=== PATIENT | female | born 1955 | race Caucasian/White ===

== ENCOUNTER 2017-04-18 14:45 | Emergency (ER) | payer BC, SELFPAY ==
[2017-04-18 15:10] VITALS: PULSE 103; RESP 20; TEMP 36.8; O2SAT 98; BMI 25.8
[2017-04-18 15:18] VITALS: BP 145/77; PULSE 100; RESP 20; TEMP 36.6
--- NOTE | 2017-04-18 15:30 | HMH.EDUTC ---
[facility] [place] Clinical Impression: Pneumonia Qualifiers: Pneumonia type: due to unspecified organism Laterality: left Lung location: unspecified part of lung Qualified Code(s): J18.9 - Pneumonia, unspecified organism Disposition: Home, Self-Care Condition on Discharge: Good Additional Instructions: Follow up with Dr Zazueta tomorrow as advised in clinic today If you began to have any distress, trouble breathing or worsening of symptoms go straight to ER REturn if needed Prescriptions: Budesonide/Formoterol Fumarate [Symbicort 160-4.5 Mcg Inhaler] 2 puffs IH BID #1 [email or web address] Referrals: Heather Hurtado APRN [Primary Care Provider] - 04/19/17 2:00 pm Time of Disposition: 17:05 Medical Decision Making - Medical Records Medical records reviewed: Yes: I reviewed the patient's medical records. Vital Signs: 04/18/17 15:10 04/18/17 15:18 Temperature 98.2 F 97.8 F Temperature Source Temporal Artery Scan Pulse Rate 100 H Pulse Rate [Right] 103 H Respiratory Rate 20 20 Blood Pressure 145/77 02 Sat by Pulse Oximetry 98 Oxygen Delivery Method Room Air - Lab Data Lab Results 04/18/17 15:15: Influenza Type A Ag Negative, Influenza Type B Ag Negative, Strep Scn Rapid Clinic Negative Orders (Tests/Meds): ORDERS Category Date Time Status Strep Screen Confirmation Stat Micro 04/18/17 15:15 Received - Physician Consults Physician Consulted: Dr Zazueta/ Dr Cooper covering Time: 16:38 Reason -: Pt condition Comment/Response: Dr Cooper covering for Dr Zazueta, Spoke with Dr Cooper about patient has been sick for over a month, has already received 2 injections of Rocephin, and just completed Biaxin, patient not having any distress SPO2 98% no fever, state to start patient on symbicort 2 puffs twice daily and have patient follow up with Dr Zazueta. Patient has appointment tomorrow at 2pm and dc patient home - Maroks Inquiry Pt receiving controlled substance: No Markos was queried for this patient: No - Reevaluation(s) Time: 17:03 Reevaluation #1: Patient no distress no changes patient dc'd home has appointment with Dr Zazueta tomorrow at 2 pm Patient advised to keep appointment [facility] [place] - General Stated complaint: sore throat upset stomach Mode of Arrival: Ambulatory Source of Information: Patient Limitations: No Limitations Description of Symptoms (Recalled from Triage Doc. by RN): COUGH, CONGESTION BODY ACHES X1 MONTH HEENT Symptoms (Recalled from RN notes): Yes Resp Symptoms (Recalled from RN notes): No Skin Symptoms (Recalled from RN notes): No MS Symptoms (Recalled from RN notes): No Functional Status (Recalled from RN notes): N - History of Present Illness Provider Complaint: Patient state that she has been sick now for over a month States that she has been seen several times by family doctors and here at the [facility] State that she is having cough, congestion, vomiting and chills States that she recently completed Biaxin and still not feeling any better - Related Data Previous Rx's Medication Instructions Recorded Budesonide/Formoterol Fumarate 2 puffs IH BID #1 hfa.aer.ad 04/18/17 [Symbicort 160-4.5 Mcg Inhaler] Allergies Allergy/AdvReac Type Severity Reaction Status Date / Time No Known Allergies Allergy Verified 04/18/17 15:17 - Worker's Comp Is this a Worker's Comp case?: No [facility] History I have reviewed the patient's past medical history: Yes - Social History Alcohol Intake: never - Psychiatric History Expresses thoughts of harming self/others: None Suicide Plan Description: No Plan ROS Obtained: Yes All systems reviewed & no additional complaints - Constitutional Constitutional: Reports chills, Reports fever(s) - ENT Ears, Nose, Mouth, and Throat: Reports sinus pressure, Reports sore throat - Respiratory Respiratory: Yes chest congestion, Yes cough Physical Exam - General General appearance: alert, in no apparent distress - Expanded ENT Exam
[2017-04-18 15:36] LABS: UTC Influenza A Antigen Negative (Negative); UTC Influenza B Antigen Negative (Negative); UTC Strep Screen (Rapid) Negative (Negative)
--- NOTE | 2017-04-18 15:42 | XR_ITS ---
XR chest 2V Ordering Physician: Fannie Fuentes Patient Age: 62 years: Female HISTORY: ITS.REASON: congestion cough. TECHNIQUE: PA and lateral chest COMPARISON : 03/19/2013 CXR FINDINGS Left lower lobe airspace disease. Somewhat streaky appearing infiltrate and atelectasis at left lower lobe on seen today and not evident on previous study. Question some minimal atelectasis and infiltrate posterior to the left abram as well at left lower lobe. Lateral view Right lung appears stable and fairly clear. Heart abram and mediastinal structures unchanged. Chest wall T-spine unchanged. IMPRESSION: 1. Left lower lobe airspace disease and pneumonia . 2. subtle atelectasis and possible infiltrate infiltrate posterior to the left abram at superior segment LLL on lateral view noted as well
--- NOTE | 2017-04-18 15:42 | ED_ITS ---
[facility] [place] Clinical Impression: Pneumonia Qualifiers: Pneumonia type: due to unspecified organism Laterality: left Lung location: unspecified part of lung Qualified Code(s): J18.9 - Pneumonia, unspecified organism Disposition: Home, Self-Care Condition on Discharge: Good Additional Instructions: Follow up with Dr Zazueta tomorrow as advised in clinic today If you began to have any distress, trouble breathing or worsening of symptoms go straight to ER REturn if needed Prescriptions: Budesonide/Formoterol Fumarate [Symbicort 160-4.5 Mcg Inhaler] 2 puffs IH BID # 1 hfa.[email or web address] Referrals: Heather Hurtado APRN [Primary Care Provider] - 04/19/17 2:00 pm Time of Disposition: 17:05 Medical Decision Making - Medical Records Medical records reviewed: Yes: I reviewed the patient's medical records. Vital Signs: 04/18/17 15:10 04/18/17 15:18 Temperature 98.2 F 97.8 F Temperature Source Temporal Artery Scan Pulse Rate 100 H Pulse Rate [Right] 103 H Respiratory Rate 20 20 Blood Pressure 145/77 02 Sat by Pulse Oximetry 98 Oxygen Delivery Method Room Air - Lab Data Lab Results 04/18/17 15:15: Influenza Type A Ag Negative, Influenza Type B Ag Negative, Strep Scn Rapid Clinic Negative Orders (Tests/Meds): ORDERS Category Date Time Status Strep Screen Confirmation Stat Micro 04/18/17 15:15 Received - Physician Consults Physician Consulted: Dr Zazueta/ Dr Cooper covering Time: 16:38 Reason -: Pt condition Comment/Response: Dr Cooper covering for Dr Zazueta, Spoke with Dr Cooper about patient has been sick for over a month, has already received 2 injections of Rocephin, and just completed Biaxin, patient not having any distress SPO2 98% no fever, state to start patient on symbicort 2 puffs twice daily and have patient follow up with Dr Zazueta. Patient has appointment tomorrow at 2pm and dc patient home - Markos Inquiry Pt receiving controlled substance: No Markos was queried for this patient: No - Reevaluation(s) Time: 17:03 Reevaluation #1: Patient no distress no changes patient dc'd home has appointment with Dr Zazueta tomorrow at 2 pm Patient advised to keep appointment [facility] [place] - General Stated complaint: sore throat upset stomach Mode of Arrival: Ambulatory Source of Information: Patient Limitations: No Limitations Description of Symptoms (Recalled from Triage Doc. by RN): COUGH, CONGESTION BODY ACHES X1 MONTH HEENT Symptoms (Recalled from RN notes): Yes Resp Symptoms (Recalled from RN notes): No Skin Symptoms (Recalled from RN notes): No MS Symptoms (Recalled from RN notes): No Functional Status (Recalled from RN notes): N - History of Present Illness Provider Complaint: Patient state that she has been sick now for over a month States that she has been seen several times by family doctors and here at the [facility] State that she is having cough, congestion, vomiting and chills States that she recently completed Biaxin and still not feeling any better - Related Data Previous Rx's Medication Instructions Recorded Budesonide/Formoterol Fumarate 2 puffs IH BID #1 hfa.aer.ad 04/18/17 [Symbicort 160-4.5 Mcg Inhaler] Allergies Allergy/AdvReac Type Severity Reaction Status Date / Time No Known Allergies Allergy Verified 04/18/17 15:17 - Worker's Comp Is this a Worker's
== END 2017-04-18 17:08 | disposition home or self-care (01) ==
PROVIDERS: Emergency Provider Nurse Practitioner; Family Provider Family Medicine; PCP Nurse Practitioner
DX: J18.9 Pneumonia, unspecified organism (principal)
CPT/HCPCS: 71046; 87804; 87880; 99202; 99203

== ENCOUNTER → 2018-01-20 08:34 | Outpatient (CLI) | payer BC, MEDICARE, SELFPAY ==
--- NOTE | 2018-01-20 08:37 | US_ITS ---
US abdomen limited History:Elevated liver enzymes Ordering Physician:Heather Hurtado Patient Age: 62 years Comparison:Ct scan of Abd 10/12/2006 Findings: Pancreas:Unremarkable. No obvious mass or abnormal fluid collection. No ductal dilatation Liver:No focal liver lesions demonstrated. Homogeneous but overall increased echogenicity. No focal lesions seen. No intrahepatic biliary ductal dilatation evident Right Kidney:Unremarkable. Right kidney measures 9.6 x 4.1 x 6.1 cm and appears sonographically normal. . No hydronephrosis Gallbladder:No gallstones, gallbladder wall thickening, pericholecystic fluid, or biliary dilatation. The common bile duct measures 3 mm in diameter. Impression:Diffuse hepatic steatosis otherwise unremarkable study
== END ==
PROVIDERS: PCP Nurse Practitioner; Visit Provider Nurse Practitioner
DX: R74.8 Abnormal levels of other serum enzymes (principal)
CPT/HCPCS: 76705

== ENCOUNTER 2018-08-08 06:21 | Day surgery (SDC) | payer BC, MEDICARE, SELFPAY ==
[2018-08-07 13:29] VITALS: BMI 24.2
[2018-08-08] VITALS (7 sets, daily range): BP systolic 157–180; BP diastolic 81–91; PULSE 62–68; RESP 16–18; TEMP 36.3–36.5; O2SAT 97–100
== END 2018-08-08 08:21 | disposition home or self-care (01) ==
PROVIDERS: PCP Nurse Practitioner; Visit Provider Ophthalmology
PROC: (CPT 66984; principal; 2018-08-08 07:30)
DX: H26.9 Unspecified cataract (principal)
CPT/HCPCS: 66984; V2632

== ENCOUNTER → 2019-03-02 14:43 | Outpatient (CLI) | payer BC, MEDICARE, SELFPAY ==
--- NOTE | 2019-03-02 14:53 | XR_ITS ---
PROCEDURE: XR LUMBAR SPINE MIN 4V CLINICAL INDICATION: LBP COMPARISON: No exams were available for comparison FINDINGS: There is degenerative disc disease at L2-L3. Mild degenerative disc disease L4-5. No fracture or dislocation. No lytic or blastic change. Vascular calcification is noted. IMPRESSION: Degenerative changes, no acute finding Dictated by: Jatinder Jeter MD 03/02/2019 17:05 Electronically signed by Jatinder Jeter MD in [place] 03/02/2019 17:05
== END ==
PROVIDERS: PCP Nurse Practitioner Family; Visit Provider Nurse Practitioner Family
DX: M54.5 Low back pain (principal)
CPT/HCPCS: 72110

== ENCOUNTER → 2019-07-23 10:36 | Outpatient (CLI) | payer BC, MEDICARE, SELFPAY ==
[2019-07-23 12:11] LABS: Coronavirus 19 IgG Antibody Negative (Negative); Coronavirus 19 IgM Antibody Negative (Negative)
== END ==
PROVIDERS: Visit Provider Ophthalmology
DX: Z03.818 Encounter for observation for suspected exposure to other biological agents ruled out (principal)
CPT/HCPCS: 36415; 86328

== ENCOUNTER 2019-07-24 08:56 | Day surgery (SDC) | payer BC, MEDICARE, SELFPAY ==
--- NOTE | 2019-07-18 13:14 | SUR.PREOP ---
07/18/2019--PHONE CALL MADE TO PATIENT. PATIENT UNDERSTANDS THAT LAB WORK AND COVID TESTING NEEDS TO BE COMPLETED @ 1000 ON 07/23/2019. PATIENT UNDERSTANDS IF LAB WORK AND COVID-19 TESTS ARE NOT COMPLETED BY 12PM ON THAT DATE, THE SURGERY SCHEDULED WILL BE CANCELLED AND RESCHEDULED FOR ANOTHER TIME.
[2019-07-19 13:01] VITALS: BMI 24.2
[2019-07-24 09:56] VITALS: BP 163/95; PULSE 69; RESP 18; TEMP 36.3; O2SAT 99
[2019-07-24 11:00] VITALS: BP 163/97; PULSE 69; RESP 18; TEMP 36.1; O2SAT 98
== END 2019-07-24 11:15 | disposition home or self-care (01) ==
PROVIDERS: PCP Nurse Practitioner; Visit Provider Ophthalmology
PROC: (CPT 66821; principal; 2019-07-24 09:30)
DX: H26.491 Other secondary cataract, right eye (principal); J44.9 Chronic obstructive pulmonary disease, unspecified; F41.9 Anxiety disorder, unspecified; F32.9 Major depressive disorder, single episode, unspecified; M19.90 Unspecified osteoarthritis, unspecified site; Z79.899 Other long term (current) drug therapy; Z90.710 Acquired absence of both cervix and uterus
CPT/HCPCS: 66821

== ENCOUNTER → 2019-09-07 06:20 | Outpatient (CLI) | payer BC, MEDICARE, SELFPAY ==
--- NOTE | 2019-09-07 06:21 | CA_ITS ---
APPROVED REPORT EXAM: Comprehensive 2D, Doppler, and color-flow Echocardiogram Bobbin Drier: Rima Albright RT(R) Ht: 5 ft 6 in Wt: 150lbs BSA: 1.77 BP: 152/77 mmHg Indications: Sob, HTN, COPD, ex smoker, palpitations, SNOW, family history of HD 2D Dimensions LVOT 2.03 cm (M/F) 1.5-2.5 M-Mode Dimensions RVDd 2.22 cm (0.9-2.6) LVDd 4.72 cm (3.5-5.7) LVDs 3.40 cm (3.5-5.7) IVSd 0.75 cm (0.6-1.1) PWd 0.75 cm (0.6-1.1) EF (Teich) 54.20% FS 28.00% EDV (Teich) 103.40 mL ESV (Teich) 47.40 mL LV Diastology E/A Ratio 1.10 Mitral Valve MV A Velocity 85.00 (40-130 cm/s) Left Ventricle Left atrium is mildly enlarged, left ventricle is normal size, mild concentric left ventricular hypertrophy, visually estimated ejection fraction 55% with no regional wall motion abnormality, diastolic parameters are within normal range. Right Ventricle Right atrium and right ventricular normal size and contractility. Aortic Valve Valve is minimally thickened and fibrosed, there is no aortic stenosis or aortic insufficiency. Mitral Valve Mitral valve is grossly normal, there is mild mitral regurgitation. Tricuspid Valve Tricuspid valve grossly normal, there is mild tricuspid regurgitation, tricuspid regurgitation jet velocity is inadequate for calculation of the right ventricular systolic pressure. Pulmonic Valve Pulmonic valve is poorly visualized. Great Vessels Aortic root is normal size. Pericardium No significant pericardial effusion noted. Conclusion 1. Mildly enlarged left atrium, normal left ventricular size, visually estimated ejection fraction 55% with no regional wall motion abnormality, diastolic parameters are within normal range. 2. Mild mitral and tricuspid regurgitation. 3. No significant pericardial effusion noted. Electronically signed by : Keegan Forbes, 09/07/2019 11:14:20
--- NOTE | 2019-09-07 06:21 | CA_ITS ---
APPROVED REPORT Exam: Pharmacologic Technologist: Kathy Aguilar, Ht: 5 ft 6 in Wt: 150 lbs BSA: 1.77 m2 HR: 60 bpm BP: 168/69 mmHg Medical History Medical History: HTN Medications: Levothyroxine,,,,, Losartan,,,,, Pantoprazole,,,,, HCTZ,,,,, Ropinirole,,,,, Prozac,,,,, Allergies: No known drug allergies Cardiac Risk Factors: HTN Stress Test Details Test: LEXISCAN HR Resting HR: 60 bpm Max Heart Rate (APMHR): 158 bpm Max HR Achieved: 105 bpm Target HR (85% APMHR): 134 bpm % of APMHR: 66 Recovery HR: 90 bpm BP Resting BP: 168.0/69.0 mmHg Max BP: 172.0/90.0 mmHg Recovery BP: 165.0/76.0 mmHg ECG Resting ECG: SINUS BRADYCARDIA Clinical Exercise duration: 04:02 min Highest Stage Achieved: Exercise capacity: 1.0 METs Stress ECG Conclusion LEXISCAN PORTION COMPLETED. PATIENT C/O SHORTNESS OF BREATH DURING PEAK INFUSION. NO CHEST PAIN. POSITIVE FOR SHORTNESS OF BREATH DURING PEAK INFUSION. RESOLVED IN RECOVERY. NO ECTOPY. LESS THAN 1.5MM ST DEPRESSION. IMAGES TO FOLLOW Test Summary . . Myoview Injected . . . . Stop exercise at 04:02 . . . . . Electronically signed by : Keegan Forbes, 09/07/2019 13:31:39
--- NOTE | 2019-09-07 06:21 | NM_ITS ---
APPROVED REPORT Exam: Nuclear Stress Test Indication: short of breath..palpitation..fatigue Patient Location: Outpatient Stress Tech: Lolis Lauren [facility] Tech:KASIE Mckay RT(R)(N) Ht: 5 ft 6 in Wt: 150 lbs Bra Size: 36b HR: 60 bpm BP: 168/69 mmHg BSA: 1.77 m2 BMI: 24.2 History: short of breath..palpitation..fatigue Procedure: Patient received a 0.4 mg of intravenous Lexiscan, resting heart rate 60 bpm, resting blood pressure 168/69 mmHg, with Lexiscan maximum heart rate achived was 105 bpm which is Less than 85 % of the maximum predicted heart rate and blood pressure was 139/51 mmHg. Electrocardiogram Resting electrocardiogram showed sinus rhythm, with Lexiscan there is less than 1.[address] segment depression noted from the baseline EKG. The EKG portion of the Lexiscan is nondiagnostic. Cardiac Stress and Resting SPECT Images: Cardiac Stress and Resting SPECT images were obtained using technetium 99m Myoview 29.7 mCi stress and 10.22 mCi at rest. Gated SPECT for analysis of segmental wall motion and calculation of the ejection fraction also done. Cardiac stress and resting SPECT images show mild fixed defect in the anterior wall with normal contractility to SPECT is likely secondary to soft tissue attenuation, no reversible ischemia seen. Computer derived ejection fraction is over 65% with no regional wall motion abnormality, right ventricle is normal size and contractility. Conclusion: 1. The EKG portion of the Lexiscan Myoview is nondiagnostic . 2. No scintigraphic evidence of reversible ischemia seen, computer derived ejection fraction is over 65% with no regional wall motion abnormality, right ventricle is normal size and contractility. 3. Likely normal Lexiscan Myoview study. Electronically signed by : Keegan Forbes, 09/07/2019 13:34:31
--- NOTE | 2019-09-07 08:50 | HMH.ITSHM ---
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 [] ropinirole pantoprazole losartan prozac levothyroxine hctz
== END ==
PROVIDERS: PCP Family Medicine; Visit Provider Urology
DX: R00.2 Palpitations (principal); R06.00 Dyspnea, unspecified; I10 Essential (primary) hypertension; Z82.49 Family history of ischemic heart disease and other diseases of the circulatory system; Z87.891 Personal history of nicotine dependence
CPT/HCPCS: 78452; 93017; 93306; A9502; J2785

== ENCOUNTER → 2019-09-25 14:18 | Outpatient (CLI) | payer BC, MEDICARE, SELFPAY ==
[2019-09-25 18:05] LABS: Anion Gap 14.9 mEq/L (5-15); Blood Urea Nitrogen 16 mg/dl (7-17); Calcium 9.7 mg/dl (8.4-10.2); Carbon Dioxide 27 mmol/L (22.0-30.0); Chloride 102 mmol/L (98-107); Estimated Glomerular Filt Rate 73 ml/min (>60); GFR (African American) 88 ML/MIN (>60); Glucose 105 mg/dl (74-100); Potassium 3.9 mmoL/L (3.5-5.1); Sodium 140 mmol/L (136-145)
== END ==
PROVIDERS: Nurse Practitioner Family; Visit Provider Urology
DX: R00.2 Palpitations (principal); R06.00 Dyspnea, unspecified; I10 Essential (primary) hypertension; Z82.49 Family history of ischemic heart disease and other diseases of the circulatory system; Z87.891 Personal history of nicotine dependence
CPT/HCPCS: 36415; 80048; 84443

== ENCOUNTER → 2019-11-30 08:19 | Outpatient (CLI) | payer BC, MEDICARE, SELFPAY ==
--- NOTE | 2019-11-30 08:22 | CT_ITS ---
PROCEDURE: CT CHEST WO CON 3D volume rendering with shading included Referring Doctor: Heather Hurtado Patient Age:64Y CLINICAL INDICATION: COPD,COUGH,SOB soreness both sides of chest But nonsmoker COMPARISON: No exams were available for comparison TECHNIQUE: Helical axial images obtained with sagittal and coronal reformats and thickened axial images. In addition 3D volume rendering with shading performed on CT independent workstation-[address] [facility]. All CT scans at the facility use one or more dose reduction, viz: automated exposure control, ma/kV adjustment per patient size (including targeted exams where dose is matched to indication, i.e. head), or iterative reconstruction technique. FINDINGS: BONES chest wall: 3D volume reconstruction image shut nicely demonstrates the ribs and rib cage. No rib fractures evident. Sternum unremarkable on these as well as 2D reconstruction images.. Thoracic spine appears intact with no acute findings only scant degenerative changes HEART: Unremarkable-On this noncontrast study. Heart normal size no significant pericardial effusion. MEDIASTINAL AND HILAR STRUCTURES: No mediastinal or hilar mass evident. Only old granulomatous calcified2 right hilar nodes . AORTA: No contrast-normal caliber aorta. No aneurysm. Only minimal atherosclerotic calcification aortic knob and at origin of renal arteries LUNGS:Clear with no active disease.. Minimal basilar atelectasis but no mass or consolidation.. Small 6 mm calcified granuloma at the left upper lobe axial image 28 Benign calcified granuloma at the right mid lung 1 cm size associated with several calcified right hilar nodes associated. PLEURAL SPACES: No significant effusion. No evidence of pneumothorax. . LYMPH NODES: No enlarged lymph nodes evident. UPPER ABDOMEN: Limited views here basically unremarkable. Upper normal wall thickness stomach reflects its nondistended state . IMPRESSION: Negative CT chest without contrast. . Lungs clear with no active cardiopulmonary disease . Old benign granulomatous disease evident. Chest wall and ribs unremarkable Dictated by: Andre Pal MD 11/30/2019 13:00 Andre Pal MD in [place] 11/30/2019 13:00
== END ==
PROVIDERS: PCP Family Medicine; Visit Provider Nurse Practitioner
DX: R05 Cough (principal); R06.02 Shortness of breath; J44.1 Chronic obstructive pulmonary disease with (acute) exacerbation
CPT/HCPCS: 71250

== ENCOUNTER → 2020-03-13 16:12 | Outpatient (CLI) | payer BC, MEDICARE, SELFPAY ==
[2020-03-15 11:36] LABS: Covid-19 Nasal PCR Sendout P&C Negative
== END ==
PROVIDERS: PCP Nurse Practitioner Family; Visit Provider Nurse Practitioner Family
DX: Z11.52 Encounter for screening for COVID-19 (principal)
CPT/HCPCS: U0004

== ENCOUNTER → 2020-05-02 16:26 | Outpatient (CLI) | payer BC, MEDICARE, SELFPAY | PROVIDERS: PCP Nurse Practitioner Family; Visit Provider Nurse Practitioner Family | DX: Z20.822 Contact with and (suspected) exposure to COVID-19 (principal); U07.1 COVID-19 | CPT/HCPCS: U0003 ==

== ENCOUNTER → 2020-06-10 11:19 | Outpatient (CLI) | payer BC, MEDICARE, SELFPAY ==
[2020-06-10 12:03] LABS: Basophils # 0.1 K/mm3 (0-0.2); Basophils % 0.9 % (0.1-2.0); Eosinophils # 0.3 K/mm3 (0.0-0.4); Eosinophils % 4.1 % (0.1-12.0); Hematocrit 34.9 % (37.0-47.0); Hemoglobin 10.9 g/dL (12.2-16.2); Lymphocytes # 1.3 K/mm3 (0.7-4.5); Lymphocytes % 18.2 % (10-50); Mean Corpuscular HGB Conc 31.2 g/dL (31.8-35.4); Mean Corpuscular Hemoglobin 28.4 pg (27.0-31.2); Mean Platelet Volume 7.1 fl (7.4-10.4); Monocytes # 0.4 K/mm3 (0.1-1.0); Monocytes % 5.3 % (1.7-9.3); Neutrophils # 5.1 K/mm3 (1.8-7.8); Neutrophils % 71.4 % (37.0-80.0); Platelet Count 299 K/mm3 (142-424); Red Blood Count 3.84 M/mm3 (4.20-5.40); White Blood Count 7.2 K/mm3 (4.8-10.8)
[2020-06-10 12:57] LABS: Chloride 104 mmol/L (98-107); Potassium 4.6 mmoL/L (3.5-5.1); Sodium 139 mmol/L (136-145)
[2020-06-10 13:00] LABS: Alanine Aminotransferase 34 U/L (12-78); Albumin Level 4.5 g/dl (3.5-5.0); Albumin/Globulin Ratio 1.7 (1.1-1.8); Alkaline Phosphatase 107 U/L (38-126); Anion Gap 12.6 mEq/L (5-15); Aspartate Amino Transferase 38 U/L (14-36); Bilirubin,Total 0.4 mg/dl (0.2-1.3); Blood Urea Nitrogen 18 mg/dl (7-17); Carbon Dioxide 27 mmol/L (22.0-30.0); Estimated Glomerular Filt Rate 72 ml/min (>60); GFR (African American) 88 ML/MIN (>60); Globulin 2.7 g/dL (1.3-3.2); Total Protein,Serum 7.2 g/dl (6.3-8.2)
[2020-06-10 13:01] LABS: Calcium 9.6 mg/dl (8.4-10.2); Glucose 96 mg/dl (74-100)
== END ==
PROVIDERS: PCP Nurse Practitioner Family; Visit Provider Nurse Practitioner Family
DX: I49.9 Cardiac arrhythmia, unspecified (principal); I10 Essential (primary) hypertension
CPT/HCPCS: 36415; 80053; 84443; 85025; 93225; 93226

== ENCOUNTER → 2020-07-09 07:51 | Outpatient (CLI) | payer BC, MEDICARE, SELFPAY ==
--- NOTE | 2020-07-09 07:55 | CA_ITS ---
APPROVED REPORT Rn Home Health: Dianne Zeng RVT Study Quality: Good Indications: HTN Risk Factors Hypertension Smoking Renal Artery Doppler Origin (R) 203.7/ cm/sec Proximal (R) 196.0/ cm/sec Mid (R) 230.6/ cm/sec Distal (R) 178.7/ cm/sec Renal Aorta Ratio (R) 2.88 Segmental A. (R) 73.2/19.3 cm/sec RI: 0.73 Segmental A. Sup (R) 73.2/19.3 cm/sec Segmental A. Mid (R) 40.4/13.5 cm/sec Segmental A. Inf (R) 42.6/14.6 cm/sec Origin (L) 115.3/ cm/sec Proximal (L) 169.1/ cm/sec Mid (L) 196.0/ cm/sec Distal (L) 188.3/ cm/sec Renal Aorta Ratio (L) 2.44 Segmental A. (L) 82.8/21.4 cm/sec RI: 0.74 Segmental A. Sup (L) 74.8/22.7 cm/sec Segmental A. Mid (L) 82.8/21.4 cm/sec Segmental A. Inf (L) 76.1/20.0 cm/sec Renal Measurements Kidney Size (R) 9.7x6.2 cm Cortical Thickness (R) 1.4 cm Kidney Size (L) 10.0x6.3 cm Cortical Thickness (L) 1.5 cm Findings Study suggests less than 60% stenosis of the bilateral renal arteries. Conclusion Study suggests less than 60% stenosis of the bilateral renal arteries. Electronically signed by : Judi Fleming, 07/10/2020 16:43:19
--- NOTE | 2020-07-09 08:28 | US_ITS ---
PROCEDURE: US ABDOMEN LIMITED CLINICAL INDICATION: RUQ PAIN COMPARISON: US ABD US abdomen limited from 01/20/2018 FINDINGS: PANCREAS: The visualized pancreas is unremarkable. The tail is partially LIVER: Obscured. Diffuse fatty infiltration of the liver is noted. No focal liver lesions. No intra or extrahepatic biliary dilation. The portal vein is patent and demonstrates appropriate directional flow. The CBD measures 0.2 centimeters. RIGHT KIDNEY: Unremarkable. Normal size and echogenicity. No hydronephrosis GALLBLADDER: No gallstones, gallbladder wall thickening, pericholecystic fluid, or biliary dilatation. Small amount of sludge is noted in the above gallbladder. IMPRESSION: Sludge in the gallbladder. No evidence of Colles lithiasis or cholecystitis. Hepatic steatosis. Dictated by: Judi Fleming 07/09/2020 11:44 Judi Fleming in [place] 07/09/2020 11:44
== END ==
PROVIDERS: PCP Nurse Practitioner Family; Visit Provider Nurse Practitioner Family
DX: R10.11 Right upper quadrant pain (principal); I10 Essential (primary) hypertension
CPT/HCPCS: 76705; 93976

== ENCOUNTER → 2020-07-30 10:16 | Outpatient (CLI) | payer BC, MEDICARE, SELFPAY ==
--- NOTE | 2020-07-30 10:19 | NM_ITS ---
PROCEDURE: NM HEPATOBILIARY WO PHARM CLINICAL INDICATION: SLUDGE IN GALLBLADDER COMPARISON: US US ABDOMEN LIMITED from 07/09/2020 TECHNIQUE: DOSE: 8.44 mCi technetium Choletec. Fatty meal/ensure given for gallbladder contraction FINDINGS: Homogeneous activity is present within the hepatic parenchyma. Activity is present in the gallbladder by 5 minutes. Activity is present in the small bowel by 60 minutes. The gallbladder ejection fraction is calculated to be 94 percent. No pain reported with fatty meal. IMPRESSION: No evidence of common or cystic duct obstruction with normal gallbladder ejection fraction. Dictated by: Jatinder Jeter MD 07/30/2020 17:37 Jatinder Jeter MD in [place] 07/30/2020 17:37
== END ==
PROVIDERS: PCP Nurse Practitioner Family; Visit Provider Nurse Practitioner Family
DX: R10.10 Upper abdominal pain, unspecified (principal); K82.8 Other specified diseases of gallbladder
CPT/HCPCS: 78226; A9537

== ENCOUNTER → 2020-10-03 12:05 | Outpatient (CLI) | payer BC, MEDICARE, SELFPAY | PROVIDERS: Visit Provider Internal Medicine Gastroenterology | DX: Z01.812 Encounter for preprocedural laboratory examination (principal); Z20.822 Contact with and (suspected) exposure to COVID-19; Z13.810 Encounter for screening for upper gastrointestinal disorder; R10.10 Upper abdominal pain, unspecified | CPT/HCPCS: U0003 ==

== ENCOUNTER 2020-10-06 10:24 | Day surgery (SDC) | payer BC, MEDICARE, SELFPAY ==
[2020-10-02 13:19] VITALS: BMI 24.2
[2020-10-06 10:44] VITALS: BP 171/75; PULSE 60; RESP 16; TEMP 36.9; O2SAT 98
--- NOTE | 2020-10-06 11:18 | P.PN_ITS ---
[facility] Anesthesia Checklist - Patient Identification Patient Identification: Arm Band - Structural Data Admitted From: Home Planned Operative Procedure/s: EGD/Colonoscopy Consent for Planned Operative Procedure(s) Verified: Yes - NPO Status Verified Time NPO: 00:00 - Additional verifications Anesthesia Reactions: No - Airway Assessment C-Spine Mobility Assessed: Yes TMJ Mobility Assessed: Yes Dentition: Edentulous - Neurological Assessment Level of Consciousness: Awake Hx Seizures: No Numbness or tingling in extremities: No - Anesthesia Plan Anesthesia Risk discussed: Yes Anesthesia Plan: Verified ASA Class: III Anesthesia Type: MAC [facility] History I have reviewed the patient's past medical history: Yes Medical History: Reports:: Anxiety, Cancer (cervical), Chronic Obstructive Pulmonary Disease (COPD), Depression, Hypertension, Lung Disease, Migraine Denies:: Diabetes Mellitus Type 1, Diabetes Mellitus Type 2, Internal Pacemaker, MRSA, Seizures *Have you ever received a pneumonia vaccine?: No *Have you received a flu vaccine this season?: No Other Medical History: Reports: Arthritis, Thyroid Disease, Other Anesthesia experience/problems:: None Laterality Cases: Bilateral: Cataract Other Surgeries: Yes: Tubal Ligation, Other (elbow, neck, shoulder). No: Pacemaker Amputation: No Fractures: No - *Social History Last grade of school completed: High school graduate Smoking Status: Former smoker #Yrs smoked (if former smoker): 40 Smoking End Date: 04/2013 Alcohol Intake: never Substance Use Type: denies use *Occupational Status:: retired Housing: house Household Members: spouse, family *Travel in the last 8 weeks: None - Psychiatric History Pschychiatric History:: Reports:: Anxiety, Depression Family Hx:: Cancer
--- NOTE | 2020-10-06 11:54 | HMH.PROC ---
[facility] Procedure Note Procedure Note:: Upper Endoscopy Procedure Report: Esophagogastroduodenoscopy with cold biopsies and TTS balloon dilation Endoscopost: Davey Dhillon II, MD Referring Physician: HEATHER Sands Date of Procedure: October 06, 2020 Equipment: Olympus GIF 190 standard upper endoscope Sedation: MAC sedation Indications: Mrs. Tilley is a 65-year-old female with acute and chronic dyspepsia and IBS. She has had longstanding lower abdominal discomfort. Over the last 6 months she has had epigastric pain and dyspepsia. She reports bloating, belching, nausea and early satiety. She reports some dysphagia and globus sensation. She reports no significant heartburn but does get some reflux. She does take omeprazole which helps. The patient also reports chronic diarrhea. Procedure: Prior to the procedure, a history and physical exam was performed, and patient's medications and allergies were reviewed. The risks, benefits and alternatives of the sedation and procedure were discussed with the patient. All questions were answered and informed consent was obtained. The patient was brought to the procedure room. Patient identification and proposed procedure were verified by the physician and the nurse. The patient was placed in a left lateral decubitus position and the scope was passed under direct vision. Throughout the procedure, the patient's blood pressure, pulse, and oxygen saturations were monitored continuously. The upper GI endoscopy was accomplished without difficulty. The patient tolerated the procedure well. Findings: The scope was passed directly into the upper esophagus and advanced to the third portion of the duodenum. The post bulbar duodenum and duodenal bulb were normal with normal mucosa and conniventes. There was mild duodenal lymphoid stasis. Cold biopsies were taken from the post bulbar duodenum to rule out celiac disease. The scope was withdrawn through a normal duodenal bulb and pylorus into the stomach. There was some bile reflux with mild linear reactive gastropathy of the antrum and body of the stomach. The remainder of the fundus of the stomach was grossly normal. Upon retroflexion there was no hiatal hernia. 2 biopsies were taken in the antrum and along the lesser curvature for histology to rule out gastritis and/or H pylori. The scope was then withdrawn into the esophagus. There was a serrated Z-line. Cold biopsies were taken at the GE junction. There was evidence of moderate tertiary contractions and moderate esophageal dysmotility. The entire esophagus was dilated to 60 Maltese/20 mm with a TTS hydrostatic balloon. There was some resistance at the cricopharyngeus. The remainder of the esophageal mucosa was normal. Impression: 1. Cricopharyngeal spasm status post dilation to 20 mm 2. Nonerosive GERD with moderate esophageal dysmotility 3. Bile reflux with mild linear reactive gastropathy Plan: I will follow-up the biopsies. I will discuss the findings with the patient and family. I do feel that this is functional dyspepsia and functional bowel disease (i.e. IBS diarrhea). I will check for CATRACHO and CSID. I will proceed with colonoscopy.
--- NOTE | 2020-10-06 12:20 | P.PCN_ITS ---
[facility] Procedure Note Procedure Note:: Colonoscopy Procedure Report: Colonoscopy with cold biopsies Endoscopist: Davey Dhillon II, MD Referring physician: HEATHER Sands Date of Procedure: October 06, 2020 Equipment: Olympus 190 variable stiffness pediatric colonoscope Sedation: MAC sedation Indication: Mrs. Tilley is a 65-year-old female with epigastric abdominal pain and lower abdominal pain. She has chronic diarrhea. She reports moderate gassiness and bloating. She reports no rectal bleeding or weight loss. She does state that her half sister had Crohn's disease and her father had colitis. The patient did have a colonoscopy (Dr. Jeff Bhatti) in June 2015. The patient did have an ultrasound of the abdomen in June 2020 that showed some sludge and hepatic steatosis. A subsequent HIDA scan showed a 94% gallbladder ejection fraction. The patient did have a CT scan of the chest in 2019 that did not show any significant findings. Procedure: Prior to the procedure, a history and physical exam was performed, and patient's medications and allergies were reviewed. The risks, benefits and alternatives of the sedation and procedure were discussed with the patient. All questions were answered and informed consent was obtained. The patient was brought to the procedure room. Patient identification and proposed procedure were verified by the physician and the nurse. The patient was placed in a left lateral decubitus position and the scope was passed under direct vision. Throughout the procedure, the patient's blood pressure, pulse, and oxygen saturations were monitored continuously. The colonoscopy was accomplished without difficulty. The patient tolerated the procedure well. Findings: On digital rectal examination there was normal rectal tone. There were no external hemorrhoids. The colonoscope was introduced through the anal canal to the rectum and advanced to the cecum. The ileocecal valve and appendiceal orifice were identified. The scope was advanced a short distance into the ileum which appeared mostly normal. There appeared to be some reduced luminal diameter and increased whitish lymphoid papules. Cold biopsies were taken from the ileum for histology. The scope was then withdrawn into the colon. The cecum, ascending and transverse colon and mucosa were grossly normal. Cold biopsies were taken from the right colon to rule out microscopic colitis. There were rarely scattered diverticuli throughout the descending and sigmoid colon (LEFT colon). There was also some mild mucosal edema of the distal descending and sigmoid colon and cold biopsies were obtained to rule out colitis (diverticular associated colitis). The rectum itself was normal. Upon retroflexion within the rectum there were grade 2 internal hemorrhoids. The preparation was excellent throughout with Jenners Preparation Score of 9. The cecal time was 12 minutes. Impression: 1. 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 Ileal lymphoid hyperplasia Plan: I will follow-up the biopsies. I would recommend additional testing to rule out CSID. We will discuss dietary measures and treatment options.
[2020-10-06 12:22] VITALS: BP 101/57; PULSE 65; RESP 12; TEMP 36.2; O2SAT 91
[2020-10-06 12:32] VITALS: BP 138/76; PULSE 63; RESP 16; O2SAT 96
[2020-10-06 12:42] VITALS: BP 146/90; PULSE 63; RESP 16; O2SAT 95
[2020-10-06 12:52] VITALS: BP 129/62; PULSE 63; RESP 16; TEMP 36.2; O2SAT 96
[2020-10-06 15:20] VITALS: O2SAT 97
== END 2020-10-06 12:57 | disposition home or self-care (01) ==
LOC: OUTP 10:26
PROVIDERS: PCP Nurse Practitioner Family; Visit Provider Internal Medicine Gastroenterology
PROC: 0DJ08ZZ Inspection of Upper Intestinal Tract, Via Natural or Artificial Opening Endoscopic (ICD-10-PCS; CPT 43235; principal; 2020-10-06 11:30)
DX: K57.30 Diverticulosis of large intestine without perforation or abscess without bleeding (principal); K52.89 Other specified noninfective gastroenteritis and colitis; R59.9 Enlarged lymph nodes, unspecified; J39.2 Other diseases of pharynx; K21.9 Gastro-esophageal reflux disease without esophagitis; K22.4 Dyskinesia of esophagus; K31.9 Disease of stomach and duodenum, unspecified; J44.9 Chronic obstructive pulmonary disease, unspecified; I10 Essential (primary) hypertension; Z85.41 Personal history of malignant neoplasm of cervix uteri; F41.9 Anxiety disorder, unspecified; F32.9 Major depressive disorder, single episode, unspecified
CPT/HCPCS: 45380; 43239; 43249; C1726

== ENCOUNTER 2021-03-18 09:02 | Emergency (ER) | payer BC, MEDICARE, SELFPAY ==
[2021-03-18 09:27] VITALS: BP 136/70; PULSE 89; RESP 18; TEMP 37.6; O2SAT 94; BMI 24.8
[2021-03-18 09:57] LABS: UTC Influenza A Antigen Negative (Negative); UTC Influenza B Antigen Negative (Negative)
[2021-03-18 09:58] LABS: UTC Strep Screen (Rapid) Negative (Negative)
--- NOTE | 2021-03-18 10:12 | HMH.EDUTC ---
[facility] [place] Impression: Viral syndrome, Exposure to COVID-19 virus Disposition: Home, Self-Care Condition on Discharge: Good Instructions: When a Loved One Has Chronic Fatigue Syndrome or Fibromyalgia, DI for Viral Syndrome, DI for COVID-19 (Suspected or Confirmed ), Preventing the Spread of Coronavirus Discharge Instructions Additional Instructions: Drink plenty of fluids. Take tylenol or ibuprofen for pain or fever. Take the medications as directed. Follow up with your regular doctor. GO TO THE ER FOR ANY WORSENING SYMPTOMS Quarantine until you know the results of your covid-19 test. Notify your school or workplace of your results and follow their instructions regarding return to work/school. The cough medication (promethazine dm) will make you drowsy, so don't drive or operate heavy machinery after taking it. Prescriptions: Promethazine/Dextromethorphan [Promethazine-Dm Syrup] 5 ml PO Q6HP PRN #240 ml PRN Reason: Cough Transmission Status: Received by [facility] Ondansetron [Zofran 4mg ODT] 4 mg PO Q8HP PRN #20 tab PRN Reason: Nausea Transmission Status: Received by [facility] methylPREDNISolone [Medrol] 4 mg PO DIRECTED 6 Days #21 packet Transmission Status: Received by [facility] Azithromycin [Z-Jacobo 250mg Tab*] 250 mg PO UD DOSE PK #6 tab Transmission Status: Received by [facility] Referrals: Nicole Gallardo APRN [Primary Care Provider] - Time of Disposition: 10:40 Medical Decision Making - Medical Records Medical records reviewed: No: I reviewed the patient's medical records. - Markos Inquiry Pt receiving controlled substance: No Vital Signs: 03/18/21 09:27 03/18/21 11:04 Temperature 99.7 F H 99.7 F H Temperature Source Oral Pulse Rate 89 Pulse Rate [Left] 89 Respiratory Rate 18 18 Blood Pressure 136/70 Blood Pressure [Right Arm] 136/70 Blood Pressure Mean [Right Arm] 92 02 Sat by Pulse Oximetry 94 L - Lab Data Lab results reviewed: Yes: I reviewed the patient's lab results. Lab Results 03/18/21 09:32: Strep Scn Rapid Clinic Negative 03/18/21 09:33: Influenza Type A Ag Negative, Influenza Type B Ag Negative Orders (Tests/Meds): ORDERS Category Date Time Status Strep Screen Confirmation Stat Micro 03/18/21 09:32 Received [facility] [place] - General Stated complaint: covid exposure/symptoms Time Seen by Provider: 03/18/21 10:12 Mode of Arrival: Ambulatory Source of Information: Patient Limitations: No Limitations Description of Symptoms (Recalled from Triage Doc. by RN): pt c/o fever, chills, myalgia, DUNCAN, n/v, dizziness and congestion since last night. HEENT Symptoms (Recalled from RN notes): Yes Resp Symptoms (Recalled from RN notes): No Skin Symptoms (Recalled from RN notes): No MS Symptoms (Recalled from RN notes): No Functional Status (Recalled from RN notes): wnl - History of Present Illness Provider Complaint: She c/o feeling bad, having body aches and congestion since last night. - Related Data Home Medications Medication Instructions Recorded Confirmed Fluoxetine HCl [Prozac 20mg 60 mg PO DAILY 09/05/18 10/06/20 Capsule] Fluticasone/Umeclidin/Vilanter 1 puff IH DAILY 09/05/18 10/06/20 [Trelegy Ellipta 100-62.5-25] Levothyroxine Sodium [Synthroid 112 mcg PO DAILY 07/19/19 10/06/20 75mcg (0.075mg) tablet] pantoprazole 40 mg tablet,delayed 40 mg PO DAILY tab 08/28/19 10/06/20 release Gabapentin [Gabapentin 400mg Cap] 400 mg PO TID 10/02/20 10/06/20 Losartan Potassium [Cozaar 100mg 100 mg PO DAILY 10/02/20 10/06/20 Tablets] Metoprolol Succinate [Toprol XL 50 mg PO DAILY 10/02/20 10/06/20 50mg Tablet] Vitamin B Complex [B Complex] 1 tab PO DAILY 10/02/20 10/06/20 Amiloride HCl 2.5 mg PO DAILY 10/06/20 10/06/20 Previous Rx's Medication Instructions Recorded Azithromycin [Z-Jacobo 250mg Tab*] 250 mg PO UD DOSE PK #6 tab 03/18/21 Ondansetron [Zofran 4mg
[2021-03-18 11:04] VITALS: BP 136/70; PULSE 89; RESP 18; TEMP 37.6
== END 2021-03-18 11:05 | disposition home or self-care (01) ==
PROVIDERS: Emergency Provider Nurse Practitioner Family; PCP Nurse Practitioner Family
DX: Z20.822 Contact with and (suspected) exposure to COVID-19 (principal); B34.9 Viral infection, unspecified; J44.9 Chronic obstructive pulmonary disease, unspecified; I10 Essential (primary) hypertension; Z87.891 Personal history of nicotine dependence
CPT/HCPCS: 87804; 87880; 99203; C9803; G0463; U0003; U0005

== ENCOUNTER → 2021-03-19 13:18 | Outpatient (CLI) | payer BC, MEDICARE, SELFPAY | PROVIDERS: Visit Provider Nurse Practitioner | DX: U07.1 COVID-19 (principal) | CPT/HCPCS: C9803; U0003; U0005 ==

== ENCOUNTER → 2021-04-13 16:28 | Outpatient (CLI) | payer BC, MEDICARE, SELFPAY | PROVIDERS: PCP Nurse Practitioner Family; Visit Provider Nurse Practitioner Family | DX: R00.0 Tachycardia, unspecified (principal) | CPT/HCPCS: 93225; 93226 ==

== ENCOUNTER → 2021-06-29 13:37 | Outpatient (CLI) | payer BC, MEDICARE, SELFPAY ==
--- NOTE | 2021-06-29 13:38 | CA_ITS ---
APPROVED REPORT EXAM: Comprehensive 2D, Doppler, and color-flow Echocardiogram Window Display Designer: Silvia Wood CRT Ht: 5 ft 6 in Wt: 157lbs BSA: 1.80 BP: 138/70 mmHg Indications: Shortness of Breath, Fatigue 2D Dimensions LVOT 1.88 cm (M/F) 1.5-2.5 LA Volume 34.70 mL LA Volume Index 19.30 mL/m2 (M/F) 16-34 M-Mode Dimensions RVDd 2.69 cm (0.9-2.6) LA Diam 3.47 cm (1.9-4.0) LVDd 3.97 cm (3.5-5.7) Ao Diam 3.54 cm (2.0-3.7) LVDs 2.66 cm (3.5-5.7) IVSd 1.91 cm (0.6-1.1) PWd 0.69 cm (0.6-1.1) EF (Teich) 62.20% FS 33.00% EDV (Teich) 68.80 mL TAPSE 1.90 (<1.7) ESV (Teich) 26.00 mL LV Diastology E Decel Time 230.00 (160-240 msec) E/A Ratio 1.25 MED E' 11.00 (< 7 cm/sec) MED A' 11.10 cm/s E'/MED E' Ratio 9.63 (>14) LAT E' 7.70 (<10 cm/sec) LAT A' 9.90 cm/s E/LAT E' Ratio 13.75 (>14) Aortic Valve AO Peak GR. 7.10 mmHg Mitral Valve MV E Max Jordan. 106.00 (40-130 cm/s) MV A Velocity 85.00 (40-130 cm/s) E/A Ratio 1.25 MV Decel. Time 230.00 (160-240 ms) MV PHT 67.00 ms Pulmonary Valve PV Peak Velocity 221.00 (50-150 cm/s) Tricuspid Valve TR P. Velocity 212.00 cm/s RAP Estimate 10.00 mmHg RVSP 28.00 mmHg Left Ventricle Left atrium is mildly enlarged, left ventricle is normal size, left ventricle wall thickness is upper limit of normal, there is preserved left ventricular systolic function, estimated ejection fraction 55% with no regional wall motion abnormality, diastolic parameters are inconclusive. Right Ventricle Right atrium and right ventricle are normal size and contractility. Aortic Valve Aortic valve is minimally thickened and fibrosed there is no aortic stenosis or aortic insufficiency. Mitral Valve Mitral valve leaflets are minimally thickened, there is mild mitral regurgitation. Tricuspid Valve Tricuspid valve grossly normal, there is mild tricuspid regurgitation, tricuspid regurgitation jet velocity is inadequate for calculation of the right ventricular systolic pressure. Pulmonic Valve Pulmonic valve is poorly visualized. Great Vessels Aortic root is normal size. Inferior vena cava is normal size with normal inspiratory collapse. Pericardium No significant pericardial effusion noted. Conclusion 1. Normal left ventricular size, preserved left ventricular systolic function, estimated ejection fraction 55% with no regional wall motion abnormality, diastolic parameters are inconclusive. 2. Mild mitral and tricuspid regurgitation. 3. No significant pericardial effusion noted. 4. Inferior vena cava is normal size with normal inspiratory collapse. Electronically signed by : Keegan Forbes MD 06/29/2021 14:31:37
== END ==
PROVIDERS: PCP Nurse Practitioner Family; Visit Provider Physician Assistant
DX: R06.00 Dyspnea, unspecified (principal); I10 Essential (primary) hypertension; Z82.49 Family history of ischemic heart disease and other diseases of the circulatory system; Z87.891 Personal history of nicotine dependence
CPT/HCPCS: 93306

== ENCOUNTER → 2021-07-13 12:12 | Outpatient (CLI) | payer BC, MEDICARE, SELFPAY ==
[2021-07-13 13:22] LABS: Anion Gap 11.5 mEq/L (5-15); Blood Urea Nitrogen 12 mg/dl (7-17); Calcium 9.2 mg/dl (8.4-10.2); Carbon Dioxide 26 mmol/L (22.0-30.0); Chloride 106 mmol/L (98-107); Estimated Glomerular Filt Rate 72 ml/min (>60); GFR (African American) 87 ML/MIN (>60); Glucose 129 mg/dl (74-100); Potassium 3.5 mmoL/L (3.5-5.1); Sodium 140 mmol/L (136-145)
== END ==
PROVIDERS: PCP Nurse Practitioner Family; Visit Provider Physician Assistant
DX: R06.00 Dyspnea, unspecified (principal); R00.2 Palpitations; I10 Essential (primary) hypertension
CPT/HCPCS: 36415; 80048

== ENCOUNTER 2021-08-28 17:28 | Emergency (ER) | payer BC, MEDICARE, SELFPAY ==
[2021-08-28 17:52] VITALS: BP 182/97; PULSE 69; RESP 16; TEMP 36.5; O2SAT 98; BMI 23.7
[2021-08-28 18:07] LABS: Apearance,Urine Turbid (Clear); Color,Urine Orange (Yellow); Glucose,Urine (UA) Trace (Negative); Ketones,Urine Negative (Negative); Protein,Urine 3+ (Negative); Specific Gravity, Urine 1.015 (1.005-1.030)
[2021-08-28 18:08] LABS: Bilirubin,Urine Negative (Negative); Blood, Urine 3+ (Negative)
[2021-08-28 18:09] LABS: UTC Leukocyte Esterase,Urine 3+ (Negative); UTC Nitrate,Urine Positive (Negative); Urobilinogen,Urine 1 EU/dl (0.2)
--- NOTE | 2021-08-28 18:21 | HMH.EDUTC ---
[facility] [place] Impression: UTI (urinary tract infection) Qualifiers: Urinary tract infection type: site unspecified Hematuria presence: with hematuria Qualified Code(s): N39.0 - Urinary tract infection, site not specified Disposition: Home, Self-Care Condition on Discharge: Good Instructions: Urinary Tract Infection, DI for Urinary Tract Infection (UTI), Phenazopyridine Additional Instructions: Drink plenty of fluids. Take tylenol or ibuprofen for pain or fever. Take the medications as directed. Follow up with your regular doctor. GO TO THE ER FOR ANY WORSENING SYMPTOMS The pyridium will make your urine turn orange, this is an expected side effect. It will stain your clothes if it comes into contact with them. We will culture the urine. That will tell what bacteria is causing your infection and which antibiotics will treat it best. Sometimes the first antibiotic we prescribe turns out to not work against different bacteria. So, make sure you follow up within 3 days if you are not getting better. Prescriptions: Ondansetron [Zofran 4mg ODT] 4 mg PO Q8HP PRN #12 tab PRN Reason: Nausea Transmission Status: Received by [facility] Sulfamethoxazole/Trimethoprim [Bactrim DS tablet] 1 each PO BID 7 Days #14 tab Transmission Status: Received by [facility] Phenazopyridine HCl [Pyridium 200mg Tablet] 200 pow PO TID #6 tab Transmission Status: Received by [facility] Referrals: Nicole Gallardo APRN [Primary Care Provider] - Time of Disposition: 18:26 Medical Decision Making - Medical Records Medical records reviewed: No: I reviewed the patient's medical records. - Markos Inquiry Pt receiving controlled substance: No Vital Signs: 08/28/21 17:52 08/28/21 18:41 Temperature 97.7 F 97.7 F Temperature Source Oral Pulse Rate 69 Pulse Rate [Left] 69 Respiratory Rate 16 16 Blood Pressure 150/75 H Blood Pressure [Right Arm] 182/97 H Blood Pressure Mean [Right Arm] 125 02 Sat by Pulse Oximetry 98 - Lab Data Lab results reviewed: Yes: I reviewed the patient's lab results. Lab Results 08/28/21 18:04: Urine Color [place], Urine Appearance Turbid, Urine pH 6.0, Ur Specific Parker 1.015, Urine Protein 3+, Urine Glucose (UA) Trace, Urine Ketones Negative, Urine Blood 3+, Urine Nitrate Positive A, Urine Bilirubin Negative, Urine Urobilinogen 1, Ur Leukocyte Esterase 3+ [place] [facility] [place] - General Stated complaint: Possible UTI Time Seen by Provider: 08/28/21 18:21 Description of Symptoms (Recalled from Triage Doc. by RN): patient comes in with complaints of uti. patient states that starting today she has had painful urination and burning. HEENT Symptoms (Recalled from RN notes): No Resp Symptoms (Recalled from RN notes): No Skin Symptoms (Recalled from RN notes): No MS Symptoms (Recalled from RN notes): No Functional Status (Recalled from RN notes): wnl - History of Present Illness Provider Complaint: She states that she has had dysuria and low back pain for the past 2 dayus. - Related Data Home Medications Medication Instructions Recorded Confirmed Fluoxetine HCl [Prozac 20mg 60 mg PO DAILY 09/05/18 05/28/21 Capsule] Fluticasone/Umeclidin/Vilanter 1 puff IH DAILY 09/05/18 05/28/21 [Trelegy Ellipta 100-62.5-25] pantoprazole 40 mg tablet,delayed 40 mg PO DAILY tab 08/28/19 05/28/21 release Gabapentin [Gabapentin 400mg Cap] 400 mg PO TID 10/02/20 05/28/21 Losartan Potassium [Cozaar 100mg 100 mg PO DAILY 10/02/20 05/28/21 Tablets] Metoprolol Succinate [Toprol XL 50 mg PO DAILY 10/02/20 05/28/21 50mg Tablet] amlodipine 10 mg tablet 10 mg PO DAILY tab 05/28/21 05/28/21 levothyroxine 150 mcg tablet 150 mcg PO DAILY tab 05/28/21 05/28/21 quetiapine 25 mg tablet 25 mg PO DAILY PRN tab 05/28/21 05/28/21 Previous Rx's Medication Instructions Recorded Ondansetron [Zofran 4mg ODT] 4 mg PO Q8HP PRN #20 tab 03/18/21
[2021-08-28 18:41] VITALS: BP 150/75; PULSE 69; RESP 16; TEMP 36.5
== END 2021-08-28 18:42 | disposition home or self-care (01) ==
PROVIDERS: Emergency Provider Nurse Practitioner Family; PCP Nurse Practitioner Family
DX: N39.0 Urinary tract infection, site not specified (principal); R31.9 Hematuria, unspecified; J44.9 Chronic obstructive pulmonary disease, unspecified; I10 Essential (primary) hypertension; F41.9 Anxiety disorder, unspecified; F32.A Depression, unspecified
CPT/HCPCS: 81003; 87086; 87088; 87186; 99212; G0463

== ENCOUNTER → 2022-02-25 16:12 | Outpatient (CLI) | payer BC, MEDICARE, SELFPAY ==
--- NOTE | 2022-02-25 16:16 | XR_ITS ---
FINAL REPORT CLINICAL HISTORY: PAIN FINDINGS: LUMBAR SPINE Five views demonstrate no acute fracture. There are mild degenerative changes with small osteophytes. Mild vascular calcification is identified. There is no malalignment. IMPRESSION: No acute process. Reviewed, Interpreted and Dictated by Jeff Alexandre III, MD Transcribed by Mercedes Sierra Authenticated and [facility]
--- NOTE | 2022-02-25 16:16 | XR_ITS ---
FINAL REPORT CLINICAL HISTORY: PAIN FINDINGS: Right hip Three views were obtained. There is no acute fracture or dislocation. There are mild degenerative changes. No soft tissue abnormality is identified. IMPRESSION: No acute process. Reviewed, Interpreted and Dictated by Jeff Alexandre III, MD Transcribed by Mercedes Sierra Authenticated and [facility]
== END ==
PROVIDERS: PCP Nurse Practitioner Family; Visit Provider Nurse Practitioner Family
DX: M54.9 Dorsalgia, unspecified (principal); M54.50 Low back pain, unspecified; M25.551 Pain in right hip
CPT/HCPCS: 72110; 73502

== ENCOUNTER → 2022-04-23 10:35 | Outpatient (CLI) | payer MEDICARE, SELFPAY ==
--- NOTE | 2022-04-23 10:38 | MR_ITS ---
FINAL REPORT CLINICAL HISTORY: DIZZINESS , VISION CHANGE FINDINGS: Multiplanar MR imaging of the brain was performed without contrast. There are multiple foci of abnormal T2 signal in the cerebral white matter, may represent moderate chronic ischemic/gliotic changes versus demyelination. There is no evidence of intracranial hemorrhage or mass. The ventricular size is normal. There is no evidence of shift of the midline structures. No abnormal extra-axial fluid collection is identified. The posterior fossa and brainstem have an unremarkable appearance. No area of abnormal restricted diffusion is identified. Normal major vessel vascular flow voids are seen. IMPRESSION: Abnormal foci in the cerebral white matter, may represent moderate chronic ischemic/gliotic changes versus demyelination. Reviewed, Interpreted and Dictated by Jeff Alexandre III, MD Transcribed by Mercedes Sierra Authenticated and [facility]
--- NOTE | 2022-04-23 10:39 | MR_ITS ---
FINAL REPORT CLINICAL HISTORY: DORSLGIA LOWER BACK PAIN WITH TINGLING AND NUMBNESS DOWN BOTH LEGS FINDINGS: Multiplanar MR imaging of the lumbar spine was performed without contrast. On the sagittal T2-weighted images, disc degeneration is seen at multiple levels. Endplate changes are seen at multiple levels. There are several Schmorl's nodes. Note is made of several hemangiomas. The vertebral alignment is normal. There is no evidence of fracture. The conus has an unremarkable appearance. L1-2: An annular bulge is present. There is no significant canal stenosis or neural foraminal narrowing. L2-3: An annular bulge is present. Facet arthropathy and osteophytes are present. There is mild bilateral neural foraminal narrowing. L3-4: An annular bulge is present. There is a small right foraminal disc protrusion with mild bilateral neural foraminal narrowing. L4-5: An annular bulge and facet arthropathy are present. There is a broad-based left foraminal disc protrusion with mild right and moderate left neural foraminal narrowing. L5-S1: An annular bulge is present with mild bilateral neural foraminal narrowing. Note is made of spurring of the sacroiliac joints. IMPRESSION: Small right foraminal disc protrusion at L3-4. Broad-based left foraminal disc protrusion at L4-5 results in moderate left neural foraminal narrowing. Multilevel degenerative disc disease and spondylosis. Reviewed, Interpreted and Dictated by Jeff Alexandre III, MD Transcribed by Mercedes Sierra Authenticated and [facility]
== END ==
PROVIDERS: PCP Nurse Practitioner Family; Visit Provider Nurse Practitioner Family
DX: R05.3 Chronic cough (principal); R42 Dizziness and giddiness; H53.9 Unspecified visual disturbance; M54.9 Dorsalgia, unspecified; M54.50 Low back pain, unspecified; R20.2 Paresthesia of skin
CPT/HCPCS: 70551; 72148; 76376; 94060

== ENCOUNTER → 2022-04-30 12:29 | Outpatient (CLI) | payer MEDICARE, SELFPAY | PROVIDERS: PCP Nurse Practitioner Family; Visit Provider Nurse Practitioner Family | DX: G47.30 Sleep apnea, unspecified (principal); R06.83 Snoring | CPT/HCPCS: G0399 ==

== ENCOUNTER 2022-05-28 18:08 | Emergency (ER) | payer MEDICARE, SELFPAY ==
[2022-05-28 18:15] VITALS: BP 173/82; PULSE 85; RESP 20; TEMP 36.9; O2SAT 99; BMI 24.7
--- NOTE | 2022-05-28 18:32 | EXP.UTC ---
Discharge Plan Disposition Patient Disposition: Home, Self-Care Condition: Good Prescriptions Prescriptions: New benzonatate 100 mg capsule 100 mg PO TID PRN (Reason: cough) Qty: 30 0RF methylprednisolone [Medrol (Jacobo)] 4 mg tablets,dose pack See Rx Instructions .Route .COMPLEX 6 Days Qty: 21 0RF Rx Instructions: taper pack; ondansetron 4 mg tablet,disintegrating 4 mg PO Q8H PRN (Reason: nausea and vomiting) Qty: 10 0RF guaifenesin [Mucinex] 600 mg tablet extended release 12hr 600 - 1,200 mg PO BID PRN (Reason: cough/congestion) Qty: 20 0RF amoxicillin-pot clavulanate 875-125 mg Tablet 1 tab PO Q12H Qty: 20 0RF No Action venlafaxine 75 mg capsule,extended release 24hr 75 mg PO DAILY amlodipine 10 mg tablet 10 mg PO DAILY levothyroxine 150 mcg tablet 150 mcg PO DAILY quetiapine 25 mg tablet 25 mg PO DAILY PRN gotffbujxvy-bvrvsndez-gmsseabq 1 EACH blister with device 1 puff inhalation DAILY losartan 100 MG tablet 100 mg PO DAILY metoprolol succinate 50 MG tablet 50 mg PO DAILY promethazine-DM 120 ML syrup 5 ml PO Q6HP PRN (Reason: Cough) Qty: 240 0RF ondansetron 4 MG tablet,disintegrating 4 mg PO Q8HP PRN (Reason: Nausea) Qty: 12 0RF Referrals Follow up/Referrals: Nicole Gallardo APRN [Primary Care Provider] - See instructions Activity Restrictions/Add. Instructions Additional Instructions/Restrictions: Start antibiotic today. Be sure to complete entire prescription even if feeling better Monitor temp. Tylenol every 4 hours as needed and / or ibuprofen every 6 hours as needed ( As long as your primary care physician has told you that it ok to take both. For fever/aches/pains ER if no less than 101 despite Tylenol or Motrin Humidifier/vaporizer or hot steamy shower Mucinex during the day for your cough and cough suppressant only at night. Be sure to drink lots of water. *Tessalon Perles will not cause drowsiness but use at bedtime to help stop cough so that you may get some rest. *Start steroid today. Helps with inflammation therefore, cough and wheezing. Follow directions on the package. Reviewed side effects. Patient reports taking them before. MAKE SURE TO DRINK PLENTY OF FLUIDS LIKE GATORAID, POWERAID OR PEDIALYTE TO STAY HYDRATED Follow up IMMEDIATELY for new or worsening of symptoms OR no noticeable improvement over the next 48-72 hours. 911 immediately for any life threatening symptoms such as chest pain or difficulty breathing Drink extra fluids with and between meals. If you have difficulty drinking, try very small amounts of water or suck on ice chips. ? Avoid fruit juices, as these do not replace minerals and can actually increase diarrhea. ? Children and adults can use sports drinks to replenish electrolytes. Younger children and infants should use products formulated for children, like oral rehydration solutions. ? Eat food in small amounts and let your stomach recover. ? Get lots of rest. You may feel tired or weak. ? No greasy or fried foods for the next 24-48 hours BRAT diet Bananas Rice Apples and Trainer ? Make sure to drink plenty of liquids ? Return if needed ? Straight to ER if any life threatening symptoms ? Zofran as prescribed ? You was given an outpatient order for diarrhea panel, please collect specimen and bring back to outpatient lab then call back to [facility] or follow up with family doctor for results ? Follow up with family doctor in the next 48-72 hours if no improvement or any worsening of symptoms Clinical Impressions Clinical Impression: Sinusitis Instructions Patient Instructions: DI for Sinusitis, Sinusitis, Diarrhea, DI for Vomiting -- Adult, DI for Fever (Symptom) -- Adult Discharge ED Provider: Fannie Fuentes [facility] HPI General Stated complaint: V&D Abd Pain Mode of Ar
[2022-05-28 18:40] LABS: UTC Influenza A Antigen Negative (Negative); UTC Influenza B Antigen Negative (Negative)
[2022-05-28 18:51] LABS: UTC Strep Screen (Rapid) Negative (Negative)
[2022-05-28 18:56] VITALS: BP 173/82; PULSE 85; RESP 20; TEMP 36.9; O2SAT 99
== END 2022-05-28 19:13 | disposition home or self-care (01) ==
PROVIDERS: Emergency Provider Nurse Practitioner; PCP Nurse Practitioner Family
DX: J01.90 Acute sinusitis, unspecified (principal); R53.1 Weakness; R11.2 Nausea with vomiting, unspecified; R19.7 Diarrhea, unspecified
CPT/HCPCS: 87804; 87880; 99212; 99214; G0463

== ENCOUNTER → 2022-06-29 20:13 | Outpatient (CLI) | payer MEDICARE, SELFPAY | LOC: SL 20:15 | PROVIDERS: PCP Nurse Practitioner Family; Visit Provider Specialist | DX: G47.33 Obstructive sleep apnea (adult) (pediatric) (principal); R06.83 Snoring; R40.0 Somnolence | CPT/HCPCS: 95810 ==

== ENCOUNTER → 2022-10-08 09:33 | Outpatient (CLI) | payer MEDICARE, SELFPAY ==
--- NOTE | 2022-10-08 09:37 | XR_ITS ---
FINAL REPORT CLINICAL HISTORY: LT ELBOW PAIN,H/O ELBOW SURGERY FINDINGS: 3 views of the left elbow were obtained. There is a fracture of uncertain age of the lateral radial head. The joint spaces are intact. There is not soft tissue abnormality. IMPRESSION: Age-indeterminate fracture of the lateral radial head. Reviewed, Interpreted and Dictated by Jeff Alexandre III, MD Transcribed by Daisy Florence Authenticated and . [facility]
== END ==
PROVIDERS: PCP Nurse Practitioner Family; Visit Provider Nurse Practitioner Family
DX: M25.522 Pain in left elbow (principal); Z98.890 Other specified postprocedural states
CPT/HCPCS: 73080

== ENCOUNTER → 2022-10-14 13:44 | Outpatient (CLI) | payer MEDICARE, SELFPAY ==
--- NOTE | 2022-10-14 13:48 | MR_ITS ---
FINAL REPORT CLINICAL HISTORY: LEFT ELBOW PAIN. PRIOR HISTORY ELBOW SURGERY 2012. LATERAL SIDED ELBOW PAIN. NO INJURY OR TRAUMA COMPARISON: None FINDINGS: Multiplanar MR imaging of the left elbow was performed without contrast. The bony structures are intact without evidence of fracture or bone bruise. There is a subchondral cyst in the radial head with associated bone marrow edema. Mild degenerative change is present. The ligaments appear intact. The common extensor tendon is intact. The common flexor tendon is intact. The biceps tendon is intact. The distal triceps tendon is intact. The brachialis tendon is intact. The musculature has an unremarkable appearance. No soft tissue mass or cyst is identified. There is a small joint effusion. No focal abnormality is identified of the ulnar nerve. IMPRESSION: Subchondral cyst in the radial head with associated bone marrow edema. Mild degenerative change of the elbow. Reviewed, Interpreted and Dictated by Jeff Alexandre III, MD Transcribed by Diana Flowers Authenticated and [facility]
== END ==
LOC: RAD 13:44
PROVIDERS: PCP Nurse Practitioner Family; Visit Provider Nurse Practitioner Family
DX: M25.522 Pain in left elbow (principal); Z98.890 Other specified postprocedural states
CPT/HCPCS: 73221

== ENCOUNTER 2023-03-08 07:34 | Outpatient (CLI) | payer MEDICARE, SELFPAY ==
[2023-03-08 08:02] LABS: Blood Urea Nitrogen 20 mg/dl (7-17); Estimated Glomerular Filt Rate 56 ml/min (>60); GFR (African American) 67 ML/MIN (>60)
--- NOTE | 2023-03-08 08:09 | CT_ITS ---
FINAL REPORT CLINICAL HISTORY: COPD EXACERBATION COMPARISON: 11/30/2019 FINDINGS: Axial images were obtained from the lung apex to the mid abdomen by computed tomography after the administration of IV contrast. Coronal reformatted images were obtained. This study was performed with techniques to keep radiation doses as low as reasonably achievable, (ALARA). Individualized dose reduction techniques using automated exposure control or adjustment of mA and/or kV according to the patient's size were employed. There is no axillary adenopathy. There is no hilar or mediastinal adenopathy. Heart size is normal. There is no pericardial or pleural effusion. There is mild scarring. There are several calcified granulomas. No suspicious infiltrate or nodule is identified. IMPRESSION: No acute process. Reviewed, Interpreted and Dictated by Jeff Alexandre III, MD Transcribed by Justin Ford Authenticated and [facility]
--- NOTE | 2023-03-08 08:09 | CT_ITS ---
FINAL REPORT TECHNIQUE: Postcontrast axial images through the abdomen and pelvis were performed. This study was performed with techniques to keep radiation doses as low as reasonably achievable, (ALARA). Individualized dose reduction techniques using automated exposure control or adjustment of mA and/or kV according to the patient's size were employed. CLINICAL HISTORY: BLOATING,UPPER ABD PAIN FINDINGS: Abdomen: The liver is normal in size and attenuation. There are gallstones in the gallbladder. There is a less than 1 cm probable splenic cyst.. The adrenals are normal. The pancreas is unremarkable. The kidneys enhance appropriately. The aorta is normal in caliber. No free fluid or adenopathy is identified. No findings for mechanical bowel obstruction are identified. Pelvis: The appendix is not identified. There is wall thickening of the sigmoid colon, rectum and small bowel loops within the pelvis that is likely inflammatory. Urinary bladder wall thickening is likely inflammatory. There is a small amount of ascites. IMPRESSION: Sigmoid, rectal and pelvic small bowel loop wall thickening is likely inflammatory. Inflammatory bladder wall thickening. Small amount of pelvic ascites. Cholelithiasis. Reviewed, Interpreted and Dictated by Jeff Alexandre III, MD Transcribed by Justin Ford Authenticated and [facility]
[2023-03-08] MEDS: IOPAMIDOL-370 (76%);100ML BOTTLE 75 ML IV (08:39)
[2023-03-08] MEDS: 0.9 % SODIUM CHLORIDE 50 ML VIAL IV (08:39)
== END 2023-03-08 23:59 ==
LOC: RAD 07:35
PROVIDERS: PCP Nurse Practitioner Family; Visit Provider Nurse Practitioner
DX: J44.1 Chronic obstructive pulmonary disease with (acute) exacerbation (principal); R14.0 Abdominal distension (gaseous); R10.9 Unspecified abdominal pain
CPT/HCPCS: 36415; 71260; 74177; 82565; 84520; Q9967

== ENCOUNTER 2023-03-30 08:53 | Outpatient (CLI) | payer MEDICARE, SELFPAY ==
--- NOTE | 2023-03-30 08:53 | US_ITS ---
FINAL REPORT TECHNIQUE: Multiple transverse and longitudinal images CLINICAL HISTORY: RUQ pain COMPARISON: None FINDINGS: There are small gallstones present in the gallbladder, less than 1 cm in size. The common bile duct is normal in size. There is increased echogenicity in the liver consistent with fatty infiltration of the liver. No fluid collections are seen. Limited portions of the right kidney are unremarkable. IMPRESSION: Gallstones are present in the gallbladder without evidence of biliary ductal dilatation. Fatty infiltration of the liver. Reviewed, Interpreted and Dictated by Juju Arora MD Transcribed by Diana Flowers Authenticated and [facility]
== END 2023-03-30 23:59 ==
LOC: RAD 08:53
PROVIDERS: PCP Nurse Practitioner; Visit Provider Surgery
DX: R10.11 Right upper quadrant pain (principal)
CPT/HCPCS: 76705

== ENCOUNTER 2023-04-15 10:52 | Day surgery (SDC) | payer MEDICARE, SELFPAY ==
[2023-04-12 14:19] VITALS: BMI 25.3
[2023-04-15] MEDS: LACTATED RINGERS 1000ML 1,000 ML 25 ML IV (11:16)
[2023-04-15 11:21] VITALS: BP 200/102; PULSE 62; RESP 18; TEMP 36.4; O2SAT 95
--- NOTE | 2023-04-15 11:49 | P.PNANES_ITS ---
[facility] Disclaimer: The information contained in this section may have been updated after the patient was seen, as this information can be updated by other users. Medical History Allergies Anxiety and depression Cervical cancer COPD (chronic obstructive pulmonary disease) Degenerative disc disease Eczema Gallstones History of anemia History of COVID-19 History of gastroesophageal reflux (GERD) Hypertension Hypothyroid Irritable bowel syndrome (IBS) Migraine Urinary tract infection Surgical History History of cataract surgery History of colonoscopy History of tubal ligation Hx of elbow surgery Hx of neck surgery Hx of shoulder surgery Family History Other Cancer Heart disease Hypertension Thyroid disorder Social History Smoking Status: Former smoker second hand exposure: No alcohol intake: never substance use type: denies use current occupational status: retired Travel in the last 8 weeks: None household members: spouse and family housing: house current occupational exposures/hazards: No caffeine: Yes [facility] Anesthesia Checklist Patient Identification Patient Identification: Arm Band and Family Structural Data Admitted From: Home Planned Operative Procedure/s: colonoscopy Consent for Planned Operative Procedure(s) Verified: Yes Verified Documents: Surgical Consent and History and Physical NPO Status Verified Time NPO: 00:00 Additional verifications Patient : No Anesthesia Reactions: No Hx Blood Transfusions: No Cephalosporin Allergy: No Previous Colonoscopy: Yes Airway Assessment Mallampati Score:: Class II C-Spine Mobility Assessed: Yes Dentition: Good Dentition Neurological Assessment Level of Consciousness: Awake, Alert, Appropriate and Follows Commands Hx Seizures: No Numbness or tingling in extremities: No Anesthesia Plan ASA Class: II Anesthesia Type: MAC Preoperative Comments Pre-Operative Comments: Neck fusion 23 years ago. Hypertension. COPD.
[2023-04-15 12:06] VITALS: O2SAT 95
[2023-04-15 12:35] VITALS: BP 162/82; PULSE 74; RESP 16; TEMP 36.3; O2SAT 96
--- NOTE | 2023-04-15 12:36 | HMH.SCOPE ---
Procedure: Date: 04/15/23 Patient Date of :: 1955 Procedure Performed:: Total colonoscopy to terminal ileum with biopsies Indications:: Patient is a 68-year-old female referred by Alyssa Gallardo for possible EGD/colonoscopy/gallbladder. She states that for few months she has had some postprandial abdominal swelling. She does describe some right subcostal pain. This occurs immediately postprandially. Patient states that her insides are inflamed . She has some bowel and bladder thickening. She had undergone CT scan with contrast initially on 03/08/2023 which revealed sigmoid, rectal, pelvic small bowel loop wall thickening likely inflammatory. Inflammatory bladder wall thickening. Small amount of pelvic ascites. Cholelithiasis. She had not had a gallbladder ultrasound. I had performed a colonoscopy on her in 2015. On 10/06/2020 she had both EGD and colonoscopy performed by Dr. Dhillon. She does describe longstanding history of chronic dyspepsia and IBS symptoms. 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 Plan was to check CATRACHO and CSID. Colonoscopy was performed at the same time and she was found to have some mild left-sided diverticulosis with some findings consistent with colitis. Pathology revealed normal terminal ileum biopsy, normal right colon biopsies, hyperplastic polyp in the rectosigmoid. Patient describes a rather longstanding history of abdominal pain and discomfort. She states that she has had relatively consistent diarrhea since she underwent chemotherapy and radiation for cervical cancer in 2013. Apparently her half sister had Crohn's disease and her father had colitis. Patient may have multifactorial etiology for her symptoms. 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 I reviewed her CT scan. Given the nature of her symptoms and findings on physical exam I feel that colonoscopy may be reasonable particularly given family history of inflammatory bowel disease. Likely plan for biopsies regardless. CT scan does show evidence of probable calcified gallstone. I will get a gallbladder ultrasound as well. If her colonoscopy is unremarkable then may consider cholecystectomy. Performing Provider:: Jeff Bhatti MD Referring Provider:: Alyssa Gallardo Sedation:: MAC sedation Procedure:: Patient history was obtained and appropriate physical examination was performed. Patient's medications and allergies were reviewed. Informed consent was obtained after explaining the benefits, alternatives, and risks of the procedure including, but not limited to, bleeding, perforation, missed lesions, and adverse reaction to anesthesia medications. Patient was transported to endoscopy procedure room. Patient was connected to monitoring devices. Throughout the procedure the patient's blood pressure, pulse, and oxygen saturations were monitored continuously. Patient identification and planned procedure were verified by the staff. Patient was positioned in lateral decubitus position. Digital anorectal exam was performed. Variable stiffness Olympus colonoscope was inserted and advanced under direct visualization to the cecum. Adequacy of the colonic preparation was noted. The colonoscope was advanced a short distance into the terminal ileum. The colonoscope was then slowly withdrawn while carefully examining the color, texture, anatomy, and integrity of the mucosoa circumferentially. Within the rectum retroflexion was performed. Colonoscope was then withdrawn. . Findings:: She had findings possibly consistent with mild colitis in the rectosigmoid region. Multiple biopsies were obtained at this location as well as random right and random left in terminal ileum. Recommendations:: Plan to follow-up on the pathology. If atypical manage appropriately. If unremarkable may consider cholecystectomy although she likely has numerous factors playing a role in her abdominal symptoms. Complications:: None immediately apparent Estimated blood obtained (mL): 1 Colonoscopy Component Colonoscopy Component Was a colonoscopy performed during today's procedure?: Yes Recommended follow up colonoscopy of at least 10 years?: Yes
[2023-04-15 12:45] VITALS: BP 148/75; PULSE 67; RESP 16; O2SAT 95
[2023-04-15 12:55] VITALS: BP 138/85; PULSE 65; RESP 16; O2SAT 95
[2023-04-15 13:05] VITALS: BP 113/61; PULSE 68; RESP 18; O2SAT 96
== END 2023-04-15 13:05 | disposition home or self-care (01) ==
PROVIDERS: PCP Nurse Practitioner; Visit Provider Surgery
PROC: 0DJD8ZZ Inspection of Lower Intestinal Tract, Via Natural or Artificial Opening Endoscopic (ICD-10-PCS; CPT 45378; principal; 2023-04-15 12:00)
DX: Z86.010 Personal history of colon polyps; R14.0 Abdominal distension (gaseous); R10.11 Right upper quadrant pain; K30 Functional dyspepsia; K21.9 Gastro-esophageal reflux disease without esophagitis; K57.92 Diverticulitis of intestine, part unspecified, without perforation or abscess without bleeding; K52.9 Noninfective gastroenteritis and colitis, unspecified
CPT/HCPCS: 45378; 88305

== ENCOUNTER 2023-05-09 11:58 | Outpatient (CLI) | payer MEDICARE, SELFPAY ==
--- NOTE | 2023-05-09 11:59 | CT_ITS ---
APPROVED REPORT Talent Engineer: CLINICAL INDICATION Chest Pain TECHNIQUE Image Acquisition: A 128 slice MDCT scanner (Scifinitia View) was used for data acquisition. A noncontrast coronary calcium scan was performed. A CT attenuation threshold of 130 Hounsfield units (HU) was used for the detection of calcium in contiguous voxels of 1 sq mm in area to be counted as individual lesions. Bolus tracking in the ascending aorta with a threshold of 180 HU was performed. Immediately afterwards, ECG synchronized cardiac CT was then performed from the cardiac base to apex using retrospective gating with ECG tube current modulation. A total of 85 mL of Isovue 370 mg/mL contrast medium was administered at 5 mL/sec followed by a saline flush using a biphasic injection protocol. A tube voltage of 120 KVp was used. The patient received the following medications prior to the cardiac CT. 50 mg of oral metoprolol 15 mg of oral ivabradine 0.8 mg of sublingual nitroglycerin The average heart rate at the time of acquisition was 52 bpm and regular. Image Reconstruction Transaxial images were reconstructed at 0.67 mm slide thickness. Data was reviewed interactively on an advanced workstation capable of 2 and 3-dimensional displays in all conventional reconstruction formats, including multiplanar reformations, maximum intensity projections, curved multiplanar reformations, and volume rendered reconstructions. When applicable, selected routine images describing the relevant coronary anatomy and pathology were saved and sent to PACS. Complications None Technical Quality Overall image quality was good. Coronary artery opacification was adequate. Total DLP (Dose-Length Product) is 1476.2 mGy-cm. The reported value represents the total of one or more individual components during the CT acquisition of this date and at this time, and as such, the same value may appear in more than one CT report depending on the interpreting/reporting physicians. COMPARISON None FINDINGS CT Coronary Calcium Scoring LMA (Left Main Artery) = 0 LAD (Left Anterior Descending) = 37 LCX (Left Coronary Circumflex) = 0 RCA (Right Coronary Artery) = 0 Total Calcium Score = 37 using the AJ-130 method. The observed calcium score of 37 is at 68th percentile for subjects of the same age, sex, and race/ethnicity. The interpretation of the calcium heart score is based on the following continuum*: 0 = no calcified plaque detected (risk of coronary artery disease is very low ??? less than 5%) 1-10 = calcium detected in extremely minimal levels (risk of coronary diseases is still low ??? less than 10%) 11-100 = mild levels of plaque detected with certainty (mild or minimal narrowing of heart arteries is likely) 101-400 = definite,at least moderate levels of plaque detected (relatively high risk of a heart attack within 3-5 years) >401-999 = extensive levels of plaque detected (high risk of heart attack, high levels of vascular disease are present, high likelihood of at least one significant coronary narrowing) *The calcium heart score quantifies the burden of coronary calcification/plaque in the coronary arteries. The calcium heart score is not able to evaluate the presence or burden of non-calcified (i.e. soft) plaque. There is also identifiable calcification in the ascending and descending aorta. Coronary CT Angiography The coronary arterial system is right dominant. Quantitative Stenosis Grading: Left Main (LM): The left main originates normally from the left sinus of Valsalva. The LM bifurcates into the left anterior descending artery and left circumflex artery. The LM is patent with no evidence of atherosclerosis. Left Anterior Descending (LAD) and Diagonal Branches: The LAD gives off 2 diagonal branches. There is mixed calcified/noncalcified plaque in the proximal LAD with mild (25-49%) luminal stenosis. There is no evidence of LAD-myocardial bridge. Left Circumflex (LCX) and Obtuse Marginals (OM): The LCX gives off 1 Obtuse Marginal (OM) branch. The LCX and its branches are patent with no evidence of atherosclerosis. Right Coronary Artery (RCA): The RCA originates normally from the right sinus of Valsalva. The RCA gives off a posterior descending artery (PDA) and posterolateral (PL) branches. The RCA and its branches are patent with no evidence of atherosclerosis. Non-Coronary Cardiac Findings: Analysis of the left ventricular (LV) structure and function was performed after 3-D reconstruction of the LV from axial images, with user-corrected automatic contouring for assessment of LV volumes and user-defined reconstruction from oblique planes for measurement of 3-D cardiac structure and function. -The left ventricle systolic function is normal. -There is no left atrial appendage filling defect. Two right pulmonary veins and two left pulmonary veins drain normally into the left atrium. -No pericardial thickening or calcification. -Central and branch pulmonary arteries in the [id number] are unremarkable. -Thoracic aorta within the visualized thoracic aortic-branches in the [id number] is unremarkable. Extracardiac Structures No significant extra-cardiac findings. Note, however, that this study is focused on the cardiac findings. IMPRESSION -Presence of coronary calcification with an Agatston score = 37 using the AJ-130 method. -The observed calcium score of 37 is at 68th percentile for subjects of the same age, sex, and race/ethnicity. -Presence of mild nonobstructive atherosclerotic plaque in the proximal LAD. No evidence evidence of significant flow-limiting atherosclerosis of the coronary arteries. -CAD-RADS 2. Management recommendations per ACC/AHA guidelines*, as clinically appropriate. -Mild calcification in the ascending and descending thoracic aorta. *Recommendations: CAD RADS 0: Reassurance. Consider non-atherosclerotic causes of chest pain. CAD RADS 1: Consider non-atherosclerotic causes of chest pain. Consider preventive therapy and risk factor modification. CAD RADS 2: Consider non-atherosclerotic causes of chest pain. Consider preventive therapy and risk factor modification, particularly for patients with nonobstructive plaque in multiple segments. CAD RADS 3: Consider further functional testing. Consider symptom-guided anti-ischemic and preventive pharmacotherapy as well as risk factor modification per published guideline statements. CAD RADS 4A: Consider further functional testing or invasive coronary angiography with revascularization per published guideline statements. Consider symptom-guided anti-ischemic and preventive pharmacotherapy as well as risk factor modification per published guideline statements. CAD RADS 4B: Invasive coronary angiography recommended with revascularization per published guideline statements. Consider symptom-guided anti-ischemic and preventive pharmacotherapy as well as risk factor modification per published guideline statements. CAD RADS 5: Consider invasive angiography and/or viability assessment with revascularization per published guideline statements. Consider symptom-guided anti-ischemic and preventive pharmacotherapy as well as risk factor modification per published guideline statements. CRITICAL RESULT None COMMUNICATION Per this written report The coronary and cardiac findings of this CCTA were reviewed, reported, and signed by Nabil Whatley MD (Document Design Specialist) Conclusion Electronically signed by : Ness Whatley MD 05/16/2023 11:28:09
[2023-05-09 12:11] VITALS: BMI 25.2
[2023-05-09] MEDS: METOPROLOL TARTRATE 50MG TABLET *IVABRADINE+METOPROLOL REGIMINE 50 MG PO (12:24)
[2023-05-09] MEDS: IVABRADINE HCL 7.5MG TABLET *IVABRADINE+METOPROLOL REGIMINE 15 MG PO (12:24)
[2023-05-09 13:01] LABS: Chloride 107 mmol/L (98-107); Potassium 4.5 mmoL/L (3.5-5.1); Sodium 138 mmol/L (136-145)
[2023-05-09 13:04] LABS: Anion Gap 6.5 mEq/L (5-15); Blood Urea Nitrogen 19 mg/dl (7-17); Carbon Dioxide 29 mmol/L (22.0-30.0); Creatinine Clearance Estimated 62 mL/min (50-200); Estimated Glomerular Filt Rate 55 ml/min (>60); GFR (African American) 67 ML/MIN (>60)
[2023-05-09 13:05] LABS: Glucose 98 mg/dl (74-100)
[2023-05-09 13:36] VITALS: BP 160/75; PULSE 60; RESP 16; O2SAT 98
[2023-05-09] MEDS: NITROGLYCERIN 0.4MG SL TABLET 0.800000000000000044 MG SL (13:36)
[2023-05-09 13:39] VITALS: BP 141/66; PULSE 60; O2SAT 98
[2023-05-09 13:42] VITALS: BP 125/60
[2023-05-09] MEDS: 0.9 % SODIUM CHLORIDE 50 ML VIAL IV (13:43)
[2023-05-09] MEDS: IOPAMIDOL-370 (76%);100ML BOTTLE 85 ML IV (13:43)
[2023-05-09 13:51] VITALS: BP 121/71; PULSE 56; RESP 16; O2SAT 98
--- NOTE | 2023-05-09 13:54 | CA_ITS ---
APPROVED REPORT EXAM: Comprehensive 2D, Doppler, and color-flow Echocardiogram Detail Technician: Silvia Wood CRT Ht: 5 ft 6 in Wt: 157lbs BSA: 1.80 BP: 145/85 mmHg Indications: pre op gallbladder,cp, fatigue, smoker, copd, htn 2D Dimensions Left Atrium 3.66 cm LVEF (Cody's) 59.90 % LVOT 1.74 cm (M/F) 1.5-2.5 LV Volume 77.30 mL LA Volume 30.50 mL LA Volume Index 16.90 mL/m2 (M/F) 16-34 EF AP4 65.00 % EF AP2 54.0 % EF BP 59.9 % GL Strain -20.8 % M-Mode Dimensions RVDd 2.65 cm (0.9-2.6) LVDd 4.08 cm (3.5-5.7) Ao Diam 3.52 cm (2.0-3.7) LVDs 2.50 cm (3.5-5.7) IVSd 1.82 cm (0.6-1.1) PWd 1.00 cm (0.6-1.1) EF (Teich) 69.60% FS 38.70% EDV (Teich) 73.40 mL TAPSE 2.26 (<1.7) ESV (Teich) 22.30 mL LV Diastology E Decel Time 239 (160-240 msec) E/A Ratio 1.04 MED E' 10.6 (>= 7 cm/sec) MED A' 14.20 cm/s E'/MED E' Ratio 6.72 (<= 14) LAT E' 9.9 (>= 10 cm/sec) LAT A' 7.80 cm/s E/LAT E' Ratio 7.19 (<= 14) Aortic Valve AoV Peak Jordan. 138.0 (50-130 cm/s) AO Peak GR. 7.60 mmHg Mitral Valve MV E Max Jordan. 71.0 (40-130 cm/s) MV A Velocity 69.0 (40-130 cm/s) E/A Ratio 1.04 MV Decel. Time 239 (160-240 ms) Tricuspid Valve TR P. Velocity 212.00 cm/s RAP Estimate 10.00 mmHg RVSP 27.90 mmHg Left Ventricle The left ventricle is normal size. The left ventricular systolic function is normal. The left ventricular ejection fraction is within the normal range. There is increased LV wall thickness. Diastolic function is indeterminate. LVEF is 60%. Right Ventricle The right ventricle is normal size. The right ventricular systolic function is normal. Atria Left atrium is mildly dilated. Right atrium is mildly dilated. There is no Doppler evidence of interatrial shunt. Aortic Valve The aortic valve opens well. There is no aortic valvular stenosis. Trace aortic regurgitation. Mitral Valve The mitral valve leaflets are mildly thickened. Mild mitral regurgitation. Tricuspid Valve Tricuspid valve leaflets are thin and pliable. Mild tricuspid regurgitation. RVSP is 20-25 mmHg. Pulmonic Valve The pulmonary valve is normal in structure. Mild pulmonic regurgitation. Great Vessels The aortic root is normal in size. The ascending aorta is normal in size. IVC is normal in size and collapses >50% with inspiration. Pericardium There is no pericardial effusion. Other Information Study Quality: Fair Conclusion Normal biventricular systolic function. Mild biatrial dilation. Mild MR, mild TR, mild NV. RVSP 20-25 mmHg. Electronically signed by : Ness Whatley MD 05/11/2023 00:03:35
== END 2023-05-09 23:59 | disposition home or self-care (01) ==
PROVIDERS: PCP Family Medicine; Visit Provider Nurse Practitioner Family
DX: R06.09 Other forms of dyspnea (principal); R07.9 Chest pain, unspecified
CPT/HCPCS: 75571; 75574; 80048; 93306; Q9967

== ENCOUNTER 2023-05-24 10:15 | Outpatient (CLI) | payer MEDICARE, SELFPAY ==
[2023-05-24 11:25] LABS: Alanine Aminotransferase 32 U/L (12-78); Albumin Level 4.1 g/dl (3.5-5.0); Alkaline Phosphatase 103 U/L (38-126); Anion Gap 11.4 mEq/L (5-15); Aspartate Amino Transferase 37 U/L (14-36); Bilirubin,Direct 0.2 mg/dl (0.0-0.4); Bilirubin,Indirect 0.2 mg/dL (0.0-0.9); Bilirubin,Total 0.4 mg/dl (0.2-1.3); Bilirubin,Unconjugated 0.2 mg/dL (0.0-1.1); Blood Urea Nitrogen 15 mg/dl (7-17); Calcium 9.1 mg/dl (8.4-10.2); Carbon Dioxide 27 mmol/L (22.0-30.0); Chloride 106 mmol/L (98-107); Chol/HDL Ratio 5.4 (1-3.5); Cholesterol 221 mg/dl (140-200); Estimated Glomerular Filt Rate 63 ml/min (>60); GFR (African American) 76 ML/MIN (>60); Glucose 100 mg/dl (74-100); HDL Cholesterol 41 mg/dl (40-60); Potassium 4.4 mmoL/L (3.5-5.1); Sodium 140 mmol/L (136-145); Total Protein,Serum 6.5 g/dl (6.3-8.2); Triglycerides 172 mg/dl (30-150); VLDL Cholesterol 34 mg/dL (0-40)
[2023-05-24 11:36] LABS: Direct LDL Cholesterol 118.49 mg/dL (100-129)
== END 2023-05-24 23:59 ==
LOC: LAB 10:16
PROVIDERS: PCP Nurse Practitioner; Visit Provider Nurse Practitioner
DX: K21.9 Gastro-esophageal reflux disease without esophagitis (principal); Z01.810 Encounter for preprocedural cardiovascular examination; R07.89 Other chest pain; R06.00 Dyspnea, unspecified; I11.9 Hypertensive heart disease without heart failure; E11.9 Type 2 diabetes mellitus without complications
CPT/HCPCS: 36415; 80048; 80061; 80076

== ENCOUNTER 2023-06-16 12:40 | Outpatient (CLI) | payer MEDICARE, SELFPAY ==
[2023-06-16 13:17] LABS: Basophils # 0.1 K/mm3 (0-0.2); Basophils % 0.8 % (0.1-2.0); Eosinophils # 0.3 K/mm3 (0.0-0.4); Eosinophils % 3.8 % (0.1-12.0); Hematocrit 36.1 % (37.0-47.0); Hemoglobin 11.4 g/dL (12.2-16.2); Lymphocytes # 1.3 K/mm3 (0.7-4.5); Lymphocytes % 17.1 % (10-50); Mean Corpuscular HGB Conc 31.6 g/dL (31.8-35.4); Mean Corpuscular Hemoglobin 29.6 pg (27.0-31.2); Mean Corpuscular Volume 93.9 fl (81-99); Mean Platelet Volume 7.5 fl (7.4-10.4); Monocytes # 0.3 K/mm3 (0.1-1.0); Monocytes % 4.6 % (1.7-9.3); Neutrophils # 5.5 K/mm3 (1.8-7.8); Neutrophils % 73.7 % (37.0-80.0); Platelet Count 312 K/mm3 (142-424); Red Blood Count 3.84 M/mm3 (4.20-5.40); Red Cell Distribution Width 13.6 % (11.5-17.5); White Blood Count 7.5 K/mm3 (4.8-10.8)
[2023-06-16 13:35] LABS: Chloride 105 mmol/L (98-107); Potassium 4.5 mmoL/L (3.5-5.1); Sodium 139 mmol/L (136-145)
[2023-06-16 13:37] LABS: Blood Urea Nitrogen 14 mg/dl (7-17); Estimated Glomerular Filt Rate 63 ml/min (>60); GFR (African American) 76 ML/MIN (>60)
[2023-06-16 13:38] LABS: Alanine Aminotransferase 22 U/L (12-78); Albumin Level 3.9 g/dl (3.5-5.0); Albumin/Globulin Ratio 1.8 (1.1-1.8); Alkaline Phosphatase 107 U/L (38-126); Anion Gap 8.5 mEq/L (5-15); Aspartate Amino Transferase 32 U/L (14-36); Bilirubin,Total 0.5 mg/dl (0.2-1.3); Calcium 9.1 mg/dl (8.4-10.2); Carbon Dioxide 30 mmol/L (22.0-30.0); Globulin 2.2 g/dL (1.3-3.2); Glucose 91 mg/dl (74-100); Total Protein,Serum 6.1 g/dl (6.3-8.2)
== END 2023-06-16 23:59 | disposition home or self-care (01) ==
LOC: LAB 12:41
PROVIDERS: PCP Nurse Practitioner; Visit Provider Surgery
DX: K80.20 Calculus of gallbladder without cholecystitis without obstruction (principal)
CPT/HCPCS: 36415; 80053; 85025

== ENCOUNTER 2023-06-27 06:56 | Day surgery (SDC) | payer MEDICARE, SELFPAY ==
[2023-06-24 09:55] VITALS: BMI 25.3
[2023-06-27] VITALS (11 sets, daily range): BP systolic 125–170; BP diastolic 61–90; PULSE 65–100; RESP 16–19; TEMP 36.2–43; O2SAT 91–100
[2023-06-27] MEDS: LACTATED RINGERS 1000ML 1,000 ML 25 ML IV (07:24)
--- NOTE | 2023-06-27 07:48 | EXP.ANES.CKL ---
[facility] Disclaimer: The information contained in this section may have been updated after the patient was seen, as this information can be updated by other users. Medical History Pre-operative cardiovascular examination Chest pain Urinary tract infection History of COVID-19 COPD (chronic obstructive pulmonary disease) Migraine Anxiety and depression Degenerative disc disease Eczema Irritable bowel syndrome (IBS) History of gastroesophageal reflux (GERD) Gallstones Hypothyroid Allergies Hypertension History of anemia Cervical cancer Surgical History History of cataract surgery Hx of elbow surgery LEFT Hx of shoulder surgery LEFT Hx of neck surgery History of tubal ligation History of colonoscopy Family History Other Cancer Heart disease Hypertension Thyroid disorder Social History (Updated 06/27/23 @ 07:21 by Lolis Ashford RN) Smoking Status: Former smoker second hand exposure: No alcohol intake: never substance use type: denies use current occupational status: retired Travel in the last 8 weeks: None household members: spouse and family housing: house current occupational exposures/hazards: No caffeine: Yes [facility] Anesthesia Checklist Patient Identification Patient Identification: Arm Band, Family and Verbal (Name & ) Structural Data Admitted From: Home Planned Operative Procedure/s: Lap. Cardoso Consent for Planned Operative Procedure(s) Verified: Yes Verified Documents: Surgical Consent and History and Physical NPO Status Verified Time NPO: 22:00 Chart Verification Results Verified: CBC and BMP Additional verifications Patient : No Anesthesia Reactions: No Hx Blood Transfusions: Yes Blood Transfusion Reaction: No Cardiovascular Assessment Heart Sounds: S1 & S2 Pulse Rhythm: Irregular Airway Assessment Mallampati Score:: Class II C-Spine Mobility Assessed: Yes TMJ Mobility Assessed: Yes Dentition: Edentulous Neurological Assessment Level of Consciousness: Awake, Alert, Appropriate and Follows Commands Hx Seizures: No Numbness or tingling in extremities: No Anesthesia Plan Anesthesia Risk discussed: Yes Anesthesia Plan: Verified ASA Class: III Anesthesia Type: General
--- NOTE | 2023-06-27 08:06 | P.PNANES_ITS ---
[facility] Anesthesia Record Part I Anesthesia Record I Intake, IV Amount: 1,000 Hydration: Adequate Estimated blood loss (mL): 0 Urine output (mL): 0 Blood Pressure: 125/84 SaO2: 98 Pulse Rate: 97 Airway Patency: Patent Respiratory Rate: 16 Temperature: 97.5 F Patient is:: Awake and Stable Stable to PACU at:: 08:03
[2023-06-27] MEDS: ROPIVACAINE 0.5% 30ML VIAL 150 MG (09:05)
[2023-06-27] MEDS: CEFAZOLIN SODIUM 1 GM in 0.9 % SODIUM CHLORIDE 50 ML IV (09:05)
[2023-06-27] MEDS: LIDOCAINE 1% 20ML MDV 20 ML (09:05)
[2023-06-27] MEDS: SODIUM CHLORIDE IRRIG SOLUTION 3,000 ML 3000 ML IR (09:05)
--- NOTE | 2023-06-27 09:25 | P.OP_ITS ---
Date of procedure: 06/27/23 Pre-op Diagnosis:: Symptomatic gallstones Post-op Diagnosis:: Same Procedure performed:: Laparoscopic cholecystectomy Surgeon:: Jeff Bhatti MD PROGRAM MGR:: Alex Hearn Anesthesia: GETA Estimated blood loss (mL): 15 Clinical Note:: Patient presents for cholecystectomy. She states that for few months she has had some postprandial abdominal swelling. She does describe some right subcostal pain. This occurs immediately postprandially. Patient states that her insides are inflamed . She had undergone CT scan with contrast initially on 03/08/2023 which revealed sigmoid, rectal, pelvic small bowel loop wall thickening likely inflammatory. Inflammatory bladder wall thickening. Small amount of pelvic ascites. Cholelithiasis. Patient describes a rather longstanding history of abdominal pain and discomfort. She had previously under gone endoscopic procedures and evaluation with Dr. Dhillon. I had most recently performed colonoscopy on 04/15/2023. She had some hyperplastic polyps and biopsies of the terminal ileum and colon were normal. She states that she has relatively consistent loose stools and diarrhea since she underwent chemotherapy and radiation for cervical cancer in 2013. She has a family history of Crohn's disease. When she was seen back in the office after colonoscopy she did wish to pursue cholecystectomy. I had her see cardiology and she has been cleared for surgery. She did undergo gallbladder ultrasound which revealed gallstones present in the gallbladder without evidence of ductal dilatation. There is fatty infiltration of the liver. She would like to pursue cholecystectomy. Operative findings:: He had adhesions as of omentum to the gallbladder and duodenum was loosely adherent. There is fatty infiltration of the liver with mild to moderate hepatomegaly. There was some scant chylous ascites in the pelvis. The neck of the gallbladder gradually tapered to the cystic duct. Operative note:: Consent was obtained and patient was taken to the operating room. She was given preoperative intravenous antibiotics. In the operating room she was placed in a supine position. General anesthesia was induced via endotracheal tube. Abdomen was prepped and draped in the standard surgical fashion. Subumbilical skin incision was made and while performing abdominal wall lift Veress needle was i nserted. CO2 pneumoperitoneum was achieved to 15 mmHg. 11 mm optical trocar was inserted at the umbilicus. Intraperitoneal contents were visualized. She was noted to have some scant chylous ascites in the pelvis. She was positioned in reverse Trendelenburg left side down. A couple 5 mm trocars were inserted in the right upper abdomen. 10 mm trocar was inserted in the epigastrium. Gallbladder was grasped retracted anteriorly and superiorly over the dome of the liver. There was some adhesions to the gallbladder which were taken down using blunt dissection. Infundibulum of the gallbladder was retracted anterior laterally. Blunt dissection was carried out at the neck of the gallbladder. Visceral peritoneum of the gallbladder was incised laterally. Ultimately dissection was carried out identifying the cystic duct and cystic artery clearly and the critical view of safety. Cystic duct was isolated, multiply clipped, and sharply divided. Cystic artery was carefully coagulated with JOSÉ MIGUEL ultrasonic harmonic kim and divided. Gallbladder was dissected free from the liver in a retrograde fashion using JOSÉ MIGUEL ultrasonic harmonic kim. Gallbladder was placed within an Endo Catch retrieval device and removed from the peritoneal cavity via the umbilical trocar site. Limited irrigation was performed of the gallbladder fossa. There was good hemostasis. Trocars were then removed as CO2 pneumoperitoneum was evacuated. Fascia at the umbilicus was closed with a couple 0 Vicryl sutures. Local anesthetic was infiltrated. Skin incisions were closed with 4-0 Monocryl subcuticular fashion. Dermabond and dressings were applied. Condition: stable Disposition: PACU Complications:: None immediately apparent
--- NOTE | 2023-06-27 09:36 | EXP.ANES.I ---
[facility] Anesthesia Record Part I Anesthesia Record I Intake, IV Amount: 1,000 Hydration: Adequate Estimated blood loss (mL): 0 Urine output (mL): 0 Blood Pressure: 161/90 SaO2: 97 Pulse Rate: 78 Airway Patency: Patent Respiratory Rate: 16 Temperature: 98.3 F Patient is:: Awake and Stable Stable to PACU at:: 09:30
--- NOTE | 2023-06-27 11:58 | P.PNANES_ITS ---
[facility] Anesthesia Record Part II Anesthesia Record Part II Discharge Time: 10:00 Destination: Surgical Day Care (OP Surgery) PACU nurse assessment reviewed?: Yes Patient Condition:: Good Anesthesia Complications:: None Swallowing reflex intact?: Yes Airway Patency: Patent Cyanosis?: No Blood Pressure: 167/71 SaO2: 100 Respiratory Rate: 19 Pulse Rate: 89 Temperature: 97.2 F Mental Status: Alert & Oriented Pain level:: 0 Nausea and/or vomitting:: None Intake, IV Amount: 0 Hydration: Adequate
== END 2023-06-27 10:27 | disposition home or self-care (01) ==
PROVIDERS: PCP Nurse Practitioner; Visit Provider Surgery
PROC: 0FT44ZZ Resection of Gallbladder, Percutaneous Endoscopic Approach (ICD-10-PCS; CPT 47562; principal; 2023-06-27 08:30)
DX: R10.11 Right upper quadrant pain (principal); K80.10 Calculus of gallbladder with chronic cholecystitis without obstruction; K76.0 Fatty (change of) liver, not elsewhere classified; R16.0 Hepatomegaly, not elsewhere classified; R18.8 Other ascites
CPT/HCPCS: 47562; 96374; J2405; J2710

== ENCOUNTER 2023-12-11 18:43 | Observation (INO) | payer MEDICARE, SELFPAY ==
[2023-12-11] VITALS (7 sets, daily range): BP systolic 102–201; BP diastolic 51–108; PULSE 68–78; RESP 16–19; TEMP 36.6–36.8; O2SAT 95–99; BMI 24.2; BMI 24.3
--- NOTE | 2023-12-11 18:54 | PC.NURSE ---
pt unable to provide urine sample upon arrival
--- NOTE | 2023-12-11 18:55 | PC.NURSE ---
Dr. Ewing at [facility] for pt eval
--- NOTE | 2023-12-11 18:57 | CT_ITS ---
PROCEDURE INFORMATION: Exam: CTA Abdomen and Pelvis With Contrast Exam date and time: 12/11/2023 7:27 PM Age: 68 years old Clinical indication: Abdominal pain; Generalized; Additional info: Severe diffuse abd pain out of proportion TECHNIQUE: Imaging protocol: Computed tomographic angiography of the abdomen and pelvis with contrast. Exam focused on the arteries. 3D rendering (Not supervised by radiologist): MIP and/or 3D reconstructed images were created by the technologist. Radiation optimization: All CT scans at this facility use at least one of these dose optimization techniques: automated exposure control; mA and/or kV adjustment per patient size (includes targeted exams where dose is matched to clinical indication); or iterative reconstruction. Contrast material: ISOVUE; Contrast volume: 80 ml; Contrast route: INTRAVENOUS (IV); COMPARISON: CT ABDOMEN PELVIS W CON 03/08/2023 8:23 AM FINDINGS: Aorta: No aortic aneurysm. No aortic dissection. Celiac trunk and mesenteric arteries: If this is ischemic, it would be due to a global hypoperfusion event given that I do not see any evidence for arterial focal arterial occlusion of the mesenteric arteries. Renal arteries: No occlusion or significant stenosis. Right iliac arteries: No occlusion or significant stenosis. Left iliac arteries: No occlusion or significant stenosis. Liver: Severe diffuse hepatic steatosis is identified. Gallbladder and biliary ducts: There has been a cholecystectomy. Pancreas: The pancreas is normal. Spleen: The spleen is normal. Adrenal glands: Increased enhancement of the adrenal glands bilaterally. No adrenal mass. Kidneys and ureters: The kidneys are normal. Stomach and bowel: The stomach appears within normal limits. No wall thickening or inflammatory change. Rather diffuse small bowel wall edema consistent with most likely an inflammatory or infectious or potentially ischemic enteritis appears to involve most of the jejunum and all of the ileum.. Appendix: No evidence of appendicitis. Intraperitoneal space: No free air. No evidence for focal fluid collection or ascites. No evidence for omental thickening. There is reactive ascites within the small bowel mesentery. Lymph nodes: Unremarkable. No enlarged lymph nodes. Urinary bladder: Unremarkable. No mass. Reproductive: Unremarkable as visualized. Bones/joints: No acute fracture. Soft tissues: Unremarkable. IMPRESSION: 1. Rather diffuse small bowel wall edema is noted. appears to involve most of the jejunum and all of the ileum. No pneumatosis. Would correlate clinically for any systemic hypotension event with shock bowel, which could give this appearance to the small intestine and can also be seen with hyperenhancement of the adrenal glands that is noted on this study. There is no evidence for acute thrombus or embolus/occlusion within the mesenteric arteries. Other possibilities for the small bowel wall edema would be an infectious or inflammatory enteritis such as small bowel vasculitis . 2. Severe diffuse hepatic steatosis is identified. 3. There is reactive ascites within the small bowel mesentery.
--- NOTE | 2023-12-11 19:03 | PC.NURSE ---
first set of cultures done at this time.
[2023-12-11 19:04] LABS: Basophils # 0.1 K/mm3 (0-0.2); Basophils % 0.5 % (0.1-2.0); Eosinophils # 0.2 K/mm3 (0.0-0.4); Eosinophils % 1.1 % (0.1-12.0); Hemoglobin 13.3 g/dL (12.2-16.2); Lymphocytes # 1.3 K/mm3 (0.7-4.5); Lymphocytes % 9.5 % (10-50); Mean Corpuscular HGB Conc 33.1 g/dL (31.8-35.4); Mean Corpuscular Hemoglobin 29.5 pg (27.0-31.2); Mean Platelet Volume 7.2 fl (7.4-10.4); Monocytes # 0.6 K/mm3 (0.1-1.0); Monocytes % 4.5 % (1.7-9.3); Neutrophils # 11.4 K/mm3 (1.8-7.8); Neutrophils % 84.4 % (37.0-80.0); Platelet Count 373 K/mm3 (142-424); Red Cell Distribution Width 13.5 % (11.5-17.5); White Blood Count 13.5 K/mm3 (4.8-10.8)
[2023-12-11] MEDS: ONDANSETRON 4MG/2ML VIAL 4 MG IV (19:05)
[2023-12-11] MEDS: KETOROLAC 30MG/ML VIAL 15 MG IV (19:06)
[2023-12-11] MEDS: HYDROMORPHONE 2MG/ML SYRINGE 1 MG IV (19:06)
[2023-12-11 19:10] LABS: Chloride 101 mmol/L (98-107)
[2023-12-11 19:11] LABS: Albumin Level 4.8 g/dl (3.5-5.0); Sodium 136 mmol/L (136-145)
--- NOTE | 2023-12-11 19:12 | ED_ITS ---
Discharge Plan Disposition Patient Disposition: Admitted Chief Complaint: Abdominal Pain Prescriptions Prescriptions: No Action losartan 25 mg tablet 50 mg PO DAILY levothyroxine 150 mcg tablet 150 mcg PO DAILY quetiapine 25 mg tablet 25 mg PO DAILY PRN (Reason: .) albuterol 90 mcg/actuation Aerosol 90 mcg INHALATION DAILY fluoxetine 20 mg capsule 60 mg PO DAILY pantoprazole [Protonix] 40 mg Tablet,Delayed Release (Dr/Ec) 40 mg PO DAILY hydrocodone-acetaminophen 5-325 mg Tablet 1 - 2 tab PO Q6H PRN (Reason: Pain) Qty: 21 0RF Clinical Impressions Clinical Impression: Gastroenteritis Print Language Print Language: Micronesian Discharge ED Provider: Ravi Ewing General Adult HPI General Chief complaint: Abdominal Pain Stated complaint: Abdominal pain with vomiting Time Seen by Provider: 12/11/23 18:48 Mode of Arrival: Ambulatory Source of Information: Patient Limitations: No Limitations Description of Symptoms (Recalled from ER Triage Doc. by RN): pt presents to ED with c/o abdominal pain, located in left quadrant. pt reports pain began today. vomitting and diarrhea as well. History of Present Illness HPI narrative: Please note that above description of symptoms, in this electronic medical record under categorization of recalled from ER triage doctor by RN are reflective of an initial nursing assessment, however, is not reflective of my full history and physical exam that was personally taken and clarified. Consequentially, this preceding description of symptoms, which may include the patient's categorized chief complaint in the EMR, do not reflect my personal clinical impression, and the ultimate description of history of present illness and patient stated complaints should be deferred to this section of the note. Unless stated otherwise or congruent with this section of the note, additional signs, symptoms, or incongruence should be interpreted as inaccurate with my clinical impression. Related Data Home Medications ?Medication ?Instructions ?Recorded ?Confirmed levothyroxine 150 mcg tablet 150 mcg PO DAILY 05/28/21 07/12/23 quetiapine 25 mg tablet 25 mg PO DAILY PRN . 05/28/21 07/12/23 albuterol 90 mcg/actuation aerosol 90 mcg inhalation DAILY 04/12/23 07/12/23 inhaler fluoxetine 20 mg capsule 60 mg PO DAILY 04/12/23 07/12/23 pantoprazole 40 mg tablet,delayed 40 mg PO DAILY 04/12/23 07/12/23 release (Protonix) losartan 25 mg tablet 50 mg PO DAILY 04/21/23 07/12/23 Previous Rx's ?Medication ?Instructions ?Recorded hydrocodone 5 mg-acetaminophen 325 1 - 2 tab PO Q6H PRN Pain #21 tabs 06/27/23 mg tablet Allergies Allergy/AdvReac Type Severity Reaction Status Date / Time No Known Allergies Allergy Verified 07/12/23 09:17 [facility] Disclaimer: The information contained in this section may have been updated after the patient was seen, as this information can be updated by other users. Medical History (Updated 12/11/23 @ 22:24 by Ravi Ewing MD) Pre-operative cardiovascular examination Chest pain Urinary tract infection History of COVID-19 COPD (chronic obstructive pulmonary disease) Migraine Anxiety and depression Degenerative disc disease Eczema Irritable bowel syndrome (IBS) History of gastroesophageal reflux (GERD) Gallstones Hypothyroid Allergies Hypertension History of anemia Cervical cancer Surgical History (Updated 07/12/23 @ 09:20 by SONA Nichole) History of laparoscopic cholecystectomy History of cataract surgery Hx of elbow surgery Hx of shoulder surgery Hx of neck surgery History of tubal ligation History of colonoscopy Family History Other Cancer Heart disease Hypertension Thyroid disorder Social History Smoking Status: Former smoker second hand exposure: No alcohol intake: never substance use type: denies use current occupational status: retired Travel in the last 8 weeks: None household members: spouse and family housing: house current occupational exposures/hazards: No caffeine: Yes Other Medical History Have you received the Flu Vaccine for this season: No Have you received the Pneumonia Vaccine: No ROS Obtained: Yes All systems reviewed & no additional complaints except as documented Physical Exam General General appearance: alert and in distress (Secondary to pain) Head Head exam: atraumatic and normocephalic Eye Eye exam: Present normal appearance, PERRL and EOMI Neck Neck exam: Present normal inspection, full ROM and trachea midline Respiratory Respiratory exam: Absent respiratory distress, wheezes, stridor, accessory muscle use or prolonged expiratory phase Cardiovascular Cardiovascular exam: Present other (Pulses equal symmetric in upper and lower extremities) Abdominal Exam Abdominal exam: Present soft and tenderness; Absent distention, guarding, rebound, rigidity or pulsatile mass Abdominal tenderness: Present diffuse and moderate Extremities Exam Extremities exam: Absent edema Neurological Exam Neurological exam: Present alert, oriented X3 and CN II-XII intact; Absent motor sensory deficit Skin Skin exam: Present warm and dry; Absent diaphoresis or erythema Medical Decision Making Medical Records Medical records reviewed: Yes I reviewed the patient's medical records. Screening: Per USPSTF and CDC recommendations, given the prevalence of disease in our region, it is our hospital?s policy to screen for HIV and viral Hepatitis for all patients aged 18 and over and those with ongoing risk factors. Markos Inquiry Pt receiving controlled substance: No Markos was queried for this patient: No Vital Signs: 12/11/23 18:44 12/11/23 18:51 12/11/23 19:01 Temperature 97.9 F Temperature Source Oral Pulse Rate 68 76 Pulse Rate [Left Radial] 74 Respiratory Rate 19 Blood Pressure 178/98 H 201/108 H Blood Pressure [Right Arm] 178/98 H Blood Pressure Mean [Right Arm] 124 02 Sat by Pulse Oximetry 99 97 99 Oxygen Delivery Method Room Air Room Air 12/11/23 19:31 12/11/23 19:46 Temperature Temperature Source Pulse Rate 78 70 Pulse Rate [Left Radial] Respiratory Rate Blood Pressure 186/72 H 141/65 H Blood Pressure [Right Arm] Blood Pressure Mean [Right Arm] 02 Sat by Pulse Oximetry 95 96 Oxygen Delivery Method Lab Data Lab Results 12/11/23 18:54: WBC 13.5 H, RBC 4.50, Hgb 13.3, Hct 40.0, MCV 89.0, MCH 29.5, MCHC 33.1, RDW 13.5, Plt Count 373, MPV 7.2 L, Neut % (Auto) 84.4 H, Lymph % (Auto) 9.5 L, [place] % (Auto) 4.5, Eos % (Auto) 1.1, Baso % (Auto) 0.5, Neut # (Auto) 11.4 H, Lymph # (Auto) 1.3, [place] # (Auto) 0.6, Eos # (Auto) 0.2, Baso # (Auto) 0.1, Sodium 136, Potassium 3.0 L, Chloride 101, Carbon Dioxide 23, Anion Gap 15.0, BUN 16, Creatinine 1.00, Estimated Creat Clear 59, Estimated GFR 55 L, Est GFR ( Amer) 67, Glucose 168 H, Lactate 1.7, Calcium 10.1, Total Bilirubin 0.9, AST 48 H, ALT 30, Alkaline Phosphatase 164 H, Total Protein 7.9 D, Albumin 4.8, Globulin 3.1, Albumin/Globulin Ratio 1.5, Lipase 60, HIV 1&2 Antibody Rapid Nonreactive 12/11/23 18:54 12/11/23 18:54 Orders (Tests/Meds): ED MEDICATIONS Generic Name Dose Route Start Last Admin Trade Name Freq PRN Reason Stop Dose Admin Sodium Chloride 1,000 mls @ 999 mls/hr 12/11/23 22:02 12/11/23 22:12 Sod Chlor 0.9% 1000ml Bag IV 12/11/23 23:02 999 mls/hr .Q1H1M ONE Administration Discontinued Medications Generic Name Dose Route Start Last Admin Trade Name Freq PRN Reason Stop Dose Admin Droperidol 2.5 mg 12/11/23 22:01 12/11/23 22:07 Droperidol 5mg/2ml Vial IV 12/11/23 22:02 2.5 mg ONCE ONE Administration Hydromorphone HCl 1 mg 12/11/23 18:58 12/11/23 19:06 Hydromorphone 2mg/Ml Syringe IV 12/11/23 18:59 1 mg ONCE ONE Administration Iopamidol 80 ml 12/11/23 19:23 12/11/23 19:24 Iopamidol-370 (76%);100ml Bottle IV 12/11/23 19:24 80 ml ONCE ONE Administration Ketorolac Tromethamine 15 mg 12/11/23 18:58 12/11/23 19:06 Ketorolac 30mg/Ml Vial IV 12/11/23 18:59 15 mg ONCE ONE Administration Ondansetron HCl 4 mg 12/11/23 18:58 12/11/23 19:05 Ondansetron 4mg/2ml Vial IV 12/11/23 18:59 4 mg ONCE ONE Administration Potassium Chloride 60 meq 12/11/23 20:26 12/11/23 20:28 Potassium Chloride 20meq Tab PO 12/11/23 20:27 60 meq ONCE ONE Administration Sodium Chloride 10 ml 12/11/23 19:23 12/11/23 19:24 Sodium Chloride 0.9% 10ml Syr (Rad Only) IV 12/11/23 19:24 10 ml ONCE ONE Administration Sodium Chloride 50 ml 12/11/23 19:23 12/11/23 19:24 0.9 % Sodium Chloride 50 Ml Vial IV 12/11/23 19:24 50 ml ONCE ONE Administration ORDERS Category Date Time Status CT angio abdomen pelvis Stat Cat Scan 12/11/23 18:57 Completed CBC w/Auto Diff [Complete Blood Count Auto Diff] Stat Lab 12/11/23 18:54 Completed CMP [Comprehensive Metabolic Panel] Stat Lab 12/11/23 18:54 Completed Diarrhea 6-11 Panel, Cdiff PCR Stat Lab 12/11/23 21:30 Ordered HIV (1&2) Antibody Rapid Stat Lab 12/11/23 18:54 Completed Hep C Ab with Reflex to RNA Stat Lab 12/11/23 18:54 Received Lactic Acid Stat Lab 12/11/23 18:54 Completed Lipase Stat Lab 12/11/23 18:54 Completed UA [Urinalysis and Microscopic] Stat Lab 12/11/23 19:31 Received Blood Culture Stat Micro 12/11/23 20:16 Received Medical Decision Narrative: 68-year-old female history of hypertension, hyperlipidemia, COPD not currently smoking, cholecystectomy, tubal ligation, cervical cancer status post radiation therapy presenting with abdominal pain. Patient states she has had diarrhea that is nonbloody, not mucousy for the past week. States that abdominal pain started today, 12/10 in the a.m. when she was not doing anything in particular. It is epigastric/periumbilical, intermittently radiates to left lower abdomen and left flank. Associated with vomiting when trying to tolerate p.o. intake. Has not been able to tolerate any p.o. intake today which was meaningful. No vaginal discharge or bleeding, urinary symptoms, or any other concerns. History was obtained via conversation with patient. On arrival, patient hemodynamically stable, alert, oriented x4, appropriate, GCS 15, moving all extremities spontaneously, pupils equal and reactive to light. Full physical exam performed and significant for patient mild to moderate distress secondary to pain. Holding her abdomen. Abdomen soft, nondistended, but diffusely tender with moderate tenderness. No rebound, rigidity, or guarding. No flank tenderness. No overlying skin changes. Bowel sounds are present. Differential includes male abdominal pain. Patient placed on continuous cardiac monitoring and continuous pulse ox with initial blood pressure 141/65, heart rate 70, saturation 96% on room air. EKG sinus rhythm with incomplete right bundle branch block. [place] normal. No ischemic change. Patient was given Toradol, Dilaudid, Zofran for symptomatic management and correction of underlying abnormalities. Workup independently interpreted and significant for leukocytosis. Negative lactate. Mild hypokalemia. This was repleted. On independent interpretation of imaging, diffuse enteritis with free fluid. No evidence of obstruction or free air. See radiology read for full review of final results. On reevaluation, patient still in moderate pain, vomiting unable to tolerate p.o. Because of this, droperidol was given. Conversation had with patient and regarding home-going, opted for inpatient admission for serial abdominal exams, fluids, pain and nausea management. Given patient presentation, workup, history, this most likely represents acute infectious gastroenteritis. Because patient high risk for clinical decompensation, deemed appropriate for inpatient admission. Results were relayed to patient who voiced understanding and patient was agreeable to inpatient admission and management. Patient was admitted to the hospital for further definitive management. [employer] disclaimer Much of this encounter note is an electronic academic adviser spoken language to printed text. Electronic academic adviser of the spoken language may permit errors. Although I have reviewed the note, some errors may still exist. Critical Care Critical Care Time Critical Care Time: No
[2023-12-11 19:13] LABS: Blood Urea Nitrogen 16 mg/dl (7-17); Estimated Glomerular Filt Rate 55 ml/min (>60)
[2023-12-11 19:14] LABS: Alanine Aminotransferase 30 U/L (12-78); Alkaline Phosphatase 164 U/L (38-126); Aspartate Amino Transferase 48 U/L (14-36); Bilirubin,Total 0.9 mg/dl (0.2-1.3); Calcium 10.1 mg/dl (8.4-10.2); Glucose 168 mg/dl (74-100); Lipase 60 U/L (23-300); Total Protein,Serum 7.9 g/dl (6.3-8.2)
[2023-12-11 19:15] LABS: Albumin/Globulin Ratio 1.5 (1.1-1.8); Globulin 3.1 g/dL (1.3-3.2); Lactic Acid 1.7 mmol/L (0.7-2.1)
[2023-12-11] MEDS: 0.9 % SODIUM CHLORIDE 50 ML VIAL IV (19:24)
[2023-12-11] MEDS: SODIUM CHLORIDE 0.9% 10ML SYR (RAD ONLY) 10 ML IV (19:24)
[2023-12-11] MEDS: IOPAMIDOL-370 (76%);100ML BOTTLE 80 ML IV (19:24)
[2023-12-11] MEDS: POTASSIUM CHLORIDE 20MEQ TAB 60 MEQ PO (20:28)
[2023-12-11 20:48] LABS: HIV (1&2) Antibody Rapid NONREACTIVE (NONREACTIVE)
[2023-12-11 22:05] LABS: GFR (African American) 67 ML/MIN (>60)
[2023-12-11 22:06] LABS: Creatinine Clearance Estimated 59 mL/min (50-200)
--- NOTE | 2023-12-11 22:06 | ECG_ITS ---
APPROVED REPORT Exam: Resting ECG HR:73 bpm ECG Measurements Heart Rate 73 AXES WA 176 P 38 QRSd 91 QRS 0 QT 417 T 18 QTc 442 Conclusion SINUS RHYTHM INCOMPLETE RIGHT BUNDLE BRANCH BLOCK [90+ ms QRS DURATION, TERMINAL R IN V1/V2, 40+ ms S IN I/aVL/V4/V5/V6] VOLTAGE CRITERIA FOR LVH [MEETS CRITERIA IN ONE OF: R(aVL), S(V1), R(V5), R(V5/V6)+S(V1)] Nonspecific Q wave and T wave inversion isolated in lead III No STEMI Electronically signed by : STEPHEN RAMIREZ, 12/12/2023 06:10:03
[2023-12-11 22:07] LABS: Carbon Dioxide 23 mmol/L (22.0-30.0)
[2023-12-11] MEDS: droPERidol 5MG/2ML VIAL 2.5 MG IV (22:07)
[2023-12-11] MEDS: 0.9 % SODIUM CHLORIDE 1000ML 1,000 ML 999 ML IV (22:12)
--- NOTE | 2023-12-11 22:37 | PC.NURSE ---
report called to Elvira KING
--- NOTE | 2023-12-11 22:51 | PC.NURSE ---
patient arrived to floor via wheelchair @22:50
--- NOTE | 2023-12-11 22:51 | EXP.HP ---
History of Present Illness *Admission Date: 12/11/23 *Reason for visit:: Diarrhea now vomiting and abdominal pain *History of present illness: Ms. Tilley a 68-year-old female, ports that she started with diarrhea last Tuesday, this had slowly improved but today began with abdominal pain and vomiting. Came to the emergency room in moderate distress., Medication has been given to her for vomiting that was unsuccessful so droperidol was then also added. This appears to be adequate as she is not vomiting anymore but has made her sedated.. She does not know of anyone else its ill and she does not remember getting hold of any bad food.. 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 She had a gallbladder removed approximately a year ago, and during this workup found after her colonoscopy she does have mild colitis in March. Also noted on several notes a fatty liver. Significant past medical history with cervical cancer in 2013 treated with radiation and chemotherapy, also a history of COPD but stated her last cigarette was in 2013. CTA of the abdomen pelvis was done, showing significant bowel wall thickening with lots of fluid also some extraperitoneal fluid. After discussing the patient with the ER physician do feel that she does need to be admitted for treatment for the discomfort abdominal pain the vomiting, and will need a GI consult related to the chronic bowel wall thickening and peritoneal fluid. [facility] Disclaimer: The information contained in this section may have been updated after the patient was seen, as this information can be updated by other users. Medical History (Updated 12/12/23 @ 11:22 by Davey Dhillon II, MD) Enteritis Exposure to COVID-19 virus Chronic daily headache Primary snoring Sleep-disordered breathing Pneumonia Palpitations Viral syndrome Viral URI with cough Gallstones Chronic cholecystitis Pre-operative cardiovascular examination Chest pain Urinary tract infection History of COVID-19 COPD (chronic obstructive pulmonary disease) Migraine Anxiety and depression Degenerative disc disease Eczema Irritable bowel syndrome (IBS) History of gastroesophageal reflux (GERD) Gallstones Hypothyroid Allergies Hypertension History of anemia Cervical cancer Surgical History History of laparoscopic cholecystectomy History of cataract surgery Hx of elbow surgery Hx of shoulder surgery Hx of neck surgery History of tubal ligation History of colonoscopy Family History Other Cancer Heart disease Hypertension Thyroid disorder Social History Smoking Status: Former smoker second hand exposure: No alcohol intake: never substance use type: denies use current occupational status: retired Travel in the last 8 weeks: None household members: spouse and family housing: house current occupational exposures/hazards: No caffeine: Yes Other Medical History Have you received the Flu Vaccine for this season: No Have you received the Pneumonia Vaccine: No Review of Systems Review of Systems Review of systems:: pertinent systems reviewed and negative unless documented below Constitutional Constitutional: Reports as per HPI Comments: Quite significant diarrhea that is now moderate abdominal pain with vomiting Eyes Eyes: Reports as per HPI ENT Ears, Nose, Mouth, and Throat: Reports as per HPI *Cardiovascular Cardiovascular: Reports as per HPI Comments: Patient denies any chest pain *Respiratory Respiratory: Reports as per HPI Comments: Patient denies any shortness of breath *Gastrointestinal Gastrointestinal: Reports as per HPI, Reports abdominal pain, Reports change in bowel habits, Reports change in stool character, Reports cramping, Reports nausea, Reports tenesmus and Reports vomiting *Genitourinary Genitourinary: Reports as per HPI *Musculoskeletal Musculoskeletal: Reports as per HPI Integumentary/Breasts Skin/Breast: Reports as per HPI *Neurologic Neurologic: Reports as per HPI Comments: Patient slightly somnolent related to medications or is received for vomiting Endocrine Endocrine: Reports as per HPI Hematologic/Lymphatic Hematologic/Lymphatic: Reports as per HPI Allergic/Immunologic Allergic/Immunologic: Reports as per HPI Meds Home Medications and Allergies Home Medications ?Medication ?Instructions ?Recorded ?Confirmed ?Type levothyroxine 150 mcg tablet 150 mcg PO DAILY 05/28/21 12/11/23 History quetiapine 25 mg tablet 25 mg PO DAILY PRN Sleep 05/28/21 12/11/23 History fluoxetine 20 mg capsule 60 mg PO DAILY 04/12/23 12/11/23 History pantoprazole 40 mg tablet,delayed 40 mg PO DAILY 04/12/23 12/11/23 History release (Protonix) losartan 25 mg tablet 50 mg PO DAILY 04/21/23 12/11/23 History albuterol sulfate 90 mcg/actuation 1 puff inhalation DAILY 12/12/23 12/12/23 History aerosol inhaler ondansetron 4 mg disintegrating 4 mg PO Q8H PRN nausea and 12/12/23 Rx tablet vomiting #14 tabs vancomycin 50 mg/mL oral solution 125 mg (2.5 mL) PO QID 10 days #0 12/12/23 Rx (Firvanq) mL New Prescriptions to Start Prescriptions: ondansetron Edmond Baker Allergies Allergy/AdvReac Type Severity Reaction Status Date / Time No Known Allergies Allergy Verified 07/12/23 09:17 Exam Data for Last 24 hours Vital signs and Labs for Last 24 Hours: Temp Pulse Resp BP Pulse Ox O2 Del Method O2 Flow Rate 97.9 F 70 16 104/55 L 96 Nasal Cannula 2 12/11/23 22:37 12/11/23 22:37 12/11/23 22:37 12/11/23 22:37 12/11/23 19:46 12/11/23 22:37 12/11/23 22:37 Laboratory Results - last 24 hr 12/11/23 18:54: WBC 13.5 H, RBC 4.50, Hgb 13.3, Hct 40.0, MCV 89.0, MCH 29.5, MCHC 33.1, RDW 13.5, Plt Count 373, MPV 7.2 L, Neut % (Auto) 84.4 H, Lymph % (Auto) 9.5 L, [place] % (Auto) 4.5, Eos % (Auto) 1.1, Baso % (Auto) 0.5, Neut # (Auto) 11.4 H, Lymph # (Auto) 1.3, [place] # (Auto) 0.6, Eos # (Auto) 0.2, Baso # (Auto) 0.1, Sodium 136, Potassium 3.0 L, Chloride 101, Carbon Dioxide 23, Anion Gap 15.0, BUN 16, Creatinine 1.00, Estimated Creat Clear 59, Estimated GFR 55 L, Est GFR ( Amer) 67, Glucose 168 H, Lactate 1.7, Calcium 10.1, Total Bilirubin 0.9, AST 48 H, ALT 30, Alkaline Phosphatase 164 H, Total Protein 7.9 D, Albumin 4.8, Globulin 3.1, Albumin/Globulin Ratio 1.5, Lipase 60, HIV 1&2 Antibody Rapid Nonreactive I & O for Last 24 hours: Intake & Output 12/08/23 12/09/23 12/10/23 12/11/23 23:59 23:59 23:59 23:59 Weight 68.039 kg Radiology Reports for the Last 24 Hours: CTA of abdomen and pelvis, showed fatty liver, thickening of bowel wall peritoneal fluid Constitutional Constitutional: moderate distress, thin and chronically ill appearing *Routine HEENT Exam Head: Present normocephalic and atraumatic Eye: Present EOMI and PERRL ENT: Present mucous membranes moist Comments: Has full dentures *Routine Neck Exam Neck: Present supple and full ROM Routine Chest/Breast/Axilla Exam Comments: No chest wall tender, no signs of any injury *Routine Respiratory Exam Respiratory: Present CTA bilaterally, normal respiratory effort, able to speak in complete sentences and symmetric chest movement *Routine Cardiovascular Exam Cardiovascular: Present RRR, Normal S1 and Normal S2 *Routine Abdominal Exam Abdominal: Present soft, normoactive bowel sounds and rebound Comments: Palpation of exam was limited related to pain to deep palpation, bowel sounds were actually normal. Abdomen was flat, *Routine Rectal Exam Rectal:: deferred *Routine Genitalia Exam Genitalia:: deferred *Routine Extremities Exam Extremities: Present normal capillary refill Comments: Patient's arms and legs there was no notable signs of any injury able to move all joints well brisk capillary refill to nailbeds no edema in lower extremities Routine Back/Spine/Pelvis Exam Back/Spine: Present full ROM *Routine Skin Exam Skin: Present intact Comments: Skin was dry with poor turgor. No signs of skin breakdown or abnormal bruising *Routine Neurological Exam Neurological: Present alert, oriented X3, CN II-XII intact, normal tone, vision grossly intact and hearing grossly intact Comments: Patient was given medication for nausea vomiting is slightly somnolent but neurologic exam is normal Routine Psychiatric Exam Psychiatric: Present normal affect and cooperative H&P: Result Impressions 1. Gastroenteritis/question whether flareup of colitis versus irritable bowel., Versus a viral or bacterial infection., Patient is quite uncomfortable vomiting now stopped on medication IV fluids being given. Awaiting stool and urine specimen. After examination of the CTA of the abdomen pelvis and doing a physical exam on the patient I do agree with the ER physician that to be admitted With IV fluids monitoring condition of nausea and vomiting and abdominal pain. With GI consult related to what appears to be a chronic colitis found on testing back in March of this year and now having some free fluid. Imaging and Cardiology CT scan - abdomen: Status: image reviewed by me Additional comments: After observing the film and do agree with diffuse hepatic steatosis, enteritis with ascites of the small bowel mesentery, from possible infectious cause. Assessment and Plan *Assessment and plan (1) Gastroenteritis: Status: Acute Category: Medical Code(s): K52.9 - Noninfective gastroenteritis and colitis, unspecified (2) Abdominal pain: Status: Acute Qualifiers: Abdominal location: generalized Qualified Code(s): R10.84 - Generalized abdominal pain Category: Medical Code(s): R10.9 - Unspecified abdominal pain (3) Nausea vomiting and diarrhea: Status: Acute Category: Medical Code(s): R11.2 - Nausea with vomiting, unspecified; R19.7 - Diarrhea, unspecified (4) Enteritis: Status: Acute Category: Medical Code(s): K52.9 - Noninfective gastroenteritis and colitis, unspecified (5) Ascites: Status: Acute Qualifiers: Ascites type: other type Qualified Code(s): R18.8 - Other ascites Category: Medical Code(s): R18.8 - Other ascites (6) Steatosis, liver: Status: Acute Category: Medical Code(s): K76.0 - Fatty (change of) liver, not elsewhere classified (7) COPD (chronic obstructive pulmonary disease): Status: Acute Qualifiers: COPD type: unspecified COPD Qualified Code(s): J44.9 - Chronic obstructive pulmonary disease, unspecified Category: Medical Code(s): J44.9 - Chronic obstructive pulmonary disease, unspecified Plan : Gone down to interview the patient and did not assessment on her. Talked with the ER physician, do agree due to the lady's discomfort the amount of diarrhea she has had the present abdominal pain with vomiting requiring medication that causes sedation to control. That this lady needs to be admitted to the observation at this point in time. Continue on present medications to control pain and vomiting. Will allow her to have clear liquids if she is able to tolerate 06/02/6: CT of the abdomen shows some concerning findings., Patient had gallbladder removed last January and a colonoscopy done in March of this year., Previous CT did show bowel wall thickening prior to the colonoscopy., This is worsened at the present time and appears to be expanding. Question whether this is a chronic illness that is getting worse or an acute viral or bacterial infection is unknown at this time, but this issue needs to be explored deeper to make sure that it is not both. Then being able to follow-up on a slightly worsening for fatty liver. 7, long history of smoking but quit in 2013. But have her on oxygen right now to keep her oxygen saturations up, respiratory rate was 19 when in the ER now down to 16 patient is comfortable on 2 L nasal cannula will continue that at present, we will check her O2 saturation when she is more awake off of sedating medication for vomiting. Examination of the lab,, shows mild hypokalemia. Also with a white count of 13.5 but no temperature at this time. Rounded on patient after nurse practitioner. Personally examined and interviewed patient. Agree with exam findings and care plan as documented. Case was discussed with the ER, request admission for enteritis and diarrhea. Diarrhea panel pending. GI consult placed. White count marginally elevated 11.5. Stable on room air. Medicine agreed to admit for further management. Labs ordered for the morning including CBC, CMP, magnesium. CT showing enteritis per my review. Concern for Crohn's versus infectious process.
[2023-12-11] MEDS: LACTATED RINGERS 1000ML 1,000 ML 75 ML IV (23:10)
[2023-12-12 01:57] LABS: Troponin I < 0.01 ng/ml (0.00-0.034)
[2023-12-12 04:00] VITALS: BP 140/80; PULSE 76; RESP 16; TEMP 36.9; O2SAT 95; BMI 24.3
--- NOTE | 2023-12-12 05:26 | PC.NURSE ---
Since arriving to the floor the patient has been able to rest and not throw up. she did require oxygen when she first arrived to the floor, but I have since been able to take that off as she has woken up this morning. The patient has ambulated to the bathroom a couple times, but has not had a BM since arriving to the floor. Patient has not complained of pain or nausea since coming to the floor. When patient awoken this morning she did want to try to drink some water. We are attempting ice chips at this time and so far is tolerating it good.
[2023-12-12 05:34] LABS: Basophils # 0.1 K/mm3 (0-0.2); Basophils % 0.6 % (0.1-2.0); Eosinophils # 0.2 K/mm3 (0.0-0.4); Eosinophils % 1.4 % (0.1-12.0); Hematocrit 35.8 % (37.0-47.0); Lymphocytes # 1.1 K/mm3 (0.7-4.5); Lymphocytes % 9.1 % (10-50); Mean Corpuscular HGB Conc 33.3 g/dL (31.8-35.4); Mean Corpuscular Hemoglobin 29.7 pg (27.0-31.2); Mean Corpuscular Volume 89.1 fl (81-99); Mean Platelet Volume 7.3 fl (7.4-10.4); Monocytes # 0.8 K/mm3 (0.1-1.0); Monocytes % 7.1 % (1.7-9.3); Neutrophils # 9.4 K/mm3 (1.8-7.8); Neutrophils % 81.8 % (37.0-80.0); Platelet Count 334 K/mm3 (142-424); Red Blood Count 4.02 M/mm3 (4.20-5.40); Red Cell Distribution Width 13.7 % (11.5-17.5); White Blood Count 11.5 K/mm3 (4.8-10.8)
[2023-12-12 05:37] LABS: Albumin Level 3.9 g/dl (3.5-5.0); Chloride 107 mmol/L (98-107); Potassium 4.2 mmoL/L (3.5-5.1); Sodium 139 mmol/L (136-145)
[2023-12-12 05:40] LABS: Alanine Aminotransferase 23 U/L (12-78); Albumin/Globulin Ratio 1.6 (1.1-1.8); Alkaline Phosphatase 116 U/L (38-126); Anion Gap 10.2 mEq/L (5-15); Aspartate Amino Transferase 30 U/L (14-36); Bilirubin,Total 0.6 mg/dl (0.2-1.3); Blood Urea Nitrogen 18 mg/dl (7-17); Carbon Dioxide 26 mmol/L (22.0-30.0); Creatinine Clearance Estimated 60 mL/min (50-200); Estimated Glomerular Filt Rate 63 ml/min (>60); GFR (African American) 76 ML/MIN (>60); Globulin 2.4 g/dL (1.3-3.2); Glucose 117 mg/dl (74-100); Total Protein,Serum 6.3 g/dl (6.3-8.2)
[2023-12-12 05:41] LABS: Hemoglobin 11.9 g/dL (12.2-16.2); Magnesium 1.7 mg/dl (1.6-2.3)
[2023-12-12 05:54] LABS: Troponin I < 0.01 ng/ml (0.00-0.034)
[2023-12-12] MEDS: MAGNESIUM SULFATE IN WATER 2 GM/50 ML PIGGYBACK IV ×2 (06:34→09:30)
--- NOTE | 2023-12-12 07:32 | US_ITS ---
FINAL REPORT CLINICAL HISTORY: eval liver architecture FINDINGS: ULTRASOUND RIGHT UPPER QUADRANT Sonographic imaging of the right upper quadrant was obtained. The pancreas is partially obscured. The liver is diffusely hyperechoic consistent with fatty infiltration. The gallbladder has been removed. The common duct is normal. Limited images of the right kidney are unremarkable. IMPRESSION: Fatty liver. Absent gallbladder. Reviewed, Interpreted and Dictated by Js Cadena MD Transcribed by Jacqueline Mccray Authenticated and [facility]
--- NOTE | 2023-12-12 07:35 | HMH.PHAINT1 ---
Pharmacy Intervention Comments: Home medications verified using list from pharmacy.
[2023-12-12 07:57] LABS: Adenovirus F 40/41, stool Not Detected (NotDetected); Astrovirus Not Detected (NotDetected); Campylobacter Not Detected (NotDetected); Cryptosporidium Not Detected (NotDetected); Cyclospora Cayetanesis Not Detected (NotDetected); Entamoeba histolytica Not Detected (NotDetected); Enteroaggregative E coli Not Detected (NotDetected); Enteropathogenic E coli Not Detected (NotDetected); Enterotoxigenic E coli Not Detected (NotDetected); Giardia lamblia Not Detected (NotDetected); Norovirus Not Detected (NotDetected); Plesimonas Shigalloides, PCR Not Detected (NotDetected); Rotavirus A Not Detected (NotDetected); Salmonella, PCR Not Detected (NotDetected); Sapovirus Not Detected (NotDetected); Shiga-like toxin E coli Not Detected (NotDetected); Shigella Enterovasive E coli Not Detected (NotDetected); Vibrio Cholerae Not Detected (NotDetected); Vibrio, PCR Not Detected (NotDetected); Yersinia Entercolitica, PCR Not Detected (NotDetected)
[2023-12-12 07:58] LABS: Gamma Glutamyl Transpeptidase 23 U/L (12-43)
[2023-12-12 08:00] VITALS: BP 146/73; PULSE 74; RESP 12; TEMP 36.4; O2SAT 95
[2023-12-12] MEDS: ENOXAPARIN 40MG/0.4ML SYRINGE 40 MG SQ (08:29)
[2023-12-12 10:00] VITALS: O2SAT 99
[2023-12-12 10:36] LABS: Clostridium Difficile A/B, PCR Detected (NotDetected)
--- NOTE | 2023-12-12 11:15 | P.CONS_ITS ---
History of Present Illness *Admission Date: 12/11/23 *Reason for visit:: GI consult secondary to abnormal CAT scan-small bowel thickening *History of present illness: Mrs. Tilley is a 68-year-old female who was admitted due to diffuse small bowel wall edema and abdominal pain. The patient reports having chronic longstanding diarrhea/diarrhea IBS. The patient had a colonoscopy with Jeff Bhatti in March 2023. She had a colonoscopy with in September 2020 and has longstanding dyspepsia and IBS. She did have left-sided diverticulosis and pathology on biopsies of the ileum and right colon were normal. She has had diarrhea since her chemoradiation for cervical cancer in 2013. Her half-sister has Crohn's disease and her father had colitis. Her most recent colonoscopy showed findings consistent with mild colitis of the sigmoid colon. Biopsies of the right and left colon as well as the rectosigmoid were normal and showed no evidence of any colitis histologically. The patient states that she was camping this and got home Tuesday and developed cramps and more significant diarrhea. She states that her diarrhea had been worsened and she was having up to 20-30 bowel movements daily. She developed nausea and vomiting. She had a laparoscopic cholecystectomy in June 2023. She reports no rectal bleeding or weight loss. Her CAT scan showed diffuse wall thickening of the small intestine and that jejunum and ileum. There was some peritoneal fluid adjacent to the mesentery. The mesenteric vessels (SMA, DESIRAE and celiac) were patent without any atherosclerotic changes. The patient's labs showed Positive for C. difficile toxin detected. She has never had C. difficile and has not been on antibiotics recently. Ms. Tilley a 68-year-old female, ports that she started with diarrhea last Tuesday, this had slowly improved but today began with abdominal pain and vomiting. Came to the emergency room in moderate distress., Medication has been given to her for vomiting that was unsuccessful so droperidol was then also added. This appears to be adequate as she is not vomiting anymore but has made her sedated.. She does not know of anyone else its ill and she does not remember getting hold of any bad food.. 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 She had a gallbladder removed approximately a year ago, and during this workup found after her colonoscopy she does have mild colitis in March. Also noted on several notes a fatty liver. Significant past medical history with cervical cancer in 2013 treated with radiation and chemotherapy, also a history of COPD but stated her last cigarette was in 2013. CTA of the abdomen pelvis was done, showing significant bowel wall thickening with lots of fluid also some extraperitoneal fluid. After discussing the patient with the ER physician do feel that she does need to be admitted for treatment for the discomfort abdominal pain the vomiting, and will need a GI consult related to the chronic bowel wall thickening and peritoneal fluid. [facility] Disclaimer: The information contained in this section may have been updated after the patient was seen, as this information can be updated by other users. Medical History (Updated 12/12/23 @ 11:22 by Davey Dhillon II, MD) Enteritis Exposure to COVID-19 virus Chronic daily headache Primary snoring Sleep-disordered breathing Pneumonia Palpitations Viral syndrome Viral URI with cough Gallstones Chronic cholecystitis Pre-operative cardiovascular examination Chest pain Urinary tract infection History of COVID-19 COPD (chronic obstructive pulmonary disease) Migraine Anxiety and depression Degenerative disc disease Eczema Irritable bowel syndrome (IBS) History of gastroesophageal reflux (GERD) Gallstones Hypothyroid Allergies Hypertension History of anemia Cervical cancer Surgical History History of laparoscopic cholecystectomy History of cataract surgery Hx of elbow surgery Hx of shoulder surgery Hx of neck surgery History of tubal ligation History of colonoscopy Family History Other Cancer Heart disease Hypertension Thyroid disorder Social History Smoking Status: Former smoker second hand exposure: No alcohol intake: never substance use type: denies use current occupational status: retired Travel in the last 8 weeks: None household members: spouse and family housing: house current occupational exposures/hazards: No caffeine: Yes Review of Systems *Neurologic Neurologic: Reports as per [facility] Meds Home Medications and Allergies Home Medications ?Medication ?Instructions ?Recorded ?Confirmed ?Type levothyroxine 150 mcg tablet 150 mcg PO DAILY 05/28/21 12/11/23 History quetiapine 25 mg tablet 25 mg PO DAILY PRN Sleep 05/28/21 12/11/23 History fluoxetine 20 mg capsule 60 mg PO DAILY 04/12/23 12/11/23 History pantoprazole 40 mg tablet,delayed 40 mg PO DAILY 04/12/23 12/11/23 History release (Protonix) losartan 25 mg tablet 50 mg PO DAILY 04/21/23 12/11/23 History albuterol sulfate 90 mcg/actuation 1 puff inhalation DAILY 12/12/23 12/12/23 History aerosol inhaler New Prescriptions to Start Prescriptions: Allergies Allergy/AdvReac Type Severity Reaction Status Date / Time No Known Allergies Allergy Verified 07/12/23 09:17 Exam (Inpt) Vital signs and Labs for Last 24 Hours: Temp Pulse Resp BP Pulse Ox O2 Del Method O2 Flow Rate 97.5 F L 74 12 146/73 H 99 Room Air 2 12/12/23 08:00 12/12/23 08:00 12/12/23 08:00 12/12/23 08:00 12/12/23 10:00 12/12/23 10:00 12/12/23 06:51 Laboratory Results - last 24 hr 12/11/23 18:54: WBC 13.5 H, RBC 4.50, Hgb 13.3, Hct 40.0, MCV 89.0, MCH 29.5, MCHC 33.1, RDW 13.5, Plt Count 373, MPV 7.2 L, Neut % (Auto) 84.4 H, Lymph % (Auto) 9.5 L, Deuel % (Auto) 4.5, Eos % (Auto) 1.1, Baso % (Auto) 0.5, Neut # (Auto) 11.4 H, Lymph # (Auto) 1.3, Deuel # (Auto) 0.6, Eos # (Auto) 0.2, Baso # (Auto) 0.1, Sodium 136, Potassium 3.0 L, Chloride 101, Carbon Dioxide 23, Anion Gap 15.0, BUN 16, Creatinine 1.00, Estimated Creat Clear 59, Estimated GFR 55 L, Est GFR ( Amer) 67, Glucose 168 H, Lactate 1.7, Calcium 10.1, Total Bilirubin 0.9, AST 48 H, ALT 30, Alkaline Phosphatase 164 H, Total Protein 7.9 D, Albumin 4.8, Globulin 3.1, Albumin/Globulin Ratio 1.5, Lipase 60, HIV 1&2 Antibody Rapid Nonreactive 12/12/23 01:25: Troponin I < 0.01 12/12/23 05:06: WBC 11.5 H, RBC 4.02 L, Hgb 11.9 L D, Hct 35.8 L, MCV 89.1, MCH 29.7, MCHC 33.3, RDW 13.7, Plt Count 334, MPV 7.3 L, Neut % (Auto) 81.8 H, Lymph % (Auto) 9.1 L, Deuel % (Auto) 7.1, Eos % (Auto) 1.4, Baso % (Auto) 0.6, Neut # (Auto) 9.4 H, Lymph # (Auto) 1.1, Deuel # (Auto) 0.8, Eos # (Auto) 0.2, Baso # (Auto) 0.1, Sodium 139, Potassium 4.2 D, Chloride 107, Carbon Dioxide 26, Anion Gap 10.2, BUN 18 H, Creatinine 0.90, Estimated Creat Clear 60, Estimated GFR 63, Est GFR ( Amer) 76, Glucose 117 H D, Calcium 9.0, Magnesium 1.7, Total Bilirubin 0.6, GGT 23, AST 30 D, ALT 23, Alkaline Phosphatase 116, Troponin I < 0.01, Total Protein 6.3, Albumin 3.9 D, Globulin 2.4, Albumin/Globulin Ratio 1.6 12/12/23 07:48: Stl Aeromonas (PCR) Not detected, Stl C. cayetanensis PCR Not detected, Stool Rotavirus (PCR) Not detected, Stl Adenov F 40/41 PCR Not detected, Stool Astrovirus (PCR) Not detected, Stool Campylobacter PCR Not detected, Stl C.difficile Tox PCR Detected A, Stool Cryptosporidium PCR Not detected, Stl E.coli Shiga Tox PCR Not detected, Stool E coli O157 PCR Not detected, Stl Enterotoxigenic E PCR Not detected, Stool EPEC (PCR) Not detected, Stool EAEC (PCR) Not detected, Stl E. histolytica PCR Not detected, Stool Giardia Lamblia PCR Not detected, Stool Salmonella PCR Not detected, Stool Sapovirus (PCR) Not detected, Stl P. shigelloides PCR Not detected, Stl Shigella/EIEC PCR Not detected, St Y.enterocolitica PCR Not detected, Stool Vibrio (PCR) Not detected, Stl Vibrio cholerae PCR Not detected, Stl Norovirus GI/GII PCR Not detected I & O for Labs for Last 24 Hours: Intake & Output 12/09/23 12/10/23 12/11/23 12/12/23 23:59 23:59 23:59 23:59 Intake Total 0 / 0 100 / 100 Output Total 0 / 0 Balance 0 / 0 100 / 100 Weight 151 lb 151 lb GI: Present tenderness Comments:: Normoactive bowel sounds, soft, generalized tenderness, no rebound or guarding, no masses Results Labs 12/12/23 05:06 12/12/23 05:06 Labs: Laboratory Results - last 24 hr 12/11/23 18:54: WBC 13.5 H, RBC 4.50, Hgb 13.3, Hct 40.0, MCV 89.0, MCH 29.5, MCHC 33.1, RDW 13.5, Plt Count 373, MPV 7.2 L, Neut % (Auto) 84.4 H, Lymph % (Auto) 9.5 L, Deuel % (Auto) 4.5, Eos % (Auto) 1.1, Baso % (Auto) 0.5, Neut # (Auto) 11.4 H, Lymph # (Auto) 1.3, Deuel # (Auto) 0.6, Eos # (Auto) 0.2, Baso # (Auto) 0.1, Sodium 136, Potassium 3.0 L, Chloride 101, Carbon Dioxide 23, Anion Gap 15.0, BUN 16, Creatinine 1.00, Estimated Creat Clear 59, Estimated GFR 55 L, Est GFR ( Amer) 67, Glucose 168 H, Lactate 1.7, Calcium 10.1, Total Bilirubin 0.9, AST 48 H, ALT 30, Alkaline Phosphatase 164 H, Total Protein 7.9 D, Albumin 4.8, Globulin 3.1, Albumin/Globulin Ratio 1.5, Lipase 60, HIV 1&2 Antibody Rapid Nonreactive 12/12/23 01:25: Troponin I < 0.01 12/12/23 05:06: WBC 11.5 H, RBC 4.02 L, Hgb 11.9 L D, Hct 35.8 L, MCV 89.1, MCH 29.7, MCHC 33.3, RDW 13.7, Plt Count 334, MPV 7.3 L, Neut % (Auto) 81.8 H, Lymph % (Auto) 9.1 L, Deuel % (Auto) 7.1, Eos % (Auto) 1.4, Baso % (Auto) 0.6, Neut # (Auto) 9.4 H, Lymph # (Auto) 1.1, Deuel # (Auto) 0.8, Eos # (Auto) 0.2, Baso # (Auto) 0.1, Sodium 139, Potassium 4.2 D, Chloride 107, Carbon Dioxide 26, Anion Gap 10.2, BUN 18 H, Creatinine 0.90, Estimated Creat Clear 60, Estimated GFR 63, Est GFR ( Amer) 76, Glucose 117 H D, Calcium 9.0, Magnesium 1.7, Total Bilirubin 0.6, GGT 23, AST 30 D, ALT 23, Alkaline Phosphatase 116, Troponin I < 0.01, Total Protein 6.3, Albumin 3.9 D, Globulin 2.4, Albumin/Globulin Ratio 1.6 12/12/23 07:48: Stl Aeromonas (PCR) Not detected, Stl C. cayetanensis PCR Not detected, Stool Rotavirus (PCR) Not detected, Stl Adenov F 40/41 PCR Not detected, Stool Astrovirus (PCR) Not detected, Stool Campylobacter PCR Not detected, Stl C.difficile Tox PCR Detected A, Stool Cryptosporidium PCR Not detected, Stl E.coli Shiga Tox PCR Not detected, Stool E coli O157 PCR Not detected, Stl Enterotoxigenic E PCR Not detected, Stool EPEC (PCR) Not detected, Stool EAEC (PCR) Not detected, Stl E. histolytica PCR Not detected, Stool Giardia Lamblia PCR Not detected, Stool Salmonella PCR Not detected, Stool Sapovirus (PCR) Not detected, Stl P. shigelloides PCR Not detected, Stl Shigella/EIEC PCR Not detected, St Y.enterocolitica PCR Not detected, Stool Vibrio (PCR) Not detected, Stl Vibrio cholerae PCR Not detected, Stl Norovirus GI/GII PCR Not detected Assessment and Plan *Assessment and plan (1) Enteritis: Status: Acute Category: Medical Code(s): K52.9 - Noninfective gastroenteritis and colitis, unspecified (2) Generalized abdominal pain: Status: Acute Category: Medical Code(s): R10.84 - Generalized abdominal pain (3) C. difficile enteritis: Status: Acute Category: Medical Code(s): A04.72 - Enterocolitis due to Clostridium difficile, not specified as recurrent Plan 1. Small bowel wall thickening/moderate to marked enteritis. I suspect that this is C. difficile enteritis/enterocolitis. She has not been on antibiotics. I would recommend vancomycin or Dificid presently. Certainly she may have become a little hypovolemic with mesenteric hypoperfusion but I suspect most of this is related to the C. difficile. The stool testing confirmed C. difficile infection by the highly sensitive PCR stool testing. Clostridium difficile causes antibiotic-associated colitis and enteritis and it colonizes the human intestinal tract after the normal gut wilbert. I would add a probiotic as well. Prior colonoscopies by Dr. Bhatti and myself showed no evidence of colitis on multiple biopsies. I will obtain IBD serologic panel as well.
--- NOTE | 2023-12-12 11:29 | EXP.DC.SUM ---
General Admission date:: 12/11/23 Discharge date: 12/12/23 HPI HPI HPI: Mrs. Tilley is a 68-year-old female who was admitted due to diffuse small bowel wall edema and abdominal pain. The patient reports having chronic longstanding diarrhea/diarrhea IBS. The patient had a colonoscopy with Jeff Bhatti in March 2023. She had a colonoscopy with in September 2020 and has longstanding dyspepsia and IBS. She did have left-sided diverticulosis and pathology on biopsies of the ileum and right colon were normal. She has had diarrhea since her chemoradiation for cervical cancer in 2013. Her half-sister has Crohn's disease and her father had colitis. Her most recent colonoscopy showed findings consistent with mild colitis of the sigmoid colon. Biopsies of the right and left colon as well as the rectosigmoid were normal and showed no evidence of any colitis histologically. The patient states that she was camping this and got home Tuesday and developed cramps and more significant diarrhea. She states that her diarrhea had been worsened and she was having up to 20-30 bowel movements daily. She developed nausea and vomiting. She had a laparoscopic cholecystectomy in June 2023. She reports no rectal bleeding or weight loss. Her CAT scan showed diffuse wall thickening of the small intestine and that jejunum and ileum. There was some peritoneal fluid adjacent to the mesentery. The mesenteric vessels (SMA, DESIRAE and celiac) were patent without any atherosclerotic changes. The patient's labs showed Positive for C. difficile toxin detected. She has never had C. difficile and has not been on antibiotics recently. Ms. Tilley a 68-year-old female, ports that she started with diarrhea last Tuesday, this had slowly improved but today began with abdominal pain and vomiting. Came to the emergency room in moderate distress., Medication has been given to her for vomiting that was unsuccessful so droperidol was then also added. This appears to be adequate as she is not vomiting anymore but has made her sedated.. She does not know of anyone else its ill and she does not remember getting hold of any bad food.. 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 She had a gallbladder removed approximately a year ago, and during this workup found after her colonoscopy she does have mild colitis in March. Also noted on several notes a fatty liver. Significant past medical history with cervical cancer in 2014 treated with radiation and chemotherapy, also a history of COPD but stated her last cigarette was in 2013. CTA of the abdomen pelvis was done, showing significant bowel wall thickening with lots of fluid also some extraperitoneal fluid. After discussing the patient with the ER physician do feel that she does need to be admitted for treatment for the discomfort abdominal pain the vomiting, and will need a GI consult related to the chronic bowel wall thickening and peritoneal fluid. Hospital Course Hospital Course Hospital Course: Ms. Tilley is a 68-year-old female who presented with abdominal pain and diarrhea. Imaging on presentation positive for enteritis. Admitted for IV fluids due to leukocytosis, pain, concern for dehydration with nausea and vomiting. Observed overnight. Evaluated by GI. Panels ordered for inflammatory bowel disease. Stool panel also obtained. Found to be positive for C. difficile. In light of her enteritis on imaging and constellation of symptoms along with positive lab finding, will treat patient for C. difficile enteritis. Initiated on vancomycin 125 mg orally 4 times a day. Patient evaluated multiple times on day of discharge for improvement in abdominal pain and tolerance of p.o. intake. Patient overall did well and was able to advance diet and tolerate nutrition without nausea or vomiting. White count 11.5 on day of discharge. Kidney function normal with BUN 18, creatinine 0.9. Electrolytes normal with sodium 139, potassium 4.2, magnesium 1.7. Stable to discharge home for continued treatment as an outpatient given tolerance of oral intake and oral medication. Will follow-up with GI as an outpatient. Total time spent on discharge 32 minutes in counseling, documentation, chart review, and direct care with patient. Exam Data for Last 24 hours Vital signs and Labs for Last 24 Hours: Temp Pulse Resp BP Pulse Ox O2 Del Method O2 Flow Rate 97.5 F L 74 12 146/73 H 99 Room Air 2 12/12/23 08:00 12/12/23 08:00 12/12/23 08:00 12/12/23 08:00 12/12/23 10:00 12/12/23 10:12/12/23 06:51 Laboratory Results - last 24 hr 12/11/23 18:54: WBC 13.5 H, RBC 4.50, Hgb 13.3, Hct 40.0, MCV 89.0, MCH 29.5, MCHC 33.1, RDW 13.5, Plt Count 373, MPV 7.2 L, Neut % (Auto) 84.4 H, Lymph % (Auto) 9.5 L, Clinton % (Auto) 4.5, Eos % (Auto) 1.1, Baso % (Auto) 0.5, Neut # (Auto) 11.4 H, Lymph # (Auto) 1.3, Clinton # (Auto) 0.6, Eos # (Auto) 0.2, Baso # (Auto) 0.1, Sodium 136, Potassium 3.0 L, Chloride 101, Carbon Dioxide 23, Anion Gap 15.0, BUN 16, Creatinine 1.00, Estimated Creat Clear 59, Estimated GFR 55 L, Est GFR ( Amer) 67, Glucose 168 H, Lactate 1.7, Calcium 10.1, Total Bilirubin 0.9, AST 48 H, ALT 30, Alkaline Phosphatase 164 H, Total Protein 7.9 D, Albumin 4.8, Globulin 3.1, Albumin/Globulin Ratio 1.5, Lipase 60, HIV 1&2 Antibody Rapid Nonreactive 12/12/23 01:25: Troponin I < 0.01 12/12/23 05:06: WBC 11.5 H, RBC 4.02 L, Hgb 11.9 L D, Hct 35.8 L, MCV 89.1, MCH 29.7, MCHC 33.3, RDW 13.7, Plt Count 334, MPV 7.3 L, Neut % (Auto) 81.8 H, Lymph % (Auto) 9.1 L, Clinton % (Auto) 7.1, Eos % (Auto) 1.4, Baso % (Auto) 0.6, Neut # (Auto) 9.4 H, Lymph # (Auto) 1.1, Clinton # (Auto) 0.8, Eos # (Auto) 0.2, Baso # (Auto) 0.1, Sodium 139, Potassium 4.2 D, Chloride 107, Carbon Dioxide 26, Anion Gap 10.2, BUN 18 H, Creatinine 0.90, Estimated Creat Clear 60, Estimated GFR 63, Est GFR ( Amer) 76, Glucose 117 H D, Calcium 9.0, Magnesium 1.7, Total Bilirubin 0.6, GGT 23, AST 30 D, ALT 23, Alkaline Phosphatase 116, Troponin I < 0.01, Total Protein 6.3, Albumin 3.9 D, Globulin 2.4, Albumin/Globulin Ratio 1.6 12/12/23 07:48: Stl Aeromonas (PCR) Not detected, Stl C. cayetanensis PCR Not detected, Stool Rotavirus (PCR) Not detected, Stl Adenov F 40/41 PCR Not detected, Stool Astrovirus (PCR) Not detected, Stool Campylobacter PCR Not detected, Stl C.difficile Tox PCR Detected A, Stool Cryptosporidium PCR Not detected, Stl E.coli Shiga Tox PCR Not detected, Stool E coli O157 PCR Not detected, Stl Enterotoxigenic E PCR Not detected, Stool EPEC (PCR) Not detected, Stool EAEC (PCR) Not detected, Stl E. histolytica PCR Not detected, Stool Giardia Lamblia PCR Not detected, Stool Salmonella PCR Not detected, Stool Sapovirus (PCR) Not detected, Stl P. shigelloides PCR Not detected, Stl Shigella/EIEC PCR Not detected, St Y.enterocolitica PCR Not detected, Stool Vibrio (PCR) Not detected, Stl Vibrio cholerae PCR Not detected, Stl Norovirus GI/GII PCR Not detected I & O for Last 24 hours: Intake & Output 12/09/23 12/10/23 12/11/23 12/12/23 23:59 23:59 23:59 23:59 Intake Total 0 / 0 100 / 100 Output Total 0 / 0 Balance 0 / 0 100 / 100 Weight 68.492 kg 68.492 kg Constitutional Constitutional: no acute distress, average body habitus and cooperative *Routine HEENT Exam Head: Present normocephalic Eye: Present EOMI and PERRL ENT: Present mucous membranes moist *Routine Neck Exam Neck: Present supple; Absent lymphadenopathy *Routine Respiratory Exam Respiratory: Present CTA bilaterally; Absent rhonchi, wheezes or crackles *Routine Cardiovascular Exam Cardiovascular: Present RRR *Routine Abdominal Exam Abdominal: Present soft, normoactive bowel sounds and tenderness (improved, minimal, non-focal) *Routine Rectal Exam Patient deferred: visual exam *Routine Exam Patient deferred: external exam *Routine Extremities Exam Extremities: Absent cyanosis, clubbing or edema *Routine Skin Exam Skin: Present warm; Absent rash *Routine Neurological Exam Neurological: Present alert, oriented X3 and moving all extremities; Absent altered mental status Results Data Completed and Pending Labs on day of discharge: Labs from last 24 hours 12/12/23 12/12/23 12/12/23 07:48 05:06 01:25 WBC 11.5 H RBC 4.02 L Hgb 11.9 L D Hct 35.8 L MCV 89.1 MCH 29.7 MCHC 33.3 RDW 13.7 Plt Count 334 MPV 7.3 L Neut % (Auto) 81.8 H Lymph % (Auto) 9.1 L Clinton % (Auto) 7.1 Eos % (Auto) 1.4 Baso % (Auto) 0.6 Neut # (Auto) 9.4 H Lymph # (Auto) 1.1 Clinton # (Auto) 0.8 Eos # (Auto) 0.2 Baso # (Auto) 0.1 Sodium 139 Potassium 4.2 D Chloride 107 Carbon Dioxide 26 Anion Gap 10.2 BUN 18 H Creatinine 0.90 Estimated Creat Clear 60 Estimated GFR 63 Est GFR ( Amer) 76 Glucose 117 H D Lactate Calcium 9.0 Magnesium 1.7 Total Bilirubin 0.6 GGT 23 AST 30 D ALT 23 Alkaline Phosphatase 116 Troponin I < 0.01 < 0.01 Total Protein 6.3 Albumin 3.9 D Globulin 2.4 Albumin/Globulin Ratio 1.6 Lipase Stl Aeromonas (PCR) Not detected Stl C. cayetanensis PCR Not detected Stool Rotavirus (PCR) Not detected Stl Adenov F 40/41 PCR Not detected Stool Astrovirus (PCR) Not detected Stool Campylobacter PCR Not detected Stl C.difficile Tox PCR Detected A Stool Cryptosporidium PCR Not detected Stl E.coli Shiga Tox PCR Not detected Stool E coli O157 PCR Not detected Stl Enterotoxigenic E PCR Not detected Stool EPEC (PCR) Not detected Stool EAEC (PCR) Not detected Stl E. histolytica PCR Not detected Stool Giardia Lamblia PCR Not detected Stool Salmonella PCR Not detected Stool Sapovirus (PCR) Not detected Stl P. shigelloides PCR Not detected Stl Shigella/EIEC PCR Not detected St Y.enterocolitica PCR Not detected Stool Vibrio (PCR) Not detected Stl Vibrio cholerae PCR Not detected Stl Norovirus GI/GII PCR Not detected HIV 1&2 Antibody Rapid 12/11/23 18:54 WBC 13.5 H RBC 4.50 Hgb 13.3 Hct 40.0 MCV 89.0 MCH 29.5 MCHC 33.1 RDW 13.5 Plt Count 373 MPV 7.2 L Neut % (Auto) 84.4 H Lymph % (Auto) 9.5 L Clinton % (Auto) 4.5 Eos % (Auto) 1.1 Baso % (Auto) 0.5 Neut # (Auto) 11.4 H Lymph # (Auto) 1.3 Clinton # (Auto) 0.6 Eos # (Auto) 0.2 Baso # (Auto) 0.1 Sodium 136 Potassium 3.0 L Chloride 101 Carbon Dioxide 23 Anion Gap 15.0 BUN 16 Creatinine 1.00 Estimated Creat Clear 59 Estimated GFR 55 L Est GFR ( Amer) 67 Glucose 168 H Lactate 1.7 Calcium 10.1 Magnesium Total Bilirubin 0.9 GGT AST 48 H ALT 30 Alkaline Phosphatase 164 H Troponin I Total Protein 7.9 D Albumin 4.8 Globulin 3.1 Albumin/Globulin Ratio 1.5 Lipase 60 Stl Aeromonas (PCR) Stl C. cayetanensis PCR Stool Rotavirus (PCR) Stl Adenov F 40/41 PCR Stool Astrovirus (PCR) Stool Campylobacter PCR Stl C.difficile Tox PCR Stool Cryptosporidium PCR Stl E.coli Shiga Tox PCR Stool E coli O157 PCR Stl Enterotoxigenic E PCR Stool EPEC (PCR) Stool EAEC (PCR) Stl E. histolytica PCR Stool Giardia Lamblia PCR Stool Salmonella PCR Stool Sapovirus (PCR) Stl P. shigelloides PCR Stl Shigella/EIEC PCR St Y.enterocolitica PCR Stool Vibrio (PCR) Stl Vibrio cholerae PCR Stl Norovirus GI/GII PCR HIV 1&2 Antibody Rapid Nonreactive DS: Diagnosis Discharge Diagnosis (1) C. difficile enteritis: Status: Acute Code(s): A04.72 - Enterocolitis due to Clostridium difficile, not specified as recurrent (2) Enteritis: Status: Acute Code(s): K52.9 - Noninfective gastroenteritis and colitis, unspecified (3) Generalized abdominal pain: Status: Acute Code(s): R10.84 - Generalized abdominal pain Meds Home Medications and Allergies Home Medications ?Medication ?Instructions ?Recorded ?Confirmed ?Type levothyroxine 150 mcg tablet 150 mcg PO DAILY 05/28/21 12/11/23 History quetiapine 25 mg tablet 25 mg PO DAILY PRN Sleep 05/28/21 12/11/23 History fluoxetine 20 mg capsule 60 mg PO DAILY 04/12/23 12/11/23 History pantoprazole 40 mg tablet,delayed 40 mg PO DAILY 04/12/23 12/11/23 History release (Protonix) losartan 25 mg tablet 50 mg PO DAILY 04/21/23 12/11/23 History albuterol sulfate 90 mcg/actuation 1 puff inhalation DAILY 12/12/23 12/12/23 History aerosol inhaler ondansetron 4 mg disintegrating 4 mg PO Q8H PRN nausea and 12/12/23 Rx tablet vomiting #14 tabs vancomycin 50 mg/mL oral solution 125 mg (2.5 mL) PO QID 10 days #0 12/12/23 Rx (Firvanq) mL New Prescriptions to Start Prescriptions: ondansetron Edmond Baker Allergies Allergy/AdvReac Type Severity Reaction Status Date / Time No Known Allergies Allergy Verified 07/12/23 09:17 Discharge Plan Disposition Patient Disposition: Home, Self-Care Condition: Fair Follow up Plan Follow up with: Davey Dhillon II, MD [Staff Physician] - 12/28/23 8:30 am Alyssa Hurtado APRN [Primary Care Provider] - 12/19/23 1:00 pm Prescriptions/Medication Reconciliation: New vancomycin [Firvanq] 50 mg/mL Recon Soln 125 mg PO QID 10 Days Qty: 0 0RF Rx Instructions: send vial home from inpt to complete course ondansetron 4 mg tablet,disintegrating 4 mg PO Q8H PRN (Reason: nausea and vomiting) Qty: 14 0RF Continued losartan 25 mg tablet 50 mg PO DAILY levothyroxine 150 mcg tablet 150 mcg PO DAILY quetiapine 25 mg tablet 25 mg PO DAILY PRN (Reason: Sleep) albuterol sulfate 90 mcg/actuation HFA aerosol inhaler 1 puff inhalation DAILY fluoxetine 20 mg capsule 60 mg PO DAILY pantoprazole [Protonix] 40 mg Tablet,Delayed Release (Dr/Ec) 40 mg PO DAILY Problem Reconciliation Problems Reviewed?: Yes Patient Discharge Instructions ACTIVITY: Continue current activity DIET: continue same diet and advance to your usual diet Patient Instructions: Chronic Obstructive Pulmonary Disease, Ascites Print Language: Tristanian Providers Primary Care Provider: Alyssa Hurtado Admit Provider: Edmond Baker Attending Provider: Edmond Baker
[2023-12-12] MEDS: LACTOBACILLUS PROBIOTIC COMB CAPSULE 1 CAP PO (11:59)
[2023-12-12 12:00] VITALS: PULSE 80; RESP 16; O2SAT 95
[2023-12-12] MEDS: VANCOMYCIN HCL 50MG/ML 150ML KIT 125 MG PO (12:59)
[2023-12-13 09:20] LABS: HCV Ab Non Reactive (Non Reactive)
[2023-12-13 14:14] LABS: Deamidated Gliadin Abs, IgA 4 units (0-19); Deamidated Gliadin Abs, IgG 7 units (0-19)
[2023-12-14 06:14] LABS: Calprotectin, Fecal 485 ug/g (0-120)
--- NOTE | 2023-12-14 09:39 | CARE MANAGER ---
Attempted to contact patient related to hospital discharge. Left VM message. FERNANDO Dias
== END 2023-12-12 14:00 | disposition home or self-care (01) ==
LOC: ER 18:57 → 2ND 22:24
PROVIDERS: Nurse Practitioner Family; Admitting Provider Internal Medicine Adolescent Medicine; Emergency Provider Emergency Medicine; PCP Nurse Practitioner; Visit Provider Internal Medicine Adolescent Medicine
DX: K52.9 Noninfective gastroenteritis and colitis, unspecified (principal); R10.84 Generalized abdominal pain; A04.72 Enterocolitis due to Clostridium difficile, not specified as recurrent; R11.2 Nausea with vomiting, unspecified; R19.7 Diarrhea, unspecified; R18.8 Other ascites; K76.0 Fatty (change of) liver, not elsewhere classified; J44.9 Chronic obstructive pulmonary disease, unspecified; Z79.899 Other long term (current) drug therapy; Z86.16 Personal history of COVID-19
CPT/HCPCS: 36415; 74174; 76705; 80053; 81001; 82977; 83516; 83605; 83630; 83690; 83735; 83993; 84484; 85025; 86803; 87040; 87389; 87507; 93005; 99285; G0378; J1171; J1650; J1790; J1885; J2405; J3475; J7030; J7120; Q9967

== ENCOUNTER 2023-12-20 12:10 | Outpatient (CLI) | payer MEDICARE, SELFPAY ==
[2023-12-20 12:33] VITALS: BP 124/71; PULSE 72; RESP 16; TEMP 36.6; O2SAT 98
[2023-12-20] MEDS: 0.9 % SODIUM CHLORIDE 1000ML 2,000 ML 999 ML IV (12:33)
[2023-12-20] MEDS: PROMETHAZINE HCL 25MG/ML 1ML VIAL 25 MG IV (12:34)
[2023-12-20] MEDS: 0.9 % SODIUM CHLORIDE 25 ML 100 ML IV (12:34)
[2023-12-20 13:33] VITALS: BP 133/74; PULSE 75; RESP 18; O2SAT 98
[2023-12-20 14:33] VITALS: BP 140/79; PULSE 74; RESP 16; TEMP 36.6; O2SAT 99
== END 2023-12-20 14:35 | disposition home or self-care (01) ==
LOC: INF 12:11
PROVIDERS: PCP Nurse Practitioner; Visit Provider Nurse Practitioner
DX: E86.0 Dehydration (principal)
CPT/HCPCS: 96360; 96361; 96374; 96375; J2550; J7030

== ENCOUNTER 2024-01-05 12:41 | Outpatient (CLI) | payer MEDICARE, SELFPAY ==
[2024-01-06 18:44] LABS: C difficile Toxins AB, EIA Negative (Negative)
[2024-01-09 15:40] LABS: Pancreatic Elastase, Fecal 224 (>200)
[2024-01-09 22:07] LABS: Calprotectin, Fecal 83 ug/g (0-120)
== END 2024-01-05 23:59 | disposition home or self-care (01) ==
LOC: LAB 12:42
PROVIDERS: PCP Nurse Practitioner; Visit Provider Internal Medicine Gastroenterology
DX: A04.72 Enterocolitis due to Clostridium difficile, not specified as recurrent (principal); K52.9 Noninfective gastroenteritis and colitis, unspecified; R14.0 Abdominal distension (gaseous)
CPT/HCPCS: 82656; 83993; 87324

== ENCOUNTER 2024-01-15 21:49 | Observation (INO) | payer MEDICARE, SELFPAY ==
[2024-01-15] VITALS (11 sets, daily range): BP systolic 142–259; BP diastolic 84–146; PULSE 72–100; RESP 14–26; TEMP 37; O2SAT 94–100; BMI 23.8
--- NOTE | 2024-01-15 21:52 | ECG_ITS ---
APPROVED REPORT Exam: Resting ECG HR:92 bpm ECG Measurements Heart Rate 92 AXES TN 179 P 68 QRSd 98 QRS 48 QT 387 T 53 QTc 437 Conclusion SINUS RHYTHM INCOMPLETE RIGHT BUNDLE BRANCH BLOCK [90+ ms QRS DURATION, TERMINAL R IN V1/V2, 40+ ms S IN I/aVL/V4/V5/V6] MODERATE ST DEPRESSION [0.05+ mV ST DEPRESSION] ABNORMAL ECG Electronically signed by : CELI NG, 01/19/2024 07:42:09
--- NOTE | 2024-01-15 21:56 | ECG_ITS ---
APPROVED REPORT Exam: Resting ECG HR:66 bpm ECG Measurements Heart Rate 66 AXES AL 193 P 50 QRSd 107 QRS 28 QT 453 T 41 QTc 466 Conclusion SINUS RHYTHM INCOMPLETE RIGHT BUNDLE BRANCH BLOCK [90+ ms QRS DURATION, TERMINAL R IN V1/V2, 40+ ms S IN I/aVL/V4/V5/V6] BORDERLINE ECG UNCONFIRMED REPORT Electronically signed by : HUMBERTO SERRANO, 01/16/2024 06:57:28
[2024-01-15] MEDS: ASPIRIN 81MG CHEWABLE TABLET 324 MG PO (22:01)
[2024-01-15] MEDS: METOPROLOL TARTRATE 5MG/5ML VIAL 5 MG IV (22:01)
--- NOTE | 2024-01-15 22:02 | CT_ITS ---
PROCEDURE INFORMATION: Exam: CT Head Without Contrast Exam date and time: 01/15/2024 10:21 PM Age: 68 years old Clinical indication: Weakness, extremity; Additional info: Possible stroke TECHNIQUE: Imaging protocol: Computed tomography of the head without contrast. Radiation optimization: All CT scans at this facility use at least one of these dose optimization techniques: automated exposure control; mA and/or kV adjustment per patient size (includes targeted exams where dose is matched to clinical indication); or iterative reconstruction. COMPARISON: MR HEAD/BRAIN WO CON 04/23/2022 10:41 AM FINDINGS: Brain: The brain parenchyma appears unremarkable, with no signs of acute intracranial hemorrhage or significant mass effect. There is hypodensity in the subcortical and periventricular white matter which is technically nonspecific but most often related to chronic microvascular disease. Cerebral ventricles: Mild ventricular enlargement consistent with age-related cerebral atrophy is noted. Paranasal sinuses: Paranasal sinuses show age-appropriate mucosal thickening. Mastoid air cells: Visualized mastoid air cells are well aerated. Bones: There are no skull fractures or bony lesions. Soft tissues: Unremarkable. IMPRESSION: Presumably age-related and chronic changes without acute intracranial abnormality.
--- NOTE | 2024-01-15 22:02 | CT_ITS ---
PROCEDURE INFORMATION: Exam: CTA Neck With Contrast Exam date and time: 01/15/2024 10:33 PM Age: 68 years old Clinical indication: Weakness; Additional info: Possible stroke TECHNIQUE: Imaging protocol: Computed tomographic angiography of the neck with contrast. Exam focused on the cervical segments of the vasculature. 3D rendering (Not supervised by radiologist): MIP and/or 3D reconstructed images were created by the technologist. Radiation optimization: All CT scans at this facility use at least one of these dose optimization techniques: automated exposure control; mA and/or kV adjustment per patient size (includes targeted exams where dose is matched to clinical indication); or iterative reconstruction. Contrast material: ISOUVE 370; Contrast volume: 80 ml; Contrast route: INTRAVENOUS (IV); COMPARISON: 1. CT ANGIO HEAD 01/15/2024 10:[address] HEAD/BRAIN WO CON 01/15/2024 10:[address] CHEST W CON 03/08/2023 8:23 AM FINDINGS: Right common carotid artery: There is atherosclerotic disease of the right carotid bulb without significant stenosis of the internal carotid artery. Right internal carotid artery: No stenosis of the extracranial segment. No dissection or occlusion. Right external carotid artery: No occlusion or stenosis of the origin. Left common carotid artery: There is atherosclerotic disease of the left carotid bulb without significant stenosis of the internal carotid artery. Left internal carotid artery: No stenosis of the extracranial segment. No dissection or occlusion. Left external carotid artery: No occlusion or stenosis of the origin. Right vertebral artery: No stenosis. No dissection or occlusion. Left vertebral artery: No stenosis. No dissection or occlusion. Soft tissues: Normal. No significant soft tissue swelling. Bones/joints: Prior anterior fusion at C4-C5. Lungs: Right upper lobe calcified granuloma. IMPRESSION: Atherosclerotic disease of the carotid bulbs without significant stenosis of the internal carotid arteries. REFERENCES: NASCET CRITERIA. The degree of stenosis in the cervical segment of the internal carotid artery is based on NASCET criteria. Normal is no stenosis. Mild is less than 50% stenosis. Moderate is 50-69% stenosis. Severe is 70% to 99% stenosis. Total occlusion is no detectable patent lumen.
--- NOTE | 2024-01-15 22:02 | CT_ITS ---
PROCEDURE INFORMATION: Exam: CTA Head With Contrast, Arteriography Exam date and time: 01/15/2024 10:33 PM Age: 68 years old Clinical indication: Weakness; Additional info: Possible stroke TECHNIQUE: Imaging protocol: Computed tomographic angiography of the head with contrast. Exam focused on the arteries. 3D rendering (Not supervised by radiologist): MIP and/or 3D reconstructed images were created by the technologist. Radiation optimization: All CT scans at this facility use at least one of these dose optimization techniques: automated exposure control; mA and/or kV adjustment per patient size (includes targeted exams where dose is matched to clinical indication); or iterative reconstruction. Contrast material: ISOUVE 370; Contrast volume: 80 ml; Contrast route: INTRAVENOUS (IV); COMPARISON: 1. CT HEAD/BRAIN WO CON 01/15/2024 10:21 PM 2. MR HEAD/BRAIN WO CON 04/23/2022 10:[address] ANGIO NECK 01/15/2024 10:33 PM FINDINGS: ANTERIOR CIRCULATION: Right internal carotid artery: Intracranial segment is patent with no significant stenosis. No aneurysm. Right middle cerebral artery: No occlusion or significant stenosis. No aneurysm. Right anterior cerebral artery: No occlusion or significant stenosis. No aneurysm. Left internal carotid artery: Intracranial segment is patent with no significant stenosis. No aneurysm. Left middle cerebral artery: No occlusion or significant stenosis. No aneurysm. Left anterior cerebral artery: No occlusion or significant stenosis. No aneurysm. POSTERIOR CIRCULATION: Right vertebral artery: No occlusion or significant stenosis. No aneurysm. Left vertebral artery: No occlusion or significant stenosis. No aneurysm. Basilar artery: No occlusion or significant stenosis. No aneurysm. Right posterior cerebral artery: No occlusion or significant stenosis. No aneurysm. Left posterior cerebral artery: No occlusion or significant stenosis. No aneurysm. Brain: No definite mass, mass effect, or midline shift. Cerebral ventricles: No ventriculomegaly. Bones/joints: Unremarkable. No acute fracture. Soft tissues: Unremarkable. IMPRESSION: No large vessel stenosis or occlusion.
--- NOTE | 2024-01-15 22:02 | XR_ITS ---
PROCEDURE INFORMATION: Exam: XR Chest Exam date and time: 01/15/2024 10:32 PM Age: 68 years old Clinical indication: Sternal or substernal pain TECHNIQUE: Imaging protocol: Radiologic exam of the chest. Views: 1 view. COMPARISON: CT CHEST W CON 03/08/2023 8:23 AM FINDINGS: Lungs: No evidence of acute pulmonary disease or infiltrates Pleural spaces: No large effusion or pneumothorax. Heart/Mediastinum: No evidence of mediastinal widening or cardiac silhouette enlargement; the mediastinum and heart appear within normal limits for contour and size. Bones/joints: No evidence of acute osseous abnormalities within the visualized portions of the thoracic spine and ribs. Osseous structures appear appropriate for patient age. IMPRESSION: No dense parenchymal consolidation, pleural effusion, or pneumothorax.
[2024-01-15] MEDS: LACTATED RINGERS 1000ML 1,000 ML 999 ML IV (22:08)
[2024-01-15 22:09] LABS: Basophils # 0.1 K/mm3 (0-0.2); Eosinophils # 0.3 K/mm3 (0.0-0.4); Eosinophils % 3.6 % (0.1-12.0); Hematocrit 34.4 % (37.0-47.0); Lymphocytes # 2.5 K/mm3 (0.7-4.5); Lymphocytes % 28.8 % (10-50); Mean Corpuscular Hemoglobin 30.4 pg (27.0-31.2); Mean Corpuscular Volume 86.9 fl (81-99); Mean Platelet Volume 7.1 fl (7.4-10.4); Monocytes # 0.5 K/mm3 (0.1-1.0); Monocytes % 5.5 % (1.7-9.3); Neutrophils # 5.3 K/mm3 (1.8-7.8); Neutrophils % 61.1 % (37.0-80.0); Platelet Count 379 K/mm3 (142-424); Red Blood Count 3.97 M/mm3 (4.20-5.40); Red Cell Distribution Width 13.6 % (11.5-17.5); White Blood Count 8.8 K/mm3 (4.8-10.8)
[2024-01-15 22:13] LABS: Albumin Level 4.2 g/dl (3.5-5.0); Chloride 104 mmol/L (98-107); Potassium 3.2 mmoL/L (3.5-5.1); Sodium 142 mmol/L (136-145)
[2024-01-15 22:15] LABS: Alanine Aminotransferase 31 U/L (12-78); Aspartate Amino Transferase 49 U/L (14-36); Blood Urea Nitrogen 10 mg/dl (7-17); Creatinine Clearance Estimated 59 mL/min (50-200); Estimated Glomerular Filt Rate 55 ml/min (>60); GFR (African American) 67 ML/MIN (>60)
[2024-01-15 22:16] LABS: Albumin/Globulin Ratio 1.5 (1.1-1.8); Alkaline Phosphatase 118 U/L (38-126); Anion Gap 13.2 mEq/L (5-15); Bilirubin,Total 0.4 mg/dl (0.2-1.3); Calcium 8.7 mg/dl (8.4-10.2); Carbon Dioxide 28 mmol/L (22.0-30.0); Globulin 2.8 g/dL (1.3-3.2); Glucose 114 mg/dl (74-100); Lipase 62 U/L (23-300); Magnesium 1.3 mg/dl (1.6-2.3)
[2024-01-15 22:19] LABS: Activated Partial Thrombo Time 30.3 seconds (22.8-30.6); INR 0.91 (0.9-1.1); Prothrombin Time 10.3 seconds (10.1-12.5)
[2024-01-15 22:25] LABS: NT Pro Brain Natriuretic Pep. 165 pg/mL (0-125)
[2024-01-15] MEDS: KCl 10mEq/100ml 100 ML 100 MEQ IV (22:27)
[2024-01-15] MEDS: POTASSIUM CHLORIDE 20MEQ TAB 40 MEQ PO (22:27)
[2024-01-15 22:28] LABS: Troponin I < 0.01 ng/ml (0.00-0.034)
[2024-01-15] MEDS: MAGNESIUM SULFATE IN WATER 2 GM/50 ML PIGGYBACK IV (22:28)
--- NOTE | 2024-01-15 22:40 | ED_ITS ---
Discharge Plan Disposition Patient Disposition: Admitted Condition: Good Clinical Impressions Clinical Impression: Hypertensive emergency, Acute non-ST elevation myocardial infarction (NSTEMI), Acute hypokalemia, Hypomagnesemia Discharge ED Provider: Rolando Ferreira General Adult HPI <Alyssaebony Andersonjack (ED), [employer]ICAL PLANT WORK[employer] - Last Filed: 01/15/24 23:26> General Chief complaint: Abdominal Pain Stated complaint: Chest Pain Time Seen by Provider: 01/15/24 21:52 Mode of Arrival: Ambulatory Source of Information: Patient Limitations: No Limitations Description of Symptoms (Recalled from ER Triage Doc. 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 Patient reports new diagnosis of pancreatitis. She reports finishing PO Vancomycin for C.diff- now testing negative. Patient obvious discomfort. History of Present Illness HPI narrative: This is a 68-year-old female who presents to the ED today with complaint of left sided chest pain and pressure that started an hour prior to arrival. Patient tells me that she saw Dr. Dhillon and was told she had EPI and was told to stop taking her omeprazole. She has been put on creatine. She did just finished Vanco for C. difficile and tested negative for C. difficile now. She started to hyperventilate due to the chest pain and started having spasms in her hands and left leg started tingling in her face started tingling. She says that she started to panic because of the pain. She says the pain is in her left chest under her left breast. Patient does have history of ischemic heart disease, chest pain, IBS, COPD, chronic diarrhea, cervical cancer. The nursing note states that she has left upper quadrant abdominal pain but patient states it is in her breast and chest. Related Data Home Medications ?Medication ?Instructions ?Recorded ?Confirmed albuterol sulfate 90 mcg/actuation 2 inh inhalation Q4-6H PRN 01/16/24 01/16/24 aerosol inhaler Shortness Of Breath Or Wheezing fluoxetine 20 mg capsule 60 mg PO DAILY 01/16/24 01/16/24 ipratropium 0.5 mg-albuterol 3 mg 3 ml inhalation Q4-6H PRN 01/16/24 01/16/24 (2.5 mg base)/3 mL nebulization Shortness Of Breath Or Wheezing soln levothyroxine 150 mcg tablet 150 mcg PO AM 01/16/24 01/16/24 losartan 50 mg tablet 50 mg PO DAILY 01/16/24 01/16/24 pantoprazole 40 mg tablet,delayed 40 mg PO DAILY 01/16/24 01/16/24 release quetiapine 50 mg tablet 50 mg PO HS 01/16/24 01/16/24 Previous Rx's ?Medication ?Instructions ?Recorded amlodipine 5 mg tablet 5 mg PO DAILY 30 days #30 tabs 01/16/24 aspirin 81 mg capsule 81 mg PO DAILY #30 caps 01/16/24 atorvastatin 40 mg tablet 40 mg PO HS 30 days #30 tabs 01/16/24 hydrochlorothiazide 12.5 mg capsule 12.5 mg PO DAILY 30 days #30 caps 01/16/24 Allergies Allergy/AdvReac Type Severity Reaction Status Date / Time No Known Allergies Allergy Verified 12/28/23 08:30 [facility] <Alyssa Hurtado (ED), CHE[employer]ICAL PLANT WORKER - Last Filed: 01/15/24 23:26> [facility] Disclaimer: The information contained in this section may have been updated after the patient was seen, as this information can be updated by other users. Medical History (Updated 01/16/24 @ 10:51 by Kavita Da Silva, [employer] PLANT WORK[employer]) C. difficile enteritis Family history of ischemic heart disease (IHD) Enteritis Exposure to COVID-19 virus Chronic daily headache Primary snoring Sleep-disordered breathing Pneumonia Palpitations Viral syndrome Viral URI with cough Gallstones Chronic cholecystitis Pre-operative cardiovascular examination Chest pain Urinary tract infection History of COVID-19 COPD (chronic obstructive pulmonary disease) Migraine Anxiety and depression Degenerative disc disease Eczema Irritable bowel syndrome (IBS) History of gastroesophageal reflux (GERD) Gallstones Hypothyroid Allergies Hypertension History of anemia Cervical cancer Surgical History History of laparoscopic cholecystectomy History of cataract surgery Hx of elbow surgery Hx of shoulder surgery Hx of neck surgery History of tubal ligation History of colonoscopy Family History Other Cancer Heart disease Hypertension Thyroid disorder Social History (Updated 01/16/24 @ 02:16 by Jadyn Pugh RN) Smoking Status: Former smoker second hand exposure: No alcohol intake: never substance use type: denies use current occupational status: retired Travel in the last 8 weeks: None household members: spouse and family housing: house current occupational exposures/hazards: No caffeine: Yes Other Medical History Have you received the Flu Vaccine for this season: No Have you received the Pneumonia Vaccine: No <Alyssa Orrarcenio (ED), CHEMICAL PLANT WORKER - Last Filed: 01/15/24 23:26> ROS Obtained: Yes Systems reviewed as appropriate & no additional complaints except as documented Constitutional Constitutional: Reports as per HPI Physical Exam <Alyssa Kilarcenio (ED), CHEMICAL PLANT WORKER - Last Filed: 01/15/24 23:26> Narrative Physical exam: Patient very anxious and hyperventilating. She is having tingling in her left face. She is having carpopedal spasms. Patient is unable to lift her left leg but hands she is there is unable to flex them. General General appearance: alert, anxious and in distress Head Head exam: normocephalic Eye Eye exam: Present normal appearance and PERRL ENT ENT exam: Present normal exam and mucous membranes moist Neck Neck exam: Present normal inspection and trachea midline Chest Chest inspection: Present normal inspection and symmetric chest wall rise Respiratory Respiratory exam: Present wheezes Cardiovascular Cardiovascular exam: Present regular rate, normal rhythm, normal heart sounds, +S1 and +S2 Abdominal Exam Abdominal exam: Present soft and normal bowel sounds Extremities Exam Extremities exam: Present normal capillary refill and other (Patient exhibiting carpal pedal spasms secondary to hyperventilating) Neurological Exam Neurological exam: Present alert and oriented X3 Psychiatric Psychiatric exam: Present anxious Skin Skin exam: Present warm and dry Medical Decision Making <Alyssa Kilarcenio (ED), CHEMICAL PLANT WORKER - Last Filed: 01/15/24 23:26> Medical Records Screening: Per USPSTF and CDC recommendations, given the prevalence of disease in our region, it is our hospital?s policy to screen for HIV and viral Hepatitis for all patients aged 18 and over and those with ongoing risk factors. Markos Inquiry Pt receiving controlled substance: No Markos was queried for this patient: No Vital Signs: 01/15/24 21:50 01/15/24 22:01 01/15/24 22:07 Temperature 98.6 F Temperature Source Oral Pulse Rate 94 H 86 Pulse Rate [Apical] 100 H Respiratory Rate 24 19 20 Blood Pressure 259/111 H 232/107 H Blood Pressure [Right Arm] 250/126 H Blood Pressure Mean 157 148 Blood Pressure Mean [Right Arm] 167 Blood Pressure Source Blood Pressure Source [Right Arm] Automatic Cuff Blood Pressure Position Blood Pressure Position [Right Arm] Supine 02 Sat by Pulse Oximetry 100 100 100 Oxygen Delivery Method Room Air Room Air Room Air 01/15/24 22:10 01/15/24 22:20 01/15/24 22:41 Temperature Temperature Source Pulse Rate 81 79 81 Pulse Rate [Apical] Respiratory Rate 26 H 25 H 22 Blood Pressure 196/102 H 205/100 H 142/122 H Blood Pressure [Right Arm] Blood Pressure Mean Blood Pressure Mean [Right Arm] Blood Pressure Source Blood Pressure Source [Right Arm] Blood Pressure Position Blood Pressure Position [Right Arm] 02 Sat by Pulse Oximetry 100 99 98 Oxygen Delivery Method 01/15/24 22:50 01/15/24 23:01 01/15/24 23:21 Temperature Temperature Source Pulse Rate 74 73 72 Pulse Rate [Apical] Respiratory Rate 19 15 23 Blood Pressure 205/101 H 186/146 H 164/87 H Blood Pressure [Right Arm] Blood Pressure Mean Blood Pressure Mean [Right Arm] Blood Pressure Source Blood Pressure Source [Right Arm] Blood Pressure Position Blood Pressure Position [Right Arm] 02 Sat by Pulse Oximetry 98 96 96 Oxygen Delivery Method 01/15/24 23:30 01/15/24 23:50 01/16/24 00:01 Temperature Temperature Source Pulse Rate 74 75 72 Pulse Rate [Apical] Respiratory Rate 21 14 18 Blood Pressure 158/84 H 152/100 H 148/65 H Blood Pressure [Right Arm] Blood Pressure Mean Blood Pressure Mean [Right Arm] Blood Pressure Source Blood Pressure Source [Right Arm] Blood Pressure Position Blood Pressure Position [Right Arm] 02 Sat by Pulse Oximetry 95 94 L 95 Oxygen Delivery Method 01/16/24 00:10 01/16/24 00:20 01/16/24 00:30 Temperature Temperature Source Pulse Rate 72 69 69 Pulse Rate [Apical] Respiratory Rate 14 14 14 Blood Pressure 170/81 H 167/85 H 175/83 H Blood Pressure [Right Arm] Blood Pressure Mean 112 113 Blood Pressure Mean [Right Arm] Blood Pressure Source Blood Pressure Source [Right Arm] Blood Pressure Position Blood Pressure Position [Right Arm] 02 Sat by Pulse Oximetry 95 95 95 Oxygen Delivery Method Room Air Room Air 01/16/24 00:40 01/16/24 00:50 01/16/24 01:10 Temperature 98.6 F Temperature Source Oral Pulse Rate 69 70 70 Pulse Rate [Apical] Respiratory Rate 14 15 16 Blood Pressure 182/75 H 150/91 H 155/89 H Blood Pressure [Right Arm] Blood Pressure Mean 110 114 111 Blood Pressure Mean [Right Arm] Blood Pressure Source Blood Pressure Source [Right Arm] Blood Pressure Position Blood Pressure Position [Right Arm] 02 Sat by Pulse Oximetry 95 98 97 Oxygen Delivery Method Room Air Room Air Room Air 01/16/24 01:33 Temperature 98.6 F Temperature Source Oral Pulse Rate 67 Pulse Rate [Apical] Respiratory Rate 16 Blood Pressure 159/97 H Blood Pressure [Right Arm] Blood Pressure Mean Blood Pressure Mean [Right Arm] Blood Pressure Source Automatic Cuff Blood Pressure Source [Right Arm] Blood Pressure Position Sitting Blood Pressure Position [Right Arm] 02 Sat by Pulse Oximetry Oxygen Delivery Method Room Air Lab Data Lab Results 01/15/24 22:01: WBC 8.8, RBC 3.97 L, Hgb 12.0 L, Hct 34.4 L, MCV 86.9, MCH 30.4, MCHC 35.0, RDW 13.6, Plt Count 379, MPV 7.1 L, Neut % (Auto) 61.1, Lymph % (Auto) 28.8, [place] % (Auto) 5.5, Eos % (Auto) 3.6, Baso % (Auto) 1.0, Neut # (Auto) 5.3, Lymph # (Auto) 2.5, [place] # (Auto) 0.5, Eos # (Auto) 0.3, Baso # (Auto) 0.1, PT 10.3, INR 0.91, APTT 30.3, Sodium 142, Potassium 3.2 L, Chloride 104, Carbon Dioxide 28, Anion Gap 13.2, BUN 10, Creatinine 1.00, Estimated Creat Clear 59, Estimated GFR 55 L, Est GFR ( Amer) 67, Glucose 114 H, Calcium 8.7, Magnesium 1.3 L, Total Bilirubin 0.4, AST 49 H, ALT 31, Alkaline Phosphatase 118, Troponin I < 0.01, NT-Pro-B Natriuret Pep 165 H, Total Protein 7.0, Albumin 4.2, Globulin 2.8, Albumin/Globulin Ratio 1.5, Lipase 62 01/15/24 22:01: Lipase 61, HIV 1&2 Antibody Rapid Nonreactive 01/16/24 00:46: Troponin I 0.05 H 01/16/24 04:20 01/16/24 04:20 Orders (Tests/Meds): ED MEDICATIONS Discontinued Medications Generic Name Dose Route Start Last Admin Trade Name Diogenes PRN Reason Stop Dose Admin Acetaminophen 650 mg 01/16/24 01:43 Acetaminophen 325mg Tab PO 02/15/24 01:42 Q4HP PRN Fever or Mild Pain (1-3) Albuterol Sulfate 2 puff 01/16/24 01:47 Albuterol-Hfa 90mcg/Puff Inhaler 8gm IH 02/15/24 01:46 Q4HP PRN Shortness Of Breath Or Wheezing Amlodipine Besylate 5 mg 01/17/24 09:00 01/16/24 13:43 Amlodipine 5mg Tablet PO 02/16/24 08:59 5 mg DAILY DAMIAN Administration Aspirin 324 mg 01/15/24 21:56 01/15/24 22:01 Aspirin 81mg Chewable Tablet PO 01/15/24 21:57 324 mg ONCE ONE Administration Atorvastatin Calcium 40 mg 01/16/24 21:00 Atorvastatin 40mg Tablet PO 02/15/24 20:59 HS DAMIAN Fluoxetine HCl 20 mg 01/16/24 09:00 01/16/24 08:12 Fluoxetine 20mg Capsule PO 02/15/24 08:59 20 mg BID DAMIAN Administration Heparin Sodium (Porcine) 4,000 unit 01/16/24 08:15 01/16/24 08:11 Heparin Sodium 5,000 Unit/Ml Vial IV 01/16/24 08:16 4,000 unit ONCE ONE Administration Hydralazine HCl 10 mg 01/16/24 12:58 01/16/24 13:06 Hydralazine 20mg/Ml Vial IV 01/16/24 12:59 10 mg ONCE ONE Administration Hydrochlorothiazide 12.5 mg 01/16/24 10:40 01/16/24 11:19 Hydrochlorothiazide 12.5mg Capsule PO 02/15/24 10:39 12.5 mg DAILY DAMIAN Administration Lactated Ringer's 500 mls @ 999 mls/hr 01/15/24 22:05 01/15/24 22:08 Lactated Ringer's 1000 Ml Bag IV 01/15/24 22:35 Not Given .Q31M ONE Lactated Ringer's 1,000 mls @ 999 mls/hr 01/15/24 22:08 01/15/24 22:08 Lactated Ringer's 1000 Ml Bag IV 01/15/24 23:08 999 mls/hr .Q1H1M ONE Administration Potassium Chloride/Water 100 mls @ 100 mls/hr 01/15/24 22:18 01/15/24 22:27 Potassium Chloride 10meq/100ml Ivpb IV 01/15/24 23:17 100 mls/hr ONCE ONE Administration Magnesium Sulfate 2 gm in 50 mls @ 50 mls/hr 01/15/24 22:23 01/15/24 22:28 Magnesium Sulfate 2gm/50ml Premix IV 01/15/24 23:22 50 mls/hr ONCE ONE Administration Heparin Sodium/Dextrose 500 mls @ 16 mls/hr 01/16/24 08:15 01/16/24 08:12 Heparin 25,000 Units In D5w 500ml Premix IV 02/15/24 08:14 16 mls/hr .Q25H DAMIAN Administration 800 UNITS/HR Ibuprofen 400 mg 01/21/24 02:00 Ibuprofen 400 Mg Tablet PO 02/20/24 01:59 Q6HP PRN Mild Pain (1-3) Iopamidol 80 ml 01/15/24 22:44 01/15/24 22:46 Iopamidol-370 (76%);100ml Bottle IV 01/15/24 22:45 80 ml ONCE ONE Administration Irbesartan 75 mg 01/16/24 09:00 01/16/24 08:12 Irbesartan 75mg Tablet PO 02/15/24 08:59 75 mg DAILY DAMIAN Administration Ketorolac Tromethamine 15 mg 01/16/24 01:43 Ketorolac 30mg/Ml Vial IV 01/21/24 01:42 Q6HP PRN Moderate Pain (4-6) Levothyroxine Sodium 150 mcg 01/16/24 07:00 01/16/24 06:54 Levothyroxine 150mcg (0.15mg)Tab PO 02/15/24 06:59 Not Given AM DAMIAN Levothyroxine Sodium 150 mcg 01/16/24 07:29 Levothyroxine 150mcg (0.15mg)Tab PO 02/15/24 06:59 DAILYDM [facility] Metoprolol Tartrate 5 mg 01/15/24 21:59 01/15/24 22:01 Metoprolol Tartrate 5mg/5ml Vial IV 01/15/24 22:00 5 mg ONCE ONE Administration Miscellaneous 0 unit 01/16/24 07:33 Aerochamber/Optihaler MC 02/15/24 07:32 ONCE PRN for Use with Inhaler Miscellaneous 1 each 01/16/24 08:00 01/16/24 08:20 Heparin Drip Consult NOTAPPLIC 02/15/24 07:59 Not Given CONSULT PHARMACY [facility] Nifedipine 10 mg 01/16/24 12:57 01/16/24 13:41 Nifedipine 10mg Capsule PO 01/16/24 12:58 Not Given ONCE ONE Nitroglycerin 1 gm 01/15/24 21:56 01/15/24 22:00 Nitroglycerin 1 Gm Ointment TD 01/15/24 21:57 Not Given ONCE ONE Ondansetron HCl 4 mg 01/16/24 01:43 Ondansetron 4mg/2ml Vial IV 02/15/24 01:42 Q8HP PRN Nausea Pantoprazole Sodium 40 mg 01/16/24 21:00 Pantoprazole 40mg Tablet PO 02/15/24 20:59 HS [facility] Potassium Chloride 40 meq 01/15/24 22:18 01/15/24 22:27 Potassium Chloride 20meq Tab PO 01/15/24 22:19 40 meq ONCE ONE Administration Quetiapine Fumarate 50 mg 01/16/24 21:00 Quetiapine 25mg Tablet PO 02/15/24 20:59 HS [facility] Sodium Chloride 10 ml 01/15/24 22:01 Sodium Chloride 0.9% 10ml Flush Syringe IV 02/14/24 22:00 NEEDED PRN Maintain IV Site Sodium Chloride 50 ml 01/15/24 22:44 01/15/24 22:46 0.9 % Sodium Chloride 50 Ml Vial IV 01/15/24 22:45 50 ml ONCE ONE Administration Sodium Chloride 10 ml 01/15/24 22:44 01/15/24 22:46 Sodium Chloride 0.9% 10ml Syr (Rad Only) IV 02/14/24 22:43 10 ml NEEDED PRN Administration Maintain IV Site Sodium Chloride 10 ml 01/16/24 01:43 Sodium Chloride 0.9% 10ml Flush Syringe IV 02/15/24 01:42 NEEDED PRN Maintain IV Site ORDERS Category Date Time Status CT angio head Stat Cat Scan 01/15/24 22:[address] angio neck Stat Cat Scan 01/15/24 22:[address] head/brain wo con Stat Cat Scan 01/15/24 22:02 Completed XR chest portable Stat Exams 01/15/24 22:02 Completed Complete Blood Count Auto Diff Stat Lab 01/15/24 22:01 Completed Comprehensive Metabolic Panel Stat Lab 01/15/24 22:01 Completed HIV (1&2) Antibody Rapid Stat Lab 01/15/24 22:01 Completed Hep C Ab with Reflex to RNA Stat Lab 01/15/24 22:01 Received Lipase Stat Lab 01/15/24 22:01 Completed Lipase Stat Lab 01/15/24 22:01 Completed Magnesium Stat Lab 01/15/24 22:01 Completed NT Pro Brain Natriuretic Pep. Stat Lab 01/15/24 22:01 Completed PT INR [Prothrombin Time INR] Stat Lab 01/15/24 22:01 Completed PTT [Activated Partial Thrombo Time] Stat Lab 01/15/24 22:01 Completed Troponin I Q3H Lab 01/16/24 00:46 Completed Troponin I Q3H Lab 01/16/24 04:20 Completed Troponin I Stat Lab 01/15/24 22:01 Completed HEART Score History (anamnesis): Moderately suspicious ECG: Significant ST-deviation Age: >65 years Risk factors: 1-2 risk factors Troponin: </= normal limit HEART Score: 6 Medical Decision Narrative: Insert review patient is a 68-year-old female presenting to the emergency department for evaluation of chest pain and tingling into the left face and left leg. Patient is patient with elevated blood pressure, having a panic attack upon walking into the ER with carpopedal spasms. Differential diagnosis includes stroke, ND, among others. Workup will be conducted with hematologic labs, specific imaging including stroke CT scans and chest x-ray, provocative tests. Initial inventions include crystalloid bolus, analgesics. Initial workup reviewed by al hematologic labs are remarkable for hypomagnesemia and hypokalemia. Imaging has not returned at this time. Patient being left to Dr. Ferreira <Rolando Ferreira MD - Last Filed: 11/18/24 01:43> Vital Signs: 01/15/24 21:50 01/15/24 22:01 01/15/24 22:07 Temperature 98.6 F Temperature Source Oral Pulse Rate 94 H 86 Pulse Rate [Apical] 100 H Respiratory Rate 24 19 20 Blood Pressure 259/111 H 232/107 H Blood Pressure [Right Arm] 250/126 H Blood Pressure Mean 157 148 Blood Pressure Mean [Right Arm] 167 Blood Pressure Source Blood Pressure Source [Right Arm] Automatic Cuff Blood Pressure Position Blood Pressure Position [Right Arm] Supine 02 Sat by Pulse Oximetry 100 100 100 Oxygen Delivery Method Room Air Room Air Room Air 01/15/24 22:10 01/15/24 22:20 01/15/24 22:41 Temperature Temperature Source Pulse Rate 81 79 81 Pulse Rate [Apical] Respiratory Rate 26 H 25 H 22 Blood Pressure 196/102 H 205/100 H 142/122 H Blood Pressure [Right Arm] Blood Pressure Mean Blood Pressure Mean [Right Arm] Blood Pressure Source Blood Pressure Source [Right Arm] Blood Pressure Position Blood Pressure Position [Right Arm] 02 Sat by Pulse Oximetry 100 99 98 Oxygen Delivery Method 01/15/24 22:50 01/15/24 23:01 01/15/24 23:21 Temperature Temperature Source Pulse Rate 74 73 72 Pulse Rate [Apical] Respiratory Rate 19 15 23 Blood Pressure 205/101 H 186/146 H 164/87 H Blood Pressure [Right Arm] Blood Pressure Mean Blood Pressure Mean [Right Arm] Blood Pressure Source Blood Pressure Source [Right Arm] Blood Pressure Position Blood Pressure Position [Right Arm] 02 Sat by Pulse Oximetry 98 96 96 Oxygen Delivery Method 01/15/24 23:30 01/15/24 23:50 01/16/24 00:01 Temperature Temperature Source Pulse Rate 74 75 72 Pulse Rate [Apical] Respiratory Rate 21 14 18 Blood Pressure 158/84 H 152/100 H 148/65 H Blood Pressure [Right Arm] Blood Pressure Mean Blood Pressure Mean [Right Arm] Blood Pressure Source Blood Pressure Source [Right Arm] Blood Pressure Position Blood Pressure Position [Right Arm] 02 Sat by Pulse Oximetry 95 94 L 95 Oxygen Delivery Method 01/16/24 00:10 01/16/24 00:20 01/16/24 00:30 Temperature Temperature Source Pulse Rate 72 69 69 Pulse Rate [Apical] Respiratory Rate 14 14 14 Blood Pressure 170/81 H 167/85 H 175/83 H Blood Pressure [Right Arm] Blood Pressure Mean 112 113 Blood Pressure Mean [Right Arm] Blood Pressure Source Blood Pressure Source [Right Arm] Blood Pressure Position Blood Pressure Position [Right Arm] 02 Sat by Pulse Oximetry 95 95 95 Oxygen Delivery Method Room Air Room Air 01/16/24 00:40 01/16/24 00:50 01/16/24 01:10 Temperature 98.6 F Temperature Source Oral Pulse Rate 69 70 70 Pulse Rate [Apical] Respiratory Rate 14 15 16 Blood Pressure 182/75 H 150/91 H 155/89 H Blood Pressure [Right Arm] Blood Pressure Mean 110 114 111 Blood Pressure Mean [Right Arm] Blood Pressure Source Blood Pressure Source [Right Arm] Blood Pressure Position Blood Pressure Position [Right Arm] 02 Sat by Pulse Oximetry 95 98 97 Oxygen Delivery Method Room Air Room Air Room Air 01/16/24 01:33 Temperature 98.6 F Temperature Source Oral Pulse Rate 67 Pulse Rate [Apical] Respiratory Rate 16 Blood Pressure 159/97 H Blood Pressure [Right Arm] Blood Pressure Mean Blood Pressure Mean [Right Arm] Blood Pressure Source Automatic Cuff Blood Pressure Source [Right Arm] Blood Pressure Position Sitting Blood Pressure Position [Right Arm] 02 Sat by Pulse Oximetry Oxygen Delivery Method Room Air Lab Data Lab Results 01/15/24 22:01: WBC 8.8, RBC 3.97 L, Hgb 12.0 L, Hct 34.4 L, MCV 86.9, MCH 30.4, MCHC 35.0, RDW 13.6, Plt Count 379, MPV 7.1 L, Neut % (Auto) 61.1, Lymph % (Auto) 28.8, [place] % (Auto) 5.5, Eos % (Auto) 3.6, Baso % (Auto) 1.0, Neut # (Auto) 5.3, Lymph # (Auto) 2.5, [place] # (Auto) 0.5, Eos # (Auto) 0.3, Baso # (Auto) 0.1, PT 10.3, INR 0.91, APTT 30.3, Sodium 142, Potassium 3.2 L, Chloride 104, Carbon Dioxide 28, Anion Gap 13.2, BUN 10, Creatinine 1.00, Estimated Creat Clear 59, Estimated GFR 55 L, Est GFR ( Amer) 67, Glucose 114 H, Calcium 8.7, Magnesium 1.3 L, Total Bilirubin 0.4, AST 49 H, ALT 31, Alkaline Phosphatase 118, Troponin I < 0.01, NT-Pro-B Natriuret Pep 165 H, Total Protein 7.0, Albumin 4.2, Globulin 2.8, Albumin/Globulin Ratio 1.5, Lipase 62 01/15/24 22:01: Lipase 61, HIV 1&2 Antibody Rapid Nonreactive 01/16/24 00:46: Troponin I 0.05 H Orders (Tests/Meds): ED MEDICATIONS Discontinued Medications Generic Name Dose Route Start Last Admin Trade Name Freq PRN Reason Stop Dose Admin Acetaminophen 650 mg 01/16/24 01:43 Acetaminophen 325mg Tab PO 02/15/24 01:42 Q4HP PRN Fever or Mild Pain (1-3) Albuterol Sulfate 2 puff 01/16/24 01:47 Albuterol-Hfa 90mcg/Puff Inhaler 8gm IH 02/15/24 01:46 Q4HP PRN Shortness Of Breath Or Wheezing Amlodipine Besylate 5 mg 01/17/24 09:00 01/16/24 13:43 Amlodipine 5mg Tablet PO 02/16/24 08:59 5 mg DAILY DAMIAN Administration Aspirin 324 mg 01/15/24 21:56 01/15/24 22:01 Aspirin 81mg Chewable Tablet PO 01/15/24 21:57 324 mg ONCE ONE Administration Atorvastatin Calcium 40 mg 01/16/24 21:00 Atorvastatin 40mg Tablet PO 02/15/24 20:59 HS DAMIAN Fluoxetine HCl 20 mg 01/16/24 09:00 01/16/24 08:12 Fluoxetine 20mg Capsule PO 02/15/24 08:59 20 mg BID DAMIAN Administration Heparin Sodium (Porcine) 4,000 unit 01/16/24 08:15 01/16/24 08:11 Heparin Sodium 5,000 Unit/Ml Vial IV 01/16/24 08:16 4,000 unit ONCE ONE Administration Hydralazine HCl 10 mg 01/16/24 12:58 01/16/24 13:06 Hydralazine 20mg/Ml Vial IV 01/16/24 12:59 10 mg ONCE ONE Administration Hydrochlorothiazide 12.5 mg 01/16/24 10:40 01/16/24 11:19 Hydrochlorothiazide 12.5mg Capsule PO 02/15/24 10:39 12.5 mg DAILY DAMIAN Administration Lactated Ringer's 500 mls @ 999 mls/hr 01/15/24 22:05 01/15/24 22:08 Lactated Ringer's 1000 Ml Bag IV 01/15/24 22:35 Not Given .Q31M ONE Lactated Ringer's 1,000 mls @ 999 mls/hr 01/15/24 22:08 01/15/24 22:08 Lactated Ringer's 1000 Ml Bag IV 01/15/24 23:08 999 mls/hr .Q1H1M ONE Administration Potassium Chloride/Water 100 mls @ 100 mls/hr 01/15/24 22:18 01/15/24 22:27 Potassium Chloride 10meq/100ml Ivpb IV 01/15/24 23:17 100 mls/hr ONCE ONE Administration Magnesium Sulfate 2 gm in 50 mls @ 50 mls/hr 01/15/24 22:23 01/15/24 22:28 Magnesium Sulfate 2gm/50ml Premix IV 01/15/24 23:22 50 mls/hr ONCE ONE Administration Heparin Sodium/Dextrose 500 mls @ 16 mls/hr 01/16/24 08:15 01/16/24 08:12 Heparin 25,000 Units In D5w 500ml Premix IV 02/15/24 08:14 16 mls/hr .Q25H DAMIAN Administration 800 UNITS/HR Ibuprofen 400 mg 01/21/24 02:00 Ibuprofen 400 Mg Tablet PO 02/20/24 01:59 Q6HP PRN Mild Pain (1-3) Iopamidol 80 ml 01/15/24 22:44 01/15/24 22:46 Iopamidol-370 (76%);100ml Bottle IV 01/15/24 22:45 80 ml ONCE ONE Administration Irbesartan 75 mg 01/16/24 09:00 01/16/24 08:12 Irbesartan 75mg Tablet PO 02/15/24 08:59 75 mg DAILY DMAIAN Administration Ketorolac Tromethamine 15 mg 01/16/24 01:43 Ketorolac 30mg/Ml Vial IV 01/21/24 01:42 Q6HP PRN Moderate Pain (4-6) Levothyroxine Sodium 150 mcg 01/16/24 07:00 01/16/24 06:54 Levothyroxine 150mcg (0.15mg)Tab PO 02/15/24 06:59 Not Given AM [facility] Levothyroxine Sodium 150 mcg 01/16/24 07:29 Levothyroxine 150mcg (0.15mg)Tab PO 02/15/24 06:59 DAILYDM [facility] Metoprolol Tartrate 5 mg 01/15/24 21:59 01/15/24 22:01 Metoprolol Tartrate 5mg/5ml Vial IV 01/15/24 22:00 5 mg ONCE ONE Administration Miscellaneous 0 unit 01/16/24 07:33 Aerochamber/Optihaler MC 02/15/24 07:32 ONCE PRN for Use with Inhaler Miscellaneous 1 each 01/16/24 08:00 01/16/24 08:20 Heparin Drip Consult NOTAPPLIC 02/15/24 07:59 Not Given CONSULT PHARMACY [facility] Nifedipine 10 mg 01/16/24 12:57 01/16/24 13:41 Nifedipine 10mg Capsule PO 01/16/24 12:58 Not Given ONCE ONE Nitroglycerin 1 gm 01/15/24 21:56 01/15/24 22:00 Nitroglycerin 1 Gm Ointment TD 01/15/24 21:57 Not Given ONCE ONE Ondansetron HCl 4 mg 01/16/24 01:43 Ondansetron 4mg/2ml Vial IV 02/15/24 01:42 Q8HP PRN Nausea Pantoprazole Sodium 40 mg 01/16/24 21:00 Pantoprazole 40mg Tablet PO 02/15/24 20:59 HS [facility] Potassium Chloride 40 meq 01/15/24 22:18 01/15/24 22:27 Potassium Chloride 20meq Tab PO 01/15/24 22:19 40 meq ONCE ONE Administration Quetiapine Fumarate 50 mg 01/16/24 21:00 Quetiapine 25mg Tablet PO 02/15/24 20:59 HS [facility] Sodium Chloride 10 ml 01/15/24 22:01 Sodium Chloride 0.9% 10ml Flush Syringe IV 02/14/24 22:00 NEEDED PRN Maintain IV Site Sodium Chloride 50 ml 01/15/24 22:44 01/15/24 22:46 0.9 % Sodium Chloride 50 Ml Vial IV 01/15/24 22:45 50 ml ONCE ONE Administration Sodium Chloride 10 ml 01/15/24 22:44 01/15/24 22:46 Sodium Chloride 0.9% 10ml Syr (Rad Only) IV 02/14/24 22:43 10 ml NEEDED PRN Administration Maintain IV Site Sodium Chloride 10 ml 01/16/24 01:43 Sodium Chloride 0.9% 10ml Flush Syringe IV 02/15/24 01:42 NEEDED PRN Maintain IV Site ORDERS Category Date Time Status CT angio head Stat Cat Scan 01/15/24 22:[address] angio neck Stat Cat Scan 01/15/24 22:[address] head/brain wo con Stat Cat Scan 01/15/24 22:02 Completed XR chest portable Stat Exams 01/15/24 22:02 Completed Complete Blood Count Auto Diff Stat Lab 01/15/24 22:01 Completed Comprehensive Metabolic Panel Stat Lab 01/15/24 22:01 Completed HIV (1&2) Antibody Rapid Stat Lab 01/15/24 22:01 Completed Hep C Ab with Reflex to RNA Stat Lab 01/15/24 22:01 Received Lipase Stat Lab 01/15/24 22:01 Completed Lipase Stat Lab 01/15/24 22:01 Completed Magnesium Stat Lab 01/15/24 22:01 Completed NT Pro Brain Natriuretic Pep. Stat Lab 01/15/24 22:01 Completed PT INR [Prothrombin Time INR] Stat Lab 01/15/24 22:01 Completed PTT [Activated Partial Thrombo Time] Stat Lab 01/15/24 22:01 Completed Troponin I Q3H Lab 01/16/24 00:46 Completed Troponin I Q3H Lab 01/16/24 04:20 Completed Troponin I Stat Lab 01/15/24 22:01 Completed ECG Data Tracing #1: I reviewed this ECG and interpreted as documented below: Sinus rhythm, incomplete right bundle branch block, moderate diffuse ST depressions ECG initial impression date: 01/15/24 ECG initial impression time: 21:53 Tracing #2: I reviewed this ECG and interpreted as documented below: Sinus rhythm, incomplete right bundle branch block, ventricular rate of 66, previously seen ST depressions are resolved ECG initial impression date: 01/16/24 ECG initial impression time: 00:48 HEART Score HEART Score: 6 Medical Decision Narrative: Insert review patient is a 68-year-old female presenting to the emergency department for evaluation of chest pain and tingling into the left face and left leg. Patient is patient with elevated blood pressure, having a panic attack upon walking into the ER with carpopedal spasms. Differential diagnosis includes stroke, ND, among others. Workup will be conducted with hematologic labs, specific imaging including stroke CT scans and chest x-ray, provocative tests. Initial inventions include crystalloid bolus, analgesics. Initial workup reviewed by me hematologic labs are remarkable for hypomagnesemia and hypokalemia. Imaging has not returned at this time. Patient being left to Dr. Ferreira. Hanna FITZPATRICK: I assumed care of the patient at the time of handoff from the prior provider. On reassessment patient reports complete symptomatic resolution. Blood pressure was initially markedly elevated with systolics greater than 200, on repeat after symptomatic improvement her blood pressure is in the 160s systolic. CT imaging independently interpreted by me and shows no evidence of stroke, intracranial bleeding, critical stenosis or aneurysm or mass. Does show mild ventriculomegaly. Laboratory results significant for hypokalemia and hypomagnesemia which were repleted IV and p.o. Initial troponin undetectably low, repeat troponin is elevated at 0.05. Repeat EKG was obtained and shows resolution of the previously seen ST depressions in V456. The mild troponin elevation and dynamic EKG changes are concerning for NSTEMI, likely secondary to hypertensive emergency. Patient was given aspirin upon arrival. Interactive discussion was had with hospitalist on-call for admission. I was consulted by the YVES, and we discussed the complexity of the problems being addressed. I approved the treatment and management plan for this patient?s care in the Emergency Department, thus performing a substantive portion of the medical decision making. Rolando Ferreira MD <Ravi Ewing MD - Last Filed: 01/16/24 16:03> Vital Signs: 01/15/24 21:50 01/15/24 22:01 01/15/24 22:07 Temperature 98.6 F Temperature Source Oral Pulse Rate 94 H 86 Pulse Rate [Apical] 100 H Respiratory Rate 24 19 20 Blood Pressure 259/111 H 232/107 H Blood Pressure [Right Arm] 250/126 H Blood Pressure Mean 157 148 Blood Pressure Mean [Right Arm] 167 Blood Pressure Source Blood Pressure Source [Right Arm] Automatic Cuff Blood Pressure Position Blood Pressure Position [Right Arm] Supine 02 Sat by Pulse Oximetry 100 100 100 Oxygen Delivery Method Room Air Room Air Room Air 01/15/24 22:10 01/15/24 22:20 11/17/24 22:41 Temperature Temperature Source Pulse Rate 81 79 81 Pulse Rate [Apical] Respiratory Rate 26 H 25 H 22 Blood Pressure 196/102 H 205/100 H 142/122 H Blood Pressure [Right Arm] Blood Pressure Mean Blood Pressure Mean [Right Arm] Blood Pressure Source Blood Pressure Source [Right Arm] Blood Pressure Position Blood Pressure Position [Right Arm] 02 Sat by Pulse Oximetry 100 99 98 Oxygen Delivery Method 01/15/24 22:50 01/15/24 23:01 01/15/24 23:21 Temperature Temperature Source Pulse Rate 74 73 72 Pulse Rate [Apical] Respiratory Rate 19 15 23 Blood Pressure 205/101 H 186/146 H 164/87 H Blood Pressure [Right Arm] Blood Pressure Mean Blood Pressure Mean [Right Arm] Blood Pressure Source Blood Pressure Source [Right Arm] Blood Pressure Position Blood Pressure Position [Right Arm] 02 Sat by Pulse Oximetry 98 96 96 Oxygen Delivery Method 01/15/24 23:30 01/15/24 23:50 01/16/24 00:01 Temperature Temperature Source Pulse Rate 74 75 72 Pulse Rate [Apical] Respiratory Rate 21 14 18 Blood Pressure 158/84 H 152/100 H 148/65 H Blood Pressure [Right Arm] Blood Pressure Mean Blood Pressure Mean [Right Arm] Blood Pressure Source Blood Pressure Source [Right Arm] Blood Pressure Position Blood Pressure Position [Right Arm] 02 Sat by Pulse Oximetry 95 94 L 95 Oxygen Delivery Method 01/16/24 00:10 01/16/24 00:20 01/16/24 00:30 Temperature Temperature Source Pulse Rate 72 69 69 Pulse Rate [Apical] Respiratory Rate 14 14 14 Blood Pressure 170/81 H 167/85 H 175/83 H Blood Pressure [Right Arm] Blood Pressure Mean 112 113 Blood Pressure Mean [Right Arm] Blood Pressure Source Blood Pressure Source [Right Arm] Blood Pressure Position Blood Pressure Position [Right Arm] 02 Sat by Pulse Oximetry 95 95 95 Oxygen Delivery Method Room Air Room Air 01/16/24 00:40 01/16/24 00:50 01/16/24 01:10 Temperature 98.6 F Temperature Source Oral Pulse Rate 69 70 70 Pulse Rate [Apical] Respiratory Rate 14 15 16 Blood Pressure 182/75 H 150/91 H 155/89 H Blood Pressure [Right Arm] Blood Pressure Mean 110 114 111 Blood Pressure Mean [Right Arm] Blood Pressure Source Blood Pressure Source [Right Arm] Blood Pressure Position Blood Pressure Position [Right Arm] 02 Sat by Pulse Oximetry 95 98 97 Oxygen Delivery Method Room Air Room Air Room Air 01/16/24 01:33 Temperature 98.6 F Temperature Source Oral Pulse Rate 67 Pulse Rate [Apical] Respiratory Rate 16 Blood Pressure 159/97 H Blood Pressure [Right Arm] Blood Pressure Mean Blood Pressure Mean [Right Arm] Blood Pressure Source Automatic Cuff Blood Pressure Source [Right Arm] Blood Pressure Position Sitting Blood Pressure Position [Right Arm] 02 Sat by Pulse Oximetry Oxygen Delivery Method Room Air Lab Data Lab Results 01/15/24 22:01: WBC 8.8, RBC 3.97 L, Hgb 12.0 L, Hct 34.4 L, MCV 86.9, MCH 30.4, MCHC 35.0, RDW 13.6, Plt Count 379, MPV 7.1 L, Neut % (Auto) 61.1, Lymph % (Auto) 28.8, [place] % (Auto) 5.5, Eos % (Auto) 3.6, Baso % (Auto) 1.0, Neut # (Auto) 5.3, Lymph # (Auto) 2.5, [place] # (Auto) 0.5, Eos # (Auto) 0.3, Baso # (Auto) 0.1, PT 10.3, INR 0.91, APTT 30.3, Sodium 142, Potassium 3.2 L, Chloride 104, Carbon Dioxide 28, Anion Gap 13.2, BUN 10, Creatinine 1.00, Estimated Creat Clear 59, Estimated GFR 55 L, Est GFR ( Amer) 67, Glucose 114 H, Calcium 8.7, Magnesium 1.3 L, Total Bilirubin 0.4, AST 49 H, ALT 31, Alkaline Phosphatase 118, Troponin I < 0.01, NT-Pro-B Natriuret Pep 165 H, Total Protein 7.0, Albumin 4.2, Globulin 2.8, Albumin/Globulin Ratio 1.5, Lipase 62 01/15/24 22:01: Lipase 61, HIV 1&2 Antibody Rapid Nonreactive 01/16/24 00:46: Troponin I 0.05 H Orders (Tests/Meds): ED MEDICATIONS Discontinued Medications Generic Name Dose Route Start Last Admin Trade Name Freq PRN Reason Stop Dose Admin Acetaminophen 650 mg 01/16/24 01:43 Acetaminophen 325mg Tab PO 02/15/24 01:42 Q4HP PRN Fever or Mild Pain (1-3) Albuterol Sulfate 2 puff 01/16/24 01:47 Albuterol-Hfa 90mcg/Puff Inhaler 8gm IH 02/15/24 01:46 Q4HP PRN Shortness Of Breath Or Wheezing Amlodipine Besylate 5 mg 01/17/24 09:00 01/16/24 13:43 Amlodipine 5mg Tablet PO 02/16/24 08:59 5 mg DAILY DAMIAN Administration Aspirin 324 mg 01/15/24 21:56 01/15/24 22:01 Aspirin 81mg Chewable Tablet PO 01/15/24 21:57 324 mg ONCE ONE Administration Atorvastatin Calcium 40 mg 01/16/24 21:00 Atorvastatin 40mg Tablet PO 02/15/24 20:59 HS DAMIAN Fluoxetine HCl 20 mg 01/16/24 09:00 01/16/24 08:12 Fluoxetine 20mg Capsule PO 02/15/24 08:59 20 mg BID DAMIAN Administration Heparin Sodium (Porcine) 4,000 unit 01/16/24 08:15 01/16/24 08:11 Heparin Sodium 5,000 Unit/Ml Vial IV 01/16/24 08:16 4,000 unit ONCE ONE Administration Hydralazine HCl 10 mg 01/16/24 12:58 01/16/24 13:06 Hydralazine 20mg/Ml Vial IV 01/16/24 12:59 10 mg ONCE ONE Administration Hydrochlorothiazide 12.5 mg 01/16/24 10:40 01/16/24 11:19 Hydrochlorothiazide 12.5mg Capsule PO 02/15/24 10:39 12.5 mg DAILY DAMIAN Administration Lactated Ringer's 500 mls @ 999 mls/hr 01/15/24 22:05 01/15/24 22:08 Lactated Ringer's 1000 Ml Bag IV 01/15/24 22:35 Not Given .Q31M ONE Lactated Ringer's 1,000 mls @ 999 mls/hr 01/15/24 22:08 01/15/24 22:08 Lactated Ringer's 1000 Ml Bag IV 01/15/24 23:08 999 mls/hr .Q1H1M ONE Administration Potassium Chloride/Water 100 mls @ 100 mls/hr 01/15/24 22:18 01/15/24 22:27 Potassium Chloride 10meq/100ml Ivpb IV 01/15/24 23:17 100 mls/hr ONCE ONE Administration Magnesium Sulfate 2 gm in 50 mls @ 50 mls/hr 01/15/24 22:23 01/15/24 22:28 Magnesium Sulfate 2gm/50ml Premix IV 01/15/24 23:22 50 mls/hr ONCE ONE Administration Heparin Sodium/Dextrose 500 mls @ 16 mls/hr 01/16/24 08:15 01/16/24 08:12 Heparin 25,000 Units In D5w 500ml Premix IV 02/15/24 08:14 16 mls/hr .Q25H DAMIAN Administration 800 UNITS/HR Ibuprofen 400 mg 01/21/24 02:00 Ibuprofen 400 Mg Tablet PO 02/20/24 01:59 Q6HP PRN Mild Pain (1-3) Iopamidol 80 ml 01/15/24 22:44 01/15/24 22:46 Iopamidol-370 (76%);100ml Bottle IV 01/15/24 22:45 80 ml ONCE ONE Administration Irbesartan 75 mg 01/16/24 09:00 01/16/24 08:12 Irbesartan 75mg Tablet PO 02/15/24 08:59 75 mg DAILY DAMIAN Administration Ketorolac Tromethamine 15 mg 01/16/24 01:43 Ketorolac 30mg/Ml Vial IV 01/21/24 01:42 Q6HP PRN Moderate Pain (4-6) Levothyroxine Sodium 150 mcg 01/16/24 07:00 01/16/24 06:54 Levothyroxine 150mcg (0.15mg)Tab PO 02/15/24 06:59 Not Given AM DAMIAN Levothyroxine Sodium 150 mcg 01/16/24 07:29 Levothyroxine 150mcg (0.15mg)Tab PO 02/15/24 06:59 DAILYDM DAMIAN Metoprolol Tartrate 5 mg 01/15/24 21:59 01/15/24 22:01 Metoprolol Tartrate 5mg/5ml Vial IV 01/15/24 22:00 5 mg ONCE ONE Administration Miscellaneous 0 unit 01/16/24 07:33 Aerochamber/Optihaler MC 02/15/24 07:32 ONCE PRN for Use with Inhaler Miscellaneous 1 each 01/16/24 08:00 01/16/24 08:20 Heparin Drip Consult NOTAPPLIC 02/15/24 07:59 Not Given CONSULT PHARMACY [facility] Nifedipine 10 mg 01/16/24 12:57 01/16/24 13:41 Nifedipine 10mg Capsule PO 01/16/24 12:58 Not Given ONCE ONE Nitroglycerin 1 gm 01/15/24 21:56 01/15/24 22:00 Nitroglycerin 1 Gm Ointment TD 01/15/24 21:57 Not Given ONCE ONE Ondansetron HCl 4 mg 01/16/24 01:43 Ondansetron 4mg/2ml Vial IV 02/15/24 01:42 Q8HP PRN Nausea Pantoprazole Sodium 40 mg 01/16/24 21:00 Pantoprazole 40mg Tablet PO 02/15/24 20:59 HS [facility] Potassium Chloride 40 meq 01/15/24 22:18 01/15/24 22:27 Potassium Chloride 20meq Tab PO 01/15/24 22:19 40 meq ONCE ONE Administration Quetiapine Fumarate 50 mg 01/16/24 21:00 Quetiapine 25mg Tablet PO 02/15/24 20:59 HS [facility] Sodium Chloride 10 ml 01/15/24 22:01 Sodium Chloride 0.9% 10ml Flush Syringe IV 02/14/24 22:00 NEEDED PRN Maintain IV Site Sodium Chloride 50 ml 01/15/24 22:44 01/15/24 22:46 0.9 % Sodium Chloride 50 Ml Vial IV 01/15/24 22:45 50 ml ONCE ONE Administration Sodium Chloride 10 ml 01/15/24 22:44 01/15/24 22:46 Sodium Chloride 0.9% 10ml Syr (Rad Only) IV 02/14/24 22:43 10 ml NEEDED PRN Administration Maintain IV Site Sodium Chloride 10 ml 01/16/24 01:43 Sodium Chloride 0.9% 10ml Flush Syringe IV 02/15/24 01:42 NEEDED PRN Maintain IV Site ORDERS Category Date Time Status CT angio head Stat Cat Scan 01/15/24 22:[address] angio neck Stat Cat Scan 01/15/24 22:[address] head/brain wo con Stat Cat Scan 01/15/24 22:02 Completed XR chest portable Stat Exams 01/15/24 22:02 Completed Complete Blood Count Auto Diff Stat Lab 01/15/24 22:01 Completed Comprehensive Metabolic Panel Stat Lab 01/15/24 22:01 Completed HIV (1&2) Antibody Rapid Stat Lab 01/15/24 22:01 Completed Hep C Ab with Reflex to RNA Stat Lab 01/15/24 22:01 Received Lipase Stat Lab 01/15/24 22:01 Completed Lipase Stat Lab 01/15/24 22:01 Completed Magnesium Stat Lab 01/15/24 22:01 Completed NT Pro Brain Natriuretic Pep. Stat Lab 01/15/24 22:01 Completed PT INR [Prothrombin Time INR] Stat Lab 01/15/24 22:01 Completed PTT [Activated Partial Thrombo Time] Stat Lab 01/15/24 22:01 Completed Troponin I Q3H Lab 01/16/24 00:46 Completed Troponin I Q3H Lab 01/16/24 04:20 Completed Troponin I Stat Lab 01/15/24 22:01 Completed HEART Score HEART Score: 6 Critical Care <Alyssa Hurtado (ED), [employer] - Last Filed: 01/15/24 23:26> Critical Care Time Critical Care Time: No <Rolando Ferreira MD - Last Filed: 01/16/24 01:43> Critical Care Time Critical Care Time: Yes Attestation: On 01/15/24, the high probability of a clinically significant, sudden or life threatening deterioration of the following system(s) cardiac required my full and direct attention, intervention and personal management. The time I documented below is in addition to time spent performing reported procedures but includes the following listed in this critical care notation. Total Time Total Critical Care Time: 40
[2024-01-15] MEDS: IOPAMIDOL-370 (76%);100ML BOTTLE 80 ML IV (22:46)
[2024-01-15] MEDS: SODIUM CHLORIDE 0.9% 10ML SYR (RAD ONLY) 10 ML IV (22:46)
[2024-01-15] MEDS: 0.9 % SODIUM CHLORIDE 50 ML VIAL IV (22:46)
[2024-01-15 22:47] LABS: HIV (1&2) Antibody Rapid NONREACTIVE (NONREACTIVE)
[2024-01-15 22:52] LABS: Lipase 61 U/L (23-300)
[2024-01-16] VITALS (17 sets, daily range): BP systolic 148–228; BP diastolic 65–110; PULSE 67–77; RESP 14–18; TEMP 36.6–37; O2SAT 93–98; BMI 23.8
[2024-01-16 01:11] LABS: Troponin I 0.05 ng/ml (0.00-0.034)
--- NOTE | 2024-01-16 01:19 | PC.NURSE ---
House notified for admit
--- NOTE | 2024-01-16 01:34 | PC.NURSE ---
Report called to FERNANDO Quiñonez
--- NOTE | 2024-01-16 02:50 | P.HP_ITS ---
<Statement entered by Favian Mendoza MD - 01/20/24 13:11> I personally examined the patient and agree with plan of care as outlined below. I started heparin drip for NSTEMI. Pending cardiology recommendations. History of Present Illness *Admission Date: 01/16/24 *Reason for visit:: Chest pain anxiety body ache *History of present illness: This patient a rather complicated past. Comes in today with multiple symptoms of having trouble moving her arm and legs., Some contractures to the hand, also having chest wall and left breast pain. Chronic abdominal pain., Heart rate is tacky, her blood pressure is significantly elevated. I ask her about her taking her blood pressure medicine, she said she has not been taking it for a few days because of her chronic abdominal pain and nausea. Says she was recently diagnosed with exocrine pancreatic insufficiency, also noted for a fatty liver, recently has been treated for C. difficile On arrival troponin was normal that then elevated to 0.05, there was some ST depression on her first EKG that was gone by the time the second 1 was taken., But felt this could be the indication of a non-STEMI. Blood pressures had been greater than 200, systolic the ER has been able to get them down closer to 155 systolic After talking with the ER provider I do agree that we need to rule out the non- STEMI, hopefully this is only related to her hypertension, but I feel she needs to be admitted we will continue with follow-up troponins, cardiac consultation has been ordered. Patient notes that she has seen Dr. Bueno in the past for an echo. Patient by time of admission says most of her symptoms have resolved. [facility] Disclaimer: The information contained in this section may have been updated after the pat ient was seen, as this information can be updated by other users. Medical History (Updated 01/16/24 @ 03:20 by Emiliano Mott APRN) C. difficile enteritis Family history of ischemic heart disease (IHD) Enteritis Exposure to COVID-19 virus Chronic daily headache Primary snoring Sleep-disordered breathing Pneumonia Palpitations Viral syndrome Viral URI with cough Gallstones Chronic cholecystitis Pre-operative cardiovascular examination Chest pain Urinary tract infection History of COVID-19 COPD (chronic obstructive pulmonary disease) Migraine Anxiety and depression Degenerative disc disease Eczema Irritable bowel syndrome (IBS) History of gastroesophageal reflux (GERD) Gallstones Hypothyroid Allergies Hypertension History of anemia Cervical cancer Surgical History History of laparoscopic cholecystectomy History of cataract surgery Hx of elbow surgery Hx of shoulder surgery Hx of neck surgery History of tubal ligation History of colonoscopy Family History Other Cancer Heart disease Hypertension Thyroid disorder Social History (Updated 01/16/24 @ 02:16 by Jadyn Pugh RN) Smoking Status: Former smoker second hand exposure: No alcohol intake: never substance use type: denies use current occupational status: retired Travel in the last 8 weeks: None household members: spouse and family housing: house current occupational exposures/hazards: No caffeine: Yes Other Medical History Have you received the Flu Vaccine for this season: No Have you received the Pneumonia Vaccine: No Review of Systems Review of Systems Review of systems:: pertinent systems reviewed and negative unless documented below Constitutional Constitutional: Reports system reviewed and no additional complaints, except as documented, Reports as per HPI and Reports poor appetite Comments: Patient is alert oriented able to answer questions well Eyes Eyes: Reports as per HPI ENT Ears, Nose, Mouth, and Throat: Reports as per HPI *Cardiovascular Cardiovascular: Reports as per HPI Comments: Complains of chest pain but this is reproducible by pressing upon the chest wall below the left breast *Respiratory Respiratory: Reports as per HPI *Gastrointestinal Gastrointestinal: Reports abdominal pain and Reports nausea *Genitourinary Genitourinary: Reports as per HPI *Musculoskeletal Musculoskeletal: Reports as per HPI Integumentary/Breasts Skin/Breast: Reports as per HPI *Neurologic Neurologic: Reports as per HPI Comments: Symptoms of hand cramping and anxiety have now resolved Psychiatric Psychiatric: Reports as per HPI Endocrine Endocrine: Reports as per HPI Comments: The patient is on Synthroid could not find a TSH level in record Hematologic/Lymphatic Hematologic/Lymphatic: Reports as per HPI Allergic/Immunologic Allergic/Immunologic: Reports as per HPI Meds Home Medications and Allergies Home Medications ?Medication ?Instructions ?Recorded ?Confirmed ?Type albuterol sulfate 90 mcg/actuation 2 inh inhalation Q4-6H PRN 01/16/24 01/16/24 History aerosol inhaler Shortness Of Breath Or Wheezing fluoxetine 20 mg capsule 20 mg PO BID 01/16/24 01/16/24 History levothyroxine 150 mcg tablet 150 mcg PO AM 01/16/24 01/16/24 History losartan 50 mg tablet 50 mg PO DAILY 01/16/24 01/16/24 History pantoprazole 40 mg tablet,delayed 40 mg PO DAILY 01/16/24 01/16/24 History release quetiapine 50 mg tablet 50 mg PO HS 01/16/24 01/16/24 History New Prescriptions to Start Prescriptions: Allergies Allergy/AdvReac Type Severity Reaction Status Date / Time No Known Allergies Allergy Verified 12/28/23 08:30 Exam Data for Last 24 hours Vital signs and Labs for Last 24 Hours: Temp Pulse Resp BP Pulse Ox O2 Del Method 98.6 F 67 16 159/97 H 97 Room Air 01/16/24 01:33 01/16/24 01:33 01/16/24 01:33 01/16/24 01:33 01/16/24 02:19 01/16/24 02:19 Laboratory Results - last 24 hr 01/15/24 22:01: WBC 8.8, RBC 3.97 L, Hgb 12.0 L, Hct 34.4 L, MCV 86.9, MCH 30.4, MCHC 35.0, RDW 13.6, Plt Count 379, MPV 7.1 L, Neut % (Auto) 61.1, Lymph % (Auto) 28.8, Creek % (Auto) 5.5, Eos % (Auto) 3.6, Baso % (Auto) 1.0, Neut # (Auto) 5.3, Lymph # (Auto) 2.5, [place] # (Auto) 0.5, Eos # (Auto) 0.3, Baso # (Auto) 0.1, PT 10.3, INR 0.91, APTT 30.3, Sodium 142, Potassium 3.2 L, Chloride 104, Carbon Dioxide 28, Anion Gap 13.2, BUN 10, Creatinine 1.00, Estimated Creat Clear 59, Estimated GFR 55 L, Est GFR ( Amer) 67, Glucose 114 H, Calcium 8.7, Magnesium 1.3 L, Total Bilirubin 0.4, AST 49 H, ALT 31, Alkaline Phosphatase 118, Troponin I < 0.01, NT-Pro-B Natriuret Pep 165 H, Total Protein 7.0, Albumin 4.2, Globulin 2.8, Albumin/Globulin Ratio 1.5, Lipase 62 01/15/24 22:01: Lipase 61, HIV 1&2 Antibody Rapid Nonreactive 01/16/24 00:46: Troponin I 0.05 H I & O for Last 24 hours: Intake & Output 01/13/24 01/14/24 01/15/24 01/16/24 05:59 05:59 05:59 05:59 Weight 148 lb Radiology Reports for the Last 24 Hours: And radiology reports no acute findings, except for fatty liver, and some mild ascites around some of the small intestine Constitutional Constitutional: mild distress Comments: Patient is calm and relaxed at this point in time, was noted to being quite anxi ous and very uncomfortable upon arrival *Routine HEENT Exam Head: Present normocephalic and atraumatic Eye: Present EOMI and PERRL ENT: Present mucous membranes moist *Routine Neck Exam Neck: Present supple and full ROM Routine Chest/Breast/Axilla Exam Chest wall: Present tenderness Breast: Present tenderness Comments: Palpation of the left side of the chest wall under the breast can reproduce discomfort in the patient, patient also noted that her left breast was also tender, no lymphadenopathy was found during the exam *Routine Respiratory Exam Respiratory: Present CTA bilaterally, normal respiratory effort, able to speak in complete sentences and symmetric chest movement *Routine Cardiovascular Exam Cardiovascular: Present RRR, Normal S1 and Normal S2 *Routine Abdominal Exam Abdominal: Present soft Comments: Only mild tenderness to deep palpation *Routine Rectal Exam Rectal:: deferred *Routine Genitalia Exam Genitalia:: deferred *Routine Extremities Exam Comments: Normal exam Routine Back/Spine/Pelvis Exam Back/Spine: Present full ROM Comments: Normal exam *Routine Skin Exam Skin: Present intact, dry, warm, normal turgor and rash (Eczema most active in the lower extremities and ankle) *Routine Neurological Exam Neurological: Present alert, oriented X3, CN II-XII intact, normal tone, vision grossly intact and hearing grossly intact Routine Psychiatric Exam Psychiatric: Present normal affect, normal thought process, cooperative, good insight, good judgment and anxious H&P: Result Impressions 1. Non-STEMI with uncontrolled hypertension related to holding her medications 2. Chronic abdominal pain with fatty liver and pancreatic insufficiency 3. Resolved recent colitis related to Clostridium differential 4. Chest wall and left breast pain 5. Electrolyte insufficiencies 6. Anxiety disorder Imaging and Cardiology CT scan - abdomen: Status: image reviewed by me Additional comments: Fatty liver Assessment and Plan *Assessment and plan (1) Acute non-ST elevation myocardial infarction (NSTEMI): Status: Acute Category: Medical Code(s): I21.4 - Non-ST elevation (NSTEMI) myocardial infarction (2) Hypomagnesemia: Status: Acute Category: Medical Code(s): E83.42 - Hypomagnesemia (3) Acute hypokalemia: Status: Acute Category: Medical Code(s): E87.6 - Hypokalemia (4) Hypertensive emergency: Status: Acute Category: Medical Code(s): I16.1 - Hypertensive emergency (5) Exocrine pancreatic insufficiency: Status: Acute Category: Medical Code(s): K86.81 - Exocrine pancreatic insufficiency (6) Ascites: Status: Acute Qualifiers: Ascites type: other type Qualified Code(s): R18.8 - Other ascites Category: Medical Code(s): R18.8 - Other ascites (7) Steatosis, liver: Status: Acute Category: Medical Code(s): K76.0 - Fatty (change of) liver, not elsewhere classified (8) Former smoker: Status: Chronic Category: Social Hx Code(s): Z87.891 - Personal history of nicotine dependence Plan 1. Acute non-STEMI: To follow-up with cardiology to determine if related to uncontrolled hypertension, will give the patient medication try to bring the blood pressure back down, will correct electrolyte imbalance, Dr. Bueno consulted for cardiology 2. Chronic abdominal pain, related to pancreatic insufficiency, and fatty liver., This flares from time to time with symptoms of colitis, which caused her to stop taking her hypertensive medication which may be the cause of the above problem 3. Anxiety, patient is improving. Also giving medication for chest wall pain, and with the overall goal of being able to help her sleep diet will be continuing most of her home medications
[2024-01-16 04:36] LABS: Alanine Aminotransferase 26 U/L (12-78); Albumin Level 3.2 g/dl (3.5-5.0); Albumin/Globulin Ratio 1.3 (1.1-1.8); Alkaline Phosphatase 107 U/L (38-126); Anion Gap 9.1 mEq/L (5-15); Aspartate Amino Transferase 46 U/L (14-36); Bilirubin,Total 0.4 mg/dl (0.2-1.3); Blood Urea Nitrogen 11 mg/dl (7-17); Calcium 7.7 mg/dl (8.4-10.2); Carbon Dioxide 27 mmol/L (22.0-30.0); Chloride 108 mmol/L (98-107); Creatinine Clearance Estimated 59 mL/min (50-200); Estimated Glomerular Filt Rate 84 ml/min (>60); GFR (African American) 101 ML/MIN (>60); Globulin 2.5 g/dL (1.3-3.2); Glucose 92 mg/dl (74-100); Magnesium 1.9 mg/dl (1.6-2.3); Potassium 3.1 mmoL/L (3.5-5.1); Sodium 141 mmol/L (136-145); Total Protein,Serum 5.7 g/dl (6.3-8.2)
[2024-01-16 04:47] LABS: Troponin I 0.05 ng/ml (0.00-0.034)
[2024-01-16 05:06] LABS: Free Thyroxine Index 1.8 ug/dL (5.93-13.13); Triiodothryronine (T3) Uptake 30 % (23.5-40.5)
[2024-01-16 05:16] LABS: Basophils # 0.1 K/mm3 (0-0.2); Basophils % 0.8 % (0.1-2.0); Eosinophils # 0.4 K/mm3 (0.0-0.4); Lymphocytes # 1.7 K/mm3 (0.7-4.5); Lymphocytes % 21.4 % (10-50); Mean Corpuscular HGB Conc 33.4 g/dL (31.8-35.4); Mean Corpuscular Hemoglobin 30.1 pg (27.0-31.2); Mean Corpuscular Volume 90.2 fl (81-99); Mean Platelet Volume 7.3 fl (7.4-10.4); Monocytes # 0.5 K/mm3 (0.1-1.0); Monocytes % 6.8 % (1.7-9.3); Neutrophils # 5.1 K/mm3 (1.8-7.8); Platelet Count 320 K/mm3 (142-424); Red Blood Count 3.44 M/mm3 (4.20-5.40); Red Cell Distribution Width 13.3 % (11.5-17.5); White Blood Count 7.7 K/mm3 (4.8-10.8)
[2024-01-16 05:24] LABS: Hemoglobin 10.3 g/dL (12.2-16.2)
--- NOTE | 2024-01-16 07:50 | CA_ITS ---
APPROVED REPORT EXAM: Comprehensive 2D, Doppler, and color-flow Echocardiogram Fiber Artist: Dianne Zeng RVT Ht: 5 ft 6 in Wt: 148lbs BSA: 1.76 BP: 159/97 mmHg Indications: NSTEMI,COPD,HTN,EX SMOKER 2D Dimensions IVSd 1.99 cm F: 0.6-1.0 LVEF (Visual) 54.80 % PWd 1.03 cm F: 0.6 - 1.0 LA Volume 39.10 mL LVDd 4.52 cm F: 3.9 - 5.3 LA Volume Index 22.22 mL/m2 (M/F) 16-34 LVDs 3.24 cm F: 2.2 - 3.5 M-Mode Dimensions LA Diam 3.24 cm (1.9-4.0) TAPSE 2.50 (<1.7) LV Diastology E Decel Time 217 (160-240 msec) E/A Ratio 0.9 Aortic Valve MELLISSA Index 1.46 cm2/m2 AoV Peak Jordan. 124.0 (50-130 cm/s) AO Peak GR. 6.20 mmHg AO Mean GR. 3.50 (<5 mmHg) AO VTI 28.4 (18-25 cm) MELLISSA (VTI) 2.63 (2.5-4.5 cm2) Mitral Valve MV E Max Jordan. 78.0 (40-130 cm/s) MV A Velocity 89.0 (40-130 cm/s) E/A Ratio 0.88 MV PHT 63.0 ms Pulmonary Valve PV Peak Velocity 72.0 (50-150 cm/s) Tricuspid Valve TR P. Velocity 303.00 cm/s RAP Estimate 10.00 mmHg RVSP 46.70 mmHg Left Ventricle The left ventricle is normal size. The left ventricular systolic function is normal. The left ventricular ejection fraction is within the normal range. There is increased LV wall thickness. There is normal LV segmental wall motion. The left ventricular diastolic function is normal. LVEF is 60%. Right Ventricle The right ventricle is normal size. The right ventricular systolic function is normal. Atria The left atrium size is normal. The right atrium size is normal. There is no Doppler evidence of interatrial shunt. Aortic Valve The aortic valve is mildly thickened. There is no aortic valvular stenosis. Mild aortic regurgitation. Mitral Valve The mitral valve is mildly thickened. No evidence of mitral valve stenosis. Mild mitral regurgitation. Tricuspid Valve The tricuspid valve leaflets are thin and pliable. Mild tricuspid regurgitation. RVSP is 25-30 mmHg. Pulmonic Valve The pulmonary valve is normal in structure. Trace pulmonic regurgitation. Great Vessels The aortic root is normal in size. The ascending aorta is not well-visualized. IVC is normal in size and collapses >50% with inspiration. Pericardium There is no pericardial effusion. Other Information Study Quality: Fair Conclusion Normal biventricular systolic function. Mild AI, mild MR, mild TR. Electronically signed by : Ness Whatley MD 01/16/2024 22:50:02
--- NOTE | 2024-01-16 08:00 | P.CONPHA_ITS ---
[facility] Pharmacy Heparin Dosing Demographic Data Admission date:: 01/16/24 Date: 01/16/24 Time: 08:00 Allergies Allergy/AdvReac Type Severity Reaction Status Date / Time No Known Allergies Allergy Verified 12/28/23 08:30 Height: 1.68 m Weight: 67 kg Indication Medication therapy:: Heparin Current Active Problems CAD (coronary artery disease) (Acute) Myocardial injury (Acute) Hypomagnesemia (Acute) Acute hypokalemia (Acute) Acute non-ST elevation myocardial infarction (NSTEMI) (Acute) Hypertensive emergency (Acute) Exocrine pancreatic insufficiency (Acute) Ascites (Acute) Steatosis, liver (Acute) Former smoker (Chronic) CVA?: No Bleeding problem?: No Kidney disease?: No [place]?: No Desired PTT range:: 50-75 seconds Labs Anticoagulation Lab Results:: 01/15/24 01/16/24 22:01 04:20 Hgb 12.0 L 10.3 L D Hct 34.4 L 31.0 L Plt Count 379 320 Monitoring Dose Monitor 1: Date: 01/16/24 Time: 08:01 PTT Result:: 30.3 Infusion Rate:: HEPARIN BOLUS 4000 UNITS; HEPARIN 800 UNITS/HR (16 ML/HR) Dose Monitor 2: Date: 01/16/24 Time: 13:00 PTT Result:: heparin stopped Core Measures Is INR > or = 2 at discharge?: No Most Recent Labs:: Laboratory Results - last 24 hr 01/15/24 22:01: WBC 8.8, RBC 3.97 L, Hgb 12.0 L, Hct 34.4 L, MCV 86.9, MCH 30.4, MCHC 35.0, RDW 13.6, Plt Count 379, MPV 7.1 L, Neut % (Auto) 61.1, Lymph % (Auto) 28.8, [place]elope % (Auto) 5.5, Eos % (Auto) 3.6, Baso % (Auto) 1.0, Neut # (Auto) 5.3, Lymph # (Auto) 2.5, [place]elope # (Auto) 0.5, Eos # (Auto) 0.3, Baso # (Auto) 0.1, PT 10.3, INR 0.91, APTT 30.3, Sodium 142, Potassium 3.2 L, Chloride 104, Carbon Dioxide 28, Anion Gap 13.2, BUN 10, Creatinine 1.00, Estimated Creat Clear 59, Estimated GFR 55 L, Est GFR ( Amer) 67, Glucose 114 H, Calcium 8.7, Magnesium 1.3 L, Total Bilirubin 0.4, AST 49 H, ALT 31, Alkaline Phosphatase 118, Troponin I < 0.01, NT-Pro-B Natriuret Pep 165 H, Total Protein 7.0, Albumin 4.2, Globulin 2.8, Albumin/Globulin Ratio 1.5, Lipase 62 01/15/24 22:01: Lipase 61, HIV 1&2 Antibody Rapid Nonreactive 01/16/24 00:46: Troponin I 0.05 H 01/16/24 04:20: WBC 7.7, RBC 3.44 L, Hgb 10.3 L D, Hct 31.0 L, MCV 90.2, MCH 30.1, MCHC 33.4, RDW 13.3, Plt Count 320, MPV 7.3 L, Neut % (Auto) 66.0, Lymph % (Auto) 21.4, [place]elope % (Auto) 6.8, Eos % (Auto) 5.0, Baso % (Auto) 0.8, Neut # (Auto) 5.1, Lymph # (Auto) 1.7, [place]elope # (Auto) 0.5, Eos # (Auto) 0.4, Baso # (Auto) 0.1, Sodium 141, Potassium 3.1 L, Chloride 108 H, Carbon Dioxide 27, Anion Gap 9.1, BUN 11, Creatinine 0.70 D, Estimated Creat Clear 59, Estimated GFR 84, Est GFR ( Amer) 101 D, Glucose 92, Calcium 7.7 L, Magnesium 1.9 D, Total Bilirubin 0.4, AST 46 H, ALT 26, Alkaline Phosphatase 107, Troponin I 0.05 H, Total Protein 5.7 L, Albumin 3.2 L D, Globulin 2.5, Albumin/Globulin Ratio 1.3, TSH 54.40 H, Free T4 Index 1.8 L, Thyroxine (T4) 6.0, T3 Uptake 30 If INR was < than 2.0 why was therapy stopped?: heparin stopped Were Heparin and Warfarin started on the same day?: No If not, why?: heparin stopped
--- NOTE | 2024-01-16 08:06 | HMH.PHAINT1 ---
Pharmacy Intervention Comments: HOME MEDICATIONS VERIFIED VIA OUTPATIENT PHARMACY AND PATIENT INTERVIEW
[2024-01-16] MEDS: HEPARIN SODIUM 5,000 UNIT/ML VIAL 4000 UNIT IV (08:11)
[2024-01-16] MEDS: IRBESARTAN 75MG TABLET 75 MG PO (08:12)
[2024-01-16] MEDS: FLUOXETINE 20MG CAPSULE 20 MG PO (08:12)
[2024-01-16] MEDS: HEPARIN SODIUM,PORCINE/D5W 500 ML 16 UNIT IV (08:12)
[2024-01-16 08:17] LABS: Chol/HDL Ratio 5.7 (1-3.5); Cholesterol 136 mg/dl (140-200); HDL Cholesterol 24 mg/dl (40-60); Triglycerides 294 mg/dl (30-150); VLDL Cholesterol 59 mg/dL (0-40)
[2024-01-16 08:20] LABS: PTT Heparin (inpatient only) 31.2 Seconds (50-75)
[2024-01-16 08:27] LABS: Direct LDL Cholesterol 83.64 mg/dL (100-129)
[2024-01-16 08:31] LABS: Hemoglobin A1C 5.2 % (4.0-6.0)
--- NOTE | 2024-01-16 10:42 | P.CONCA_ITS ---
History of Present Illness History of Present Illness Consult date: 01/16/24 Requesting physician: Favian Mendoza Consult reason: chest pain Chief complaint: chest pain, panic attack History of present illness: This is a 68-year-old white female with past medical history of generalized abdominal pain, exocrine pancreatic insufficiency, hypertension and former smoker who presented to emergency department with complaints of left-sided chest pain and panic attack. Patient reports she developed sharp left-sided chest pain which made her very anxious prompting her to come to the emergency department. Patient reports she recently stopped her omeprazole under the guidance of Dr. Dhillon and was started on creon. Patient also reports she has not had her blood pressure medicine in the last few days due to ongoing nausea and chronic abdominal pain. On presentation to emergency department systolic blood pressure was greater than 200. Initial EKG showed normal sinus rhythm at a rate of 66 with an incomplete right bundle branch block noted. Labs as follow: WBC 7.7, hemoglobin 10.3, sodium 145, potassium 3.1, creatinine 0.7, troponin 0.01 trending up to 0.05 in the setting of hypertension. Chest x-ray, head CT and head CTA were all negative for acute process. A CTA neck was obtained which showed atherosclerosis disease of the carotid bulb without stenosis of carotid arteries noted. Patient was admitted for further evaluation and cardiology consult. This morning patient reports she is chest pain-free. Patient does endorse left chest wall pain and left breast pain to palpation. Echocardiogram is pending. Blood pressure has improved but remains elevated with systolic in the 150s.. [facility] Disclaimer: The information contained in this section may have been updated after the patient was seen, as this information can be updated by other users. Medical History (Updated 01/16/24 @ 10:51 by Kavita Da Silva APRN) C. difficile enteritis Family history of ischemic heart disease (IHD) Enteritis Exposure to COVID-19 virus Chronic daily headache Primary snoring Sleep-disordered breathing Pneumonia Palpitations Viral syndrome Viral URI with cough Gallstones Chronic cholecystitis Pre-operative cardiovascular examination Chest pain Urinary tract infection History of COVID-19 COPD (chronic obstructive pulmonary disease) Migraine Anxiety and depression Degenerative disc disease Eczema Irritable bowel syndrome (IBS) History of gastroesophageal reflux (GERD) Gallstones Hypothyroid Allergies Hypertension History of anemia Cervical cancer Surgical History History of laparoscopic cholecystectomy History of cataract surgery Hx of elbow surgery Hx of shoulder surgery Hx of neck surgery History of tubal ligation History of colonoscopy Family History Other Cancer Heart disease Hypertension Thyroid disorder Social History (Updated 01/16/24 @ 02:16 by Jadyn Pugh RN) Smoking Status: Former smoker second hand exposure: No alcohol intake: never substance use type: denies use current occupational status: retired Travel in the last 8 weeks: None household members: spouse and family housing: house current occupational exposures/hazards: No caffeine: Yes Review of Systems Review of Systems Review of systems:: pertinent systems reviewed and negative unless documented below *Gastrointestinal Gastrointestinal: Reports abdominal pain and Reports nausea *Neurologic Neurologic: Reports as per HPI Exam Data for Last 24 hours Vital signs and Labs for Last 24 Hours: Temp Pulse Resp BP Pulse Ox O2 Del Method 97.8 F 70 17 151/78 H 93 L Room Air 01/16/24 07:28 01/16/24 08:00 01/16/24 07:28 01/16/24 07:28 01/16/24 07:28 01/16/24 09:00 Laboratory Results - last 24 hr 01/15/24 22:01: WBC 8.8, RBC 3.97 L, Hgb 12.0 L, Hct 34.4 L, MCV 86.9, MCH 30.4, MCHC 35.0, RDW 13.6, Plt Count 379, MPV 7.1 L, Neut % (Auto) 61.1, Lymph % (Auto) 28.8, [place] % (Auto) 5.5, Eos % (Auto) 3.6, Baso % (Auto) 1.0, Neut # (Auto) 5.3, Lymph # (Auto) 2.5, [place] # (Auto) 0.5, Eos # (Auto) 0.3, Baso # (Auto) 0.1, PT 10.3, INR 0.91, APTT 30.3, Sodium 142, Potassium 3.2 L, Chloride 104, Carbon Dioxide 28, Anion Gap 13.2, BUN 10, Creatinine 1.00, Estimated Creat Clear 59, Estimated GFR 55 L, Est GFR ( Amer) 67, Glucose 114 H, Calcium 8.7, Magnesium 1.3 L, Total Bilirubin 0.4, AST 49 H, ALT 31, Alkaline Phosphatase 118, Troponin I < 0.01, NT-Pro-B Natriuret Pep 165 H, Total Protein 7.0, Albumin 4.2, Globulin 2.8, Albumin/Globulin Ratio 1.5, Lipase 62 01/15/24 22:01: Lipase 61, HIV 1&2 Antibody Rapid Nonreactive 01/16/24 00:46: Troponin I 0.05 H 01/16/24 04:20: WBC 7.7, RBC 3.44 L, Hgb 10.3 L D, Hct 31.0 L, MCV 90.2, MCH 30.1, MCHC 33.4, RDW 13.3, Plt Count 320, MPV 7.3 L, Neut % (Auto) 66.0, Lymph % (Auto) 21.4, [place] % (Auto) 6.8, Eos % (Auto) 5.0, Baso % (Auto) 0.8, Neut # (Auto) 5.1, Lymph # (Auto) 1.7, [place] # (Auto) 0.5, Eos # (Auto) 0.4, Baso # (Auto) 0.1, Sodium 141, Potassium 3.1 L, Chloride 108 H, Carbon Dioxide 27, Anion Gap 9.1, BUN 11, Creatinine 0.70 D, Estimated Creat Clear 59, Estimated GFR 84, Est GFR ( Amer) 101 D, Glucose 92, Calcium 7.7 L, Magnesium 1.9 D, Total Bilirubin 0.4, AST 46 H, ALT 26, Alkaline Phosphatase 107, Troponin I 0.05 H, Total Protein 5.7 L, Albumin 3.2 L D, Globulin 2.5, Albumin/Globulin Ratio 1.3, TSH 54.40 H, Free T4 Index 1.8 L, Thyroxine (T4) 6.0, T3 Uptake 30 01/16/24 07:56: APTT 31.2 L, Hemoglobin A1c 5.2, Triglycerides 294 H, Cholesterol 136 L, LDL Cholesterol Direct 83.64 L, VLDL Cholesterol 59 H, HDL Cholesterol 24 L, Cholesterol/HDL Ratio 5.7 H I & O for Last 24 hours: Intake & Output 01/13/24 01/14/24 01/15/24 01/16/24 23:59 23:59 23:59 23:59 Output Total 0 / 0 Balance 0 / 0 Weight 148 lb 147 lb 11.355 oz Constitutional Constitutional: no acute distress *Routine Respiratory Exam Respiratory: Present CTA bilaterally and symmetric chest movement *Routine Cardiovascular Exam Cardiovascular: Present RRR, Normal S1 and Normal S2 *Routine Abdominal Exam Abdominal: Present soft and normoactive bowel sounds; Absent tenderness *Routine Extremities Exam Extremities: Present full ROM and normal capillary refill; Absent edema *Routine Skin Exam Skin: Present intact, dry and warm Detailed Neck Exam: Thyroids Thyroid: Absent bruit Meds Home Medications and Allergies Home Medications ?Medication ?Instructions ?Recorded ?Confirmed ?Type albuterol sulfate 90 mcg/actuation 2 inh inhalation Q4-6H PRN 01/16/24 01/16/24 History aerosol inhaler Shortness Of Breath Or Wheezing aspirin 81 mg capsule 81 mg PO DAILY #30 caps 01/16/24 Rx atorvastatin 40 mg tablet 40 mg PO HS 30 days #30 tabs 01/16/24 Rx fluoxetine 20 mg capsule 60 mg PO DAILY 01/16/24 01/16/24 History hydrochlorothiazide 25 mg tablet 25 mg PO DAILY #30 tabs 01/16/24 Rx ipratropium 0.5 mg-albuterol 3 mg 3 ml inhalation Q4-6H PRN 01/16/24 01/16/24 History (2.5 mg base)/3 mL nebulization Shortness Of Breath Or Wheezing soln levothyroxine 150 mcg tablet 150 mcg PO AM 01/16/24 01/16/24 History losartan 50 mg tablet 50 mg PO DAILY 01/16/24 01/16/24 History pantoprazole 40 mg tablet,delayed 40 mg PO DAILY 01/16/24 01/16/24 History release quetiapine 50 mg tablet 50 mg PO HS 01/16/24 01/16/24 History New Prescriptions to Start Prescriptions: Favian Butt atorvastatin Favian Mendoza hydrochlorothiazide Favian Mendoza Allergies Allergy/AdvReac Type Severity Reaction Status Date / Time No Known Allergies Allergy Verified 12/28/23 08:30 Assessment and Plan *Assessment and plan (1) Myocardial injury: Status: Acute Category: Medical Code(s): I5A - Non-ischemic myocardial injury (non-traumatic) (2) Hypertensive emergency: Status: Acute Category: Medical Code(s): I16.1 - Hypertensive emergency (3) CAD (coronary artery disease): Status: Acute Category: Medical Code(s): I25.10 - Atherosclerotic heart disease of [place] coronary artery without angina pectoris Plan Acute myocardial injury likely secondary to uncontrolled hypertension History of coronary artery disease without stenting EKG is normal sinus rhythm without acute ischemic changes noted Troponin 0.01 trending up to 0.05 in the setting of systolic blood pressures greater than 200 Patient has been without blood pressure medication Of note patient had a CCTA 04/2023 which showed a calcium score of 37 with the presence of mild nonobstructive atherosclerotic plaque in the proximal LAD without evidence of significant flow-limiting disease. Recommendation was medical management. Recommend better blood pressure control... Continue irbesartan 75 mg daily and add hydrochlorothiazide 12.5 mg daily and norvasc 5mg po daily Preliminary Echo shows an ejection fraction of 60% with mild MR, TR, AI without wall motion abnormalities noted. Discussed left heart catheterization today versus outpatient evaluation with stress testing with patient, at this time patient would like to pursue outpatient stress testing. Hypertension Continue irbesartan 75 mg daily and add hydrochlorothiazide 12.5 mg daily and norvasc 5mg po daily Hyperlipidemia LDL goal less than 100 LDL is 83 CV summary 01/16/2024: Patient is CV stable for discharge home. Please have patient continue irbesartan 75 mg p.o. daily and add hydrochlorothiazide 12.5 mg p.o. daily and norvasc 5mg po daily. Please have patient follow-up in cardiology clinic this week for reevaluation and to schedule outpatient testing as needed.
[2024-01-16] MEDS: hydroCHLOROthiazide 12.5MG CAPSULE 12.5 MG PO (11:19)
--- NOTE | 2024-01-16 12:15 | P.DS_ITS ---
General Admission date:: 01/16/24 HPI HPI HPI: This patient a rather complicated past. Comes in today with multiple symptoms of having trouble moving her arm and legs., Some contractures to the hand, also having chest wall and left breast pain. Chronic abdominal pain., Heart rate is tacky, her blood pressure is significantly elevated. I ask her about her taking her blood pressure medicine, she said she has not been taking it for a few days because of her chronic abdominal pain and nausea. Says she was recently diagnosed with exocrine pancreatic insufficiency, also noted for a fatty liver, recently has been treated for C. difficile On arrival troponin was normal that then elevated to 0.05, there was some ST depression on her first EKG that was gone by the time the second 1 was taken., But felt this could be the indication of a non-STEMI. Blood pressures had been greater than 200, systolic the ER has been able to get them down closer to 155 systolic After talking with the ER provider I do agree that we need to rule out the non- STEMI, hopefully this is only related to her hypertension, but I feel she needs to be admitted we will continue with follow-up troponins, cardiac consultation has been ordered. Patient notes that she has seen Dr. Bueno in the past for an echo. Patient by time of admission says most of her symptoms have resolved. Hospital Course Hospital Course Hospital Course: Ms. Tilley 68-year-old female with a medical history of hypertension, hypothyroidism, pancreatic insufficiency, anxiety/depression who presents with left sided chest pain and was admitted for NSTEMI. #NSTEMI #Hypertension - EKG is normal sinus rhythm without acute ischemic changes noted. Troponin 0.01 trending up to 0.05 in the setting of systolic blood pressures greater than 200. - Patient unfortunately has not been able to consistently tolerate oral intake due to pancreatic insufficiency but is following up with GI for further management. Patient has also been without blood pressure medication. - Of note patient had a CCTA 04/2023 which showed a calcium score of 37 with the presence of mild nonobstructive atherosclerotic plaque in the proximal LAD without evidence of significant flow-limiting disease. Recommendation was medical management. - Patient was started on heparin drip. - Cardiology consulted, discussed left heart catheterization today versus outpatient evaluation with stress testing with patient, at this time patient would like to pursue outpatient stress testing given unremarkable ECHO findings. - Preliminary Echo shows an ejection fraction of 60% with mild MR, TR, AI without wall motion abnormalities noted. - A1c 5.2, LDL 100. - Recommended continuing irbesartan 75 mg daily, and started hydrochlorothiazide 12.5 mg daily and amlodipine 5mg daily. - Will follow-up with cardiology within 1 week. Continue aspirin and statin. #Hypothyroidism (subtherapeutic) - TSH elevated to 54, patient has not been taking levothyroxine until the last few days. - Advised to continue and follow-up with PCP to recheck TSH in 6 weeks. Exam Data for Last 24 hours Vital signs and Labs for Last 24 Hours: Temp Pulse Resp BP Pulse Ox O2 Del Method 97.8 F 70 17 151/78 H 93 L Room Air 01/16/24 07:28 01/16/24 08:00 01/16/24 07:28 01/16/24 07:28 01/16/24 07:28 01/16/24 11:00 Laboratory Results - last 24 hr 01/15/24 22:01: WBC 8.8, RBC 3.97 L, Hgb 12.0 L, Hct 34.4 L, MCV 86.9, MCH 30.4, MCHC 35.0, RDW 13.6, Plt Count 379, MPV 7.1 L, Neut % (Auto) 61.1, Lymph % (Auto) 28.8, [place] % (Auto) 5.5, Eos % (Auto) 3.6, Baso % (Auto) 1.0, Neut # (Auto) 5.3, Lymph # (Auto) 2.5, [place] # (Auto) 0.5, Eos # (Auto) 0.3, Baso # (Auto) 0.1, PT 10.3, INR 0.91, APTT 30.3, Sodium 142, Potassium 3.2 L, Chloride 104, Carbon Dioxide 28, Anion Gap 13.2, BUN 10, Creatinine 1.00, Estimated Creat Clear 59, Estimated GFR 55 L, Est GFR ( Amer) 67, Glucose 114 H, Calcium 8.7, Magnesium 1.3 L, Total Bilirubin 0.4, AST 49 H, ALT 31, Alkaline Phosphatase 118, Troponin I < 0.01, NT-Pro-B Natriuret Pep 165 H, Total Protein 7.0, Albumin 4.2, Globulin 2.8, Albumin/Globulin Ratio 1.5, Lipase 62 01/15/24 22:01: Lipase 61, HIV 1&2 Antibody Rapid Nonreactive 01/16/24 00:46: Troponin I 0.05 H 01/16/24 04:20: WBC 7.7, RBC 3.44 L, Hgb 10.3 L D, Hct 31.0 L, MCV 90.2, MCH 30.1, MCHC 33.4, RDW 13.3, Plt Count 320, MPV 7.3 L, Neut % (Auto) 66.0, Lymph % (Auto) 21.4, [place] % (Auto) 6.8, Eos % (Auto) 5.0, Baso % (Auto) 0.8, Neut # (Auto) 5.1, Lymph # (Auto) 1.7, [place] # (Auto) 0.5, Eos # (Auto) 0.4, Baso # (Auto) 0.1, Sodium 141, Potassium 3.1 L, Chloride 108 H, Carbon Dioxide 27, Anion Gap 9.1, BUN 11, Creatinine 0.70 D, Estimated Creat Clear 59, Estimated GFR 84, Est GFR ( Amer) 101 D, Glucose 92, Calcium 7.7 L, Magnesium 1.9 D, Total Bilirubin 0.4, AST 46 H, ALT 26, Alkaline Phosphatase 107, Troponin I 0.05 H, Total Protein 5.7 L, Albumin 3.2 L D, Globulin 2.5, Albumin/Globulin Ratio 1.3, TSH 54.40 H, Free T4 Index 1.8 L, Thyroxine (T4) 6.0, T3 Uptake 30 01/16/24 07:56: APTT 31.2 L, Hemoglobin A1c 5.2, Triglycerides 294 H, Cholesterol 136 L, LDL Cholesterol Direct 83.64 L, VLDL Cholesterol 59 H, HDL Cholesterol 24 L, Cholesterol/HDL Ratio 5.7 H I & O for Last 24 hours: Intake & Output 01/13/24 01/14/24 01/15/24 01/16/24 23:59 23:59 23:59 23:59 Output Total 0 / 0 Balance 0 / 0 Weight 67.132 kg 67 kg Constitutional Constitutional: no acute distress *Routine HEENT Exam Head: Present normocephalic Eye: Present EOMI and PERRL ENT: Present mucous membranes moist *Routine Neck Exam Neck: Present supple; Absent lymphadenopathy *Routine Respiratory Exam Respiratory: Present CTA bilaterally *Routine Cardiovascular Exam Cardiovascular: Present RRR *Routine Abdominal Exam Abdominal: Present soft and normoactive bowel sounds; Absent tenderness *Routine Extremities Exam Extremities: Absent cyanosis, clubbing or edema *Routine Skin Exam Skin: Present warm; Absent rash *Routine Neurological Exam Neurological: Present alert and oriented X3 Results Data Completed and Pending Labs on day of discharge: Labs from last 24 hours 01/16/24 01/16/24 01/16/24 07:56 04:20 00:46 WBC 7.7 RBC 3.44 L Hgb 10.3 L D Hct 31.0 L MCV 90.2 MCH 30.1 MCHC 33.4 RDW 13.3 Plt Count 320 MPV 7.3 L Neut % (Auto) 66.0 Lymph % (Auto) 21.4 [place] % (Auto) 6.8 Eos % (Auto) 5.0 Baso % (Auto) 0.8 Neut # (Auto) 5.1 Lymph # (Auto) 1.7 [place] # (Auto) 0.5 Eos # (Auto) 0.4 Baso # (Auto) 0.1 PT INR APTT 31.2 L Sodium 141 Potassium 3.1 L Chloride 108 H Carbon Dioxide 27 Anion Gap 9.1 BUN 11 Creatinine 0.70 D Estimated Creat Clear 59 Estimated GFR 84 Est GFR ( Amer) 101 D Glucose 92 Hemoglobin A1c 5.2 Calcium 7.7 L Magnesium 1.9 D Total Bilirubin 0.4 AST 46 H ALT 26 Alkaline Phosphatase 107 Troponin I 0.05 H 0.05 H NT-Pro-B Natriuret Pep Total Protein 5.7 L Albumin 3.2 L D Globulin 2.5 Albumin/Globulin Ratio 1.3 Triglycerides 294 H Cholesterol 136 L LDL Cholesterol Direct 83.64 L VLDL Cholesterol 59 H HDL Cholesterol 24 L Cholesterol/HDL Ratio 5.7 H Lipase TSH 54.40 H Free T4 Index 1.8 L Thyroxine (T4) 6.0 T3 Uptake 30 HIV 1&2 Antibody Rapid 01/15/24 01/15/24 22:01 22:01 WBC 8.8 RBC 3.97 L Hgb 12.0 L Hct 34.4 L MCV 86.9 MCH 30.4 MCHC 35.0 RDW 13.6 Plt Count 379 MPV 7.1 L Neut % (Auto) 61.1 Lymph % (Auto) 28.8 [place] % (Auto) 5.5 Eos % (Auto) 3.6 Baso % (Auto) 1.0 Neut # (Auto) 5.3 Lymph # (Auto) 2.5 [place] # (Auto) 0.5 Eos # (Auto) 0.3 Baso # (Auto) 0.1 PT 10.3 INR 0.91 APTT 30.3 Sodium 142 Potassium 3.2 L Chloride 104 Carbon Dioxide 28 Anion Gap 13.2 BUN 10 Creatinine 1.00 Estimated Creat Clear 59 Estimated GFR 55 L Est GFR ( Amer) 67 Glucose 114 H Hemoglobin A1c Calcium 8.7 Magnesium 1.3 L Total Bilirubin 0.4 AST 49 H ALT 31 Alkaline Phosphatase 118 Troponin I < 0.01 NT-Pro-B Natriuret Pep 165 H Total Protein 7.0 Albumin 4.2 Globulin 2.8 Albumin/Globulin Ratio 1.5 Triglycerides Cholesterol LDL Cholesterol Direct VLDL Cholesterol HDL Cholesterol Cholesterol/HDL Ratio Lipase 61 62 TSH Free T4 Index Thyroxine (T4) T3 Uptake HIV 1&2 Antibody Rapid Nonreactive DS: Diagnosis Discharge Diagnosis (1) Myocardial injury: Status: Acute Code(s): I5A - Non-ischemic myocardial injury (non-traumatic) (2) Hypertensive emergency: Status: Acute Code(s): I16.1 - Hypertensive emergency (3) CAD (coronary artery disease): Status: Acute Code(s): I25.10 - Atherosclerotic heart disease of [place] coronary artery without angina pectoris Meds Home Medications and Allergies Home Medications ?Medication ?Instructions ?Recorded ?Confirmed ?Type albuterol sulfate 90 mcg/actuation 2 inh inhalation Q4-6H PRN 01/16/24 01/19/24 History aerosol inhaler Shortness Of Breath Or Wheezing amlodipine 5 mg tablet 5 mg PO DAILY 30 days #30 tabs 01/16/24 01/19/24 Rx aspirin 81 mg capsule 81 mg PO DAILY #30 caps 01/16/24 01/19/24 Rx atorvastatin 40 mg tablet 40 mg PO HS 30 days #30 tabs 01/16/24 01/19/24 Rx fluoxetine 20 mg capsule 60 mg PO DAILY 01/16/24 01/19/24 History hydrochlorothiazide 12.5 mg capsule 12.5 mg PO DAILY 30 days #30 caps 01/16/24 01/19/24 Rx ipratropium 0.5 mg-albuterol 3 mg 3 ml inhalation Q4-6H PRN 01/16/24 01/19/24 History (2.5 mg base)/3 mL nebulization Shortness Of Breath Or Wheezing soln levothyroxine 150 mcg tablet 150 mcg PO AM 01/16/24 01/19/24 History losartan 50 mg tablet 50 mg PO DAILY 01/16/24 01/19/24 History quetiapine 50 mg tablet 50 mg PO HS 01/16/24 01/19/24 History [id number] 1 cap PO .With meals EPI #90 caps 01/18/24 01/19/24 Rx 36,000-114,000-180,000 unit capsule,delay rel (Creon) New Prescriptions to Start Prescriptions: amlodipine Tedla,Favian aspirin Kelly,Favian atorvastatin Kelly,Favian hydrochlorothiazide Kelly,Favian Allergies Allergy/AdvReac Type Severity Reaction Status Date / Time No Known Allergies Allergy Verified 01/19/24 13:13 Discharge Plan Disposition Patient Disposition: Home, Self-Care Follow up Plan Follow up with: Kavita Da Silva APRN [Nurse Practitioner] - 01/19/24 1:00 pm [facility] ([facility]),LIILBETH Shah [Emergency Midlevel Provider] - 01/23/24 10:15 am Prescriptions/Medication Reconciliation: New atorvastatin 40 mg Tablet 40 mg PO HS 30 Days Qty: 30 0RF aspirin 81 mg capsule 81 mg PO DAILY Qty: 30 0RF amlodipine 5 mg Tablet 5 mg PO DAILY 30 Days Qty: 30 0RF hydrochlorothiazide 12.5 mg Capsule 12.5 mg PO DAILY 30 Days Qty: 30 0RF Continued losartan 50 mg tablet 50 mg PO DAILY levothyroxine 150 mcg tablet 150 mcg PO AM albuterol sulfate 90 mcg/actuation HFA aerosol inhaler 2 inh INHALATION Q4-6H PRN (Reason: Shortness Of Breath Or Wheezing) Rx Instructions: INHALE 2 PUFFS EVERY 4 TO 6 HOURS NEEDED FOR SHORTNESS OF BREATH fluoxetine 20 mg capsule 60 mg PO DAILY quetiapine 50 mg tablet 50 mg PO HS ipratropium-albuterol 0.5 mg-3 mg(2.5 mg base)/3 mL solution for nebulization 3 ml INHALATION Q4-6H PRN (Reason: Shortness Of Breath Or Wheezing) Rx Instructions: PATIENT STATES SHE USES NEEDED No Action Creon 36,000-114,000- 180,000 unit capsule,delayed release(DR/EC) 1 cap PO .With meals Qty: 90 12RF Rx Instructions: administer with meals and/or snacks max of 6 a day Problem Reconciliation Problems Reviewed?: Yes Patient Discharge Instructions Patient Instructions: High Blood Pressure Print Language: Armenian Providers Primary Care Provider: Provider,Referral Admit Provider: Favian Mendoza Attending Provider: Favian Mendoza
[2024-01-16] MEDS: HYDRALAZINE 20MG/ML VIAL 10 MG IV (13:06)
[2024-01-16] MEDS: AMLODIPINE 5MG TABLET 5 MG PO (13:43)
[2024-01-17 08:21] LABS: HCV Ab Non Reactive (Non Reactive)
--- NOTE | 2024-01-17 10:50 | SW/DCPLANNER ---
Spoke with patient and she stated that she is doing very well after her discharge and that she doesnt have any questions or concerns at this time. Ewa Watkins
== END 2024-01-16 14:00 | disposition home or self-care (01) ==
LOC: ER 01-16 00:01 → 2ND 01-16 01:20
PROVIDERS: Emergency Medicine; Nurse Practitioner; Nurse Practitioner Family; Admitting Provider Student in an Organized Health Care Education/Training Program; Emergency Provider Emergency Medicine; Visit Provider Student in an Organized Health Care Education/Training Program
DX: I5A Non-ischemic myocardial injury (non-traumatic) (principal); I16.1 Hypertensive emergency; K86.81 Exocrine pancreatic insufficiency; I25.10 Atherosclerotic heart disease of native coronary artery without angina pectoris; E83.42 Hypomagnesemia; E87.6 Hypokalemia; R18.8 Other ascites; K76.0 Fatty (change of) liver, not elsewhere classified; Z87.891 Personal history of nicotine dependence; Z82.49 Family history of ischemic heart disease and other diseases of the circulatory system
CPT/HCPCS: 36415; 70450; 70496; 70498; 71045; 80053; 80061; 83036; 83690; 83735; 83880; 84436; 84443; 84479; 84484; 85025; 85610; 85730; 86803; 87389; 93005; 93306; 99291; G0378; J0360; J1644; J3475; J3480; J7120; Q9967

== ENCOUNTER 2024-02-23 11:04 | Outpatient (CLI) | payer MEDICARE, SELFPAY ==
--- NOTE | 2024-02-23 | CA_ITS ---
APPROVED REPORT Exam: Pharmacologic Technologist: Noy Bradford Ht: 5 ft 6 in Wt: 143 lbs BSA: 1.73 m2 HR: 72 bpm BP: 131/63 mmHg Rhythm: Nsr, incomplete RBBB Medical History Medical History: HTN, Hyperlipidemia, Smoking Medications: Albuterol, Amlodipine, Aspirin, Auvelity, Duoneb, Levothyroxine, Losartan, Quetiapine Allergies: No known drug allergies Cardiac Risk Factors: HTN, Hyperlipidemia, Smoking Stress Test Details Test: Lexiscan HR Resting HR: 72 bpm Max Heart Rate (APMHR): 154 bpm Target HR (85% APMHR): 131 bpm Recovery HR: 87 bpm BP Resting BP: 131.0/63.0 mmHg Max BP: 138.0/67.0 mmHg Recovery BP: 128.0/64.0 mmHg ECG Resting ECG: Nsr, incomplete RBBB Stress ECG Conclusion Switched from exercise due to inability to achieve 85% of PMHR Pt had mild soa, headache and stomach discomfort No significant changes Unremarkable lexiscan stress Electronically signed by : Ness Whatley MD 02/24/2024 13:04:48
--- NOTE | 2024-02-23 11:05 | NM_ITS ---
APPROVED REPORT Exam: Nuclear Stress Test Indication: Abnormal EKG, SOB, Fatigue, HTN, High cholesterol, Family history Patient Location: Outpatient Stress Tech: Noy Bradford [place] Tech:Jordyn Munguia, ARRT, RT (R)(N) Ht: 5 ft 6 in Wt: 142 lbs Bra Size: 40B HR: 71 bpm BP: 131/63 mmHg BSA: 1.73 m2 TID: 1.19 BMI: 22.9 History: Abnormal EKG, SOB, Fatigue, HTN, High cholesterol, Family history Procedure: Patient received 0.4 mg of intravenous Lexiscan, resting heart rate 71 bpm, resting blood pressure 131/63 mmHg, with Lexiscan maximum heart rate achieved was 93 bpm which is % of the maximum predicted heart rate and blood pressure was 138/67 mmHg. With Lexiscan, patient denied any complaint of chest pain. Cardiac Stress and Resting SPECT Images: Cardiac Stress and Resting SPECT images were obtained using technetium 99m Myoview 30.9 mCi stress and 10.36 mCi at rest. Resting and stress imaging in supine and prone positions demonstrate no evidence of fixed or reversible perfusion defects. Gated imaging demonstrates normal global and regional LV systolic function. LVEF is calculated at 70%. Conclusion: No evidence of fixed or reversible perfusion defects. Gated imaging demonstrates normal global and regional LV systolic function. LVEF is calculated at 70%. Electronically signed by : Ness Whatley MD 02/24/2024 12:54:29
[2024-02-23] MEDS: SODIUM CHLORIDE 0.9% 10ML SYR (RAD ONLY) 10 ML IV ×2 (13:24)
[2024-02-23] MEDS: REGADENOSON 0.4MG/5ML SYRINGE 0.4 MG IV (13:24)
[2024-02-23] MEDS: ISOTOPE MYOVIEW (PER STUDY) 1 DOSE IV (13:24)
== END 2024-02-23 23:59 | disposition home or self-care (01) ==
LOC: RAD 11:05
PROVIDERS: PCP Nurse Practitioner; Visit Provider Physician Assistant
DX: I25.10 Atherosclerotic heart disease of native coronary artery without angina pectoris (principal); R06.00 Dyspnea, unspecified
CPT/HCPCS: 78452; 93017; 93018; A9502; J2785

== ENCOUNTER 2024-06-15 11:13 | Outpatient (CLI) | payer MEDICARE, SELFPAY ==
--- NOTE | 2024-06-15 11:49 | XR_ITS ---
FINAL REPORT TECHNIQUE: Chest PA & Lateral CLINICAL HISTORY: COPD STATES R/O PNEUMONIA FINDINGS: 2 views of the chest were performed. The heart size is normal. The mediastinum is within normal limits. There is no acute cardiopulmonary process. Calcified granulomas are noted bilaterally. There are no pleural effusions. There is no pneumothorax. The bony thorax appears intact. IMPRESSION: No acute cardiopulmonary process. Reviewed, Interpreted and Dictated by Js Cadena MD Transcribed by Jacqueline Mccray Authenticated and [facility]
== END 2024-06-15 23:59 | disposition home or self-care (01) ==
LOC: LAB 11:14
PROVIDERS: PCP Nurse Practitioner; Visit Provider Nurse Practitioner
DX: J44.1 Chronic obstructive pulmonary disease with (acute) exacerbation (principal)
CPT/HCPCS: 71046

== ENCOUNTER 2024-06-21 15:11 | Outpatient (CLI) | payer MEDICARE, SELFPAY ==
--- NOTE | 2024-06-21 15:13 | MM_ITS ---
PROCEDURE INFORMATION: Exam: MG Bilateral Screening 3D Mammography Exam date and time: 06/21/2024 3:36 PM Age: 69 years old Clinical indication: Screening examination. TECHNIQUE: Imaging protocol: Bilateral Screening tomosynthesis and 2D mammography including computer-aided detection (CAD) when performed. COMPARISON: No relevant prior studies available. FINDINGS: MAMMOGRAPHY: Breast composition: The breasts are heterogeneously dense, which may obscure small masses. Mass: None. Architectural distortion: None. Calcifications: No suspicious calcifications. Asymmetric density: None. Skin thickening: None. Axillary adenopathy: None. IMPRESSION: No mammographic evidence of malignancy. Annual screening is recommended unless otherwise clinically indicated. ASSESSMENT: BI-RADS Category 1: Negative.
== END 2024-06-21 23:59 | disposition home or self-care (01) ==
LOC: RAD 15:11
PROVIDERS: PCP Nurse Practitioner; Visit Provider Nurse Practitioner
DX: Z12.31 Encounter for screening mammogram for malignant neoplasm of breast (principal)
CPT/HCPCS: 77063; 77067

== ENCOUNTER 2024-10-20 22:38 | Emergency (ER) | payer MEDICARE, SELFPAY ==
[2024-10-20 22:46] VITALS: BP 197/89; PULSE 82; RESP 16; TEMP 36.6; O2SAT 97; BMI 25.8
--- OUTSIDE RECORDS SUMMARY | 2024-10-20 22:51 | XMS_ITS | Clinical Summary ---
Author Organization [facility] Address [address] [place] [address] Care Team Providers Care Printed Circuit Board Panels Developer Name Role Phone Alyssa Hurtado APRN Primary Care Provider [phone] Allergies No known active allergies Medications amLODIPine (Norvasc) 5 MG tablet 2 Active FLUoxetine (PROzac) 20 MG capsule 2 Active gabapentin (Neurontin) 400 MG capsule 2 Active levothyroxine (Synthroid, Levoxyl) 150 MCG tablet 2 Active losartan (Cozaar) 100 MG tablet 2 Active metoprolol succinate XL (Toprol-XL) 50 MG 24 hr tablet 2 Active pantoprazole (Protonix) 40 MG EC tablet 2 Active QUEtiapine (SEROquel) 25 MG tablet 2 Active cholestyramine light (Prevalite) 4 GM/DOSE powder MIX THE CONTENTS OF 1 POWDER PACKET WITH 2-6 OZ OF NONCARBONATED BEVERAGE AND SWALLOW ONCE DAILY. 6 Active estradiol (Estrace) 0.5 MG tabletIndicati ons:Vasomotor Symptoms of Menopause Take 1 tablet (0.5 mg total) by mouth 1 (one) time each day. 60 each 3 Active Active Problems Problem Noted Date Diagnosed Date Cervical cancer 12/21/2021 Cancer Staging:Clinical stage from 04/01/2013:FIGO Stage IIIB(T2b, N1, M0) - Unsigned Family History Medical History Relation Name Comments Depression Child Alcohol abuse Father Lung disease Father Other cancer Father Cardiac disorder Mother Hypertension Mother Lung disease Mother Alcohol abuse Other 1 Cardiac disorder Other 2 Stroke Other 3 Diabetes Other 4 Hypertension Other 5 Liver disease Other 6 Other cancer Other 7 Bone cancer Other 8 Family history of bone cancer Bone cancer Other 9 Family history of bone cancer Lung cancer Other 10 FH: lung cancer Stroke Sister 1 Lung disease Sister 2 Other cancer Sister 3 Lung cancer Sister 4 FH: lung cancer Relation Name Status Comments Child Father Mother Other 1 Other 2 Other 3 Other 4 Other 5 Other 6 Other 7 Other 8 Other 9 Other 10 Sister 1 Sister 2 Sister 3 Sister 4 Social History Tobacco Use Types Packs/Day Years Used Date Smoking Tobacco: Former Smokeless Tobacco: Never Tobacco Cessation:Counseling Given: Not Answered Alcohol Use Standard Drinks/Week Comments No 0 (1 standard drink = 0.6 oz pur e alcohol) Comments No Sex and Gender Information Value Date Recorded Sex Assigned at Not on file Legal Sex Female 7:32 PM EDT Gender Identity Not on file Sexual Orientation Not on file Last Filed Vital Signs Vital Sign Reading Time Taken Comments Blood Pressure 185/75 12/21/2021 8:49 AM EDT Pulse 61 12/21/2021 8:49 AM EDT Temperature - - Respiratory Rate - - Oxygen Saturation - - Inhaled Oxygen Concentration - - Weight 69.3 kg (152 lb 12.5 oz) 12/21/2021 8:49 AM EDT Height 163.8 cm (5' 4.49 ) 12/21/2021 8:49 AM ED T Body Mass Index 25.83 12/21/2021 8:49 AM EDT Plan of Treatment Health Maintenance Due Date Last Done Comments [facility]-Bone Density Scan 1957 [facility]-Depression Screening 1957 [facility]-Hepatitis C Screening 1957 [facility]-Medicare Annual Wellness (AWV) 1957 [facility]-/Child/Adol SDOH Screenings 1957 [facility]-Obesity Intervention 1963 [facility]- SDOH Screenings 1975 [facility]-Adult SDOH Screenings 1975 [facility]-DTaP,Tdap,and Td Vaccines (1 - Tdap) 1976 [facility]-Pneumococcal Vaccine: 50+ Years (1 of 2 - PCV) 1976 [facility]-Zoster Vaccines (1 of 2) 1976 CT Colonography 2002 Colonoscopy 2002 FIT-DNA 2002 FIT 2002 FOBT 2002 Sigmoidoscopy 2002 [facility]-Colorectal Cancer Screening 2002 [facility]-Breast Cancer Screening 2007 [facility]-RSV Vaccine: 60+ Years or (1 - Risk 60-74 years 1-dose series) 2017 [id number] Vaccine ( season) 2023 06/16/2021, 07/01/2020, 06/03/2020 [facility]-Influenza Vaccine (#1) 2024 [facility]-Cervical Cancer Screening Discontinued [facility]-HPV/Cotest Discontinued 12/21/2021, 11/29, 04/18/2018, Additional history exists [facility]-Pap Smear Discontinued 12/21/2021, 03/31, 11/04/2016, Additional history exists HPV Vaccines Aged Out No longer eligi ble based on patient's age to complete this topic [facility]-HIB Vaccines Aged Out No longer e ligible based on patient's age to complete this topic [facility]-Hepatitis A Vaccines Aged Out No longer eligible based on patient's age to complete this topic [facility]-IPV Vaccines Aged Out No longer e ligible based on patient's age to complete this topic [facility]-Rotavirus Vaccines Aged Out No lo nger eligible based on patient's age to complete this topic Procedures Procedure Name Priority Date/Time Associated Diagnosis Comments PAP TEST - CYTOLOGY Routine 12/21/2021 9 :42 AM EDT Malignant neoplasm of cervix, unspecified site (CMS/HCC) from Last 3 Months or Most Recently Relevant to Health Maintenance Results * Pap Test (12/21/2021 9:42 AM EDT) Case Report Cytology Case: [id number] Authorizing Provider: Dianne Ocampo APRN Collected: 12/21/2021 0942 Ordering Location: [facility] Gynecology Received: 12/22/2021 0854 First Screen: Ivory Shelton Specimen: ThinPrep Pap Test, Liquid-Based Cervical/Vaginal, CERVICAL/VAGINAL 12/24/2021 1:45 PM EDT [facility] Interpretation NEGATIVE FOR INTRAEPITHELIAL LESION OR MALIGNANCY 12/24/2021 1:45 PM EDT [facility] at 1345 EDT Specimen Adequacy Satisfactory for evaluation; endocervical/burrows sformation zone component present. Slide scanned and imaged by [employer] System with manual review of all selected meraz. 12/24/2021 1:45 PM EDT [facility] Cervical cytology is a screening test primarily for squamous cancers and precursors and has associated false negative and positive results. New technologies such as liquid based sampling may decrease but will not eliminate all false negative results. Regular screening and follow-up of unexplained clinical signs and symptoms are recommended to minimize false negative results. Please see the ASCCP website (www.asccp.org)fo r followup recommendations. If HPV testing was requested, correlation with the results is suggested (please call Microbiology at [phone] for results). 12/24/2021 1:45 PM EDT [facility] Menstrual Status Post-Menopausal 1:45 PM EDT [facility] History of Hysterectomy Not Applicable 12/24/2021 1:45 PM EDT [facility] Contraceptive History Not Applicable 12/24/2021 1:45 PM EDT [facility] Screening Type Previous or Suspected Abnormality 12/24/2021 1:45 PM EDT [facility] HPV Testing Requested? 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 12/24/2021 1:45 PM EDT [facility] Comment:cervical cancer Clinical Information C53.9 - Malignant neoplasm of cervix, unspecified site (CMS/HCC) [ICD-10-CM] 12/24/2021 1:45 PM EDT [facility] Swab Vaginal and cervical cytologic material / Unknown Non-blood Collection / Unknown 12/21/2021 9:42 AM EDT 12/22/2021 8:54 AM EDT us Dianne Schroeder Damaris [employer] LAB CYTOLOGY ORDERABLES Fi nal Result [facility] [address] [place] [address] from Last 3 Months or Most Recently Relevant to Health Maintenance Insurance [employer] Care Teams Printed Circuit Board Panels Developer Relationship Specialty Start Date End Date Alyssa Hurtado APRN [id number] [place] [id number] PCP - General 07/11/20
[2024-10-20 22:53] VITALS: BP 170/67; PULSE 76; O2SAT 97
[2024-10-20 23:00] VITALS: BP 190/86; PULSE 79; O2SAT 97
--- NOTE | 2024-10-20 23:04 | CT_ITS ---
PROCEDURE INFORMATION: Exam: CT Head Without Contrast Exam date and time: 10/20/2024 11:21 PM Age: 69 years old Clinical indication: Pain; Other: HTN; Headache; Additional info: HTN, headache TECHNIQUE: Imaging protocol: Computed tomography of the head without contrast. Radiation optimization: All CT scans at this facility use at least one of these dose optimization techniques: automated exposure control; mA and/or kV adjustment per patient size (includes targeted exams where dose is matched to clinical indication); or iterative reconstruction. COMPARISON: CT ANGIO HEAD 01/15/2024 10:33 PM FINDINGS: Brain: Normal. No hemorrhage. Periventricular hypoattenuation. Likely chronic microvascular ischemic demyelination. Unchanged appearance compared to the previous exam No mass effect. Cerebral ventricles: No ventriculomegaly. Paranasal sinuses: Visualized sinuses are unremarkable. No fluid levels. Mastoid air cells: Visualized mastoid air cells are well aerated. Orbital cavities: Click lens Bones: Unremarkable. No acute fracture. Soft tissues: Unremarkable. IMPRESSION: No acute intracranial abnormality.
--- NOTE | 2024-10-20 23:04 | ED_ITS ---
Discharge Plan Disposition Patient Disposition: Home, Self-Care Condition: Good Prescriptions Prescriptions: No Action Auvelity 45-105 mg tablet, IR and ER, biphasic 1 tab PO DAILY losartan 50 mg tablet 50 mg PO DAILY levothyroxine 150 mcg tablet 150 mcg PO AM albuterol sulfate 90 mcg/actuation HFA aerosol inhaler 2 inh INHALATION Q4-6H PRN (Reason: Shortness Of Breath Or Wheezing) Rx Instructions: INHALE 2 PUFFS EVERY 4 TO 6 HOURS NEEDED FOR SHORTNESS OF BREATH quetiapine 50 mg tablet 50 mg PO HS ipratropium-albuterol 0.5 mg-3 mg(2.5 mg base)/3 mL solution for nebulization 3 ml INHALATION Q4-6H PRN (Reason: Shortness Of Breath Or Wheezing) Rx Instructions: PATIENT STATES SHE USES NEEDED atorvastatin 40 mg Tablet 40 mg PO HS 30 Days Qty: 30 0RF aspirin 81 mg capsule 81 mg PO DAILY Qty: 30 0RF amlodipine 5 mg Tablet 5 mg PO DAILY 30 Days Qty: 30 0RF hydrochlorothiazide 12.5 mg Capsule 12.5 mg PO DAILY 30 Days Qty: 30 0RF Referrals Follow up/Referrals: Provider,Referral, MD [Primary Care Provider, Medical] - See instructions Activity Restrictions/Add. Instructions Additional Instructions/Restrictions: You were evaluated in the ER and are believed to be appropriate for discharge at this time. Continue any home medications as previously prescribed. Elevate the left ankle above the level of the heart multiple times a day to reduce swelling as needed. Call your primary care doctor first thing Tuesday morning and make an appointment to be seen within the next 2 to 3 days. Ask them to recheck your blood pressure, electrolytes, BNP level, and kidney function. They may want to consider starting you on a diurectic (fluid pill). Return to the ER with any new, worsening, or otherwise concerning symptoms. Clinical Impressions Clinical Impression: Left ankle swelling, Hypokalemia, Hypomagnesemia, Prerenal azotemia, Elevated brain natriuretic peptide (BNP) level, Arthritis Print Language Print Language: Frisian Discharge ED Provider: Jessica Funes Adult HPI General Chief complaint: Weakness Stated complaint: high blood pressure Time Seen by Provider: 10/20/24 22:56 Mode of Arrival: Ambulatory Source of Information: Patient Description of Symptoms (Recalled from ER Triage Doc. by RN): patient has taken her blood pressure medication; states blood pressure at home was 195/100 History of Present Illness HPI narrative: Patient is a 69-year-old female with a past medical history of hypertensive on 3 blood pressure medications but not on any anticoagulation who presented to the emergency department multiple complaints. Patient states that initially today she had some swelling of her left ankle which is what prompted her to take her blood pressure. Patient states that at home initially her blood pressure was then 70 systolic and then on repeat it was 190 systolic which is what brought her here to the emergency department. Patient states that she had an episode of chest pain yesterday that has since resolved. Patient states that she does have a 3 out of 10 frontal headache that is worse than her typical headaches but started gradual in onset not sudden or acute. Denies any vision changes or other neurologic symptoms. Patient denies any abdominal pain nausea vomiting or diarrhea. Patient states that she has not had any changes to her hypertensive medications. Patient does not have a primary care provider that manages these. States that the swelling in her left ankle has since resolved today. Related Data Home Medications ?Medication ?Instructions ?Recorded ?Confirmed albuterol sulfate 90 mcg/actuation 2 inh inhalation Q4 -6H PRN 01/16/24 05/22/24 aerosol inhaler Shortness Of Breath Or Wheez ing ipratropium 0.5 mg-albuterol 3 mg 3 ml inhalation Q4-6 H PRN 01/16/24 05/22/24 (2.5 mg base)/3 mL nebulization Shortness Of Breath Or Wheezing soln levothyroxine 150 mcg tablet 150 mcg PO AM 01/16/24 losartan 50 mg tablet 50 mg PO DAILY 01/16/2404/29 quetiapine 50 mg tablet 50 mg PO HS 01/16/24 5 dextromethorphan IR 45 1 tab PO DAILY Mood 02/16/24 05/22/24 mg-bupropion ER 105 mg biphasic tablet ([facility] Previous Rx's ?Medication ?Instructions ?Recorded amlodipine 5 mg tablet 5 mg PO DAILY 30 days #30 ta bs 01/16/24 aspirin 81 mg capsule 81 mg PO DAILY #30 caps 12/29 10/21 atorvastatin 40 mg tablet 40 mg PO HS 30 days #30 tabs 01/16/24 hydrochlorothiazide 12.5 mg capsule 12.5 mg PO DAILY 3 0 days #30 caps 01/16/24 Allergies Allergy/AdvReac Type Severity Reaction Status Date / Time No Known Allergies Allergy Verified 05/22/24 11:09 [facility] Disclaimer: The information contained in this section may have been updated after the patient was seen, as this information can be updated by other users. Medical History Hypomagnesemia Acute hypokalemia Hypertensive emergency Gassiness Ascites Steatosis, liver Nausea vomiting and diarrhea Gastroenteritis Abdominal pain Hyperlipidemia NSTEMI (non-ST elevated myocardial infarction) Fatigue Dyspnea C. difficile enteritis Family history of ischemic heart disease (IHD) Enteritis Exposure to COVID-19 virus Chronic daily headache Primary snoring Sleep-disordered breathing Pneumonia Palpitations Viral syndrome Viral URI with cough Gallstones Chronic cholecystitis Pre-operative cardiovascular examination Chest pain Urinary tract infection History of COVID-19 COPD (chronic obstructive pulmonary disease) Migraine Anxiety and depression Degenerative disc disease Eczema Irritable bowel syndrome (IBS) History of gastroesophageal reflux (GERD) Gallstones Hypothyroid Allergies Hypertension History of anemia Cervical cancer Surgical History History of laparoscopic cholecystectomy History of cataract surgery Hx of elbow surgery LEFT Hx of shoulder surgery LEFT Hx of neck surgery History of tubal ligation History of colonoscopy Family History Other Cancer Heart disease Hypertension Thyroid disorder Social History Smoking Status: Never smoker second hand exposure: No alcohol intake: never substance use type: denies use current occupational status: retired Travel in the last 8 weeks?: None household members: spouse and family housing: house current occupational exposures/hazards: No caffeine: Yes Have you lived/traveled outside [place] in past 30 days?: No Contact w/someone who lives/traveled outside US past 30 days?: No Exposure to someone with infectious disease in past 14 days?: No Do you have a fever (greater than 100.4 F or 38 C)?: No Have you tested positive for COVID-19?: No Exposed to someone with COVID-19 in past 14 days?: No Do you have a sore throat?: No Do you have a cough?: No Do you have any weakness?: No Do you have any diarrhea?: No Are you experiencing any unusual bleeding?: No Do you have any muscle aches/pain?: No Do you have any abdominal pain?: No Are you experiencing loss of taste or smell?: No Other Medical History Have you received the Flu Vaccine for this season: No Have you received the Pneumonia Vaccine: No ROS Obtained: Yes All systems reviewed & no additional complaints except as documented and Yes Systems reviewed as appropriate & no additional complaints except as documented Physical Exam General General appearance: alert and in no apparent distress Head Head exam: atraumatic, normocephalic and normal inspection Eye Eye exam: Present normal appearance, PERRL and EOMI; Absent scleral icterus ENT ENT exam: Present normal exam and normal external ear exam Neck Neck exam: Present normal inspection and full ROM Chest Chest inspection: Present normal inspection and symmetric chest wall rise Respiratory Respiratory exam: Present normal lung sounds bilaterally; Absent respiratory distress or wheezes Cardiovascular Cardiovascular exam: Present regular rate, normal rhythm and normal heart sounds Abdominal Exam Abdominal exam: Present soft and distention; Absent tenderness, guarding or rebound Extremities Exam Extremities exam: Present normal inspection and full ROM Back Exam Back exam: Present normal inspection and full ROM Neurological Exam Neurological exam: Present alert and oriented X3 Psychiatric Psychiatric exam: Present normal affect and normal mood Skin Skin exam: Present warm and dry Medical Decision Making Medical Records Medical records reviewed: Yes I reviewed the patient's medical records. Screening: Per USPSTF and CDC recommendations, given the prevalence of disease in our region, it is our hospital?s policy to screen for HIV and viral Hepatitis for all patients aged 18 and over and those with ongoing risk factors. Markos Inquiry Pt receiving controlled substance: No Vital Signs: 10/20/24 22:46 10/20/24 22:53 10/20/24 23:00 Temperature 97.9 F Temperature Source Oral Pulse Rate 76 79 Pulse Rate [Right Radial] 82 Respiratory Rate 16 Blood Pressure 170/67 H 190/86 H Blood Pressure [Right Arm] 197/89 H Blood Pressure Mean [Right Arm] 125 Blood Pressure Source Blood Pressure Source [Right Arm] Automatic Cuff Blood Pressure Position Blood Pressure Position [Right Arm] Supine 02 Sat by Pulse Oximetry 97 97 97 Oxygen Delivery Method Room Air 10/20/24 23:40 10/21/24 00:00 10/21/24 00:16 Temperature Temperature Source Pulse Rate 71 73 66 Pulse Rate [Right Radial] Respiratory Rate Blood Pressure 141/66 H 155/82 H 151/79 H Blood Pressure [Right Arm] Blood Pressure Mean [Right Arm] Blood Pressure Source Blood Pressure Source [Right Arm] Blood Pressure Position Blood Pressure Position [Right Arm] 02 Sat by Pulse Oximetry 96 98 97 Oxygen Delivery Method 10/21/24 00:30 10/21/24 00:43 10/21/24 00:45 Temperature 98.3 F Temperature Source Oral Pulse Rate 65 64 61 Pulse Rate [Right Radial] Respiratory Rate 15 Blood Pressure 136/72 136/72 136/72 Blood Pressure [Right Arm] Blood Pressure Mean [Right Arm] Blood Pressure Source Automatic Cuff Blood Pressure Source [Right Arm] Blood Pressure Position Supine Blood Pressure Position [Right Arm] 02 Sat by Pulse Oximetry 98 97 Oxygen Delivery Method Room Air Lab Data Lab results reviewed: Yes I reviewed the patient's lab results. Lab Results 10/20/24 22:52: WBC 12.9 H, RBC 3.88 L, Hgb 11.2 L, Hct 34.7 L, MCV 89.4, MCH 28.9, MCHC 32.3, RDW 13.3, Plt Count 355, MPV 9.7, Neut % (Auto) 62.1, Lymph % (Auto) 27.5, [place] % (Auto) 6.3, Eos % (Auto) 2.0, Baso % (Auto) 0.6, Neut # (Auto) 8.0 H, Lymph # (Auto) 3.6, [place] # (Auto) 0.8, Eos # (Auto) 0.3, Baso # (Auto) 0.1, Sodium 140, Potassium 2.9 L*, Chloride 102, Carbon Dioxide 28, Anion Gap 12.9, BUN 23 H, Creatinine 1.00, Estimated Creat Clear 63, Estimated GFR 55 L, Est GFR ( Amer) 67, Glucose 100, Calcium 9.2, Magnesium 1.5 L, Total Bilirubin 0.3, AST 33, ALT 27, Alkaline Phosphatase 96, Troponin I < 0.01, N T-Pro-B Natriuret Pep 578 H, Total Protein 7.1, Albumin 4.3, Globulin 2.8, Albumin/Globulin Ratio 1.5 10/20/24 22:52 10/20/24 22:52 Orders (Tests/Meds): ED MEDICATIONS Discontinued Medications Generic Name Dose Route Start Last Admin Trade Name Diogenes PRN Reason Stop Dose Admin Acetaminophen 1,000 mg 10/20/24 23:47 10/20/24 23:56 Acetaminophen 500mg Tab PO 10/20/24 23:48 1,000 mg ONCE ONE Administration Magnesium Sulfate 2 gm in 50 mls @ 50 mls/hr 10/21/24 00:21 10/21/24 00:53 Magnesium Sulfate 2gm/50ml Premix IV 10/21/24 01:20 50 mls/hr ONCE ONE Infusion Lactated Ringer's 500 mls @ 999 mls/hr 10/21/24 00:25 10/21/24 00:54 Lactated Ringer's 500ml IV 10/21/24 00:55 999 mls/hr .Q31M ONE Infusion Ketorolac Tromethamine 30 mg 10/20/24 23:48 10/20/24 23:55 Ketorolac 30mg/Ml Vial IV 10/20/24 23:49 30 mg ONCE ONE Administration Ondansetron HCl 4 mg 10/20/24 23:47 10/20/24 23:55 Ondansetron 4mg/2ml Vial IV 10/20/24 23:48 4 mg ONCE ONE Administration Potassium Chloride 80 meq 10/20/24 23:50 10/20/24 23:56 Potassium Chloride 20meq Tab PO 10/20/24 23:51 80 meq ONCE ONE Administration ORDERS Category Date Time Status CT head/brain wo con Stat Cat Scan 10/20/24 23:04 Completed BNP [NT Pro Brain Natriuretic Pep.] Stat Lab 10/20/24 22:52 Completed CBC w/Auto Diff [Complete Blood Count Auto Diff] Stat Lab 10/20/24 22:52 Completed CMP [Comprehensive Metabolic Panel] Stat Lab 10/20/24 22:52 Completed Magnesium Stat Lab 10/20/24 22:52 Completed Trop I [Troponin I] Stat Lab 10/20/24 22:52 Completed EKG Request [ECG Request] Stat Y 10/20/24 23:04 Ordered Medical Decision Narrative: Patient is a 69-year-old female with a past medical history of hypertension who presented to the emergency department with high blood pressure. On arrival, patient was hemodynamically stable with unremarkable vital signs for mildly hypertensive. Differential included but not limited to: Intracranial hemorrhage, tension headache, migraine headache, ACS/FL, arrhythmia, hypertension, endorgan damage, amongst others. Patient's labs were reviewed and interpreted by myself: Patient's CBC showed mild leukocytosis, hemoglobin was stable. Patient CMP was notable for a potassium of 2.9, otherwise unremarkable. Magnesium slightly low at 1.5. Patient's initial troponin was less than 0.01, patient did not require second troponin given that her chest pain was yesterday and has since resolved. Did have a mildly elevated BNP of 578. EKG was reviewed and interpreted by myself and showed normal sinus rhythm without acute ST or T wave changes concerning for ischemia. Patient had bilateral breath sounds, had no infectious symptoms, low concern for pneumonia therefore chest x-ray was not obtained. CT head was reviewed and interpreted by myself and showed no acute intracranial pathology Patient's magnesium and potassium was replaced in the emergency department and at this time after repletion felt that patient was appropriate for discharge. Patient had no signs of endorgan damage given her hypertension. Patient was recommended to take her medications daily as prescribed and to have a journal at home for her blood pressure. Patient was recommended to follow-up with her primary care provider. Patient was otherwise discharged home in stable condition. Critical Care Critical Care Time Critical Care Time: No
--- NOTE | 2024-10-20 23:04 | ECG_ITS ---
APPROVED REPORT Exam: Resting ECG HR:70 bpm ECG Measurements Heart Rate 70 AXES NM 164 P 58 QRSd 97 QRS 15 QT 377 T 47 QTc 398 Conclusion SINUS RHYTHM INCOMPLETE RIGHT BUNDLE BRANCH BLOCK [90+ ms QRS DURATION, TERMINAL R IN V1/V2, 40+ ms S IN I/aVL/V4/V5/V6] No STEMI Electronically signed by : STEPHEN RAMIREZ, 10/21/2024 07:27:22
[2024-10-20 23:10] LABS: Hematocrit 34.7 % (37.0-47.0); Hemoglobin 11.2 g/dL (12.2-16.2); Immature Granulocytes % 1.5 %; Mean Corpuscular HGB Conc 32.3 g/dL (31.8-35.4); Mean Corpuscular Hemoglobin 28.9 pg (27.0-31.2); Mean Corpuscular Volume 89.4 fl (81-99); Nucleated Red Blood Cells % 0 %; Platelet Count 355 K/mm3 (142-424); Red Blood Count 3.88 M/mm3 (4.20-5.40); Red Cell Distribution Width-SD 43.5 fL; White Blood Count 12.9 K/mm3 (4.8-10.8)
[2024-10-20 23:25] LABS: Alanine Aminotransferase 27 U/L (12-78); Albumin Level 4.3 g/dl (3.5-5.0); Albumin/Globulin Ratio 1.5 (1.1-1.8); Alkaline Phosphatase 96 U/L (38-126); Anion Gap 12.9 mEq/L (5-15); Aspartate Amino Transferase 33 U/L (14-36); Bilirubin,Total 0.3 mg/dl (0.2-1.3); Blood Urea Nitrogen 23 mg/dl (7-17); Calcium 9.2 mg/dl (8.4-10.2); Carbon Dioxide 28 mmol/L (22.0-30.0); Chloride 102 mmol/L (98-107); Creatinine Clearance Estimated 63 mL/min (50-200); Creatinine,Serum 1.00 mg/dl (0.52-1.04); Estimated Glomerular Filt Rate 55 ml/min (>60); GFR (African American) 67 ML/MIN (>60); Globulin 2.8 g/dL (1.3-3.2); Glucose 100 mg/dl (74-100); Sodium 140 mmol/L (136-145); Total Protein,Serum 7.1 g/dl (6.3-8.2)
[2024-10-20 23:37] LABS: NT Pro Brain Natriuretic Pep. 578 pg/mL (0-125)
[2024-10-20 23:40] VITALS: BP 141/66; PULSE 71; O2SAT 96
[2024-10-20 23:48] LABS: Troponin I < 0.01 ng/ml (0.00-0.034)
[2024-10-20 23:49] LABS: Potassium 2.9 mmoL/L (3.5-5.1)
--- NOTE | 2024-10-20 23:50 | PC.NURSE ---
critical potassium of 2.9 rec. from lab; result given to Dr. Funes
[2024-10-20] MEDS: ONDANSETRON 4MG/2ML VIAL 4 MG IV (23:55)
[2024-10-20] MEDS: KETOROLAC 30MG/ML VIAL 30 MG IV (23:55)
[2024-10-20] MEDS: POTASSIUM CHLORIDE 20MEQ TAB 80 MEQ PO (23:56)
[2024-10-20] MEDS: ACETAMINOPHEN 500MG TAB 1000 MG PO (23:56)
[2024-10-21] VITALS: BP 155/82; PULSE 73; O2SAT 98
[2024-10-21 00:07] LABS: Magnesium 1.5 mg/dl (1.6-2.3)
[2024-10-21 00:16] VITALS: BP 151/79; PULSE 66; O2SAT 97
[2024-10-21] MEDS: MAGNESIUM SULFATE IN WATER 2 GM/50 ML PIGGYBACK IV (00:25)
[2024-10-21] MEDS: RINGERS SOLUTION,LACTATED 500 ML 999 ML IV (00:26)
[2024-10-21 00:30] VITALS: BP 136/72; PULSE 65; O2SAT 98
[2024-10-21 00:43] VITALS: BP 136/72; PULSE 64; RESP 15; TEMP 36.8; O2SAT 95
[2024-10-21 00:45] VITALS: BP 136/72; PULSE 61; O2SAT 97
== END 2024-10-21 01:05 | disposition home or self-care (01) ==
PROVIDERS: Emergency Medicine; Emergency Provider Student in an Organized Health Care Education/Training Program
DX: E87.6 Hypokalemia (principal); E83.42 Hypomagnesemia; R79.89 Other specified abnormal findings of blood chemistry; R22.42 Localized swelling, mass and lump, left lower limb; I10 Essential (primary) hypertension; E78.5 Hyperlipidemia, unspecified
CPT/HCPCS: 70450; 80053; 83735; 83880; 84484; 85025; 93005; 96360; 96375; 99284; 99285; J1885; J2405; J3475; J7120

== ENCOUNTER 2024-10-26 15:09 | Emergency (ER) | payer MEDICARE, SELFPAY ==
[2024-10-26] VITALS (13 sets, daily range): BP systolic 111–158; BP diastolic 55–103; PULSE 67–81; RESP 11–20; TEMP 36.8–36.9; O2SAT 94–98; BMI 25.0
--- NOTE | 2024-10-26 15:27 | ECG_ITS ---
APPROVED REPORT Exam: Resting ECG HR:84 bpm ECG Measurements Heart Rate 84 AXES CO 152 P 66 QRSd 84 QRS 56 QT 363 T 68 QTc 404 Conclusion SINUS RHYTHM POSSIBLE RIGHT VENTRICULAR CONDUCTION DELAY [RSR (QR) IN V1/V2] BORDERLINE ECG Electronically signed by : CELI NG, 10/27/2024 00:12:27
[2024-10-26 15:50] LABS: Hematocrit 35.1 % (37.0-47.0); Hemoglobin 11.1 g/dL (12.2-16.2); Immature Granulocytes % 0.5 %; Mean Corpuscular HGB Conc 31.6 g/dL (31.8-35.4); Mean Corpuscular Hemoglobin 28.9 pg (27.0-31.2); Mean Corpuscular Volume 91.4 fl (81-99); Nucleated Red Blood Cells % 0 %; Platelet Count 344 K/mm3 (142-424); Red Blood Count 3.84 M/mm3 (4.20-5.40); Red Cell Distribution Width-SD 44.7 fL; White Blood Count 13.7 K/mm3 (4.8-10.8)
[2024-10-26 15:53] LABS: Chloride 102 mmol/L (98-107)
[2024-10-26 15:54] LABS: Albumin Level 4.6 g/dl (3.5-5.0); Potassium 4.3 mmoL/L (3.5-5.1); Sodium 137 mmol/L (136-145)
[2024-10-26 15:56] LABS: Alanine Aminotransferase 26 U/L (12-78); Anion Gap 12.3 mEq/L (5-15); Aspartate Amino Transferase 40 U/L (14-36); Blood Urea Nitrogen 22 mg/dl (7-17); Carbon Dioxide 27 mmol/L (22.0-30.0); Creatinine Clearance Estimated 38 mL/min (50-200); Creatinine,Serum 1.60 mg/dl (0.52-1.04); Estimated Glomerular Filt Rate 32 ml/min (>60); GFR (African American) 39 ML/MIN (>60)
--- NOTE | 2024-10-26 15:56 | CT_ITS ---
PROCEDURE INFORMATION: Exam: CT Head Without Contrast Exam date and time: 10/26/2024 4:44 PM Age: 69 years old Clinical indication: Dizziness; Additional info: Abrupt dizziness at rest nonfocal exam TECHNIQUE: Imaging protocol: Computed tomography of the head without contrast. Radiation optimization: All CT scans at this facility use at least one of these dose optimization techniques: automated exposure control; mA and/or kV adjustment per patient size (includes targeted exams where dose is matched to clinical indication); or iterative reconstruction. COMPARISON: CT HEAD/BRAIN WO CON 10/20/2024 11:21 PM FINDINGS: Brain: Normal. No hemorrhage. Unremarkable white matter. No mass effect. Cerebral ventricles: No ventriculomegaly. Paranasal sinuses: Visualized sinuses are unremarkable. No fluid levels. Mastoid air cells: Visualized mastoid air cells are well aerated. Bones: Unremarkable. No acute fracture. Soft tissues: Unremarkable. IMPRESSION: No acute intracranial abnormality.
--- NOTE | 2024-10-26 15:56 | CT_ITS ---
PROCEDURE INFORMATION: Exam: CTA Head With Contrast, Arteriography Exam date and time: 10/26/2024 4:46 PM Age: 69 years old Clinical indication: Dizziness and giddiness; Additional info: Abrupt dizziness at rest nonfocal exam TECHNIQUE: Imaging protocol: Computed tomographic angiography of the head with contrast. Exam focused on the arteries. 3D rendering (Not supervised by radiologist): MIP and/or 3D reconstructed images were created by the technologist. Radiation optimization: All CT scans at this facility use at least one of these dose optimization techniques: automated exposure control; mA and/or kV adjustment per patient size (includes targeted exams where dose is matched to clinical indication); or iterative reconstruction. Contrast material: ISOVUE; Contrast volume: 80 ml; Contrast route: INTRAVENOUS (IV); COMPARISON: CT ANGIO HEAD 01/15/2024 10:33 PM FINDINGS: ANTERIOR CIRCULATION: Right internal carotid artery: Moderate right ICA stenosis at the bulb, greater than 50% by NASCET criteria. Right middle cerebral artery: No occlusion or significant stenosis. No aneurysm. Right anterior cerebral artery: No occlusion or significant stenosis. No aneurysm. Left internal carotid artery: Mild left ICA stenosis at the bulb, less than 50% by NASCET criteria. Left middle cerebral artery: No occlusion or significant stenosis. No aneurysm. Left anterior cerebral artery: No occlusion or significant stenosis. No aneurysm. POSTERIOR CIRCULATION: Right vertebral artery: No occlusion or significant stenosis. No aneurysm. Left vertebral artery: No occlusion or significant stenosis. No aneurysm. Basilar artery: No occlusion or significant stenosis. No aneurysm. Right posterior cerebral artery: No occlusion or significant stenosis. No aneurysm. Left posterior cerebral artery: No occlusion or significant stenosis. No aneurysm. Brain: No definite mass, mass effect, or midline shift. Cerebral ventricles: No ventriculomegaly. Bones/joints: Unremarkable. No acute fracture. Soft tissues: Unremarkable. IMPRESSION: No acute intracranial abnormality identified.
--- NOTE | 2024-10-26 15:56 | CT_ITS ---
PROCEDURE INFORMATION: Exam: CTA Neck With Contrast Exam date and time: 10/26/2024 4:46 PM Age: 69 years old Clinical indication: Dizziness and giddiness; Additional info: Abrupt dizziness at rest nonfocal exam TECHNIQUE: Imaging protocol: Computed tomographic angiography of the neck with contrast. Exam focused on the cervical segments of the vasculature. 3D rendering (Not supervised by radiologist): MIP and/or 3D reconstructed images were created by the technologist. Radiation optimization: All CT scans at this facility use at least one of these dose optimization techniques: automated exposure control; mA and/or kV adjustment per patient size (includes targeted exams where dose is matched to clinical indication); or iterative reconstruction. Contrast material: ISOVUE; Contrast volume: 80 ml; Contrast route: INTRAVENOUS (IV); COMPARISON: CT ANGIO NECK 01/15/2024 10:33 PM FINDINGS: Right common carotid artery: No stenosis. No dissection or occlusion. Right internal carotid artery: Moderate right ICA stenosis at bulb, greater than 50% by NASCET criteria. Right external carotid artery: No occlusion or stenosis of the origin. Left common carotid artery: No stenosis. No dissection or occlusion. Left internal carotid artery: Mild left ICA stenosis at the bulb, less than 50% by NASCET criteria. Left external carotid artery: No occlusion or stenosis of the origin. Right vertebral artery: No stenosis. No dissection or occlusion. Left vertebral artery: No stenosis. No dissection or occlusion. Soft tissues: Normal. No significant soft tissue swelling. Bones/joints: Anterior fusion C-spine. IMPRESSION: 1. Moderate right ICA stenosis at bulb, greater than 50% by NASCET criteria. 2. Mild left ICA stenosis at the bulb, less than 50% by NASCET criteria. 3. Anterior fusion C-spine. REFERENCES: NASCET CRITERIA. The degree of stenosis in the cervical segment of the internal carotid artery is based on NASCET criteria. Normal is no stenosis. Mild is less than 50% stenosis. Moderate is 50-69% stenosis. Severe is 70% to 99% stenosis. Total occlusion is no detectable patent lumen.
--- NOTE | 2024-10-26 15:56 | CT_ITS ---
PROCEDURE INFORMATION: Exam: CT Abdomen And Pelvis With Contrast Exam date and time: 10/26/2024 4:49 PM Age: 69 years old Clinical indication: Abdominal pain; Additional info: Prev cervical cancer, abd pain and cramp TECHNIQUE: Imaging protocol: Computed tomography of the abdomen and pelvis with contrast. 3D rendering (Not supervised by radiologist): MIP and/or 3D reconstructed images were created by the technologist. Radiation optimization: All CT scans at this facility use at least one of these dose optimization techniques: automated exposure control; mA and/or kV adjustment per patient size (includes targeted exams where dose is matched to clinical indication); or iterative reconstruction. Contrast material: ISOVUE; Contrast volume: 80 ml; Contrast route: IV; COMPARISON: CT ANGIO ABDOMEN PELVIS 12/11/2023 7:27 PM FINDINGS: Liver: There is diffuse decrease in hepatic/liver parenchymal density consistent with fatty infiltration. There is mild enlargement of the liver. Liver measures 20.2 cm in CC dimension. Gallbladder and biliary ducts: There has been a cholecystectomy. Pancreas: The pancreas is normal. Spleen: The spleen is normal. Adrenal glands: The adrenal glands are normal. Kidneys and ureters: There are a few areas of renal cortical scarring bilaterally. The kidneys are otherwise within range of normal. Stomach and bowel: The stomach is normal. There is a mildly enhancing nodular density involving the anterior medial wall of the proximal duodenum measuring 13.7 x 13.2 mm best seen on series 4, images 45-49. This appears not dramatically changed when compared with 03/08/2023. While findings may reflect a prominent duodenal ampulla, recommend additional evaluation. Apparent colonic wall thickening involving the rectosigmoid colon and portions of proximal colon as well as distal ileum with mild mural enhancement of the distal ileum suggest enterocolitis or other inflammatory/infiltrative/neoplastic processes. There is subtle pericolonic fat stranding involving the rectosigmoid. Correlate clinically. Unopacified loops of small bowel are otherwise within range of normal. There is mildly excessive colonic stool content. Appendix: No evidence of appendicitis. Intraperitoneal space: There is a trace amount of free pelvic fluid present. No free air. Vasculature: The aorta and iliac arteries demonstrate moderate atherosclerotic calcification. There are a few benign phleboliths in the pelvis. Lymph nodes: No enlarged lymph nodes. Urinary bladder: There is mild nonspecific bladder wall thickening. Reproductive: The uterus is either atrophic or absent. No adnexal cysts or masses are identified. Bones/joints: The thoracolumbar spine demonstrates mild degenerative changes at multiple levels. There is concavity to the superior endplate of L5 which is stable when compared with 03/08/2023. There is no evidence of acute fracture. Soft tissues: Unremarkable. Other findings: Findings within the lower chest are described in the associated CT of the chest report from the same date and time. Please reference that report for additional information. IMPRESSION: 1. Apparent wall thickening involving the rectosigmoid and portions of proximal colon as well as distal ileum with mild mural enhancement of the distal ileum suggest enterocolitis or other inflammatory/infiltrative/neoplastic processes. Correlate clinically. 2. Mildly enhancing nodular density involving the anterior medial wall of the proximal duodenum measuring 13.7 x 13.2 mm appears not dramatically changed when compared with 03/08/2023. While findings may reflect a prominent duodenal ampulla, recommend additional evaluation. 3. Fatty hepatic infiltration and mild hepatomegaly. 4. Mild bladder wall thickening most likely reflecting either incomplete distention or cystitis. Correlate clinically. 5. Trace/physiologic amount of non-specific free pelvic fluid. 6. Mild constipation.
--- NOTE | 2024-10-26 15:56 | CT_ITS ---
PROCEDURE INFORMATION: Exam: CTA Chest With Contrast Exam date and time: 10/26/2024 4:49 PM Age: 69 years old Clinical indication: Pain; Chest pressure; Additional info: Prev cervical cancer, L thoracic cp TECHNIQUE: Imaging protocol: Computed tomographic angiography of the chest with contrast. Exam focused on the arteries. 3D rendering (Not supervised by radiologist): MIP and/or 3D reconstructed images were created by the technologist. Radiation optimization: All CT scans at this facility use at least one of these dose optimization techniques: automated exposure control; mA and/or kV adjustment per patient size (includes targeted exams where dose is matched to clinical indication); or iterative reconstruction. Contrast material: ISOVUE; Contrast volume: 80 ml; Contrast route: INTRAVENOUS (IV); COMPARISON: CT CHEST W CON 03/08/2023 8:23 AM FINDINGS: Pulmonary arteries: There is no evidence of filling defects within the pulmonary arterial circulation to suggest pulmonary embolism. Aorta: There is no evidence of an aortic aneurysm. The aorta demonstrates mild atherosclerotic calcification. There is no evidence of aortic dissection, leak, rupture, or other acute vascular pathology. Celiac trunk and mesenteric arteries: There is mild stenosis involving the proximal celiac artery. No significant SMA stenosis. Lungs: No focal areas of consolidation. Minor linear densities in the lingula and middle lobe suggest parenchymal scarring or atelectasis. There are a few punctate pulmonary parenchymal calcifications consistent with remote granulomatous organism exposure. Pleural spaces: There are no pleural effusions. There is no evidence of pneumothorax. Heart: The heart is not enlarged. There is no evidence of pericardial fluid collections. Lymph nodes: Calcified hilar lymph nodes indicate prior granulomatous disease. There is no evidence of pathologic adenopathy. Intraperitoneal space: Findings within the upper abdomen are described in the associated CT of the abdomen and pelvis report from the same date and time. Please reference that report for additional information. Bones/joints: The thoracolumbar spine demonstrates mild degenerative changes at multiple levels. Soft tissues: No significant soft tissue edema. IMPRESSION: 1. No evidence of pulmonary embolism. 2. Evidence of prior granulomatous disease.
[2024-10-26 15:57] LABS: Albumin/Globulin Ratio 1.6 (1.1-1.8); Alkaline Phosphatase 109 U/L (38-126); Bilirubin,Total 0.5 mg/dl (0.2-1.3); Calcium 9.6 mg/dl (8.4-10.2); Globulin 2.9 g/dL (1.3-3.2); Glucose 129 mg/dl (74-100); Total Protein,Serum 7.5 g/dl (6.3-8.2)
--- NOTE | 2024-10-26 16:01 | ED_ITS ---
Discharge Plan Disposition Patient Disposition: Xfer Short-Term Hosp Prescriptions Prescriptions: No Action Auvelity 45-105 mg tablet, IR and ER, biphasic 1 tab PO DAILY losartan 50 mg tablet 50 mg PO DAILY levothyroxine 150 mcg tablet 150 mcg PO AM albuterol sulfate 90 mcg/actuation HFA aerosol inhaler 2 inh INHALATION Q4-6H PRN (Reason: Shortness Of Breath Or Wheezing) Rx Instructions: INHALE 2 PUFFS EVERY 4 TO 6 HOURS NEEDED FOR SHORTNESS OF BREATH quetiapine 50 mg tablet 50 mg PO HS ipratropium-albuterol 0.5 mg-3 mg(2.5 mg base)/3 mL solution for nebulization 3 ml INHALATION Q4-6H PRN (Reason: Shortness Of Breath Or Wheezing) Rx Instructions: PATIENT STATES SHE USES NEEDED atorvastatin 40 mg Tablet 40 mg PO HS 30 Days Qty: 30 0RF aspirin 81 mg capsule 81 mg PO DAILY Qty: 30 0RF amlodipine 5 mg Tablet 5 mg PO DAILY 30 Days Qty: 30 0RF hydrochlorothiazide 12.5 mg Capsule 12.5 mg PO DAILY 30 Days Qty: 30 0RF Referrals Follow up/Referrals: [facility] (ED),LILIBETH Shah [Primary Care Provider, Emergency Medicine] - See instructions Activity Restrictions/Add. Instructions Additional Instructions/Restrictions: Please present immediately to [facility] in [place], they are expecting you to continue your evaluation of why you are so dizzy. He will be admitted directly to their floor. Clinical Impressions Clinical Impression: Disequilibrium Print Language Print Language: Montserratian Discharge ED Provider: Jacob Gaxiola General Adult HPI General Chief complaint: Dizziness Stated complaint: sent by [facility] for blood work and echo Time Seen by Provider: 10/26/24 15:41 Mode of Arrival: Ambulatory Source of Information: Patient Description of Symptoms (Recalled from ER Triage Doc. by RN): Patient complaining of dizziness and states when she checked her blood pressure this morning the bottom number was low. Patient states she was seen over the weekend and her blood pressure was high and her medications were adjusted. History of Present Illness HPI narrative: Patient is 69-year-old female past medical history of previous hypokalemia, previous hypomagnesemia, IBS with chronic diarrhea at baseline, previous abdominal pain, COPD, former smoker, hypertension on multimodal medical therapy presents emergency department for evaluation of muscle cramps, weakness, disequilibrium. She has had some muscle cramps before however these are much worse than normal , her dizziness abruptly started this morning sometime midmorning after she awoken. No trauma. She has never had dizziness like this before and has had difficulty walking but can ambulate with difficulty. She was previously seen in had low potassium on 10-20-2024 for which she followed up with her PCP and has been supplementing potassium as she was instructed. They also started her on Lasix, she takes losartan and HCTZ at baseline. No headache. Her cramping is generalized worse in her lower extremities, she does have a history of cervical cancer with associated cramping abdominal pain. She does not have substernal chest pain but does have left inferior thoracic cage pain. No cough that is worse than normal. No other acute complaints at this time. Please note that above description of symptoms, in this electronic medical record under categorization of recalled from ER triage doctor by RN are reflective of an initial nursing assessment, however, is not reflective of my full history and physical exam that was personally taken and clarified. Consequentially, this preceding description of symptoms, which may include the patient's categorized chief complaint in the EMR, do not reflect my personal clinical impression, and the ultimate description of history of present illness and patient stated complaints should be deferred to this section of the note. Unless stated otherwise or congruent with this section of the note, additional signs, symptoms, or incongruence should be interpreted as inaccurate with my clinical impression. Related Data Home Medications ?Medication ?Instructions ?Recorded ?Confirmed albuterol sulfate 90 mcg/actuation 2 inh inhalation Q4 -6H PRN 01/16/24 05/22/24 aerosol inhaler Shortness Of Breath Or Wheez ing ipratropium 0.5 mg-albuterol 3 mg 3 ml inhalation Q4-6 H PRN 01/16/24 05/22/24 (2.5 mg base)/3 mL nebulization Shortness Of Breath Or Wheezing soln levothyroxine 150 mcg tablet 150 mcg PO AM 01/16/24 losartan 50 mg tablet 50 mg PO DAILY 01/16/2404/29 quetiapine 50 mg tablet 50 mg PO HS 01/16/24 5 dextromethorphan IR 45 1 tab PO DAILY Mood 02/16/24 05/22/24 mg-bupropion ER 105 mg biphasic tablet (Auvelity) Previous Rx's ?Medication ?Instructions ?Recorded amlodipine 5 mg tablet 5 mg PO DAILY 30 days #30 ta bs 01/16/24 aspirin 81 mg capsule 81 mg PO DAILY #30 caps 12/29 10/21 atorvastatin 40 mg tablet 40 mg PO HS 30 days #30 tabs 01/16/24 hydrochlorothiazide 12.5 mg capsule 12.5 mg PO DAILY 3 0 days #30 caps 01/16/24 Allergies Allergy/AdvReac Type Severity Reaction Status Date / Time acetaminophen (From Lortab) Allergy Nausea Verified 10/26/24 15:25 hydrocodone (From Lortab) Allergy Nausea Verified 10/26/24 15:25 PFSH PFS Disclaimer: The information contained in this section may have been updated after the patient was seen, as this information can be updated by other users. Medical History Hypomagnesemia Acute hypokalemia Hypertensive emergency Gassiness Ascites Steatosis, liver Nausea vomiting and diarrhea Gastroenteritis Abdominal pain Hyperlipidemia NSTEMI (non-ST elevated myocardial infarction) Fatigue Dyspnea C. difficile enteritis Family history of ischemic heart disease (IHD) Enteritis Exposure to COVID-19 virus Chronic daily headache Primary snoring Sleep-disordered breathing Pneumonia Palpitations Viral syndrome Viral URI with cough Gallstones Chronic cholecystitis Pre-operative cardiovascular examination Chest pain Urinary tract infection History of COVID-19 COPD (chronic obstructive pulmonary disease) Migraine Anxiety and depression Degenerative disc disease Eczema Irritable bowel syndrome (IBS) History of gastroesophageal reflux (GERD) Gallstones Hypothyroid Allergies Hypertension History of anemia Cervical cancer Surgical History History of laparoscopic cholecystectomy History of cataract surgery Hx of elbow surgery LEFT Hx of shoulder surgery LEFT Hx of neck surgery History of tubal ligation History of colonoscopy Family History Other Cancer Heart disease Hypertension Thyroid disorder Social History Smoking Status: Former smoker second hand exposure: No alcohol intake: never substance use type: denies use current occupational status: retired Travel in the last 8 weeks?: None household members: spouse and family housing: house current occupational exposures/hazards: No caffeine: Yes Have you lived/traveled outside US in past 30 days?: No Contact w/someone who lives/traveled outside US past 30 days?: No Exposure to someone with infectious disease in past 14 days?: No Do you have a fever (greater than 100.4 F or 38 C)?: No Have you tested positive for COVID-19?: No Exposed to someone with COVID-19 in past 14 days?: No Do you have a sore throat?: No Do you have a cough?: No Do you have any weakness?: No Do you have any diarrhea?: No Are you experiencing any unusual bleeding?: No Do you have any muscle aches/pain?: No Do you have any abdominal pain?: No Are you experiencing loss of taste or smell?: No Other Medical History Have you received the Flu Vaccine for this season: No Have you received the Pneumonia Vaccine: No ROS Obtained: Yes Systems reviewed as appropriate & no additional complaints except as documented Physical Exam General General appearance: alert Comment: Appearing uncomfortable in bed Head Head exam: atraumatic and normocephalic Eye Eye exam: Present PERRL and EOMI ENT ENT exam: Present mucous membranes moist Neck Neck exam: Present normal inspection Chest Chest inspection: Present normal inspection and symmetric chest wall rise Respiratory Respiratory exam: Present normal lung sounds bilaterally; Absent respiratory distress Cardiovascular Cardiovascular exam: Present regular rate and normal rhythm Abdominal Exam Abdominal exam: Present soft; Absent tenderness Extremities Exam Extremities exam: Present normal inspection Neurological Exam Neurological exam: Present alert, oriented X3, CN II-XII intact and other (Nick- Hallpike negative); Absent motor sensory deficit Psychiatric Psychiatric exam: Present normal affect Skin Skin exam: Present warm and dry Medical Decision Making Medical Records Screening: Per USPSTF and CDC recommendations, given the prevalence of disease in our region, it is our hospital?s policy to screen for HIV and viral Hepatitis for all patients aged 18 and over and those with ongoing risk factors. Markos Inquiry Pt receiving controlled substance: No Vital Signs: 10/26/24 15:19 10/26/24 17:30 10/26/24 18:00 Temperature 98.5 F Temperature Source Oral Pulse Rate 71 74 Pulse Rate [Right Brachial] 81 Respiratory Rate 16 13 11 L Blood Pressure 149/71 H 128/62 Blood Pressure [Right Arm] 134/86 Blood Pressure Mean Blood Pressure Mean [Right Arm] 102 Blood Pressure Source [Right Arm] Automatic Cuff Blood Pressure Position [Right Arm] Sitting 02 Sat by Pulse Oximetry 98 95 94 L Oxygen Delivery Method Room Air 10/26/24 18:30 Temperature Temperature Source Pulse Rate 69 Pulse Rate [Right Brachial] Respiratory Rate 14 Blood Pressure 115/57 L Blood Pressure [Right Arm] Blood Pressure Mean 76 Blood Pressure Mean [Right Arm] Blood Pressure Source [Right Arm] Blood Pressure Position [Right Arm] 02 Sat by Pulse Oximetry 94 L Oxygen Delivery Method Room Air Lab Data Lab Results 10/26/24 15:33: WBC 13.7 H, RBC 3.84 L, Hgb 11.1 L, Hct 35.1 L, MCV 91.4, MCH 28.9, MCHC 31.6 L, RDW 13.4, Plt Count 344, MPV 9.6, Neut % (Auto) 80.6 H, Lymph % (Auto) 10.6, [place] % (Auto) 5.9, Eos % (Auto) 2.0, Baso % (Auto) 0.4, Neut # (Auto) 11.1 H, Lymph # (Auto) 1.5, [place] # (Auto) 0.8, Eos # (Auto) 0.3, Baso # (Auto) 0.1, PT 10.6, INR 0.95, APTT 22.5 L, Sodium 137, Potassium 4.3, Chloride 102, Carbon Dioxide 27, Anion Gap 12.3, BUN 22 H, Creatinine 1.60 H, Estimated Creat Clear 38, Estimated GFR 32 L, Est GFR ( Amer) 39 L, Glucose 129 H, Calcium 9.6, Magnesium 1.9, Total Bilirubin 0.5, AST 40 H, ALT 26, Alkaline Phosphatase 109, Troponin I < 0.01, Total Protein 7.5, Albumin 4.6, Globulin 2.9, Albumin/Globulin Ratio 1.6, Lipase 80, Plasma/Serum Alcohol < 10 10/26/24 17:14: POC Glucose 121 H 10/26/24 19:22: Urine Color Yellow, Urine Appearance Clear, Urine pH 5.5, Ur Specific [place] <= 1.005, Urine Protein Negative, Urine Glucose (UA) Negative, Urine Ketones Negative, Urine Blood Negative, Urine Nitrate Negative, Urine Bilirubin Negative, Urine Urobilinogen 0.2, Ur Leukocyte Esterase Negative, Urine RBC None, Urine WBC Occasional, Ur Squamous Epith Cells 3-5, Urine Bacteria Trace, Urine Opiates Screen Negative, Urine Methadone Screen Negative, Ur Barbituates Screen Negative, Ur Phencyclidine Scrn Negative, Ur Amphetamines Screen Negative, U Benzodiazepines Scrn Negative, Urine Cocaine Screen Negative, U Marijuana (THC) Screen Negative 10/26/24 15:33 10/26/24 15:33 Orders (Tests/Meds): ED MEDICATIONS Generic Name Dose Route Start Last Admin Trade Name Freq PRN Reason Stop Dose Admin Sodium Chloride 10 ml 10/26/24 15:56 Sodium Chloride 0.9% 10ml Flush Syringe IV 11/25/24 15:55 NEEDED PRN Maintain IV Site Discontinued Medications Generic Name Dose Route Start Last Admin Trade Name Freq PRN Reason Stop Dose Admin Acetaminophen 1,000 mg 10/26/24 15:56 10/26/24 16:05 Acetaminophen 1,000mg/100ml Vial IV 10/26/24 15:57 1,000 mg ONCE ONE Administration Lactated Ringer's 500 mls @ 999 mls/hr 10/26/24 16:08 10/26/24 17:07 Lactated Ringer's 500ml IV 10/26/24 16:38 Infused .Q31M ONE Infusion Iopamidol 160 ml 10/26/24 16:44 10/26/24 16:47 Iopamidol-370 (76%);100ml Bottle IV 10/26/24 16:45 160 ml ONCE ONE Administration Methocarbamol 500 mg 10/26/24 16:00 10/26/24 16:05 Methocarbamol 500mg Tablet PO 10/26/24 16:01 500 mg ONCE ONE Administration Ondansetron HCl 4 mg 10/26/24 16:58 10/26/24 17:01 Ondansetron 4mg/2ml Vial IV 10/26/24 16:59 4 mg ONCE ONE Administration Sodium Chloride 10 ml 10/26/24 16:44 10/26/24 16:47 Sodium Chloride 0.9% 10ml Syr (Rad Only) IV 10/26/24 16:45 10 ml ONCE ONE Administration Sodium Chloride 50 ml 10/26/24 16:44 10/26/24 16:47 0.9 % Sodium Chloride 50 Ml Vial IV 10/26/24 16:45 50 ml ONCE ONE Administration ORDERS Category Date Time Status CT abdomen pelvis w con Stat Cat Scan 10/26/24 15:[address] angio chest PE protocol Stat Cat Scan 10/26/24 15:[address] angio head Stat Cat Scan 10/26/24 15:[address] angio neck Stat Cat Scan 10/26/24 15:[address] head/brain wo con Stat Cat Scan 10/26/24 15:56 Completed Activated Partial Thrombo Time Stat Lab 10/26/24 15:33 Completed CMP [Comprehensive Metabolic Panel] Stat Lab 10/26/24 15:33 Completed Complete Blood Count Auto Diff Stat Lab 10/26/24 15:33 Completed Drug Screen,Urine Stat Lab 10/26/24 19:22 Completed Ethyl Alcohol Stat Lab 10/26/24 15:33 Completed Lipase Stat Lab 10/26/24 15:33 Completed MG [Magnesium] Stat Lab 10/26/24 15:33 Completed POC Glucose,Bedside Routine Lab 10/26/24 17:14 Completed Prothrombin Time INR Stat Lab 10/26/24 15:33 Completed Troponin I Stat Lab 10/26/24 15:33 Completed Urinalysis and Microscopic Stat Lab 10/26/24 19:22 Completed ECG Request Stat Y 10/26/24 15:56 Ordered ECG Data Tracing #1: Independently interpreted by me rate is 84, rhythm is regular, axis is normal, no ST elevation in anatomical contiguous leads, QTc 404 Medical Decision Narrative: In summary patient is 69-year-old female with past medical history described above who presents emergency department for evaluation of dizziness and cramps in the setting of previous known hypokalemia, irritable bowel syndrome, previous cancer. Patient is hemodynamically stable and appears uncomfortable in her room upon arrival, afebrile. She has a nonfocal neurologic exam, appears to have cramping pain throughout the examination. Her [place]-Hallpike is negative she does not have nystagmus no facial asymmetry nonfocal neurologic exam otherwise. Differential diagnosis includes critical electrolyte abnormality which is most likely however given her history of cancer malignancy is on the differential as well as cerebrovascular accident. In totality workup will be conducted with hematologic labs EKG CT scan of the head without IV contrast CT of the head neck, chest, CT abdomen pelvis IV contrast to rule out occult recurrent malignancy. Urinalysis will be obtained. Initial inventions include crystalloid bolus, methocarbamol. Toradol will be deferred until noncontrasted CT scan of the head is obtained to rule out intracranial hemorrhage and unfortunately patient is allergic to acetaminophen. Initial workup reviewed by me hematologic labs have mild leukocytosis no transfusable anemia, no critical electrolyte abnormality there is an DAVINA which is being volume repleted, urinalysis interpreted by me not consistent with infection. Noncontrasted CT scan of the head informally visualized by me no acute large intra-axial hemorrhage or midline shift. CTA head and neck moderate right ICA stenosis greater than 50% but not critical, mild left ICA stenosis less than 50% with an anterior fusion of the C-spine noticed, no critical stenosis or occlusion of the vessels of the head or neck. Upon repeat evaluation I attempted to ambulate the patient and patient cannot ambulate under her own accord. Given that she does not have any critical electrolyte abnormality to explain this and her CT imaging is nonactionable COMMUNITY RELATIONS SPECIALIST process is much be ruled out therefore I will contact [facility]. The case was discussed with [facility] stroke healthcare administrative assistant who agrees and graciously accepted patient under Dr. Gee for continued evaluation at this time. On repeat evaluation patient cannot ambulate without assistance but I have no concern for any reason why she is unsafe to go via private vehicle. Given this patient will go POV at this time to [facility]. Critical Care Critical Care Time Critical Care Time: No
[2024-10-26] MEDS: ACETAMINOPHEN 1,000MG/100ML VIAL 1000 MG IV (16:05)
[2024-10-26] MEDS: METHOCARBAMOL 500MG TABLET 500 MG PO (16:05)
--- OUTSIDE RECORDS SUMMARY | 2024-10-26 16:12 | XMS_ITS ---
Author Organization Unknown Allergies, Adverse Reactions and Alerts Date IsAllergic OnsetDate Allergen Reaction Type Severity Quan rgyCode Legacyallergictoid ReactionCode ReactionCodeSystemID Custom 10/16 00:00 :00 1 lortab 10/15 00:00 :00 1 lortab 10/04 00:00 :00 1 lortab
--- OUTSIDE RECORDS SUMMARY | 2024-10-26 16:12 | XMS_ITS | Clinical Summary ---
Author Organization [facility] Address [address] [place] [address] Care Team Providers Care Aircraft Accessories Mechanic Name Role Phone Alyssa Hurtado APRN Primary Care Provider [phone] Allergies No known active allergies Medications amLODIPine [...] - Risk 60-74 years 1-dose series) 2017 [id number] Vaccine ( season) 2023 06/16/2021, 07/01/2020, 06/03/2020 [...] 9:42 AM EDT) Case Report Cytology Case: [id number] Authorizing Provider: Dianne Ocampo APRN Collected: 12/21/2021 0942 Ordering Location: [facility] Gynecology Received: 12/22/2021 0854 First Screen: Ivory Shelton Specimen: ThinPrep Pap Test, Liquid-Based Cervical/Vaginal, CERVICAL/VAGINAL 12/24/2021 1:[address] [facility] Interpretation NEGATIVE FOR INTRAEPITHELIAL LESION OR MALIGNANCY 12/24/2021 1:[address] [facility] at 1345 EDT Specimen Adequacy Satisfactory for evaluation; endocervical/burrows sformation zone component present. Slide scanned and imaged by [employer] System with manual review of all selected meraz. 12/24/2021 1:[address] [facility] Cervical cytology is a screening test [...] results is suggested (please call Microbiology at [phone] for results). 12/24/2021 1:45 PM EDT [facility] Menstrual Status Post-Menopausal 1:[address] [facility] History of Hysterectomy Not Applicable 12/24/2021 1:45 PM EDT [facility] Contraceptive History Not Applicable 12/24/2021 1:[address] [facility] Screening Type Previous or Suspected Abnormality 12/24/2021 1:[address] [facility] HPV Testing Requested? Request HPV Testing Regardless of Pap Test Findings 12/24/2021 1:[address] [facility] Previous Cancer History Yes 12/24/2021 1:[address] [facility] Previous Cancer Date 2019 12/24/2021 1:[address] [facility] Previous Cancer Primary Site Cervix Cancer 12/24/2021 1:[address] [facility] Previous Cancer Malignancy Type Other/Not Otherwise Specified 12/24/2021 1:[address] [facility] Previous or Suspected Abnormality Previous Medical Technologist Generalist Cancer 12/24/2021 1:[address] [facility] Comment:cervical cancer Clinical Information C53.9 - Malignant neoplasm of cervix, unspecified site (CMS/HCC) [ICD-10-CM] 12/24/2021 1:45 PM EDT [facility] Swab Vaginal and cervical cytologic material / Unknown Non-blood Collection / Unknown 12/21/2021 9:42 AM EDT 12/22/2021 8:54 AM EDT us Dianne Schroeder [facility] CYTOLOGY ORDERABLES Fi nal Result [facility] [address] [place] [address] from Last 3 Months or Most Recently Relevant to Health Maintenance Insurance [employer] Care Teams Aircraft Accessories Mechanic Relationship Specialty Start Date End Date Alyssa Hurtado APRN [id number] [place] [id number] PCP - General 07/11/20
[2024-10-26] MEDS: RINGERS SOLUTION,LACTATED 500 ML 999 ML IV (16:33)
[2024-10-26] MEDS: IOPAMIDOL-370 (76%);100ML BOTTLE 160 ML IV (16:47)
[2024-10-26] MEDS: SODIUM CHLORIDE 0.9% 10ML SYR (RAD ONLY) 10 ML IV (16:47)
[2024-10-26] MEDS: 0.9 % SODIUM CHLORIDE 50 ML VIAL IV (16:47)
[2024-10-26] MEDS: ONDANSETRON 4MG/2ML VIAL 4 MG IV (17:01)
[2024-10-26 17:22] LABS: POC Glucose,Bedside 121 gm/dL (70-110)
[2024-10-26 19:29] LABS: Microscopic, Urine URINE MICROSCOPIC (MICROSCOPIC)
[2024-10-26 19:34] LABS: Bilirubin,Urine Negative (Negative); Color,Urine YELLOW (Yellow); Glucose,Urine (UA) Negative (Negative); Ketones,Urine Negative (Negative); Leukocyte Esterase,Urine Negative (Negative); PH,Urine 5.5 (5.0-8.5); Protein,Urine Negative (Negative); Specific Gravity, Urine <= 1.005 (1.005-1.030); Urobilinogen,Urine 0.2 EU/dl (0.2)
[2024-10-26 19:41] LABS: Bacteria,Urine Trace /lpf; WBC,Urine Occasional #/hpf (0-3)
[2024-10-26 19:46] LABS: Amphetamine/Metha Screen,Urine Negative ng/ml (<1000); Barbiturates Screen,Urine Negative ng/ml (<200)
[2024-10-26 19:47] LABS: Benzodiazepines Screen,Urine Negative ng/ml (<200)
[2024-10-26 19:49] LABS: Methadone Screen,Urine Negative ng/ml (<300); Opiate Screen,Urine Negative ng/ml (<300)
[2024-10-26 19:50] LABS: Phencyclidine Screen,Urine Negative ng/ml (<25)
[2024-10-26 20:02] LABS: Lipase 80 U/L (23-300); Magnesium 1.9 mg/dl (1.6-2.3)
[2024-10-26 20:16] LABS: Troponin I < 0.01 ng/ml (0.00-0.034)
[2024-10-26 20:18] LABS: Activated Partial Thrombo Time 22.5 seconds (22.8-30.6); INR 0.95 (0.9-1.1); Prothrombin Time 10.6 seconds (10.1-12.5)
--- NOTE | 2024-10-26 20:41 | PC.NURSE ---
Contacted [employer] to get stroke navigator
[2024-10-26] MEDS: METHOCARBAMOL 500MG TABLET 1000 MG PO (22:06)
[2024-10-26] MEDS: KETOROLAC 30MG/ML VIAL 30 MG IV (22:07)
--- NOTE | 2024-10-26 22:20 | PC.NURSE ---
Report called to [facility] at [facility]. Patient will be admitted to [address] [place] [address]
== END 2024-10-26 22:28 | disposition short-term general hospital (02) ==
PROVIDERS: Emergency Provider Emergency Medicine; PCP Nurse Practitioner
DX: H81.90 Unspecified disorder of vestibular function, unspecified ear (principal); E78.5 Hyperlipidemia, unspecified; I10 Essential (primary) hypertension
CPT/HCPCS: 70450; 70496; 70498; 71275; 74177; 80053; 80307; 80320; 81001; 82962; 83690; 83735; 84484; 85025; 85610; 85730; 93005; 96365; 96367; 96375; 99285; J0131; J1885; J2405; J7120; Q9967

== ENCOUNTER 2024-12-21 14:29 | Outpatient (CLI) | payer MEDICARE, SELFPAY ==
--- OUTSIDE RECORDS SUMMARY | 2024-10-26 23:37 | XMS_ITS | Encounter Summary ---
[facility] Address [address] [place] [address] Care Team Providers Care City Dispatcher Name Role Phone Alyssa Hurtado APRN Primary Care Provider [phone] Reason for Referral * Consultation (Routine) - Closed Specialty Diagnoses / Procedures Referred By Contac t Referred To Contact Otolaryngology Diagnoses Chronic ear pain, left Procedures MI OFFICE/OUTPATIENT NEW MODERATE MDM 45 MINUTES Ariana Francis DO [address] [place] [address] Phone: tel: fax: Alton Goins MD [address] [facility] [address] [place] [address] Phone: tel: fax: Referral ID Status Reason Start Date Expiration Date V isits Requested Visits Authorized [id number] Closed Specialty Services Required 10/27/2024 01/26/2026 1 1 Reason for Visit * Auth/Cert Specialty Diagnoses / Procedures Referred By Contac t Referred To Contact Diagnoses Other (dizziness) R/O stroke Referral ID Status Reason Start Date Expiration Date Visits Re quested Visits Authorized [id number] 1 1 Encounter Details Date Type Department Care Team (Late st Contact Info) Description 10/26/2024 11:37 PM EDT - 10/27/2024 5:25 PM EDT Hospital Encounter [address] [place] [id number] Abdirahman Storm DO [address] [place] [address] Ariana Francis DO [address] [place] [address] Chronic ear pain, left (Primary Dx); Cognitive communication deficit Discharge Disposition: Home or Self Care Social History Tobacco Use Types Packs/Day Years Used Date Smoking Tobacco: Former Cigarettes Q uit: 03/2013 Smokeless Tobacco: Never Tobacco Cessation:Counseling Given: No Alcohol Use Standard Drinks/Week Comments Never 0 (1 standard drink = 0.6 oz pur e alcohol) AUDIT-C Answer Date Recorded Q1: How often do you have a drink containing alcohol? Never 10/26/2024 Q2: How many drinks containi ng alcohol do you have on a typical day when you are drinking? Patient does not drink Q3: How often do you have si x or more drinks on one occasion? Never 10/26/2024 Abuse Screen Answer Date Recorded Feels Unsafe at Home or Work/School no 10/26/2024 Feels Threatened by Someone no 09/29 Does Anyone Try to Keep You From Having Contact with Others or Doing Things Outside Your Home? no 10/26/2024 Physical Signs of Abuse Present no 10/26/2024 Housing Stability Answer Date Recorded Current Living Arrangements home 09/30 Potentially Unsafe Housing Conditions Not on natalie e 10/27/2024 Disabilities Answer Date Recorded Difficulty Concentrating, Remembering or Making Decisions no 10/26/2024 Difficulty Managing Errands Independently no 10/26/2024 Comments Unknown Sex and Gender Information Value Date Recorded Sex Assigned at Not on file Legal Sex Female 9:42 PM EDT Gender Identity Not on file Sexual Orientation Not on file documented as of this encounter Last Filed Vital Signs Vital Sign Reading Time Taken Comments Blood Pressure 153/85 10/27/2024 10:30 AM EDT Pulse 73 10/27/2024 4:00 PM EDT Temperature 36.7 C (98.1 F) 10/27/2024 10:30 AM EDT Respiratory Rate 16 10/27/2024 10:3 0 AM EDT Oxygen Saturation 92% 10/27/2024 4:00 PM EDT Inhaled Oxygen Concentration - - Weight 72.1 kg (158 lb 15.2 oz) 025 11:30 AM EDT Height 167.6 cm (5' 5.98 ) 10/27/2024 1 1:30 AM EDT Body Mass Index 25.67 10/27/2024 11:30 AM EDT documented in this encounter Functional Status * Question Answer Date of Assessment Author 1. Wish to be (Past 1 Month) No 025 11:47 PM EDT Alcon Washington RN 2. Non-Specific Active Suici shahriar Thoughts (Past 1 Month) No 10/26/2024 11:47 PM EDT Dodie Washington RN * Calculated C-SSRS Risk Score (Lifetime/Recent) Answer Date of Assessment Author No Risk Indicated 10/26/2024 11:47 PM EDT Alcon Washington RN * [place] Suicide Severity Rating Scale (Screener/Recent Self-Report) Question Answer Date of Assessment Author 6. Suicidal Behavior (Lifetime) No 11:47 PM EDT Alcon Washington RN documented as of this encounter Discharge Summaries * Ariana Francis, DO - 10/27/2024 5:25 PM EDT Images from the original note were not included. [facility] Medicine Services DISCHARGE SUMMARY Patient Name: Tracy Tilley : 1955 Date of Admission: 10/26/2024 11:37 PM Date of Discharge: 10/27/2024 Primary Care Physician: Alyssa Hurtado APRN Consults No orders found from 09/27/2024 to 10/27/2024. Hospital Course Active Hospital Problems No active problems to display. Resolved Hospital Problems Diagnosis Date Resolved POA ??? Ataxia [R27.0] 10/27/2024 Yes Hospital Course: Tracy Tilley is a 69 y.o. female with a past medical history significant for hypertension, hyperlipidemia, prior tobacco abuse, cervical cancer (2013), . She reported to [facility] with complaints of significant vertigo and gait instability. CTH was completed and negative for any acute intracranial process. CTA head and neck were negative for any any significant stenosis or large vessel occlusion. She was transferred to [facility] for further neurologic evaluation and work-up including MRI brain. Of note, patient has chronic issues with her left ear and was diagnosed with otitis media 2 daysPTA. Patient states pain has now resolved. States she ruptured her ear drum when she was younger. She does not follow with ENT. Vertigo L otitis media Gait instability Concern for UTI -MRI brain negative for ischemia -Concern for UTI at OSH -Echo without acute findings -Discussed with evgeny Mancilla to [place] home. Issues likely secondary to vestibulitis. -Ambulatory referral for ENT generated -ABX sent for UTI and patient instructed to stop previous ABX. Elevated serum cr -improved -on both hctz and lasix at home. Hold hctz until PCP follow-up HLD -Lipitor 80mg nightly added Discharge Follow Up Recommendations for outpatient labs/diagnostics: -PCP 1 week Day of Discharge HPI: Patient seen and examined. Having some nausea. No vomiting. No other complaints. Walked with PT. Reviewed MRI brain negative. Review of Systems Gen- No fevers, chills CV- No chest pain, palpitations Resp- No cough, dyspnea GI- per HPI Vital Signs: Physical Exam: Constitutional: No acute distress, awake, alert HENT: NCAT, mucous membranes moist Respiratory: Clear to auscultation bilaterally, respiratory effort normal Cardiovascular: RRR, no murmurs, rubs, or gallops Gastrointestinal: Positive bowel sounds, soft, nontender, nondistended Musculoskeletal: No bilateral ankle edema Psychiatric: Appropriate affect, cooperative Neurologic: Oriented x 3, CHANDLER, speech clear Skin: No rashes Pertinent and/or Most Recent Results LAB RESULTS: Lab 10/27/24 0953 WBC 12.17* HEMOGLOBIN 10.8* HEMATOCRIT 34.4 PLATELETS 306 NEUTROS ABS 8.90* IMMATURE GRANS (ABS) 0.07* LYMPHS ABS 1.89 MONOS ABS 0.84 EOS ABS 0.39 MCV 90.8 Lab 10/27/24 0953 SODIUM 134* POTASSIUM 4.0 CHLORIDE 96* CO2 27.8 ANION GAP 10.2 BUN 18.5 CREATININE 1.20* EGFR 49.7* GLUCOSE 152* CALCIUM 9.2 HEMOGLOBIN A1C 5.71* Lab 10/27/24 0953 CHOLESTEROL 190 LDL CHOL 93 HDL CHOL 47 TRIGLYCERIDES 301* Brief Urine Lab Results None Microbiology Results (last 10 days) No results found for the last 240 hours. MRI Brain Without Contrast Result Date: 10/27/2024 MRI BRAIN WO CONTRAST Date of Exam: 10/27/2024 4:19 AM EDT Indication: Stroke, follow up Vertigo, Gait Instability. Comparison: None available. Technique: Routine multiplanar/multisequence sequence images of the brain were obtained without contrast administration. Findings: There is no diffusion restriction to suggest acute infarct. There is no evidence of acute or chronic intracranial hemorrhage.There are scattered patchy and punctate foci of FLAIR hyperintense signal abnormality in the cerebral white matter primarily in a periventricular distribution. No mass effect or midline shift. No abnormal extra-axial collections. The major vascular flow voids appear intact. The basal ganglia, brainstem and cerebellum appear within normal limits. Calvarial and superficial soft tissue signal is within normal limits. Thinning of the orbital lenses would suggest prior lens replacement. The patient is edentulous. Temporomandibular joints and parotid glands appear symmetric. The paranasal sinuses and the mastoid air cells appear well aerated. Midline structures are intact. Impression: 1.No acute intracranial abnormality. 2.Mild chronic small vessel ischemic change. Electronically Signed: David Gallegos MD 10/27/2024 5:27 AM EDT Workstation ID: [id number] CT Outside Films Result Date: 10/27/2024 This procedure was auto-finalized with no dictation required. CT Outside Films Result Date: 10/27/2024 This procedure was auto-finalized with no dictation required. CT Outside Films Result Date: 10/27/2024 This procedure was auto-finalized with no dictation required. CT Outside Films Result Date: 10/27/2024 This procedure was auto-finalized with no dictation required. Results for orders placed during the hospital encounter of 10/26/24 Adult Transthoracic Echo Complete W/ Cont if Necessary Per Protocol (With Agitated Saline) 10/27/2024 12:31 PM Interpretation Summary ??? Left ventricular systolic function is normal. Calculated left ventricular EF = 61.6% Left ventricular ejection fraction appears to be 61 - 65%. ??? Left ventricular diastolic function was normal. ??? Saline test results are negative. I have personally reviewed the therapy plans: [x] PT/OT/ ST Therapy Plans Plan for Follow-up of Pending Labs/Results: Inbox Discharge Details Discharge Medications PAUSE taking these medications Instructions Start Date hydroCHLOROthiazide 12.5 MG tablet Wait to take this until your doctor or other care provider tells you to start again. Hold until PCP follow-up 12.5 mg, Daily New Medications Instructions Start Date cefuroxime 500 MG tablet Commonly known as: CEFTIN 500 mg, Oral, 2 Times Daily Changes to Medications Instructions Start Date atorvastatin 80 MG tablet Commonly known as: LIPITOR What changed: medication strength how much to take 80 mg, Oral, Nightly Continue These Medications Instructions Start Date amLODIPine 5 MG tablet Commonly known as: NORVASC 5 mg, Daily aspirin 81 MG EC tablet 81 mg, Daily baclofen 20 MG tablet Commonly known as: LIORESAL 20 mg, 2 Times Daily desvenlafaxine 50 MG 24 hr tablet Commonly known as: PRISTIQ 50 mg, Daily famotidine 20 MG tablet Commonly known as: PEPCID 20 mg, 2 Times Daily furosemide 20 MG tablet Commonly known as: LASIX 20 mg, Daily levothyroxine 150 MCG tablet Commonly known as: SYNTHROID, LEVOTHROID 150 mcg, Every Dispensary Technician losartan 50 MG tablet Commonly known as: COZAAR 50 mg, Daily potassium chloride 20 MEQ packet Commonly known as: KLOR-CON 20 mEq, 2 Times Daily traMADol 50 MG tablet Commonly known as: ULTRAM 50 mg, Every 12 Hours PRN No Known Allergies Discharge Disposition: Home or Self Care Diet: Hospital:No active diet order Activity: Restrictions or Other Recommendations: CODE STATUS: Code Status and Medical Interventions: CPR (Attempt to Resuscitate); Full Support Ordered at: 10/27/24 0012 Code Status (Patient has no pulse and is not breathing): CPR (Attempt to Resuscitate) Medical Interventions (Patient has pulse or is breathing): Full Support Level Of Support Discussed With: Patient No future appointments. Additional Instructions for the Follow-ups that You Need to Schedule Discharge Follow-up with PCP As directed Currently Documented PCP: Alyssa Hurtado APRN PCP Follow Up Details: 1 week Ariana Francis DO 10/30/24 Time Spent on Discharge: I spent 50 minutes on this discharge activity which included: [id number] with the patient, reviewing the data in the system, coordination of the care with the nursing staff as well as consultants, documentation, and entering orders. documented in this encounter Discharge Instructions * Attachments The following attachments cannot be sent through Care Everywhere. * Earache Adult (Nepalese) documented in this encounter Medications at Time of Discharge amLODIPine (NORVASC) 5 MG tablet Take 1 tablet by mouth Daily. aspirin 81 MG EC tablet Take 1 tablet by mouth Daily. atorvastatin (LIPITOR) 80 MG tablet Take 1 tablet by mouth Every Night. 90 tablet 10/27/2024 3:24 PM EDT 10/27/2024 baclofen (LIORESAL) 20 MG tablet Take 1 tablet by mouth 2 (Two) Times a Day. desvenlafaxine (PRISTIQ) 50 MG 24 hr tablet Take 1 tablet by mouth Daily. famotidine (PEPCID) 20 MG tablet Take 1 tablet by mouth 2 (Two) Times a Day. furosemide (LASIX) 20 MG tablet Take 1 tablet by mouth Daily. hydroCHLOROthiaz lou 12.5 MG tablet Take 1 tablet by mouth Daily. levothyroxine (SYNTHROID, LEVOTHROID) 150 MCG tablet Take 1 tablet by mouth Every Morning. losartan (COZAAR) 50 MG tablet Take 1 tablet by mouth Daily. potassium chloride (KLOR-CON) 20 MEQ packet Take 20 mEq by mouth 2 (Two) Times a Day. traMADol (ULTRAM) 50 MG tablet Take 1 tablet by mouth Every 12 (Twelve) Hours As Needed for Moderate Pain. cefuroxime (CEFTIN) 500 MG tablet Take 1 tablet by mouth 2 (Two) Times a Day for 3 days. 6 tablet 10/27/2024 3:24 PM EDT 10/27/2024 10/30/2024 documented as of this encounter Progress Notes * Buster Fagan MD - 10/27/2024 3:23 PM EDT Neurology Note Patient: Tracy Tilley DATE OF : 1955 REFERRING PHYSICIAN: Dr. Francis CHIEF COMPLAINT: Dizziness, loss of balance HISTORY OF PRESENT ILLNESS: The patient is feeling much better, able to eat, walk w/o help, wants to go home. Positional vertigo has resolved. Past Medical History: History reviewed. No pertinent past medical history. Past Surgical History: History reviewed. No pertinent surgical history. Social History: Social History Socioeconomic History Marital status: Tobacco Use Smoking status: Former Current packs/day: 0.00 Types: Cigarettes Quit date: 03/2013 Years since quittin.5 Smokeless tobacco: Never Vaping Use Vaping status: Never Used Substance and Sexual Activity Alcohol use: Never Drug use: Never Sexual activity: Defer Family History: History reviewed. No pertinent family history. Medications Prior to Admission: Prior to Admission medications Medication Sig Start Date End Date Taking? Authorizing Provider amLODIPine (NORVASC) 5 MG tablet Take 1 tablet by mouth Daily. Yes Walker Thornton MD aspirin 81 MG EC tablet Take 1 tablet by mouth Daily. Yes Walker Thornton MD atorvastatin (LIPITOR) 40 MG tablet Take 1 tablet by mouth Every Night. Yes Walker Thornton MD atorvastatin (LIPITOR) 80 MG tablet Take 1 tablet by mouth Every Night. 10/27/24 Yes Ariana Francis DO baclofen (LIORESAL) 20 MG tablet Take 1 tablet by mouth 2 (Two) Times a Day. Yes Walker Thornton MD desvenlafaxine (PRISTIQ) 50 MG 24 hr tablet Take 1 tablet by mouth Daily. Yes Walker Thornton MD famotidine (PEPCID) 20 MG tablet Take 1 tablet by mouth 2 (Two) Times a Day. Yes Walker Thornton MD furosemide (LASIX) 20 MG tablet Take 1 tablet by mouth Daily. Yes Walker Thornton MD hydroCHLOROthiazide 12.5 MG tablet Take 1 tablet by mouth Daily. Yes Walker Thornton MD levothyroxine (SYNTHROID, LEVOTHROID) 150 MCG tablet Take 1 tablet by mouth Every Morning. Yes Walker Thornton MD losartan (COZAAR) 50 MG tablet Take 1 tablet by mouth Daily. Yes Walker Thornton MD potassium chloride (KLOR-CON) 20 MEQ packet Take 20 mEq by mouth 2 (Two) Times a Day. Yes Walker Thornton MD traMADol (ULTRAM) 50 MG tablet Take 1 tablet by mouth Every 12 (Twelve) Hours As Needed for Moderate Pain. Yes Walker Thornton MD cefuroxime (CEFTIN) 500 MG tablet Take 1 tablet by mouth 2 (Two) Times a Day for 3 days. 10/27/24 10/30/24 Ariana Francis, DO Allergies: Patient has no known allergies. Review of system Review of Systems Musculoskeletal: Positive for gait problem. Neurological: Positive for dizziness. All other systems reviewed and are negative. Vitals: 10/27/24 1400 BP: Pulse: 73 Resp: Temp: SpO2: 97% Physical exam Physical Exam Cardiovascular: Rate and Rhythm: Normal rate and regular rhythm. Pulmonary: Effort: Pulmonary effort is normal. Neurological: General: No focal deficit present. Mental Status: She is alert and oriented to person, place, and time. Comments: Speech is clear, VFF, no facial droop, no limb drift, no vertigo with positional changes,gets w/o help, gait a bit slow, positive Romberg for sway. Lab Results Component Value Date WBC 12.17 (H) 10/27/2024 HGB 10.8 (L) 10/27/2024 HCT 34.4 10/27/2024 MCV 90.8 10/27/2024 PLT 306 10/27/2024 Lab Results Component Value Date GLUCOSE 152 (H) 10/27/2024 BUN 18.5 10/27/2024 CREATININE 1.20 (H) 10/27/2024 BCR 15.4 10/27/2024 CO2 27.8 10/27/2024 CALCIUM 9.2 10/27/2024 Radiological Studies: Adult Transthoracic Echo Complete W/ Cont if Necessary Per Protocol (With Agitated Saline) Result Date: 10/27/2024 Left ventricular systolic function is normal. Calculated left ventricular EF = 61.6% Left ventricular ejection fraction appears to be 61 - 65%. Left ventricular diastolic function was normal. Saline test results are negative. MRI Brain Without Contrast Result Date: 10/27/2024 MRI BRAIN WO CONTRAST Date of Exam: 10/27/2024 4:19 AM EDT Indication: Stroke, follow up Vertigo, Gait Instability. Comparison: None available. Technique: Routine multiplanar/multisequence sequence images of the brain were obtained without contrast administration. Findings: There is no diffusion restriction to suggest acute infarct. There is no evidence of acute or chronic intracranial hemorrhage.There are scattered patchy and punctate foci of FLAIR hyperintense signal abnormality in the cerebral white matter primarily in a periventricular distribution. No mass effect or midline shift. No abnormal extra-axial collections. The major vascular flow voids appear intact. The basal ganglia, brainstem and cerebellum appear within normal limits. Calvarial and superficial soft tissue signal is within normal limits. Thinning of the orbital lenses would suggest prior lens replacement. The patient is edentulous. Temporomandibular joints and parotid glands appear symmetric. The paranasal sinuses and the mastoid air cells appear well aerated. Midline structures are intact. Impression: 1.No acute intracranial abnormality. 2.Mild chronic small vessel ischemic change. Electronically Signed: David Gallegos MD 10/27/2024 5:27 AM EDT Workstation ID: [id number] CT Outside Films Result Date: 10/27/2024 This procedure was auto-finalized with no dictation required. CT Outside Films Result Date: 10/27/2024 This procedure was auto-finalized with no dictation required. CT Outside Films Result Date: 10/27/2024 This procedure was auto-finalized with no dictation required. CT Outside Films Result Date: 10/27/2024 This procedure was auto-finalized with no dictation required. During this visit the following were done: Labs Reviewed [x] Labs Ordered [] Radiology Reports Reviewed [x] Radiology Ordered [] EKG, echo, and/or stress test reviewed [] EEG results reviewed [] EEG reviewed and interpreted per myself [] Discussed case with neurointerventionalist or neuroradiologist [] Referring Provider Records Reviewed [] ER Records Reviewed [] Hospital Records Reviewed [] History Obtained From Family [] Radiological images view and Interpreted per myself [x] Case Discussed with referring provider [] Decision to obtain and request outside records [] Assessment and Plan Acute vertigo in the setting of otitis, likely vestibulitis, doing better today. Orthostatic BP noted. - Fall precautions. - Home with . - Outpatient PT. - F/U with PCP, general neurology. Call for questions, will see prn. Thanks. * Ariana Francis DO - 10/27/2024 10:57 AM EDT Images from the original note were not included. [facility] Medicine Services ADMISSION FOLLOW-UP NOTE Patient admitted after midnight, H&P by my partner performed earlier on today's date reviewed. Interim findings, labs, and charting also reviewed. [facility] Problem List has been managed and updated to include any new diagnoses: Active Hospital Problems Diagnosis POA Ataxia [R27.0] Yes Resolved Hospital Problems No resolved problems to display. ADDITIONAL PLAN: - detailed assessment and plan from admission reviewed - Patient seen and examined. Having some mild nausea. No vomiting. States she has chronic issues with her left ear. She does not follow with ENT. States she saw her primary care physician a few days ago who gave her some antibiotics due to ear infection. States she is no longer having pain. She wasevaluated by stroke team on arrival due to concerns of ataxia. MRI brain negative. There was concern for UTI at outside hospital and patient currently on IV Rocephin. Her echocardiogram is pending. Creatinine improved today to 1.2. Suspect patient will be able to discharge later today if able to obtain echo. Recommend she be referred to ENT due to chronic issues with her ear. Patient lives in [place] and prefers provider close to there. Expected Discharge Expected Discharge Date: 10/28/2024; Expected Discharge Time: Ariana Francis DO 10/27/24 documented in this encounter H&P Notes * Abdirahman Storm DO - 10/27/2024 1:40 AM EDT Images from the original note were not included. [facility] Medicine Services HISTORY AND PHYSICAL Patient Name: Tracy Tilley : 1955 Primary Care Physician: lAyssa Hurtado APRN Date of admission: 10/26/2024 Subjective Subjective Chief Complaint: Difficulty ambulating HPI: Tracy Tilley is a 69-year-old female who presented to [facility] with complaints of significant vertigo and gait instability throughout the day. Patient reports that this abdominal for approximately 1 week duration, was seen last week in urgent care, diagnosed with ear infection and discharged home on amoxicillin. Patient reports that the vertigo improved, but returned. She reports that when she went to bed last night approximately 10 PM she was in her normal state of health. When she woke this morning at approximately 9 AM she noted her symptoms. She attempted home remediesthroughout the day, however when her symptoms did not improve she presented to their ED for workup.Patient denies any recent medication changes, sick contacts, or travel history. Workup in the outside emergency department was reviewed, significant findings are as follows: WBC 13, creatinine 1.6, glucose 129. UA indicative of UTI. CTH was completed and negative for any acute intracranial process. CTA of the chest negative for acute abnormality. CTA of the neck showed moderate right ICA stenosis, greater than 50%. She was transferred to [facility] for further neurologic evaluation and work-up including MRI brain. Personal History Past medical history: Hypertension, hyperlipidemia, hypothyroidism. Past surgical history: Reviewed, nonpertinent to history present illness. Family History: CAD Social History: reports that she quit smoking about 11 years ago. Her smoking use included cigarettes. She has never used smokeless tobacco. She reports that she does not drink alcohol and does not use drugs. Medications: Available home medication information reviewed. amLODIPine, aspirin, atorvastatin, baclofen, desvenlafaxine, famotidine, furosemide, hydroCHLOROthiazide, levothyroxine, losartan, potassium chloride, and traMADol No Known Allergies Objective Objective Vital Signs: Temp: [97.8 ??F (36.6 ??C)] 97.8 ??F (36.6 ??C) Heart Rate: [70] 70 Resp: [16] 16 BP: (146)/(74) 146/74 Total (NIH Stroke Scale): 0 Physical Exam Constitutional: Awake, alert Eyes: PERRLA, sclerae anicteric, no conjunctival injection HENT: NCAT, mucous membranes moist Neck: Supple, no thyromegaly, no lymphadenopathy, trachea midline Respiratory: Clear to auscultation bilaterally, nonlabored respirations Cardiovascular: RRR, no murmurs, rubs, or gallops, palpable pedal pulses bilaterally Gastrointestinal: Positive bowel sounds, soft, nontender, nondistended Musculoskeletal: No bilateral ankle edema, no clubbing or cyanosis to extremities Psychiatric: Appropriate affect, cooperative Neurologic: Oriented x 3, strength symmetric in all extremities, Cranial Nerves grossly intact to confrontation, speech clear. Coordinated bilaterally. No pronator drift. Skin: No rashes Result Review: I have personally reviewed the results from the time of this admission to 10/27/2024 01:40 EDT and agree with these findings: [x] Laboratory list / accordion [] Microbiology [x] Radiology [x] EKG/Telemetry [] Cardiology/Vascular [] Pathology [] Old records [] Other: Most notable findings include: Summarized above Assessment & Plan Assessment & Plan Ataxia Neurology following along. Appreciate their recommendations. CT imaging negative for acute CVA at this time. MRI to be completed. Resume statin. MRI of the brain without contrast. 2D echo. PT/OT/speech Urinary tract infection Patient is not septic. IV Rocephin. Titrate antibiotics to cultures. Obtained culture from outside facility was collected prior to transfer. Acute kidney injury IV fluids. Patient reports that she was given a dose of Toradol at the urgent care last week, in addition to taking ibuprofen daily. If no improvement next 24 to 48 hours, consider nephrology consultation. Avoid NSAIDs, nephrotoxic agents, IV contrast studies if possible. Hyperglycemia without diagnosis of type 2 diabetes mellitus Check A1c. Initiate antidiabetic drugs if indicated. Hypertension Hyperlipidemia Hypothyroidism Resume home medication as appropriate. Total time spent: 65 minutes Time spent includes time reviewing chart, cjfu-ff-kzpy time, counseling patient/family/caregiver, ordering medications/tests/procedures, communicating with other health vp care management, documenting clinical information in the electronic health record, and coordination of care. VTE Prophylaxis: Mechanical VTE prophylaxis orders are present. CODE STATUS: Code Status and Medical Interventions: CPR (Attempt to Resuscitate); Full Support Ordered at: 10/27/24 0012 Code Status (Patient has no pulse and is not breathing): CPR (Attempt to Resuscitate) Medical Interventions (Patient has pulse or is breathing): Full Support Level Of Support Discussed With: Patient Expected Discharge Expected discharge date/ time has not been documented. Abdirahman Storm DO 10/27/24 documented in this encounter Consult Notes * Mary Montgomery APRN - 10/26/2024 10:05 PM EDT Stroke Consult Note Patient Name: Tracy Tilley Age: 69 y.o. Sex: female : 1955 Primary Care Physician: Alyssa Hurtado APRN Referring Physician: [facility] TIME STROKE TEAM CALLED: 2044 EST TIME PATIENT SEEN: 010 EST on arrival to [facility], following nursing call Handedness: Right Race: Chief Complaint/Reason for Consultation: Vertigo and Gait instability HPI: Tracy Tilley is a 69-year-old female with a past medical history significant for hypertension, hyperlipidemia, prior tobacco abuse, cervical cancer (2013), . She reported to [facility] with complaints of significant vertigo and gait instability throughout the day. She reports that when she went to bed last night approximately 10 PM she was in her normal state of health. When shewoke this morning at approximately 9 AM she noted her symptoms. She attempted home remedies throughout the day, however when her symptoms did not improve she presented to their ED for workup. CTH wascompleted and negative for any acute intracranial process. CTA head and neck were negative for any any significant stenosis or large vessel occlusion. She was transferred to [facility] for further neurologic evaluation and work-up including MRI brain. On arrival BP 146/74. NIH 0. She has continued complaints of muscle cramping, which have been present for some time, but are currently almost unbearable. She tells me that she was actually sent to the Hospital today from her PCP for work- up of blood pressure, highs and lows, cramping, as well as shortness of breath. PT and her report that her primary doctor was worried she could potentially be in congestive heart failure. She tells me over the last week that she has had large fluctuations in her blood pressure to nearly 200 systolic and as low as 80 systolic. She also tells me that she has been suffering from headaches as well. New medicines include Lasix, potassium, as well as magnesium. Also reports that she has had some situational confusion and feels that she has been foggy recently with events over the last few days. Last Known Normal Date/Time: 219910/25/2024 EST Review of Systems Constitutional: Positive for fatigue. HENT: Negative for trouble swallowing. Eyes: Negative for visual disturbance. Gastrointestinal: Negative for nausea and vomiting. Musculoskeletal: Positive for gait problem. Neurological: Positive for dizziness, weakness and headaches. Negative for speech difficulty and numbness. Psychiatric/Behavioral: Positive for confusion. History reviewed. No pertinent past medical history. History reviewed. No pertinent surgical history. History reviewed. No pertinent family history. Social History Socioeconomic History Marital status: Tobacco Use Smoking status: Former Current packs/day: 0.00 Types: Cigarettes Quit date: 03/2013 Years since quittin.5 Smokeless tobacco: Never Vaping Use Vaping status: Never Used Substance and Sexual Activity Alcohol use: Never Drug use: Never Sexual activity: Defer No Known Allergies Prior to Admission medications Not on File Temp: [97.8 ??F (36.6 ??C)] 97.8 ??F (36.6 ??C) Heart Rate: [70] 70 Resp: [16] 16 BP: (146)/(74) 146/74 Neurological Exam Mental Status Alert. Oriented to person, place and time. Oriented to person, place, and time. Speech is normal. Language is fluent with no aphasia. Cranial Nerves CN II: Visual meraz full to confrontation. CN III, IV, : Extraocular movements intact bilaterally. Pupils equal round and reactive to light bilaterally. CN V: Right: Facial sensation is normal. Left: Facial sensation is normal on the left. CN VII: Right: There is no facial weakness. Left: There is no facial weakness. CN VIII: Hearing appears to be intact bilaterally . CN IX, X: Right: Palate is normal. Left: Palate is normal. Motor Normal muscle bulk throughout. No fasciculations present. Normal muscle tone. Strength is 5/5 throughout all four extremities. Sensory Light touch is normal in upper and lower extremities. Coordination Right: Kbiykm-mi-twzo normal.Left: Qybyrd-ch-brmf normal. Gait Not Observed. Physical Exam Constitutional: General: She is not in acute distress. Appearance: She is normal weight. HENT: Head: Normocephalic. Mouth/Throat: Pharynx: Oropharynx is clear. Eyes: Extraocular Movements: Extraocular movements intact. Pupils: Pupils are equal, round, and reactive to light. Pulmonary: Effort: Pulmonary effort is normal. Musculoskeletal: Cervical back: Normal range of motion. Skin: General: Skin is warm and dry. Neurological: General: No focal deficit present. Mental Status: She is alert and oriented to person, place, and time. Mental status is at baseline. Motor: Motor strength is normal. Psychiatric: Mood and Affect: Mood normal. Speech: Speech normal. Behavior: Behavior normal. Acute Stroke Data Thrombolytic Inclusion / Exclusion Criteria Time: 01:15 EDT Person Administering Scale: Mary Montgomery APRN YES NO INCLUSION CRITERIA CLASS I [] [x] Suspected diagnosis of acute ischemic stroke with measureable neurological deficit. Low NIHSS with disabling stroke symptoms. [] [x] Onset of stroke symptoms < 3 hours before beginning treatment >/ 18 years old Stroke symptom onset = time patient was last seen well or without symptoms (LKW) [] [x] Onset of symptoms between 3-4.5 hours: >/= 80 years old (safe Class IIa) with history of both diabetes and prior CVA (reasonable Class IIb) AND NIHSS </= 25 *If not eligible for IV Thrombolytic consider neuro intervention for LKW within 24 hours YES NO EXCLUSION CRITERIA (CONTRAINDICATIONS) CLASS III EVIDENCE HARM [] [] Blood pressure >185/110 medically refractory to IV medications [] [] Active bleeding at a non-compressible site [] [] Active intracranial hemorrhage (ICH) [] [] Symptoms suggestive of subarachnoid hemorrhage (SAH) [] [] GI bleed within 21 days [] [] Ischemic stroke within 3 months [] [] Severe head trauma within 3 months [] [] Intracranial or intraspinal surgery within 3 months [] [] Current GI malignancy [] [] Intracranial neoplasm [] [] Infective endocarditis [] [] Aortic arch dissection [] [] Active coagulopathy with INR >1.7, platelets <100,000, PTT > 40 sec, PT > 15 sec *For warfarin, administration can begin before blood tests resulted. Discontinue for above values. [] [] Treatment dose* of LMWH (Lovenox) in last 24 hours *prophylactic dosages are not a contraindication [] [] Concurrent use of antiplatelet agents' glycoprotein inhibitors IIb/IIIa (Integrilin, etc.) [] [] Thrombin or factor Xa inhibitors (Eliquis, Xarelto, Arixtra) taken in last 48 hours YES NO CLASS II: AIS WITH THE FOLLOWING CONDITIONS - TREATMENT RISKS SHOULD BE WEIGHED AGAINST POSSIBLE BENEFITS. [] [] Major trauma in last 14 days, recent major surgery in last 14 days, intracranial arterial dissection, giant unruptured and unsecured intracranial aneurysm, pericarditis [] [] The risks, benefits, and alternatives have been discussed with the patient or family related to the administration of IV thrombolytic therapy for stroke symptoms. [] [] I have discussed and reviewed the patient's case and imaging with the attending prior to IV thrombolytic therapy. TIME NA Time IV thrombolytic administered Hospital Meds: Scheduled- aspirin, 325 mg, Oral, Daily Or aspirin, 300 mg, Rectal, Daily atorvastatin, 80 mg, Oral, Nightly cefTRIAXone, 1,000 mg, Intravenous, Q24H sodium chloride, 10 mL, Intravenous, Q12H Infusions- PRNs- acetaminophen OR acetaminophen OR acetaminophen senna-docusate sodium AND polyethylene glycol AND bisacodyl AND bisacodyl Calcium Replacement - Follow Nurse / BPA Driven Protocol Magnesium Cardiology Dose Replacement - Follow Nurse / BPA Driven Protocol nitroglycerin ondansetron Phosphorus Replacement - Follow Nurse / BPA Driven Protocol Potassium Replacement - Follow Nurse / BPA Driven Protocol sodium chloride sodium chloride Functional Status Prior to Current Stroke/Dickson Score: 0 NIH Stroke Scale Time: 01:15 EDT Person Administering Scale: Mary Montgomery APRN 1a Level of consciousness: 0=alert; keenly responsive 1b. LOC questions: 0=Answers both questions correctly 1c. LOC commands: 0=Performs both tasks correctly 2. Best Gaze: 0=normal 3. Visual: 0=No visual loss 4. Facial Palsy: 0=Normal symmetric movement 5a. Motor left arm: 0=No drift, limb holds 90 (or 45) degrees for full 10 seconds 5b. Motor right arm: 0=No drift, limb holds 90 (or 45) degrees for full 10 seconds 6a. motor left le=No drift, limb holds 90 (or 45) degrees for full 10 seconds 6b Motor right le=No drift, limb holds 90 (or 45) degrees for full 10 seconds 7. Limb Ataxia: 0=Absent 8. Sensory: 0=Normal; no sensory loss 9. Best Language: 0=No aphasia, normal 10. Dysarthria: 0=Normal 11. Extinction and Inattention: 0=No abnormality Total: 0 Results Reviewed: I have personally reviewed current lab, radiology, and data and agree with results. OSH imaging and labs from [facility]: CT ABD/PELVIS w/ CONTRAST: Apparent thickening of the rectosigmoid and portions of the proximal colon CT HEAD w/o CONTRAST: no acute intracranial abnormality CTA HEAD/NECK: moderate right ICA stenosis, mild left ICA stenosis. Otherwise negative CTA WBC 13.7 H/H 11.1/35.1 PLT 344 NA 137 K+ 4.3 Creatinine 1.6 BUN 22 AST 40 ALT 26 UA unremarkable UDS negative Assessment/Plan: 69-year-old female with multiple vascular risk factors who presented to outside hospital with complaints of vertigo and gait instability. Secondary to extended last a while she was not deemed to be an appropriate IV thrombolytic therapy candidate. Secondary to lack of large vessel occlusion on CTA head and neck imaging she was not deemed to be an appropriate emergent endovascular therapy candidate. She transferred to [facility] for further neurologic workup and evaluation. Antiplatelet ERADICATOR: ASA Anticoagulant ERADICATOR: None Vertigo Gait Instability Electrolyte Imbalance Blood pressure variability -Differentials to include BPPV, peripheral cause, vs CVA - CVA orderset, de-escalate as appropriate - Bedside dysphagia screening prior to any p.o. intake including medications - If passes appropriate for cardiac diabetic diet - MRI brain without contrast, thin slices through the brainstem, routine - TTE with bubble, routine - A1c and FLP in AM - PT OT WELDING SYSTEMS AND EQUIPMENT REPAIRER to see and assess - Continue ASA daily - Lipitor per home dose, adjust according to AM labs - Allow for autoregulation of the PT BP overnight, overall mangement per primary medicine team - Upload OSH imaging - CM assistance for DC planning needs - Stroke Education - Orthostatic Blood Pressure in AM - NIHSS and neuro checks per protocol - AM labs for electrolyte replacement as needed Stroke Neurology will continue to follow. Plan discussed with the patient as well as their family who is present at the bedside and the Hospital Medicine Team. Thanks for the consult in the care of this patient. Please call with any questions or concerns. Mary Montgomery APRN Stroke Neurology October 27, 2024 Cosigned by Buster Fagan MD at 10/27/2024 3:22 PM EDT Associated attestation - Buster Fagan MD - 10/27/2024 3:22 PM EDT I have reviewed this documentation and agree. documented in this encounter Nursing Notes * Marsha Wells RN - 10/27/2024 4:29 PM EDT Goal Outcome Evaluation: Patient alert and oriented x4. Being discharged home with spouse via persona car. Discharge instructions carole over with patient and spouse at bedside. Both state understanding. Meds to bed received. * Margot Maxwell, MS CCC-WELDING SYSTEMS AND EQUIPMENT REPAIRER - 10/27/2024 3:05 PM EDT Goal Outcome Evaluation: Anticipated Discharge Disposition (WELDING SYSTEMS AND EQUIPMENT REPAIRER): home with assist, other (see comments) (Outpatient therapyto address memory and word finding if not improved.) WELDING SYSTEMS AND EQUIPMENT REPAIRER Diagnosis: mild, cognitive-linguistic disorder (10/27/24 1400) * Cris Funes OT - 10/27/2024 9:05 AM EDT Problem: Adult Inpatient Plan of Care Goal: Plan of Care Review Recent Flowsheet Documentation Taken 10/27/2024 0958 by Cris Funes OT Progress: (IE) -- Outcome Evaluation: OT IE completed. Pt is A/Ox3 and particiaptes in therapy with good effort. BUE AROM, strength, and sensation are WFL. Pt is up in room/bathroom and transfering with RW support andCGAx1. Presents below her baseline with LLE weakness, dizziness, and balance deficits. Pt completesLB ADLs with effort. Appropriate AE issued with brief reviewed. OT will follow up in treatment for teaching and trial. Recommend home with spouse assist when pt is medically ready. No DME needs identified. * Elida Tomlin, PT - 10/27/2024 8:59 AM EDT Goal Outcome Evaluation: Plan of Care Reviewed With: patient, spouse Progress: no change Outcome Evaluation: Patient ambulated 125 feet with RW, CGA, step through gait pattern, limited by fatigue and weakness. Patient demonstrated L LE weakness upon MMT and L LE antalgic with gait, patient attributes to chronic sciatica. Patient currently below functional baseline, demonstrating decreased functional mobility status, impaired balance, decreased endurance, and decreased strength. Will address these deficits to promote return to PLOF. Recommend d/c home with assist and outpatient PT. Anticipated Discharge Disposition (PT): home with assist, home with outpatient therapy services documented in this encounter Miscellaneous Notes * Therapy Evaluation - Margot Maxwell MS [facility]-WELDING SYSTEMS AND EQUIPMENT REPAIRER - 10/27/2024 3:04 PM EDT Images from the original note were not included. Acute Care - Speech Language Pathology Initial Evaluation [facility] Cognitive-Communication Evaluation Patient Name: Trcay Tilley : 1955 Today's Date: 10/27/2024 Admit Date: 10/26/2024 Visit Dx: ICD-10-CM ICD-9-CM 1. Chronic ear pain, left H92.02 388.70 G89.29 338.29 2. Cognitive communication deficit R41.841 799.52 Patient Active Problem List Diagnosis (none) - all problems resolved or deleted History reviewed. No pertinent past medical history. History reviewed. No pertinent surgical history. WELDING SYSTEMS AND EQUIPMENT REPAIRER Recommendation and Plan Recommended discharge disposition is based on the functional assessment performed by PT/OT/Speech therapy (as applicable) and may not reflect the medical necessity determined by your provider or services covered by an individual patient's insurance plan or patient resource. WELDING SYSTEMS AND EQUIPMENT REPAIRER Diagnosis: mild, cognitive-linguistic disorder (10/27/24 1400) [facility] Criteria for Skilled Therapy Interventions Met: yes (10/27/241399) Anticipated Discharge Disposition (WELDING SYSTEMS AND EQUIPMENT REPAIRER): home with assist, other (see comments) (Outpatient therapyto address memory and word finding if not improved.) (10/27/241399) Demonstrates Need for Referral to Another Service: speech therapy, other (see comments) (OP if not improved) (08/30/25 1400) Therapy Frequency (WELDING SYSTEMS AND EQUIPMENT REPAIRER SLC): 5 days per week (10/27/24 1400) Predicted Duration Therapy Intervention (Days): 1 week (10/27/241399) WELDING SYSTEMS AND EQUIPMENT REPAIRER EVALUATION (Last 72 Hours) WELDING SYSTEMS AND EQUIPMENT REPAIRER [facility] Evaluation Row Name 10/27/241399 Communication Assessment/Intervention Document Type evaluation -CH Subjective Information no complaints -CH Patient Observations alert;cooperative;agree to therapy - Patient/Family/Caregiver Comments/Observations spouse present - Patient Effort good - Symptoms Noted During/After Treatment none - General Information Patient Profile Reviewed yes - Precautions/Limitations, Vision WFL;for purposes of eval -CH Precautions/Limitations, Hearing WFL;for purposes of eval -CH Prior Level of Function-Communication WFL - Plans/Goals Discussed with patient;spouse/S.O.;agreed upon - Barriers to Rehab none identified - Patient's Goals for Discharge return to home;return to all previous roles/activities - Pain Scale: FACES Pre/Post-Treatment Pain: FACES Scale, Pretreatment 0-->no hurt - Posttreatment Pain Rating 0-->no hurt - Comprehension Assessment/Intervention Comprehension Assessment/Intervention Auditory Comprehension;Reading Comprehension - Auditory Comprehension Assessment/Intervention Auditory Comprehension (Communication) WNL -CH Reading Comprehension Assessment/Intervention Reading Comprehension (Communication) WNL - Expression Assessment/Intervention Expression Assessment/Intervention verbal expression;graphic expression - Verbal Expression Assessment/Intervention Verbal Expression mild impairment -CH Automatic Speech (Communication) WNL -CH Repetition WNL - Phrase Completion WNL - Responsive Naming delayed responses;mild impairment -CH Confrontational Naming low frequency;WFL - Spontaneous/Functional Words complex;WFL - Sentence Formulation complex;L - Conversational Discourse/Fluency delayed responses;mild impairment -CH Graphic Expression Assessment/Intervention Graphic Expression WFL - Oral Motor Structure and Function Oral Motor Structure and Function WFL - Oral Musculature and Cranial Nerve Assessment Oral Motor General Assessment WFL -CH Motor Speech Assessment/Intervention Motor Speech Function WFL - Cursory Voice Assessment/Intervention Quality and Resonance (Voice) WFL - Cognitive Assessment Intervention- WELDING SYSTEMS AND EQUIPMENT REPAIRER Cognitive Function (Cognition) mild impairment - Orientation Status (Cognition) awareness of basic personal information;person;place;time;situation;WFL - Memory (Cognitive) short-term;delayed;mental manipulation;mild impairment;immediate;functional;long-term;[facility] - Attention (Cognitive) selective;sustained;attention to detail;WNL - Thought Organization (Cognitive) concrete divergent;abstract divergent;concrete convergent;abstractconvergent;verbal sequencing;WFL - Reasoning (Cognitive) simple;deductive;L - Problem Solving (Cognitive) simple;temporal;WNL - Functional Math (Cognitive) simple;word problems;WFL - Pragmatics (Communication) WF - WELDING SYSTEMS AND EQUIPMENT REPAIRER Evaluation Clinical Impressions WELDING SYSTEMS AND EQUIPMENT REPAIRER Diagnosis mild;cognitive-linguistic disorder - Rehab Potential/Prognosis good - [facility] Criteria for Skilled Therapy Interventions Met yes - Functional Impact functional impact in social situations;difficulty in expressing complex messages;difficulty completing home management task - Recommendations Therapy Frequency (WELDING SYSTEMS AND EQUIPMENT REPAIRER SLC) 5 days per week - Predicted Duration Therapy Intervention (Days) 1 week - Anticipated Discharge Disposition (WELDING SYSTEMS AND EQUIPMENT REPAIRER) home with assist;other (see comments) Outpatient therapy toaddress memory and word finding if not improved. -CH Demonstrates Need for Referral to Another Service speech therapy;other (see comments) OP if not improved - User Nath (r) = Recorded By, (t) = Taken By, (c) = Cosigned By Initials Name Effective Dates Margot Maxwell, MS [facility]-WELDING SYSTEMS AND EQUIPMENT REPAIRER 03/19/24 - EDUCATION The patient has been educated in the following areas: Cognitive Impairment Communication Impairment. WELDING SYSTEMS AND EQUIPMENT REPAIRER GOALS Row Name 10/27/24 1400 Patient will demonstrate functional language skills for return to discharge environment [place] with minimal cues - Time frame 2 weeks - Patient will demonstrate functional cognitive-linguistic skills for return to discharge environment [place] Independently - Time frame 2 weeks - Word Retrieval Skills Goal 1 (WELDING SYSTEMS AND EQUIPMENT REPAIRER) Improve Word Retrieval Skills By Goal 1 (WELDING SYSTEMS AND EQUIPMENT REPAIRER) supplying an antonym;supplying a synonym;completing adivergent task;90%;with minimal cues (75-90%) - Time Frame (Word Retrieval Goal 1, WELDING SYSTEMS AND EQUIPMENT REPAIRER) 1 week -CH Connected Speech to Express Thoughts Goal 1 (WELDING SYSTEMS AND EQUIPMENT REPAIRER) Improve Narrative Discourse to Express Thoughts By Goal 1 (WELDING SYSTEMS AND EQUIPMENT REPAIRER) explaining a proverb or idiom;90%;with minimal cues (75-90%) - Time Frame (Connected Speech Goal 1, WELDING SYSTEMS AND EQUIPMENT REPAIRER) 1 week - Memory Skills Goal 1 (WELDING SYSTEMS AND EQUIPMENT REPAIRER) Improve Memory Skills Through Goal 1 (WELDING SYSTEMS AND EQUIPMENT REPAIRER) recalling related word lists with an imposed delay;listen to a paragraph and answer questions;select a word from a list by exclusion;90%;with minimal cues (75-90%) - Time Frame (Memory Skills Goal 1, WELDING SYSTEMS AND EQUIPMENT REPAIRER) 1 week - User Nath (r) = Recorded By, (t) = Taken By, (c) = Cosigned By Initials Name Provider Type Margot Maxwell MS CCC-WELDING SYSTEMS AND EQUIPMENT REPAIRER Speech and Language Pathologist Time Calculation: Time Calculation- WELDING SYSTEMS AND EQUIPMENT REPAIRER Row Name 10/27/24 1503 Time Calculation- WELDING SYSTEMS AND EQUIPMENT REPAIRER WELDING SYSTEMS AND EQUIPMENT REPAIRER Start Time 1400 -CH WELDING SYSTEMS AND EQUIPMENT REPAIRER Received On 10/27/24 -CH Untimed Charges WELDING SYSTEMS AND EQUIPMENT REPAIRER Eval/Re-eval ST Eval Speech and Production w/ Language - 40994 -CH [id number] Eval Speech and Production w/ Language Minutes 43 -CH Total Minutes Untimed Charges Total Minutes 43 -CH Total Minutes 43 -CH User Nath (r) = Recorded By, (t) = Taken By, (c) = Cosigned By Initials Name Provider Type Margot Maxwell MS CCC-WELDING SYSTEMS AND EQUIPMENT REPAIRER Speech and Language Pathologist Therapy Charges for Today Code Description Service Date Service Provider Modifiers Qty [id number] ST EVAL SPEECH AND PROD W LANG 3 10/27/2024 Margot Maxwell MS CCC-WELDING SYSTEMS AND EQUIPMENT REPAIRER GN 1 Margot Maxwell MS CCC-TA 10/27/2024 * Therapy Evaluation - Cris Funes OT - 10/27/2024 9:05 AM EDT Images from the original note were not included. Patient Name: Tracy Tilley : 1955 Today's Date: 10/27/2024 Admit Date: 10/26/2024 Visit Dx: No diagnosis found. Patient Active Problem List Diagnosis Ataxia History reviewed. No pertinent past medical history. History reviewed. No pertinent surgical history. General Information Row Name 10/27/24 0999 OT Time and Intention Subjective Information complains of;weakness;pain -TB Document Type evaluation -TB Mode of Treatment occupational therapy -TB Patient Effort good -TB Symptoms Noted During/After Treatment none -TB Row Name 10/27/24 0928 General Information Patient Profile Reviewed yes -TB Prior Level of Function independent:;all household mobility;community mobility;bed mobility;ADL's No AD prior -TB Existing Precautions/Restrictions hip;other (see comments) LLE weakness, dizziness -TB Barriers to Rehab none identified -TB Row Name 10/27/24 0950 Occupational Profile Reason for Services/Referral (Occupational Profile) Occupational decline -TB Environmental Supports and Barriers (Occupational Profile) Pt lives with her spouse and 6 children.1 step to enter. No interior steps. Walk-in shower with seat. Comfort ht commodes. No AD prior. Independent with all mobility and self- care at baseline. -TB Row Name 10/27/24 0950 Living Environment Current Living Arrangements home -TB People in Home spouse;child(gilda), dependent -TB Row Name 10/27/24 09 Home Main Entrance Number of Stairs, Main Entrance one -TB Row Name 10/27/24 0950 Stairs Within Home, Primary Number of Stairs, Within Home, Primary none -TB Row Name 10/27/24 0950 Cognition Orientation Status (Cognition) oriented x 3 -TB Row Name 10/27/24 0950 Safety Issues/Impairments Affecting Functional Mobility Safety Issues Affecting Function (Mobility) insight into deficits/self- awareness;awareness of need for assistance;safety precaution awareness;safety precautions follow-through/compliance;judgment;sequencing abilities -TB Impairments Affecting Function (Mobility) balance;endurance/activity tolerance;pain;strength;sensation/sensory awareness -TB Comment, Safety Issues/Impairments (Mobility) Pt is up in room and bathroom with RW support and CGAx1. -TB User Nath (r) = Recorded By, (t) = Taken By, (c) = Cosigned By Initials Name Provider Type TB Cris Funes OT Occupational Therapist Mobility/ADL's Row Name 10/27/24 09 Bed Mobility Comment, (Bed Mobility) Pt rec'vd up in room -TB Row Name 10/27/24 09 Transfers Transfers sit-stand transfer;stand-sit transfer;bed-chair transfer -TB Comment, (Transfers) Education and cues for hand placement and sequencing. -TB Row Name 10/27/24 09 Bed-Chair Transfer Bed-Chair Frederick (Transfers) contact guard;1 person assist;verbal cues -TB Assistive Device (Bed-Chair Transfers) walker, front-wheeled -TB Row Name 10/27/24952 Sit-Stand Transfer Sit-Stand Frederick (Transfers) contact guard;1 person assist;verbal cues -TB Assistive Device (Sit-Stand Transfers) walker, front-wheeled -TB Row Name 10/27/24952 Stand-Sit Transfer Stand-Sit Frederick (Transfers) contact guard;1 person assist;verbal cues -TB Assistive Device (Stand-Sit Transfers) walker, front-wheeled -TB Row Name 10/27/24952 Functional Mobility Functional Mobility- Ind. Level contact guard assist;1 person;verbal cues required -TB Functional Mobility- Device walker, front-wheeled -TB Functional Mobility-Distance (Feet) 30 -TB Functional Mobility- Safety Issues sequencing ability decreased;balance decreased during turns -TB Functional Mobility- Comment Pt is up in room/bathroom with good effort. Mild dizziness. Unsteady without LOB. Limited by LLE weakness. -TB Patient was able to Ambulate yes -TB Row Name 10/27/24952 Activities of Daily Living BADL Assessment/Intervention lower body dressing;feeding;toileting -TB Row Name 10/27/24952 Lower Body Dressing Assessment/Training Frederick Level (Lower Body Dressing) doff;don;socks;standby assist -TB Assistive Devices (Lower Body Dressing) mobile marketing manager;long-handled shoe horn;sock-aid -TB Position (Lower Body Dressing) edge of bed sitting -TB Comment, (Lower Body Dressing) Pt c/o B hip pain and heaviness in LLE. Appropriate AE issued with brief reviewed. OT will follow up in treatment for teaching and trial. -TB Row Name 10/27/24952 Self-Feeding Assessment/Training Frederick Level (Feeding) independent;liquids to mouth -TB Position (Feeding) supported sitting -TB Row Name 10/27/24952 Toileting Assessment/Training Frederick Level (Toileting) independent;perform perineal hygiene -TB Position (Toileting) unsupported sitting -TB User Nath (r) = Recorded By, (t) = Taken By, (c) = Cosigned By Initials Name Provider Type TB Cris Funes OT Occupational Therapist Obj/Interventions Row Name 10/27/24954 Sensory Assessment (Somatosensory) Sensory Assessment (Somatosensory) UE sensation intact -TB Sensory Subjective Reports paresthesia LLE -TB Sensory Assessment Pt reports numbness/tingling in LLE d/t sciatica -TB Row Name 10/27/24 09 Sensory Interventions Sensory Re-education (Sensation) visual observation of sensory input -TB Row Name 10/27/24 09 Vision Assessment/Intervention Visual Impairment/Limitations WFL -TB Row Name 10/27/24 09 Range of Motion Comprehensive General Range of Motion bilateral upper extremity ROM WFL -TB Comment, General Range of Motion BUE AROM is WFL for self-care performance. B shoulder end range deficits noted. -TB Row Name 10/27/24 09 Strength Comprehensive (MMT) Comment, General Manual Muscle Testing (MMT) Assessment Generalized weakness/deconditioned. BUE 4/5-TB Row Name 10/27/24 09 Motor Skills Motor Skills functional endurance -TB Functional Endurance Pt fatigues easily with minimal activity. Mild SNOW, RA sats 95-100% -TB Row Name 10/27/24 09 Balance Balance Assessment sitting dynamic balance;sit to stand dynamic balance;standing dynamic balance -TB Dynamic Sitting Balance standby assist -TB Position, Sitting Balance unsupported;sitting in chair;sitting edge of bed -TB Sit to Stand Dynamic Balance contact guard;1-person assist;verbal cues -TB Dynamic Standing Balance contact guard;1-person assist;verbal cues -TB Position/Device Used, Standing Balance supported;walker, front-wheeled -TB Balance Interventions sitting;standing;sit to stand;supported;dynamic;dynamic reaching;occupation based/functional task -TB Comment, Balance No LOB -TB User Nath (r) = Recorded By, (t) = Taken By, (c) = Cosigned By Initials Name Provider Type TB Cris Funes OT Occupational Therapist Goals/Plan Row Name 10/27/24 1004 Transfer Goal 1 (OT) Activity/Assistive Device (Transfer Goal 1, OT) [id number];toilet -TB Frederick Level/Cues Needed (Transfer Goal 1, OT) supervision required -TB Time Frame (Transfer Goal 1, OT) terminal operations supervisor goal (LTG);1 week -TB Progress/Outcome (Transfer Goal 1, OT) goal ongoing -TB Row Name 10/27/24 1004 Dressing Goal 1 (OT) Activity/Device (Dressing Goal 1, OT) upper body dressing;lower body dressing -TB Frederick/Cues Needed (Dressing Goal 1, OT) standby assist -TB Time Frame (Dressing Goal 1, OT) terminal operations supervisor goal (LTG);1 week -TB Row Name 10/27/24 1004 Toileting Goal 1 (OT) Activity/Device (Toileting Goal 1, OT) toileting skills, all -TB Time Frame (Toileting Goal 1, OT) short term goal (STG);3 days -TB Progress/Outcome (Toileting Goal 1, OT) goal ongoing -TB User Nath (r) = Recorded By, (t) = Taken By, (c) = Cosigned By Initials Name Provider Type TB Cris Funes, OT Occupational Therapist Clinical Impression Row Name 10/27/24957 Pain Assessment Pain Location head -TB Pain Management Interventions positioning techniques utilized;activity modification encouraged -TB Response to Pain Interventions activity participation with tolerable pain;activity level improved -TB Row Name 10/27/24957 Pain Scale: FACES Pre/Post-Treatment Pain: FACES Scale, Pretreatment 2-->hurts little bit -TB Posttreatment Pain Rating 2-->hurts little bit -TB Row Name 10/27/24 09 Plan of Care Review Plan of Care Reviewed With patient;spouse -TB Progress -- IE -TB Outcome Evaluation OT IE completed. Pt is A/Ox3 and particiaptes in therapy with good effort. BUE AROM, strength, and sensation are WFL. Pt is up in room/bathroom and transfering with RW support and CGAx1. Presents below her baseline with LLE weakness, dizziness, and balance deficits. Pt completes LB ADLs with effort. Appropriate AE issued with brief reviewed. OT will follow up in treatment for teaching and trial. Recommend home with spouse assist when pt is medically ready. No DME needs identified. -TB Row Name 10/27/24 09 Therapy Assessment/Plan (OT) Rehab Potential (OT) good -TB Criteria for Skilled Therapeutic Interventions Met (OT) yes;meets criteria;skilled treatment is necessary -TB Therapy Frequency (OT) daily -TB Row Name 10/27/24 09 Therapy Plan Review/Discharge Plan (OT) Anticipated Discharge Disposition (OT) home with assist -TB Row Name 10/27/24957 Vital Signs Pre Systolic BP Rehab 135 RN cleared OT -TB Pre Treatment Diastolic BP 65 -TB Post Systolic BP Rehab 148 -TB Post Treatment Diastolic BP 75 -TB Pretreatment Heart Rate (beats/min) 84 -TB Posttreatment Heart Rate (beats/min) 83 -TB Intra SpO2 (%) 95 -TB O2 Delivery Intra Treatment room air -TB Post SpO2 (%) 100 -TB O2 Delivery Post Treatment room air -TB Pre Patient Position Standing -TB Intra Patient Position Sitting -TB Post Patient Position Sitting -TB Row Name 10/27/24 0958 Positioning and Restraints Pre-Treatment Position standing in room -TB Post Treatment Position chair -TB In Chair notified nsg;reclined;call light within reach;encouraged to call for assist;exit alarm on;with family/caregiver;legs elevated -TB User Nath (r) = Recorded By, (t) = Taken By, (c) = Cosigned By Initials Name Provider Type TB Cris Funes, APOLINAR Occupational Therapist Outcome Measures Row Name 10/27/24 1005 How much help from another is currently needed... Putting on and taking off regular lower body clothing? 3 -TB Bathing (including washing, rinsing, and drying) 3 -TB Toileting (which includes using toilet bed crandall or urinal) 3 -TB Putting on and taking off regular upper body clothing 3 -TB Taking care of personal grooming (such as brushing teeth) 3 -TB Eating meals 4 -TB AM-PAC 6 Clicks Score (OT) 19 -TB Row Name 10/27/24 0859 10/26/24 1913 How much help from another person do you currently need... Turning from your back to your side while in flat bed without using bedrails? 4 -LR 4 -JY Moving from lying on back to sitting on the side of a flat bed without bedrails? 4 -LR 4 -JY Moving to and from a bed to a chair (including a wheelchair)? 3 -LR 3 -JY Standing up from a chair using your arms (e.g., wheelchair, bedside chair)? 3 - LR 3 -JY Climbing 3-5 steps with a railing? 3 -LR 3 -JY To walk in hospital room? 3 -LR 3 -JY AM-PAC 6 Clicks Score (PT) 20 -LR 20 -JY Highest Level of Mobility Goal Walk 10 Steps or More-6 -LR Walk 10 Steps or More-6 -JY Row Name 10/27/24 1005 Modified Dickson Scale Pre-Stroke Modified Trevor Scale 6 - Unable to determine (UTD) from the medical record documentation - Modified Trevor Scale 1 - No significant disability despite symptoms. Able to carry out all usual duties and activities. - Row Name 10/27/24 1005 10/27/24 0859 Functional Assessment Outcome Measure Options AM-PAC 6 Clicks Daily Activity (OT);Modified Trevor -TB AM-PAC 6 Clicks Basic Mobility (PT) -LR User Nath (r) = Recorded By, (t) = Taken By, (c) = Cosigned By Initials Name Provider Type Cris Funes, OT Occupational Therapist Elida Peter, PT Physical Therapist Alcon Holman, RN Registered Nurse Occupational Therapy Education Title: PT OT WELDING SYSTEMS AND EQUIPMENT REPAIRER Therapies (In Progress) Topic: Occupational Therapy (In Progress) Point: ADL training (Done) Learning Progress Summary Patient Acceptance, E,D, VU,NR by at 10/27/2024 1005 User Nath Initials Effective Dates Name Provider Type Discipline 09/07/22 - Cris Funes OT Occupational Therapist OT OT Recommendation and Plan Recommended discharge disposition is based on the functional assessment performed by PT/OT/Speech therapy (as applicable) and may not reflect the medical necessity determined by your provider or services covered by an individual patient's insurance plan or patient resource. Therapy Frequency (OT): daily Plan of Care Review Plan of Care Reviewed With: patient, spouse Progress: (IE) Outcome Evaluation: OT IE completed. Pt is A/Ox3 and particiaptes in therapy with good effort. BUE AROM, strength, and sensation are WFL. Pt is up in room/bathroom and transfering with RW support andCGAx1. Presents below her baseline with LLE weakness, dizziness, and balance deficits. Pt completesLB ADLs with effort. Appropriate AE issued with brief reviewed. OT will follow up in treatment for teaching and trial. Recommend home with spouse assist when pt is medically ready. No DME needs identified. Time Calculation: Evaluation Complexity (OT) Review Occupational Profile/Medical/Therapy History Complexity: expanded/moderate complexity Assessment, Occupational Performance/Identification of Deficit Complexity: 3-5 performance deficits Clinical Decision Making Complexity (OT): detailed assessment/moderate complexity Overall Complexity of Evaluation (OT): moderate complexity Time Calculation- OT Row Name 10/27/24904 Time Calculation- OT OT Start Time 904 - OT Received On 10/27/24 -TB OT Goal Re-Cert Due Date 11/06/24 -TB Untimed Charges OT Eval/Re-eval Minutes 56 -TB Total Minutes Untimed Charges Total Minutes 56 -TB Total Minutes 56 -TB User Nath (r) = Recorded By, (t) = Taken By, (c) = Cosigned By Initials Name Provider Type TB Cris Funes OT Occupational Therapist Therapy Charges for Today Code Description Service Date Service Provider Modifiers Qty [id number] HC OT EVAL MOD COMPLEXITY 4 10/27/2024 Cris Funes OT GO 1 Cris Funes OT 10/27/2024 * Therapy Evaluation - Elida Tomlin, PT - 10/27/2024 8:59 AM EDT Images from the original note were not included. Patient Name: Tracy Tilley : 1955 Today's Date: 10/27/2024 Admit Date: 10/26/2024 Visit Dx: No diagnosis found. Patient Active Problem List Diagnosis Ataxia History reviewed. No pertinent past medical history. History reviewed. No pertinent surgical history. General Information Row Name 10/27/2459 Physical Therapy Time and Intention Document Type evaluation -LR Mode of Treatment physical therapy -LR Row Name 10/27/2422 General Information Patient Profile Reviewed yes -LR Prior Level of Function independent:;all household mobility;community mobility;gait;transfer;bed mobility did not use AD ERADICATOR -LR Existing Precautions/Restrictions fall;other (see comments) L LE weakness, dizziness -LR Barriers to Rehab none identified -LR Row Name 10/27/2405 Living Environment Current Living Arrangements home -LR People in Home spouse;child(gilda), dependent -LR Row Name 10/27/2455 Home Main Entrance Number of Stairs, Main Entrance one -LR Stair Railings, Main Entrance none -LR Row Name 10/27/24 08 Stairs Within Home, Primary Number of Stairs, Within Home, Primary none -LR Row Name 10/27/24858 Cognition Orientation Status (Cognition) oriented x 3;other (see comments) couldn't remember whichh shoulder she had prior sx on -LR Row Name 10/27/24 08 Safety Issues/Impairments Affecting Functional Mobility Safety Issues Affecting Function (Mobility) safety precautions follow- through/compliance;insight into deficits/self-awareness;judgment;awareness of need for assistance;sequencing abilities;safety precaution awareness -LR Impairments Affecting Function (Mobility) balance;endurance/activity tolerance;strength;pain;sensation/sensory awareness -LR User Nath (r) = Recorded By, (t) = Taken By, (c) = Cosigned By Initials Name Provider Type Elida Peter, PT Physical Therapist Mobility Row Name 10/27/24858 Bed Mobility Assistive Device (Bed Mobility) other (see comments) -LR Comment, (Bed Mobility) Up in bathroom with nursing on arrival. [facility] at end of eval. -LR Row Name 10/27/24858 Transfers Comment, (Transfers) Verbal cues to push up from bed to stand and to reach back for chair to lower into sitting. Cues to turn all the way around in front of chair and to square up before attempting to sit. -LR Row Name 10/27/24858 Bed-Chair Transfer Bed-Chair Frederick (Transfers) not tested -LR Row Name 10/27/24858 Sit-Stand Transfer Sit-Stand Frederick (Transfers) verbal cues;contact guard -LR Assistive Device (Sit-Stand Transfers) walker, front-wheeled -LR Row Name 10/27/24858 Gait/Stairs (Locomotion) Frederick Level (Gait) verbal cues;contact guard -LR Assistive Device (Gait) walker, front-wheeled -LR Patient was able to Ambulate yes -LR Distance in Feet (Gait) 125 -LR Deviations/Abnormal Patterns (Gait) bilateral deviations;barak decreased;gait speed decreased;stride length decreased;left sided deviations;antalgic -LR Bilateral Gait Deviations forward flexed posture;heel strike decreased -LR Left Sided Gait Deviations weight shift ability decreased -LR Frederick Level (Stairs) not tested -LR Comment, (Gait/Stairs) Patient ambulated with step through gait pattern at slow pace. L LE antalgicand stiff with gait. Verbal cues for increased L LE weight bearing and increased L knee flexion during swing phase. Improved slightly with cues for correction. Mildlly labored breathing with activity. Gait limited by fatigue and weakness. -LR User Nath (r) = Recorded By, (t) = Taken By, (c) = Cosigned By Initials Name Provider Type LR Elida Tomlin, GAVIN Physical Therapist Obj/Interventions Row Name 10/27/24 0859 Range of Motion Comprehensive General Range of Motion bilateral lower extremity ROM WFL -LR Row Name 10/27/24 0859 Strength Comprehensive (MMT) General Manual Muscle Testing (MMT) Assessment lower extremity strength deficits identified -LR Row Name 10/27/24 0859 Motor Skills Motor Skills coordination - Coordination WFL;bilateral;lower extremity;heel to wright;other (see comments) B heel wright slide and B foot KELSI WFL -LR Row Name 10/27/24 0859 Balance Balance Assessment sitting static balance;sitting dynamic balance;standing static balance;standing dynamic balance -LR Static Sitting Balance standby assist -LR Dynamic Sitting Balance standby assist -LR Position, Sitting Balance unsupported;sitting edge of bed -LR Static Standing Balance contact guard -LR Dynamic Standing Balance contact guard -LR Position/Device Used, Standing Balance supported;walker, rolling -LR Row Name 10/27/24 0859 Sensory Assessment (Somatosensory) Sensory Assessment (Somatosensory) other (see comments) reports numbness/tingling in L LE d/t sciatica, reports light touch sensation less on R than L -LR Row Name 10/27/24 0859 Lower Extremity (Manual Muscle Testing) Lower Extremity: Manual Muscle Testing (MMT) other (see comments) -LR Comment, MMT: Lower Extremity R hip flexors: 4/5, L hip flexors: 3+/5, R knee flexors/extensors: 4/+/5, L knee flexors/extensors: 4-/5, R ankle DFs: 5/5, L ankle DFs: 3+/5 -LR User Nath (r) = Recorded By, (t) = Taken By, (c) = Cosigned By Initials Name Provider Type Elida Peter, GAVIN Physical Therapist Goals/Plan Row Name 10/27/24858 Bed Mobility Goal 1 (PT) Activity/Assistive Device (Bed Mobility Goal 1, PT) sit to supine/supine to sit -LR Frederick Level/Cues Needed (Bed Mobility Goal 1, PT) independent -LR Time Frame (Bed Mobility Goal 1, PT) short term goal (STG);3 days -LR Progress/Outcomes (Bed Mobility Goal 1, PT) goal ongoing -LR Row Name 10/27/24858 Transfer Goal 1 (PT) Activity/Assistive Device (Transfer Goal 1, PT) [id number]/[id number];walker, rolling -LR Frederick Level/Cues Needed (Transfer Goal 1, PT) modified independence -LR Time Frame (Transfer Goal 1, PT) halfway goal (LTG);5 days -LR Progress/Outcome (Transfer Goal 1, PT) goal ongoing -LR Row Name 10/27/24858 Gait Training Goal 1 (PT) Activity/Assistive Device (Gait Training Goal 1, PT) gait (walking locomotion);walker, rolling -LR Frederick Level (Gait Training Goal 1, PT) modified independence -LR Distance (Gait Training Goal 1, PT) 500 feet -LR Time Frame (Gait Training Goal 1, PT) terminal operations supervisor goal (LTG);5 days -LR Progress/Outcome (Gait Training Goal 1, PT) goal ongoing -LR Row Name 10/27/24858 Stairs Goal 1 (PT) Activity/Assistive Device (Stairs Goal 1, PT) ascending stairs;descending stairs;step-over step;walker, rolling -LR Frederick Level/Cues Needed (Stairs Goal 1, PT) contact guard required -LR Number of Stairs (Stairs Goal 1, PT) 1 -LR Time Frame (Stairs Goal 1, PT) halfway goal (LTG);5 days -LR Progress/Outcome (Stairs Goal 1, PT) goal ongoing -LR Row Name 10/27/24858 Therapy Assessment/Plan (PT) Planned Therapy Interventions (PT) balance training;bed mobility training;gait training;home exercise program;patient/family education;strengthening;transfer training;stair training;motor coordination training;neuromuscular re-education -LR User Nath (r) = Recorded By, (t) = Taken By, (c) = Cosigned By Initials Name Provider Type LR Elida Tomlin, PT Physical Therapist Clinical Impression Row Name 10/27/24858 Pain Pain Location head -LR Pain Management Interventions exercise or physical activity utilized;movement retraining implemented -LR Response to Pain Interventions activity level improved;mobility function improved;functional ability improved;activity participation with tolerable pain -LR Additional Documentation Pain Scale: FACES Pre/Post-Treatment (Group) -LR Row Name 10/27/24858 Pain Scale: FACES Pre/Post-Treatment Pain: FACES Scale, Pretreatment 2-->hurts little bit -LR Posttreatment Pain Rating 4-->hurts little more -LR Row Name 10/27/24858 Plan of Care Review Plan of Care Reviewed With patient;spouse -LR Progress no change -LR Outcome Evaluation Patient ambulated 125 feet with RW, CGA, step through gait pattern, limited by fatigue and weakness. Patient demonstrated L LE weakness upon MMT and L LE antalgic with gait, patient attributes to chronic sciatica. Patient currently below functional baseline, demonstrating decreased functional mobility status, impaired balance, decreased endurance, and decreased strength. Will address these deficits to promote return to PLOF. Recommend d/c home with assist and outpatient PT. -LR Row Name 10/27/24858 Therapy Assessment/Plan (PT) Patient/Family Therapy Goals Statement (PT) go home, get better -LR Rehab Potential (PT) good -LR Criteria for Skilled Interventions Met (PT) yes;meets criteria;skilled treatment is necessary -LR Therapy Frequency (PT) daily -LR Predicted Duration of Therapy Intervention (PT) 5 days -LR Row Name 10/27/24858 Vital Signs Pre Systolic BP Rehab 135 -LR Pre Treatment Diastolic BP 65 -LR Post Systolic BP Rehab 148 -LR Post Treatment Diastolic BP 75 -LR Pretreatment Heart Rate (beats/min) 84 -LR Posttreatment Heart Rate (beats/min) 83 -LR Post SpO2 (%) 100 -LR O2 Delivery Post Treatment room air -LR Pre Patient Position Supine -LR Post Patient Position Sitting -LR Row Name 10/27/24858 Positioning and Restraints Pre-Treatment Position bathroom -LR Post Treatment Position chair -LR In Chair notified nsg;reclined;sitting;call light within reach;encouraged to call for assist;exit alarm on;with family/caregiver;legs elevated;waffle cushion -LR User Nath (r) = Recorded By, (t) = Taken By, (c) = Cosigned By Initials Name Provider Type Elida Peter, PT Physical Therapist Outcome Measures Row Name 10/27/24 0859 10/26/24 9060 How much help from another person do you currently need... Turning from your back to your side while in flat bed without using bedrails? 4 -LR 4 -JY Moving from lying on back to sitting on the side of a flat bed without bedrails? 4 -LR 4 -JY Moving to and from a bed to a chair (including a wheelchair)? 3 -LR 3 -JY Standing up from a chair using your arms (e.g., wheelchair, bedside chair)? 3 - LR 3 -JY Climbing 3-5 steps with a railing? 3 -LR 3 -JY To walk in hospital room? 3 -LR 3 -JY AM-PAC 6 Clicks Score (PT) 20 -LR 20 -JY Highest Level of Mobility Goal Walk 10 Steps or More-6 -LR Walk 10 Steps or More-6 -JY Row Name 10/27/24 0859 Functional Assessment Outcome Measure Options AM-PAC 6 Clicks Basic Mobility (PT) -LR User Nath (r) = Recorded By, (t) = Taken By, (c) = Cosigned By Initials Name Provider Type Elida Peter, PT Physical Therapist Alcon Holman RN Registered Nurse Physical Therapy Education Title: PT OT WELDING SYSTEMS AND EQUIPMENT REPAIRER Therapies (Done) Topic: Physical Therapy (Done) Point: Mobility training (Done) Learning Progress Summary Patient Acceptance, E,D, VU,NR by LR at 10/27/2024 0859 Comment: Educated on benefits of mobility, safety with mobility, correct sit<- >stand t/f technique, correct gait mechanics, and progression of POC. Significant Other Acceptance, E,D, VU,NR by LR at 10/27/2024 0859 Comment: Educated on benefits of mobility, safety with mobility, correct sit<- >stand t/f technique, correct gait mechanics, and progression of POC. Point: Home exercise program (Done) Learning Progress Summary Patient Acceptance, E,D, VU,NR by LR at 10/27/2024 0859 Comment: Educated on benefits of mobility, safety with mobility, correct sit<- >stand t/f technique, correct gait mechanics, and progression of POC. Significant Other Acceptance, E,D, VU,NR by LR at 10/27/2024 0859 Comment: Educated on benefits of mobility, safety with mobility, correct sit<- >stand t/f technique, correct gait mechanics, and progression of POC. Point: Body mechanics (Done) Learning Progress Summary Patient Acceptance, E,D, VU,NR by LR at 10/27/2024 0859 Comment: Educated on benefits of mobility, safety with mobility, correct sit<- >stand t/f technique, correct gait mechanics, and progression of POC. Significant Other Acceptance, E,D, VU,NR by LR at 10/27/2024 0859 Comment: Educated on benefits of mobility, safety with mobility, correct sit<- >stand t/f technique, correct gait mechanics, and progression of POC. Point: Precautions (Done) Learning Progress Summary Patient Acceptance, E,D, VU,NR by LR at 10/27/2024 0859 Comment: Educated on benefits of mobility, safety with mobility, correct sit<- >stand t/f technique, correct gait mechanics, and progression of POC. Significant Other Acceptance, E,D, VU,NR by LR at 10/27/2024 0859 Comment: Educated on benefits of mobility, safety with mobility, correct sit<- >stand t/f technique, correct gait mechanics, and progression of POC. User Nath Initials Effective Dates Name Provider Type Discipline LR 04/02/22 - Elida Tomlin, PT Physical Therapist PT PT Recommendation and Plan Recommended discharge disposition is based on the functional assessment performed by PT/OT/Speech therapy (as applicable) and may not reflect the medical necessity determined by your provider or services covered by an individual patient's insurance plan or patient resource. Planned Therapy Interventions (PT): balance training, bed mobility training, gait training, home exercise program, patient/family education, strengthening, transfer training, stair training, motor coordination training, neuromuscular re-education Therapy Frequency (PT): daily Progress: no change Outcome Evaluation: Patient ambulated 125 feet with RW, CGA, step through gait pattern, limited by fatigue and weakness. Patient demonstrated L LE weakness upon MMT and L LE antalgic with gait, patient attributes to chronic sciatica. Patient currently below functional baseline, demonstrating decreased functional mobility status, impaired balance, decreased endurance, and decreased strength. Will address these deficits to promote return to PLOF. Recommend d/c home with assist and outpatient PT. Time Calculation: PT Evaluation Complexity History, PT Evaluation Complexity: 3 or more personal factors and/or comorbidities Examination of Body Systems (PT Eval Complexity): total of 3 or more elements Clinical Presentation (PT Evaluation Complexity): evolving Clinical Decision Making (PT Evaluation Complexity): moderate complexity Overall Complexity (PT Evaluation Complexity): moderate complexity PT Charges Row Name 10/27/24 0859 Time Calculation Start Time 0859 -LR PT Received On 10/27/24 -LR PT Goal Re-Cert Due Date 11/06/24 -LR Untimed Charges PT Eval/Re-eval Minutes 47 -LR Total Minutes Untimed Charges Total Minutes 47 -LR Total Minutes 47 -LR User Nath (r) = Recorded By, (t) = Taken By, (c) = Cosigned By Initials Name Provider Type LR Elida Tomlin, PT Physical Therapist Therapy Charges for Today Code Description Service Date Service Provider Modifiers Qty [id number] HC PT EVAL MOD COMPLEXITY 4 10/27/2024 Elida Tomlin, PT GP 1 PT G-Codes Outcome Measure Options: AM-PAC 6 Clicks Basic Mobility (PT) AM-PAC 6 Clicks Score (PT): 20 PT Discharge Summary Anticipated Discharge Disposition (PT): home with assist, home with outpatient therapy services Elida Tomlin, PT 10/27/2024 documented in this encounter Plan of Treatment Scheduled Referrals Name Type Priority Associated Diagnoses Order Schedule Ambulatory Referral to ENT (Otolaryngology) Outpatient Referral Routine Chronic ear pain, left Ordered: 10/27/2024 documented as of this encounter Procedures Procedure Name Priority Date/Time Associated Diagnosis Comments ECHO COMPLETE W/ DOPPLER AND COLOR FLOW Routine 10/27/2024 12:20 PM EDT CBC WITH AUTO DIFFERENTIAL Urgent 10/27/2024 9:53 AM EDT HEMOGLOBIN A1C Urgent 10/27/2024 9:53 AM EDT LIPID PANEL Urgent 10/27/2024 9:53 AM EDT BASIC METABOLIC PANEL Urgent 10/27/2024 9:53 AM EDT MRI BRAIN WO CONTRAST Routine 10/27/2024 5:09 AM EDT POCT GLUCOSE FINGERSTICK Routine 10/27/2024 4:35 AM EDT POCT GLUCOSE FINGERSTICK Routine 10/27/2024 12:[address] OUTSIDE FILMS Routine 10/26/2024 12:[address] OUTSIDE FILMS Routine 10/26/2024 12:[address] OUTSIDE FILMS Routine 10/26/2024 12:[address] OUTSIDE FILMS Routine 10/26/2024 12:0 0 AM EDT documented in this encounter Results * ECHO COMPLETE W/ DOPPLER AND COLOR FLOW (10/27/2024 12:20 PM EDT) [facility] Signature EF(MOD-bp) 61.6 % LVIDd 3.8 cm LVIDs 2.5 cm IVSd 0.73 cm LVPWd 0.88 cm FS 34.0 % IVS/LVPW 0.83 cm ESV(cubed) 16.3 ml LV Sys Vol (BSA corrected) 12.8 cm2 EDV(cubed) 56.7 ml LV Rachel Vol (BSA corrected) 33.6 cm2 LV mass(C)d 88.2 grams LVOT area 3.5 cm2 LVOT diam 2.12 cm EDV(MOD-sp2) 32.9 ml EDV(MOD-sp4) 60.8 ml ESV(MOD-sp2) 13.4 ml ESV(MOD-sp4) 23.1 ml SV(MOD-sp2) 19.5 ml SV(MOD-sp4) 37.7 ml SVi(MOD-SP2) 10.8 ml/m2 SVi(MOD-SP4) 20.8 ml/m2 SVi (LVOT) 47.7 ml/m2 EF(MOD-sp2) 59.3 % EF(MOD-sp4) 62.0 % MV E max jordan 66.0 cm/sec MV A max jordan 75.0 cm/sec MV dec time 0.22 sec MV E/A 0.88 IVRT 85.0 ms LA ESV Index (BP) 18.3 ml/m2 Med Peak E' Jordan 6.1 cm/sec Lat Peak E' Jordan 8.6 cm/sec Avg E/e' ratio 8.98 SV(LVOT) 86.3 ml RV Base 2.26 cm RV Mid 1.92 cm RV Length 7.0 cm TAPSE (>1.6) 2.13 cm RV S' 13.4 cm/sec LA dimension (2D) 2.6 cm LV V1 max 137.3 cm/sec LV V1 max PG 7.5 mmHg LV V1 mean PG 3.5 mmHg LV V1 VTI 24.4 cm Ao pk jordan 143.8 cm/sec Ao max PG 8.3 mmHg Ao mean PG 4.7 mmHg Ao V2 VTI 26.6 cm MELLISSA(I,D) 3.2 cm2 Dimensionless Index 0.92 (DI) MV max PG 2.9 mmHg MV mean PG 1.41 mmHg MV V2 VTI 19.3 cm MVA(VTI) 4.5 cm2 MV dec slope 297.5 cm/sec2 PA V2 max 98.5 cm/sec PA acc time 0.15 sec Ao root diam 3.0 cm BH CV ECHO SHUNT ASSESSMENT PERFORMED (HIDDEN SCRIPTING) 1 Ascending aorta 3.1 cm Anatomical Region Laterality Modality Ultrasound Narrative 10/27/2024 12:31 PM EDT Left ventricular systolic function is normal. Calculated left ventricular EF = 61.6% Left ventricular ejection fraction appears to be 61 - 65%. Left ventricular diastolic function was normal. Saline test results are negative. Left Ventricle Left ventricular systolic function is normal. Calculated left ventricular EF = 61.6% Left ventricular ejection fraction appears to be 61 - 65%. Normal left ventricular cavity size and wall thickness noted. All left ventricular wall segments contract normally. Left ventricular diastolic function was normal. Right Ventricle Normal right ventricular cavity size, wall thickness, systolic function and septal motion noted. Left Atrium Normal left atrial size and volume noted. No evidence of a patent foramen ovale. No evidence of an atrial septal defect present. Saline test results are negative. Right Atrium Normal right atrial cavity size noted. Mitral Valve The mitral valve is structurally normal with no regurgitation or significant stenosis present. Tricuspid Valve The tricuspid valve is structurally normal with no significant regurgitation or significant stenosis present. Aortic Valve The aortic valve is structurally normal with no regurgitation or stenosis present. Pulmonic Valve The pulmonic valve is structurally normal with no regurgitation or significant stenosis present. Pericardium The pericardium is normal. There is no evidence of pericardial effusion. . Greater Vessels No dilation of the aortic root is present. The inferior vena cava is normally sized. Normal IVC inspiratory collapse of greater than 50% noted. Study Quality The study is technically adequate for diagnosis. Shunt Assessment Verbal consent was obtained from the patient for use of agitated saline to assess for shunting. A total of 20 mL of agitated saline was administered. Mary Montgomery APRN CV ECHO ORDERABLES Final Result * (ABNORMAL) CBC Auto Differential (10/27/2024 9:53 AM EDT) [facility] WBC 12.17(H) 3.40 - 10.80 10*3/mm3 10/27/2024 10:30 AM EDT [facility] RBC 3.79 3.77 - 5.28 10*6/mm3 10/27/2024 10:30 AM EDT [facility] Hemoglobin 10.8(L) 12.0 - 15.9 g/dL 10/27/2024 10:30 AM EDT [facility] Hematocrit 34.4 34.0 - 46.6 % 10/27/2024 10:30 AM EDT [facility] MCV 90.8 79.0 - 97.0 fL 10/27/2024 10:30 AM EDT [facility] MCH 28.5 26.6 - 33.0 pg 10/27/2024 10:30 AM EDT [facility] MCHC 31.4(L) 31.5 - 35.7 g/dL 10/27/2024 10:30 AM EDT [facility] RDW 13.5 12.3 - 15.4 % 10/27/2024 10:30 AM [facility] RDW-SD 44.8 37.0 - 54.0 fl 10/27/2024 10:30 AM [facility] MPV 9.6 6.0 - 12.0 fL 10/27/2024 10:30 AM [facility] Platelets 306 140 - 450 10*3/mm3 10/27/2024 10:30 AM [facility] Neutrophil % 73.1 42.7 - 76.0 % 10/27/2024 10:30 AM [facility] Lymphocyte % 15.5(L) 19.6 - 45.3 % 10/27/2024 10:30 AM [facility] Monocyte % 6.9 5.0 - 12.0 % 10/27/2024 10:30 AM [facility] Eosinophil % 3.2 0.3 - 6.2 % 10/27/2024 10:30 AM [facility] Basophil % 0.7 0.0 - 1.5 % 10/27/2024 10:30 AM [facility] Immature Grans % 0.6(H) 0.0 - 0.5 % 10/27/2024 10:30 AM [facility] Neutrophils, Absolute 8.90(H) 1.70 - 7.00 10*3/mm3 10/27/2024 10:30 AM [facility] Lymphocytes, Absolute 1.89 0.70 - 3.10 10*3/mm3 10/27/2024 10:30 AM [facility] Monocytes, Absolute 0.84 0.10 - 0.90 10*3/mm3 10/27/2024 10:30 AM [facility] Eosinophils, Absolute 0.39 0.00 - 0.40 10*3/mm3 10/27/2024 10:30 AM [facility] Basophils, Absolute 0.08 0.00 - 0.20 10*3/mm3 10/27/2024 10:30 AM [facility] Immature Grans, Absolute 0.07(H) 0.00 - 0.05 10*3/mm3 10/27/2024 10:30 AM EDT [facility] nRBC 0.0 0.0 - 0.2 /100 WBC 10/27/2024 10:30 AM EDT [facility] Blood Venipuncture / Unknown 10/27/2024 9:53 AM EDT 10/27/2024 10:26 AM EDT us Abdirahman Storm DO LAB BLOOD ORDERABLES Final Resul t [facility]
[address] [place] [address], * (ABNORMAL) Basic Metabolic Panel (10/27/2024 9:53 AM EDT) Glucose 152(H) 65 - 99 mg/dL 10/27/2024 10:55 AM EDT [facility] BUN 18.5 8.0 - 23.0 mg/dL 10/27/2024 10:55 AM EDT [facility] Creatinine 1.20(H) 0.57 - 1.00 mg/dL 10/27/2024 10:55 AM EDT [facility] Sodium 134(L) 136 - 145 mmol/L 10/27/2024 10:55 AM EDT [facility] Potassium 4.0 3.5 - 5.2 mmol/L 10/27/2024 10:55 AM EDT [facility] Chloride 96(L) 98 - 107 mmol/L 10/27/2024 10:55 AM EDT [facility] CO2 27.8 22.0 - 29.0 mmol/L 10/27/2024 10:55 AM EDT [facility] Calcium 9.2 8.6 - 10.5 mg/dL 10/27/2024 10:55 AM EDT [facility] BUN/Creatinine Ratio 15.4 7.0 - 25.0 10/27/2024 10:55 AM EDT [facility] Anion Gap 10.2 5.0 - 15.0 mmol/L 10/27/2024 10:55 AM EDT [facility] eGFR 49.7(L) >60.0 mL/min/1.7 3 10/27/2024 10:55 AM EDT [facility] Blood Venipuncture / Unknown 10/27/2024 9:53 AM EDT 10/27/2024 10:24 AM EDT [facility] - 10/27/2024 10:55 AM EDT GFR Categories in Chronic Kidney Disease (CKD) GFR Category GFR (mL/min/1.73) Interpretation G1 90 or greater Normal or high (1) G2 60-89 Mild decrease (1) G3a 45-59 Mild to moderate decrease G3b 30-44 Moderate to severe decrease G4 15-29 Severe decrease G5 14 or less Kidney failure (1)In the absence of evidence of kidney disease, neither GFR category G1 or G2 fulfill the criteria for CKD. eGFR calculation 2020 CKD-EPI creatinine equation, which does not include race as a factor us Abdirahman Storm DO LAB BLOOD ORDERABLES Final Resul t [facility]
[address] [place] [address], * (ABNORMAL) Lipid Panel (10/27/2024 9:53 AM EDT) Total Cholesterol 190 0 - 200 mg/dL 10/27/2024 10:55 AM EDT [facility] Triglycerides 301(H) 0 - 150 mg/dL 10/27/2024 10:55 AM EDT [facility] HDL Cholesterol 47 40 - 60 mg/dL 10/27/2024 10:55 AM EDT [facility] LDL Cholesterol 93 0 - 100 mg/dL 10/27/2024 10:55 AM EDT [facility] VLDL Cholesterol 50(H) 5 - 40 mg/dL 10/27/2024 10:55 AM EDT [facility] LDL/HDL Ratio 1.76 10/27/2024 10:55 AM EDT [facility] Blood Venipuncture / Unknown 10/27/2024 9:53 AM EDT 10/27/2024 10:24 AM EDT [facility] - 10/27/2024 10:55 AM EDT Cholesterol Reference Ranges (U.S. Department of Health and Human Services ATP III Classifications) Desirable <200 mg/dL Borderline High 200-239 mg/dL High Risk >240 mg/dL Triglyceride Reference Ranges (U.S. Department of Health and Human Services ATP III Classifications) Normal <150 mg/dL Borderline High 150-199 mg/dL High 200-499 mg/dL Very High >500 mg/dL HDL Reference Ranges (U.S. Department of Health and Human Services ATP III Classifications) Low <40 mg/dl (major risk factor for CHD) High >60 mg/dl ('negative' risk factor for CHD) LDL Reference Ranges (U.S. Department of Health and Human Services ATP III Classifications) Optimal <100 mg/dL Near Optimal 100-129 mg/dL Borderline High 130-159 mg/dL High 160-189 mg/dL Very High >189 mg/dL LDL is calculated using the NIH LDL-C calculation. Mary Montgomery APRN LAB BLOOD ORDERABLES Katina shahid Result [facility]
[address] [place] [address], * (ABNORMAL) Hemoglobin A1c (10/27/2024 9:53 AM EDT) Hemoglobin A1C 5.71(H) 4.80 - 5.60 % 10/27/2024 10:51 AM EDT [facility] Blood Venipuncture / Unknown 10/27/2024 9:53 AM EDT 10/27/2024 10:26 AM EDT [facility] - 10/27/2024 10:51 AM EDT Hemoglobin A1C Ranges: Increased Risk for Diabetes 5.7% to 6.4% Diabetes >= 6.5% Diabetic Goal < 7.0% us Mary Montgomery APRN LAB BLOOD ORDERABLES Katina shahid Result [facility]
[address] [place] [address], * MRI Brain Without Contrast (10/27/2024 5:09 AM EDT) Anatomical Region Laterality Modality Head, Neck N/A Magnetic Resonan ce 10/27/2024 5:26 AM EDT Impressions 10/27/2024 5:27 AM EDT Impression: 1.No acute intracranial abnormality. 2.Mild chronic small vessel ischemic change. Electronically Signed: David Gallegos MD 10/27/2024 5:27 AM EDT Workstation ID: [id number] Narrative 10/27/2024 5:27 AM EDT MRI BRAIN WO CONTRAST Date of Exam: 10/27/2024 4:19 AM EDT Indication: Stroke, follow up Vertigo, Gait Instability. Comparison: None available. Technique: Routine multiplanar/multisequence sequence images of the brain were obtained without contrast administration. Findings: There is no diffusion restriction to suggest acute infarct. There is no evidence of acute or chronic intracranial hemorrhage. There are scattered patchy and punctate foci of FLAIR hyperintense signal abnormality in the cerebral white matter primarily in a periventricular distribution. No mass effect or midline shift. No abnormal extra-axial collections. The major vascular flow voids appear intact. The basal ganglia, brainstem and cerebellum appear within normal limits. Calvarial and superficial soft tissue signal is within normal limits. Thinning of the orbital lenses would suggest prior lens replacement. The patient is edentulous. Temporomandibular joints and parotid glands appear symmetric. The paranasal sinuses and the mastoid air cells appear well aerated. Midline structures are intact. Procedure Note David Gallegos MD - 10/27/2024 MRI BRAIN WO CONTRAST Date of Exam: 10/27/2024 4:19 AM EDT Indication: Stroke, follow up Vertigo, Gait Instability. Comparison: None available. Technique: Routine multiplanar/multisequence sequence images of the brainwere obtained without contrast administration. Findings: There is no diffusion restriction to suggest acute infarct. There is noevidence of acute or chronic intracranial hemorrhage. There are scatteredpatchy and punctate foci of FLAIR hyperintense signal abnormality in thecerebral white matter primarily in a periventricular distribution. No mass effect or midline shift. Noabnormal extra-axial collections. The major vascular flow voids appearintact. The basal ganglia, brainstem and cerebellum appear within normallimits. Calvarial and superficial soft tissue signal is within normal limits. Thinning of the orbital lenseswould suggest prior lens replacement. The patient is edentulous.Temporomandibular joints and parotid glands appear symmetric. Theparanasal sinuses and the mastoid air cells appear well aerated. Midline structures are intact. IMPRESSION: Impression: 1.No acute intracranial abnormality. 2.Mild chronic small vessel ischemic change. Electronically Signed: David Gallegos MD 10/27/2024 5:27 AM EDT Workstation ID: [id number] Mary Montgomery APRN IMG MRI ORDERABLES Final Result * POC Glucose Once (10/27/2024 4:35 AM EDT) Glucose 112 70 - 130 mg/dL 10/27/2024 4:42 AM EDT [facility] Comment:Serial Number: [id number]: [id number] Blood 10/27/2024 4:35 AM EDT 10/27/2024 4:42 AM EDT Abdirahman Storm DO POINT OF CARE TEST ORDERABLES Fi nal Result [facility]
[address] [place] [address], * POC Glucose Once (10/27/2024 12:33 AM EDT) Glucose 110 70 - 130 mg/dL 10/27/2024 12:35 AM EDT [facility] Comment:Serial Number: [id number]: [id number] Blood 10/27/2024 12:3 3 AM EDT 10/27/2024 12:35 AM EDT us Abdirahman Storm DO POINT OF CARE TEST ORDERABLES Fi nal Result [facility]
[address] [place] [address], * CT Outside Films (10/26/2024 12:15 AM EDT) Narrative SYSTEMGENERATED, DOCUMENTATION - 10/27/2024 1:20 AM EDT This procedure was auto-finalized with no dictation required. us [employer] Films IMG CT ORDERABLES Final Re sult * CT Outside Films (10/26/2024 12:10 AM EDT) Narrative SYSTEMGENERATED, DOCUMENTATION - 10/27/2024 1:20 AM EDT This procedure was auto-finalized with no dictation required. us [employer] IMG CT ORDERABLES Final Re sult * CT Outside Films (10/26/2024 12:05 AM EDT) Narrative SYSTEMGENERATED, DOCUMENTATION - 10/27/2024 1:20 AM EDT This procedure was auto-finalized with no dictation required. us [employer] IMG CT ORDERABLES Final Re sult * CT Outside Films (10/26/2024 12:00 AM EDT) Narrative SYSTEMGENERATED, DOCUMENTATION - 10/27/2024 1:18 AM EDT This procedure was auto-finalized with no dictation required. us [employer] Films IMG CT ORDERABLES Final Re sult documented in this encounter Visit Diagnoses Diagnosis Ataxia- Primary Lack of coordination Chronic ear pain, left Cognitive communication deficit documented in this encounter Admitting Diagnoses Diagnosis Ataxia Lack of coordination documented in this encounter Administered Medications Inactive Administered Medications - up to 3 most recent administrations Medication Order MAR Action Action Date Dose Rate Site acetaminophen (TYLENOL) 160 MG/5ML oral solution 650 mg 650 mg, Oral, Every 4 Hours PRN, Mild Pain, Starting on 10/27/24 at 0011, If given for fever, use fever parameter: fever greater than 100.4 F Based on patient request - if ordered for moderate or severe pain, provider allows for administration of a medication prescribed for a lower pain scale. Do not exceed 4 grams of acetaminophen in a 24 hr period. Max dose of 2gm for AST/ALT greater than 120 units/L. If given for pain, use the following pain scale: Mild Pain = Pain Score of 1-3, CPOT 1-2 Moderate Pain = Pain Score of 4-6, CPOT 3-4 Severe Pain = Pain Score of 7-10, CPOT 5-8 acetaminophen (TYLENOL) suppository 650 mg 650 mg, Rectal, Every 4 Hours PRN, Mild Pain, Starting on 10/27/24 at 0011, If given for fever, use fever parameter: fever greater than 100.4 F Based on patient request - if ordered for moderate or severe pain, provider allows for administration of a medication prescribed for a lower pain scale. Do not exceed 4 grams of acetaminophen in a 24 hr period. Max dose of 2gm for AST/ALT greater than 120 units/L. If given for pain, use the following pain scale: Mild Pain = Pain Score of 1-3, CPOT 1-2 Moderate Pain = Pain Score of 4-6, CPOT 3-4 Severe Pain = Pain Score of 7-10, CPOT 5-8 acetaminophen (TYLENOL) tablet 650 mg 650 mg, Oral, Every 4 Hours PRN, Mild Pain, Starting on 10/27/24 at 0011, If given for fever, use fever parameter: fever greater than 100.4 F Based on patient request - if ordered for moderate or severe pain, provider allows for administration of a medication prescribed for a lower pain scale. Do not exceed 4 grams of acetaminophen in a 24 hr period. Max dose of 2gm for AST/ALT greater than 120 units/L. If given for pain, use the following pain scale: Mild Pain = Pain Score of 1-3, CPOT 1-2 Moderate Pain = Pain Score of 4-6, CPOT 3-4 Severe Pain = Pain Score of 7-10, CPOT 5-8 amLODIPine (NORVASC) tablet 5 mg 5 mg, Oral, Daily, First dose on 10/27/24 at 0900, Hold for SBP less than 100, DBP less than 60. Caution: Look alike/sound alike drug alert. Avoid grapefruit juice. Given 10/27/2024 9:34 AM EDT 5 mg aspirin suppository 300 mg 300 mg, Rectal, Daily, First dose on 10/27/24 at 0900, If patient fails dysphagia, MI option MUST be given. Do not exceed 4 grams of aspirin in a 24 hr period. If given for pain, use the following pain scale: Mild Pain = Pain Score of 1-3, CPOT 1-2 Moderate Pain = Pain Score of 4-6, CPOT 3-4 Severe Pain = Pain Score of 7-10, CPOT 5-8 aspirin tablet 325 mg 325 mg, Oral, Daily, First dose on 10/27/24 at 0900, If patient fails dysphagia, MI option MUST be given. Do not exceed 4 grams of aspirin in a 24 hr period. If given for pain, use the following pain scale: Mild Pain = Pain Score of 1-3, CPOT 1-2 Moderate Pain = Pain Score of 4-6, CPOT 3-4 Severe Pain = Pain Score of 7-10, CPOT 5-8 Given 10/27/2024 9:34 AM EDT 325 mg atorvastatin (LIPITOR) tablet 80 mg 80 mg, Oral, Nightly, First dose on 10/27/24 at 0115, Avoid grapefruit juice. Given 10/27/2024 1:02 AM EDT 80 mg bisacodyl (DULCOLAX) EC tablet 5 mg 5 mg, Oral, Daily PRN, Constipation, Use if polyethylene glycol is ineffective, Starting on 10/27/24 at 0011, Use if no bowel movement after 12 hours. Swallow whole. Do not crush, split, or chew tablet. bisacodyl (DULCOLAX) suppository 10 mg 10 mg, Rectal, Daily PRN, Constipation, Use if bisacodyl oral is ineffective, Starting on 10/27/24 at 0011, Use if no bowel movement after 12 hours. Hold for diarrhea Calcium Replacement - Follow Nurse / BPA Driven Protocol Open Order & Select [facility] Electrolyte Replacement Protocol Algorithm to View Details cefTRIAXone (ROCEPHIN) 1,000 mg in sodium chloride 0.9 % 100 mL MBP 1,000 mg, Intravenous, at 200 mL/hr, Administer over 30 Minutes, Every 24 Hours Scheduled, First dose on 10/27/24 at 0015, For 5 days, LR should be paused and flushing of the line with NS is recommended prior to and after completion of ceftriaxone infusion due to incompatibility. Do not co-adminster with calcium-containing solutions. Caution: Look alike/sound alike drug alert, Indications: Uncomplicated CystitisIndications:Uncomplic ated Cystitis New Bag 10/27/2024 1:02 AM EDT 1,000 mg 200 mL/hr desvenlafaxine (PRISTIQ) 24 hr tablet 50 mg 50 mg, Oral, Daily, First dose on 10/27/24 at 0900, Do not crush or chew the capsules or tablets. The drug may not work as designed if the capsule or tablet is crushed or chewed. Swallow whole. Swallow whole. Do not crush, chew, or split. Given 10/27/2024 10:45 AM EDT 50 mg famotidine (PEPCID) tablet 20 mg 20 mg, Oral, 2 Times Daily, First dose on 10/27/24 at 0900 Given 10/27/2024 9:34 AM EDT 20 mg levothyroxine (SYNTHROID, LEVOTHROID) tablet 150 mcg 150 mcg, Oral, Every Dispensary Technician, First dose on 10/27/24 at 0600, Take on empty stomach. Given 10/27/2024 5:04 AM EDT 150 mcg losartan (COZAAR) tablet 50 mg 50 mg, Oral, Daily, First dose on 10/27/24 at 0900, Hold for SBP less than 100, DBP less than 60. Given 10/27/2024 9:34 AM EDT 50 mg Magnesium Cardiology Dose Replacement - Follow Nurse / BPA Driven Protocol Open Order [facility] Electrolyte Replacement Protocol Algorithm to View Details nitroglycerin (NITROSTAT) SL tablet 0.4 mg 0.4 mg, Sublingual, Every 5 Minutes PRN, Chest Pain, Starting on 10/27/24 at 0006, If Pain Unrelieved After 3 Doses Notify MD May administer up to 3 doses per episode. Hold if SBP less than 100. ondansetron (ZOFRAN) injection 4 mg 4 mg, Intravenous, Every 6 Hours PRN, Nausea, Vomiting, Starting on 10/27/24 at 0006, If BOTH ondansetron (ZOFRAN) and promethazine (PHENERGAN) are ordered use ondansetron first and THEN promethazine IF ondansetron is ineffective. Given 10/27/2024 10:45 AM EDT 4 mg Phosphorus Replacement - Follow Nurse / BPA Driven Protocol Open Order [facility] Electrolyte Replacement Protocol Algorithm to View Details polyethylene glycol (MIRALAX) packet 17 g 17 g, Oral, Daily PRN, Constipation, Use if senna-docusate is ineffective, Starting on 10/27/24 at 0011, Use if no bowel movement after 12 hours. Mix in 6-8 ounces of water. Use 4-8 ounces of water, tea, or juice for each 17 gram dose. potassium chloride (KLOR-CON) packet 20 mEq 20 mEq, Oral, 2 Times Daily, First dose on 10/27/24 at 0900, For use with a feeding tube. Mix in at least 4 oz. of liquid. Given 10/27/2024 9:34 AM EDT 20 mEq Potassium Replacement - Follow Nurse / BPA Driven Protocol Open Order & [facility] Electrolyte Replacement Protocol Algorithm to View Details sennosides-docusate (PERICOLACE) 8.6-50 MG per tablet 2 tablet 2 tablet, Oral, 2 Times Daily PRN, Constipation, Starting on 10/27/24 at 0011, Start bowel management regimen if patient has not had a bowel movement after 12 hours. sodium chloride 0.9 % flush 10 mL 10 mL, Intravenous, Every 12 Hours Scheduled, First dose on 10/27/24 at 0100 sodium chloride 0.9 % flush 10 mL 10 mL, Intravenous, As Needed, Line Care, Starting on 10/27/24 at 0006 sodium chloride 0.9 % infusion 40 mL 40 mL, Intravenous, As Needed, Line Care, Starting on 10/27/24 at 0006, Following administration of an IV intermittent medication, flush line with 40mL NS at 100mL/hr. documented in this encounter Active and Recently Administered Medications Times are shown in EDT. Scheduled Medication Order 10/25/2024 10/26/2024 10/27/2024 amLODIPine (NORVASC) tablet 5 mg 5 mg, Oral, Daily, First dose on 10/27/24 at 0900, Hold for SBP less than 100, DBP less than 60. Caution: Look alike/sound alike drug alert. Avoid grapefruit juice. 0934 (Given - Provid er: Marsha Wells RN) aspirin suppository 300 mg(Linked Group 1) 300 mg, Rectal, Daily, First dose on 10/27/24 at 0900, If patient fails dysphagia, MI option MUST be given. Do not exceed 4 grams of aspirin in a 24 hr period. If given for pain, use the following pain scale: Mild Pain = Pain Score of 1-3, CPOT 1-2 Moderate Pain = Pain Score of 4-6, CPOT 3-4 Severe Pain = Pain Score of 7-10, CPOT 5-8 0934 (Not Given: See Alt - Provider: Marsha Wells RN) aspirin tablet 325 mg(Linked Group 1) 325 mg, Oral, Daily, First dose on 10/27/24 at 0900, If patient fails dysphagia, MI option MUST be given. Do not exceed 4 grams of aspirin in a 24 hr period. If given for pain, use the following pain scale: Mild Pain = Pain Score of 1-3, CPOT 1-2 Moderate Pain = Pain Score of 4-6, CPOT 3-4 Severe Pain = Pain Score of 7-10, CPOT 5-8 0934 (Given - Provid er: Marsha Wells RN) atorvastatin (LIPITOR) tablet 80 mg 80 mg, Oral, Nightly, First dose on 10/27/24 at 0115, Avoid grapefruit juice. 0102 (Given - Provid er: Alcon Washington RN) cefTRIAXone (ROCEPHIN) 1,000 mg in sodium chloride 0.9 % 100 mL MBP 1,000 mg, Intravenous, at 200 mL/hr, Administer over 30 Minutes, Every 24 Hours Scheduled, First dose on 10/27/24 at 0015, For 5 days, LR should be paused and flushing of the line with NS is recommended prior to and after completion of ceftriaxone infusion due to incompatibility. Do not co-adminster with calcium-containing solutions. Caution: Look alike/sound alike drug alert, Indications: Uncomplicated Cystitis 0102 (New Bag - Prov ider: Alcon Washington RN) desvenlafaxine (PRISTIQ) 24 hr tablet 50 mg 50 mg, Oral, Daily, First dose on 10/27/24 at 0900, Do not crush or chew the capsules or tablets. The drug may not work as designed if the capsule or tablet is crushed or chewed. Swallow whole. Swallow whole. Do not crush, chew, or split. 1045 (Given - Provid er: Marsha Wells RN) famotidine (PEPCID) tablet 20 mg 20 mg, Oral, 2 Times Daily, First dose on 10/27/24 at 0900 0934 (Given - Provid er: Marsha Wells RN) levothyroxine (SYNTHROID, LEVOTHROID) tablet 150 mcg 150 mcg, Oral, Every Dispensary Technician, First dose on 10/27/24 at 0600, Take on empty stomach. 0504 (Given - Provid er: Alcon Washington RN) losartan (COZAAR) tablet 50 mg 50 mg, Oral, Daily, First dose on 10/27/24 at 0900, Hold for SBP less than 100, DBP less than 60. 0934 (Given - Provid er: Marsha Wells RN) potassium chloride (KLOR-CON) packet 20 mEq 20 mEq, Oral, 2 Times Daily, First dose on 10/27/24 at 0900, For use with a feeding tube. Mix in at least 4 oz. of liquid. 0934 (Given - Provid er: Marsha Wells RN) sodium chloride 0.9 % flush 10 mL 10 mL, Intravenous, Every 12 Hours Scheduled, First dose on 10/27/24 at 0100 0106 (Canceled Entry - Provider: Alcon Washington RN)0900 (Due) PRN Medication Order 10/25/2024 10/26/2024 10/27/2024 acetaminophen (TYLENOL) 160 MG/5ML oral solution 650 mg(Linked Group 2) 650 mg, Oral, Every 4 Hours PRN, Mild Pain, Starting on 10/27/24 at 0011, If given for fever, use fever parameter: fever greater than 100.4 F Based on patient request - if ordered for moderate or severe pain, provider allows for administration of a medication prescribed for a lower pain scale. Do not exceed 4 grams of acetaminophen in a 24 hr period. Max dose of 2gm for AST/ALT greater than 120 units/L. If given for pain, use the following pain scale: Mild Pain = Pain Score of 1-3, CPOT 1-2 Moderate Pain = Pain Score of 4-6, CPOT 3-4 Severe Pain = Pain Score of 7-10, CPOT 5-8 acetaminophen (TYLENOL) suppository 650 mg(Linked Group 2) 650 mg, Rectal, Every 4 Hours PRN, Mild Pain, Starting on 10/27/24 at 0011, If given for fever, use fever parameter: fever greater than 100.4 F Based on patient request - if ordered for moderate or severe pain, provider allows for administration of a medication prescribed for a lower pain scale. Do not exceed 4 grams of acetaminophen in a 24 hr period. Max dose of 2gm for AST/ALT greater than 120 units/L. If given for pain, use the following pain scale: Mild Pain = Pain Score of 1-3, CPOT 1-2 Moderate Pain = Pain Score of 4-6, CPOT 3-4 Severe Pain = Pain Score of 7-10, CPOT 5-8 acetaminophen (TYLENOL) tablet 650 mg(Linked Group 2) 650 mg, Oral, Every 4 Hours PRN, Mild Pain, Starting on 10/27/24 at 0011, If given for fever, use fever parameter: fever greater than 100.4 F Based on patient request - if ordered for moderate or severe pain, provider allows for administration of a medication prescribed for a lower pain scale. Do not exceed 4 grams of acetaminophen in a 24 hr period. Max dose of 2gm for AST/ALT greater than 120 units/L. If given for pain, use the following pain scale: Mild Pain = Pain Score of 1-3, CPOT 1-2 Moderate Pain = Pain Score of 4-6, CPOT 3-4 Severe Pain = Pain Score of 7-10, CPOT 5-8 bisacodyl (DULCOLAX) EC tablet 5 mg(Linked Group 3) 5 mg, Oral, Daily PRN, Constipation, Use if polyethylene glycol is ineffective, Starting on 10/27/24 at 0011, Use if no bowel movement after 12 hours. Swallow whole. Do not crush, split, or chew tablet. bisacodyl (DULCOLAX) suppository 10 mg(Linked Group 3) 10 mg, Rectal, Daily PRN, Constipation, Use if bisacodyl oral is ineffective, Starting on 10/27/24 at 0011, Use if no bowel movement after 12 hours. Hold for diarrhea Calcium Replacement - Follow Nurse / BPA Driven Protocol Open Order & [facility] Electrolyte Replacement Protocol Algorithm to View Details Magnesium Cardiology Dose Replacement - Follow Nurse / BPA Driven Protocol Open Order & [facility] Electrolyte Replacement Protocol Algorithm to View Details nitroglycerin (NITROSTAT) SL tablet 0.4 mg 0.4 mg, Sublingual, Every 5 Minutes PRN, Chest Pain, Starting on 10/27/24 at 0006, If Pain Unrelieved After 3 Doses Notify MD May administer up to 3 doses per episode. Hold if SBP less than 100. ondansetron (ZOFRAN) injection 4 mg 4 mg, Intravenous, Every 6 Hours PRN, Nausea, Vomiting, Starting on 10/27/24 at 0006, If BOTH ondansetron (ZOFRAN) and promethazine (PHENERGAN) are ordered use ondansetron first and THEN promethazine IF ondansetron is ineffective. 1045 (Given - Provid er: Marsha Wells RN) Phosphorus Replacement - Follow Nurse / BPA Driven Protocol Open Order & [facility] Electrolyte Replacement Protocol Algorithm to View Details polyethylene glycol (MIRALAX) packet 17 g(Linked Group 3) 17 g, Oral, Daily PRN, Constipation, Use if senna-docusate is ineffective, Starting on 10/27/24 at 0011, Use if no bowel movement after 12 hours. Mix in 6-8 ounces of water. Use 4-8 ounces of water, tea, or juice for each 17 gram dose. Potassium Replacement - Follow Nurse / BPA Driven Protocol Open Order & [facility] Electrolyte Replacement Protocol Algorithm to View Details sennosides-docusate (PERICOLACE) 8.6-50 MG per tablet 2 tablet(Linked Group 3) 2 tablet, Oral, 2 Times Daily PRN, Constipation, Starting on 10/27/24 at 0011, Start bowel management regimen if patient has not had a bowel movement after 12 hours. sodium chloride 0.9 % flush 10 mL 10 mL, Intravenous, As Needed, Line Care, Starting on 10/27/24 at 0006 sodium chloride 0.9 % infusion 40 mL 40 mL, Intravenous, As Needed, Line Care, Starting on 10/27/24 at 0006, Following administration of an IV intermittent medication, flush line with 40mL NS at 100mL/hr. Linked Groups Order Group 1: aspirin tablet 325 mgJump to med 325 mg, Oral, Daily, First dose on 10/27/24 at 0900, If patient fails dysphagia, MI option MUST be given. Do not exceed 4 grams of aspirin in a 24 hr period. If given for pain, use the following pain scale: Mild Pain = Pain Score of 1-3, CPOT 1-2 Moderate Pain = Pain Score of 4-6, CPOT 3-4 Severe Pain = Pain Score of 7-10, CPOT 5-8 Or aspirin suppository 300 mgJump to med 300 mg, Rectal, Daily, First dose on 10/27/24 at 0900, If patient fails dysphagia, MI option MUST be given. Do not exceed 4 grams of aspirin in a 24 hr period. If given for pain, use the following pain scale: Mild Pain = Pain Score of 1-3, CPOT 1-2 Moderate Pain = Pain Score of 4-6, CPOT 3-4 Severe Pain = Pain Score of 7-10, CPOT 5-8 Group 2: acetaminophen (TYLENOL) tablet 650 mgJump to med 650 mg, Oral, Every 4 Hours PRN, Mild Pain, Starting on 10/27/24 at 0011, If given for fever, use fever parameter: fever greater than 100.4 F Based on patient request - if ordered for moderate or severe pain, provider allows for administration of a medication prescribed for a lower pain scale. Do not exceed 4 grams of acetaminophen in a 24 hr period. Max dose of 2gm for AST/ALT greater than 120 units/L. If given for pain, use the following pain scale: Mild Pain = Pain Score of 1-3, CPOT 1-2 Moderate Pain = Pain Score of 4-6, CPOT 3-4 Severe Pain = Pain Score of 7-10, CPOT 5-8 Or acetaminophen (TYLENOL) 160 MG/5ML oral solution 650 mgJump to med 650 mg, Oral, Every 4 Hours PRN, Mild Pain, Starting on 10/27/24 at 0011, If given for fever, use fever parameter: fever greater than 100.4 F Based on patient request - if ordered for moderate or severe pain, provider allows for administration of a medication prescribed for a lower pain scale. Do not exceed 4 grams of acetaminophen in a 24 hr period. Max dose of 2gm for AST/ALT greater than 120 units/L. If given for pain, use the following pain scale: Mild Pain = Pain Score of 1-3, CPOT 1-2 Moderate Pain = Pain Score of 4-6, CPOT 3-4 Severe Pain = Pain Score of 7-10, CPOT 5-8 Or acetaminophen (TYLENOL) suppository 650 mgJump to med 650 mg, Rectal, Every 4 Hours PRN, Mild Pain, Starting on 10/27/24 at 0011, If given for fever, use fever parameter: fever greater than 100.4 F Based on patient request - if ordered for moderate or severe pain, provider allows for administration of a medication prescribed for a lower pain scale. Do not exceed 4 grams of acetaminophen in a 24 hr period. Max dose of 2gm for AST/ALT greater than 120 units/L. If given for pain, use the following pain scale: Mild Pain = Pain Score of 1-3, CPOT 1-2 Moderate Pain = Pain Score of 4-6, CPOT 3-4 Severe Pain = Pain Score of 7-10, CPOT 5-8 Group 3: sennosides-docusate (PERICOLACE) 8.6-50 MG per tablet 2 tabletJump to med 2 tablet, Oral, 2 Times Daily PRN, Constipation, Starting on 10/27/24 at 0011, Start bowel management regimen if patient has not had a bowel movement after 12 hours. And polyethylene glycol (MIRALAX) packet 17 gJump to med 17 g, Oral, Daily PRN, Constipation, Use if senna-docusate is ineffective, Starting on 10/27/24 at 0011, Use if no bowel movement after 12 hours. Mix in 6-8 ounces of water. Use 4-8 ounces of water, tea, or juice for each 17 gram dose. And bisacodyl (DULCOLAX) EC tablet 5 mgJump to med 5 mg, Oral, Daily PRN, Constipation, Use if polyethylene glycol is ineffective, Starting on 10/27/24 at 0011, Use if no bowel movement after 12 hours. Swallow whole. Do not crush, split, or chew tablet. And bisacodyl (DULCOLAX) suppository 10 mgJump to med 10 mg, Rectal, Daily PRN, Constipation, Use if bisacodyl oral is ineffective, Starting on 10/27/24 at 0011, Use if no bowel movement after 12 hours. Hold for diarrhea documented in this encounter Care Teams City Dispatcher Relationship Specialty Start Date End Date Alyssa Hurtado APRN [address] [place] [id number] PCP - General Nurse Practitioner 10/26/24 documented as of this encounter
--- OUTSIDE RECORDS SUMMARY | 2024-12-21 14:33 | XMS_ITS | Clinical Summary ---
Author Organization [facility] Address [address] 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 Name Role Phone Alyssa Hurtado APRN Primary Care Provider [phone] Allergies No known active allergies Medications amLODIPine [...] Screening 1955 [facility]-Medicare Annual Wellness (AWV) 1955 [facility]-Infant/Child/Adol SDOH Screenings 1957 [facility]-Obesity Intervention 1963 [facility]- [...] - Risk 60-74 years 1-dose series) 2017 [id number] Vaccine ( season) 2024 06/16/2021, 07/01/2020, 06/03/2020 [facility]-Influenza Vaccine (#1) 2024 [...] 9:42 AM EDT) Case Report Cytology Case: [id number] Authorizing Provider: Dianne Ocampo APRN Collected: 12/21/2021 0942 Ordering Location: [facility] Gynecology Received: 12/22/2021 0854 First Screen: Ivory Shelton Specimen: ThinPrep Pap Test, Liquid-Based Cervical/Vaginal, CERVICAL/VAGINAL 12/24/2021 1:45 PM EDT [facility] Interpretation NEGATIVE FOR INTRAEPITHELIAL LESION OR MALIGNANCY 12/24/2021 1:45 PM EDT [facility] at 1345 EDT Specimen Adequacy Satisfactory for evaluation; endocervical/burrows sformation zone component present. Slide scanned and imaged by [employer] System with manual review of all selected meraz. 12/24/2021 1:45 PM EDT [facility] Cervical cytology is a screening [...] results is suggested (please call Microbiology at [phone] for results). 12/24/2021 1:45 PM EDT [facility] Menstrual Status Post-Menopausal 1:45 PM EDT [facility] History of Hysterectomy Not Applicable 12/24/2021 1:45 PM EDT [facility] Contraceptive History Not Applicable 12/24/2021 1:45 PM EDT [facility] Screening Type Previous or Suspected Abnormality 12/24/2021 1:45 PM EDT [facility] HPV Testing Requested? 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 12/24/2021 1:45 PM EDT [facility] Comment:cervical cancer Clinical Information C53.9 - Malignant neoplasm of cervix, unspecified site (CMS/HCC) [ICD-10-CM] 12/24/2021 1:45 PM EDT [facility] Swab Vaginal and cervical cytologic material / Unknown Non-blood Collection / Unknown 12/21/2021 9:42 AM EDT 12/22/2021 8:54 AM EDT us Dianne Schroeder Dam[employer]ILRO[employer] WHE[employer]S AND AXLES INSPECTOR LAB CYTOLOGY ORDERABLES Fi nal Result [facility] [address] [place] [address] from Last 3 Months or Most Recently Relevant to Health Maintenance Insurance [employer] Care Teams 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
--- OUTSIDE RECORDS SUMMARY | 2024-12-21 14:34 | XMS_ITS | Clinical Summary ---
Author Organization [facility] Address [address] [place] [address] Care Team Providers Care Educational Program Assistant Name Role Phone Alyssa Hurtado APRN Primary Care Provider [phone] Allergies No known active allergies Medications potassium chloride (KLOR-CON) 20 MEQ packet Take 20 mEq by mouth 2 (Two) Times a Day. Active baclofen (LIORESAL) 20 MG tablet Take 1 tablet by mouth 2 (Two) Times a Day. Active losartan (COZAAR) 50 MG tablet Take 1 tablet by mouth Daily. Active hydroCHLOROthia zide 12.5 MG tablet Take 1 tablet by mouth Daily. Active traMADol (ULTRAM) 50 MG tablet Take 1 tablet by mouth Every 12 (Twelve) Hours As Needed for Moderate Pain. Active desvenlafaxine (PRISTIQ) 50 MG 24 hr tablet Take 1 tablet by mouth Daily. Active famotidine (PEPCID) 20 MG tablet Take 1 tablet by mouth 2 (Two) Times a Day. Active amLODIPine (NORVASC) 5 MG tablet Take 1 tablet by mouth Daily. Active furosemide (LASIX) 20 MG tablet Take 1 tablet by mouth Daily. Active levothyroxine (SYNTHROID, LEVOTHROID) 150 MCG tablet Take 1 tablet by mouth Every Morning. Active aspirin 81 MG EC tablet Take 1 tablet by mouth Daily. Active atorvastatin (LIPITOR) 80 MG tablet Take 1 tablet by mouth Every Night. 90 tablet 10/27/2024 3:24 PM EDT 10/27/2024 Active Active Problems No known active problems Resolved Problems Problem Noted Date Diagnosed Date Resolved Date Ataxia 10/27/2024 10/27/2024 Encounters Date Type Department Care Team Description 10/26/2024 11:37 PM EDT - 10/27/2024 5:25 PM EDT Hospital Encounter [address] [place] [address] Abdirahman Storm DO Hamilton, Olivia D, DO Chronic ear pain, left (Primary Dx); Cognitive communication deficit Discharge Disposition: Home or Self Care 10/26/2024 Travel from Last 3 Months Social History Tobacco Use Types Packs/Day Years [...] Mass Index 25.67 10/27/2024 11:30 AM EDT Plan of Treatment Health Maintenance Due Date Last Done Comments ANNUAL PHYSICAL 1955 DXA SCAN 1955 HEPATITIS C SCREENING 1955 TDAP/TD VACCINES (1 - Tdap) 1976 MAMMOGRAM 1997 COLOGUARD 2002 COLON CANCER SCREENING 5 YEA R SIGMOIDOSCOPY 2002 COLONOSCOPY 2002 [address] CANCER SCREENING 2002 CT COLONOGRAPHY 2002 FECAL OCCULT BLOOD TEST 2002 FIT Testing (1 year) 2002 Pneumococcal Vaccine 50+ (1 of 1 - PCV) 2007 ZOSTER VACCINE (1 of 2) 2007 INFLUENZA VACCINE 09/28/2024 COVID-19 Vaccine ( season) 2024 06/16/2021, 07/01/2020, 06/03/2020 Procedures Procedure Name Priority Date/Time Associated Diagnosis Comments ECHO COMPLETE W/ DOPPLER AND COLOR FLOW Routine 10/27/2024 12:20 PM EDT LIPID PANEL Urgent 10/27/2024 9:53 AM EDT HEMOGLOBIN A1C Urgent 10/27/2024 9:53 AM EDT CBC WITH AUTO DIFFERENTIAL Urgent 10/27/2024 9:53 AM EDT BASIC METABOLIC [...] FILMS Routine 10/26/2024 12:0 0 AM EDT from Last 3 Months Results * ECHO COMPLETE W/ DOPPLER AND COLOR FLOW (10/27/2024 12:20 PM EDT) Pathologist [facility] EF(MOD-bp) 61.6 % LVIDd 3.8 cm LVIDs [...] % EF(MOD-sp4) 62.0 % MV E max ojrdan 66.0 cm/sec MV A max jordan 75.0 [...] of agitated saline was administered. Mary Montgomery FISHERIES DIVER CV ECHO ORDERABLES Final Result * (ABNORMAL) CBC Auto Differential (10/27/2024 9:53 AM EDT) WBC 12.17(H) 3.40 - 10.80 10*3/mm3 10/27/2024 10:30 AM EDT [facility] RBC 3.79 3.77 - 5.28 10*6/mm3 10/27/2024 10:30 AM EDT [facility] Hemoglobin 10.8(L) 12.0 - 15.9 g/dL 10/27/2024 10:30 AM EDT [facility] Hematocrit 34.4 34.0 - 46.6 % 10/27/2024 10:30 AM EDT [facility] MCV 90.8 79.0 - 97.0 fL 10/27/2024 10:30 AM EDT [facility] MCH 28.5 26.6 - 33.0 pg 10/27/2024 10:30 AM EDT [facility] MCHC 31.4(L) 31.5 - 35.7 g/dL 10/27/2024 10:30 AM EDT [facility] RDW 13.5 12.3 - 15.4 % 10/27/2024 10:30 AM EDT [facility] RDW-SD 44.8 37.0 - 54.0 fl 10/27/2024 10:30 AM EDT [facility] MPV 9.6 6.0 - 12.0 fL 10/27/2024 10:30 AM EDT [facility] Platelets 306 140 - 450 10*3/mm3 10/27/2024 10:30 AM [facility] Neutrophil % 73.1 42.7 - 76.0 % 10/27/2024 10:30 AM [facility] Lymphocyte % 15.5(L) 19.6 - 45.3 % 10/27/2024 10:30 AM [facility] Monocyte % 6.9 5.0 - 12.0 % 10/27/2024 10:30 AM [facility] Eosinophil % 3.2 0.3 - 6.2 % 10/27/2024 10:30 AM [facility] Basophil % 0.7 0.0 - 1.5 % 10/27/2024 10:30 AM [facility] Immature Grans % 0.6(H) 0.0 - 0.5 % 10/27/2024 10:30 AM [facility] Neutrophils, Absolute 8.90(H) 1.70 - 7.00 10*3/mm3 10/27/2024 10:30 AM [facility] Lymphocytes, Absolute 1.89 0.70 - 3.10 10*3/mm3 10/27/2024 10:30 AM [facility] Monocytes, Absolute 0.84 0.10 - 0.90 10*3/mm3 10/27/2024 10:30 AM [facility] Eosinophils, Absolute 0.39 0.00 - 0.40 10*3/mm3 10/27/2024 10:30 AM [facility] Basophils, Absolute 0.08 0.00 - 0.20 10*3/mm3 10/27/2024 10:30 AM [facility] Immature Grans, Absolute 0.07(H) 0.00 - 0.05 10*3/mm3 10/27/2024 10:30 AM [facility] nRBC 0.0 0.0 - 0.2 /100 WBC 10/27/2024 10:30 AM [facility] Blood Venipuncture / Unknown 10/27/2024 9:53 AM EDT 10/27/2024 10:26 AM EDT Abdirahman Storm DO LAB BLOOD ORDERABLES Final Resul t Performing Organization Address [facility] Co de Phone Number [facility]
[address] [place] [address], * (ABNORMAL) Hemoglobin A1c (10/27/2024 9:53 AM EDT) Hemoglobin A1C 5.71(H) 4.80 - 5.60 % 10/27/2024 10:51 AM EDT [facility] Blood Venipuncture / Unknown 10/27/2024 9:53 AM EDT 10/27/2024 10:26 AM EDT Narrative [facility] - 10/27/2024 10:51 AM EDT Hemoglobin A1C Ranges: Increased Risk for Diabetes 5.7% to 6.4% Diabetes >= 6.5% Diabetic Goal < 7.0% Mary Montgomery APRN LAB BLOOD ORDERABLES Katina l Result Performing Organization Address [facility] Co de Phone Number [facility]
[address] [place] [address], * (ABNORMAL) Lipid Panel (10/27/2024 9:53 AM EDT) Total Cholesterol 190 0 - 200 mg/dL 10/27/2024 10:55 AM EDT [facility] Triglycerides 301(H) 0 - 150 mg/dL 10/27/2024 10:55 AM EDT [facility] HDL Cholesterol 47 40 - 60 mg/dL 10/27/2024 10:55 AM EDT [facility] LDL Cholesterol 93 0 - 100 mg/dL 10/27/2024 10:55 AM EDT [facility] VLDL Cholesterol 50(H) 5 - 40 mg/dL 10/27/2024 10:55 AM EDT [facility] LDL/HDL Ratio 1.76 10/27/2024 10:55 AM EDT [facility] Blood Venipuncture / Unknown 10/27/2024 9:53 AM EDT 10/27/2024 10:24 AM EDT Narrative [facility] - 10/27/2024 10:55 AM EDT Cholesterol [...] APRN LAB BLOOD ORDERABLES Katina shahid Result [facility]
[address] [place] [address], * (ABNORMAL) Basic Metabolic Panel (10/27/2024 9:53 AM EDT) Glucose 152(H) 65 - 99 mg/dL 10/27/2024 10:55 AM EDT [facility] BUN 18.5 8.0 - 23.0 mg/dL 10/27/2024 10:55 AM EDT [facility] Creatinine 1.20(H) 0.57 - 1.00 mg/dL 10/27/2024 10:55 AM EDT [facility] Sodium 134(L) 136 - 145 mmol/L 10/27/2024 10:55 AM EDT [facility] Potassium 4.0 3.5 - 5.2 mmol/L 10/27/2024 10:55 AM EDT [facility] Chloride 96(L) 98 - 107 mmol/L 10/27/2024 10:55 AM EDT [facility] CO2 27.8 22.0 - 29.0 mmol/L 10/27/2024 10:55 AM EDT [facility] Calcium 9.2 8.6 - 10.5 mg/dL 10/27/2024 10:55 AM EDT [facility] BUN/Creatinine Ratio 15.4 7.0 - 25.0 10/27/2024 10:55 AM EDT [facility] Anion Gap 10.2 5.0 - 15.0 mmol/L 10/27/2024 10:55 AM EDT [facility] eGFR 49.7(L) >60.0 mL/min/1.7 3 10/27/2024 10:55 AM EDT [facility] Blood Venipuncture / Unknown 10/27/2024 9:53 AM EDT 10/27/2024 10:24 AM EDT [facility] - 10/27/2024 10:55 AM [...] does not include race as a factor Abdirahman Storm DO LAB BLOOD ORDERABLES Final Resul t [facility]
[address] [place] [address], * MRI Brain Without Contrast (10/27/2024 5:09 AM EDT) Anatomical Region Laterality Modality Head, Neck N/A Magnetic Resonan ce 10/27/2024 5:26 AM EDT Impressions 10/27/2024 5:27 AM EDT Impression: 1.No acute intracranial abnormality. 2.Mild chronic small vessel ischemic change. Electronically Signed: David Gallegos MD 10/27/2024 5:27 AM EDT Workstation ID: [id number] Narrative 10/27/2024 5:27 AM EDT MRI BRAIN [...] chronic small vessel ischemic change. Electronically Signed: aDvid Gallegos MD 10/27/2024 5:27 AM EDT Workstation ID: [id number] Mary Montgomery FISHERIES DIVER IMG MRI ORDERABLES Final Result * POC Glucose Once (10/27/2024 4:35 AM EDT) Only the most recent of2 resultswithin the time period is included. Glucose 112 70 - 130 mg/dL 10/27/2024 4:42 AM EDT [facility] Comment:Serial Number: [id number] Blood 10/27/2024 4:35 AM EDT 10/27/2024 4:42 AM EDT Abdirahman Storm DO POINT OF CARE TEST ORDERABLES Fi nal Result [facility]
[address] [place] [address], * CT Outside Films (10/26/2024 12:15 AM EDT) Only the most recent of4 resultswithin the time period is included. Narrative SYSTEMGENERATED, DOCUMENTATION - 10/27/2024 1:20 AM EDT This procedure was auto-finalized with no dictation required. us Radiant Outside Films IMG CT ORDERABLES Final Re sult from Last 3 Months Insurance [employer] H[employer] Advance Directives * CPR (Attempt to Resuscitate) (Latest Code Status on File) Date Activated Date Inactivated Comments 10/27/2024 12:12 AM 10/27/2024 7:30 PM Question Answer Comments Code Status (Patient has no pulse and is not breathing): CPR (Attempt to Resuscitate) Medical Interventions (Patie nt has pulse or is breathing): Full Support Level Of Support Discussed With: Patient Care Teams Educational Program Assistant Relationship Specialty Start Date End Date Alyssa Hurtado APRN [address] [place] [phone] PCP - General Nurse Practitioner 10/26/24
--- OUTSIDE RECORDS SUMMARY | 2024-12-21 14:34 | XMS_ITS | Encounter Summary ---
Author Organization [facility] Address [address] [place] [address] Care Team Providers Care Professor Of Surgery Name Role Phone Alyssa Hurtado APRN Primary Care Provider [phone] Encounter Details Date Type Department Care Team (Latest Contact Info) Description 10/26/2024 Travel Social History Tobacco Use Types Packs/Day Years Used Date Smoking Tobacco: Former Cigarettes Q uit: 03/2013 Smokeless Tobacco: Never Alcohol Use Standard Drinks/Week Comments Never 0 [...] on file documented as of this encounter Functional Status * Question Answer [...] 11:47 PM EDT Alcon Washington RN * [place] Suicide Severity Rating Scale (Screener/Recent Self-Report) Question Answer Date of Assessment Author 6. Suicidal Behavior (Lifetime) No 11:47 PM EDT Alcon Washington RN documented as of this encounter Plan of Treatment Not on file documented as of this encounter Visit Diagnoses Not on filedocumented in this encounter Care Teams Professor Of Surgery Relationship Specialty Start Date End Date Alyssa Hurtado APRN [address] [place] [address] PCP - General Nurse Practitioner 10/26/24 documented as of this encounter
[2024-12-21 15:35] LABS: Hematocrit 30.8 % (37.0-47.0); Hemoglobin 9.7 g/dL (12.2-16.2); Immature Granulocytes % 0.1 %; Mean Corpuscular HGB Conc 31.5 g/dL (31.8-35.4); Mean Corpuscular Hemoglobin 28.9 pg (27.0-31.2); Mean Corpuscular Volume 91.7 fl (81-99); Nucleated Red Blood Cells % 0 %; Platelet Count 342 K/mm3 (142-424); Red Blood Count 3.36 M/mm3 (4.20-5.40); Red Cell Distribution Width-SD 42.4 fL; White Blood Count 7.2 K/mm3 (4.8-10.8)
== END 2024-12-21 23:59 | disposition home or self-care (01) ==
LOC: LAB 14:29
PROVIDERS: PCP Nurse Practitioner; Visit Provider Internal Medicine Pulmonary Disease
DX: J45.909 Unspecified asthma, uncomplicated (principal)
CPT/HCPCS: 36415; 82785; 85025; 86003

== ENCOUNTER 2025-01-08 07:34 | Outpatient (CLI) | payer MEDICARE, SELFPAY ==
--- OUTSIDE RECORDS SUMMARY | 2025-01-08 07:38 | XMS_ITS ---
Care Plan - [facility], [facility] Created on: January 08, 2025 TilleyTracy fierro : 1955 Sex: Female Author Organization [facility] Address [address] [place] [address] Phone Care Team Providers Care Warp Spinner Name Role Phone Elana Gallardo Primary Care Provider [phone] Arnaud FITZPATRICK, [facility] Unavailable [phone]
--- OUTSIDE RECORDS SUMMARY | 2025-01-08 07:38 | XMS_ITS | Clinical Summary ---
[facility] Organization [facility] Address [address] [place] [address] Care Team Providers Care Coverage Specialist Name Role Phone Alyssa Hurtado APRN Primary Care Provider [phone] Allergies No known active allergies Medications potassium [...] - 10/27/2024 5:25 PM EDT Hospital Encounter [address] [address] Abdirahman Storm DO [place], Olivia [...] COLOR FLOW (10/27/2024 12:20 PM EDT) Pathologist [facility] EF(MOD-bp) 61.6 % LVIDd 3.8 [...] of agitated saline was administered. Mary Montgomery HYPERBARIC TECH CV ECHO ORDERABLES Final Result * (ABNORMAL) CBC Auto Differential (10/27/2024 9:53 AM EDT) WBC 12.17(H) 3.40 - 10.80 10*3/mm3 10/27/2024 10:30 AM EDT [facility] RBC 3.79 3.77 - 5.28 10*6/mm3 10/27/2024 10:30 AM EDT [facility] Hemoglobin 10.8(L) 12.0 - 15.9 g/dL 10/27/2024 10:30 AM EDT LAB[facility] Hematocrit 34.4 34.0 - 46.6 % 10/27/2024 10:30 AM EDT [facility] MCV 90.8 79.0 - 97.0 fL 10/27/2024 10:30 AM EDT [facility] MCH 28.5 26.6 - 33.0 pg 10/27/2024 10:30 AM EDT [facility] MCHC 31.4(L) 31.5 - 35.7 g/dL 10/27/2024 10:30 AM EDT [facility] RDW 13.5 12.3 - 15.4 % 10/27/2024 10:30 AM EDT [facility] RDW-SD 44.8 37.0 - 54.0 fl 10/27/2024 10:30 AM EDT [facility] MPV 9.6 6.0 - 12.0 fL 10/27/2024 10:30 AM EDT LAB[facility]ORY Platelets 306 140 - 450 10*3/mm3 10/27/2024 10:30 AM [facility] Neutrophil % 73.1 42.7 - 76.0 % 10/27/2024 10:30 AM [facility] Lymphocyte % 15.5(L) 19.6 - 45.3 % 10/27/2024 10:30 AM [facility] Monocyte % 6.9 5.0 - 12.0 % 10/27/2024 10:30 AM [facility] Eosinophil % 3.2 0.3 - 6.2 % 10/27/2024 10:30 AM [facility] Basophil % 0.7 0.0 - 1.5 % 10/27/2024 10:30 AM [facility] Immature Grans % 0.6(H) 0.0 - 0.5 % 10/27/2024 10:30 AM [facility] Neutrophils, Absolute 8.90(H) 1.70 - 7.00 10*3/mm3 10/27/2024 10:30 AM [facility] Lymphocytes, Absolute 1.89 0.70 - 3.10 10*3/mm3 10/27/2024 10:30 AM [facility] Monocytes, Absolute 0.84 0.10 - 0.90 10*3/mm3 10/27/2024 10:30 AM [facility] Eosinophils, Absolute 0.39 0.00 - 0.40 10*3/mm3 10/27/2024 10:30 AM [facility] Basophils, Absolute 0.08 0.00 - 0.20 10*3/mm3 10/27/2024 10:30 AM [facility] Immature Grans, Absolute 0.07(H) 0.00 - 0.05 10*3/mm3 10/27/2024 10:30 AM [facility] nRBC 0.0 0.0 - 0.2 /100 WBC 10/27/2024 10:30 AM [facility] Blood Venipuncture / Unknown 10/27/2024 9:53 AM EDT 10/27/2024 10:26 AM EDT Abdirahman Storm DO LAB BLOOD ORDERABLES Final Resul t Performing Organization Address [facility] Co de Phone Number LABORATORY
[address] [place] [address], * (ABNORMAL) Hemoglobin A1c (10/27/2024 9:53 AM EDT) Hemoglobin A1C 5.71(H) 4.80 - 5.60 % 10/27/2024 10:51 AM EDT LAB[facility]ORY Blood Venipuncture / Unknown 10/27/2024 9:53 AM EDT 10/27/2024 10:26 AM EDT Narrative LABORATORY - 10/27/2024 10:51 AM EDT Hemoglobin A1C Ranges: Increased Risk for Diabetes 5.7% to 6.4% Diabetes >= 6.5% Diabetic Goal < 7.0% Mary Montgomery APRN LAB BLOOD ORDERABLES Katina l Result Performing Organization Address [facility] Co de Phone Number LABORATORY
[address] [place] [address], * (ABNORMAL) Lipid Panel (10/27/2024 9:53 AM EDT) Total Cholesterol 190 0 - 200 mg/dL 10/27/2024 10:55 AM EDT LABORATORY Triglycerides 301(H) 0 - 150 mg/dL 10/27/2024 10:55 AM EDT LAB[facility]ORY HDL Cholesterol 47 40 - 60 mg/dL 10/27/2024 10:55 AM EDT LABORATORY LDL Cholesterol 93 0 - 100 mg/dL 10/27/2024 10:55 AM EDT LABORATORY VLDL Cholesterol 50(H) 5 - 40 mg/dL 10/27/2024 10:55 AM EDT LABORATORY LDL/HDL Ratio 1.76 10/27/2024 10:55 AM EDT LAB[facility]ORY Blood Venipuncture / Unknown 10/27/2024 9:53 AM EDT 10/27/2024 10:24 AM EDT Narrative LABORATORY - 10/27/2024 10:55 AM EDT Cholesterol [...] APRN LAB BLOOD ORDERABLES Katina shahid Result LABORATORY
[address] [place] [address], * (ABNORMAL) Basic Metabolic Panel (10/27/2024 9:53 AM EDT) Glucose 152(H) 65 - 99 mg/dL 10/27/2024 10:55 AM EDT LABOR[facility]ORY BUN 18.5 8.0 - 23.0 mg/dL 10/27/2024 10:55 AM EDT LABORATORY Creatinine 1.20(H) 0.57 - 1.00 mg/dL 10/27/2024 10:55 AM EDT LABORATORY Sodium 134(L) 136 - 145 mmol/L 10/27/2024 10:55 AM EDT LABORATORY Potassium 4.0 3.5 - 5.2 mmol/L 10/27/2024 10:55 AM EDT LABORATORY Chloride 96(L) 98 - 107 mmol/L 10/27/2024 10:55 AM EDT LABORATORY CO2 27.8 22.0 - 29.0 mmol/L 10/27/2024 10:55 AM EDT LABORATORY Calcium 9.2 8.6 - 10.5 mg/dL 10/27/2024 10:55 AM EDT LABORATORY BUN/Creatinine Ratio 15.4 7.0 - 25.0 10/27/2024 10:55 AM EDT LABORATORY Anion Gap 10.2 5.0 - 15.0 mmol/L 10/27/2024 10:55 AM EDT LABORATORY eGFR 49.7(L) >60.0 mL/min/1.7 3 10/27/2024 10:55 AM EDT LABORATORY Blood Venipuncture / Unknown 10/27/2024 9:53 AM EDT 10/27/2024 10:24 AM EDT [facility] - 10/27/2024 10:55 AM EDT GFR [...] DO LAB BLOOD ORDERABLES Final Resul t LABORATORY
[address] [place] [address], * MRI Brain Without Contrast (10/27/2024 5:09 AM EDT) Anatomical Region Laterality Modality Head, Neck N/A Magnetic Resonan ce 10/27/2024 5:26 AM EDT Impressions 10/27/2024 5:27 AM EDT Impression: 1.No acute intracranial abnormality. 2.Mild chronic small vessel ischemic change. Electronically Signed: David Gallegos MD 10/27/2024 5:27 AM EDT Workstation ID: [id number] Narrative 10/27/2024 5:27 AM EDT MRI BRAIN [...] MD 10/27/2024 5:27 AM EDT Workstation ID: [id number] Mary Montgomery HYPERBARIC TECH IMG MRI ORDERABLES Final Result * POC Glucose Once (10/27/2024 4:35 AM EDT) Only the most recent of2 resultswithin the time period is included. Glucose 112 70 - 130 mg/dL 10/27/2024 4:42 AM EDT LABORATORY Comment:Serial Number: [id number] Blood 10/27/2024 4:35 AM EDT 10/27/2024 4:42 AM EDT Abdirahman Storm DO POINT OF CARE TEST ORDERABLES Fi nal Result LABORATORY
[address] [place] [address], * CT Outside Films (10/26/2024 12:15 AM [...] Of Support Discussed With: Patient Care Teams Coverage Specialist Relationship Specialty Start Date End Date Alyssa Hurtado APRN [address] [place] [phone] PCP - General Nurse Practitioner 10/26/24
--- OUTSIDE RECORDS SUMMARY | 2025-01-08 07:38 | XMS_ITS | Clinical Summary ---
Author Organization [facility] Address [address] [place] [address] Care Team Providers Care Roller Varnisher Name Role Phone Alyssa Hurtado APRN Primary Care Provider [phone] Allergies No known active allergies Medications amLODIPine [...] [facility]-Bone Density Scan 1955 [facility]-Depression Screening 1955 [facility]-/Child/Adol SDOH Screenings 1955 [facility]- SDOH Screenings 1975 [facility]-Adult SDOH Screenings 1975 [facility]-DTaP,Tdap,and Td Vaccines (1 - Tdap) 1976 CT Colonography 2002 Colonoscopy 2002 FIT-DNA 2002 FIT 2002 FOBT 2002 Sigmoidoscopy 2002 [facility]-Colorectal Cancer Screening 2002 [facility]-Pneumococcal Vaccine: 50+ Years (1 of 1 - PCV) 2007 [facility]-Zoster Vaccines (1 of 2) 2007 [id number] Vaccine ( season) 2024 06/16/2021, 07/01/2020, 06/03/2020 [facility]-Influenza Vaccine (#1) 2024 [facility]-RSV Vaccine: 60+ Years or (1 - 1-dose 75+ series) 2032 [facility]-Cervical Cancer Screening Discontinued [facility]-HPV/Cotest Discontinued 12/21/2021, [...] 9:42 AM EDT) Case Report Cytology Case: [id number] Authorizing Provider: Dianne Ocampo APRN Collected: 12/21/2021 0942 Ordering Location: [facility] Gynecology Received: 12/22/2021 0854 First Screen: Ivory Shelton Specimen: ThinPrep Pap Test, Liquid-Based Cervical/Vaginal, CERVICAL/VAGINAL 12/24/2021 1:45 PM EDT [facility] Interpretation NEGATIVE FOR INTRAEPITHELIAL LESION OR MALIGNANCY 12/24/2021 1:45 PM EDT [facility] at 1345 EDT Specimen Adequacy Satisfactory for evaluation; endocervical/burrows sformation zone component present. Slide scanned and imaged by ThinPrep Imaging System with manual review of all selected meraz. 12/24/2021 1:45 PM EDT [facility] Cervical cytology is a screening test [...] results is suggested (please call Microbiology at [phone] for results). 12/24/2021 1:45 PM EDT [facility] Menstrual Status Post-Menopausal 1:45 PM EDT [facility] History of Hysterectomy Not Applicable 12/24/2021 1:45 PM EDT [facility] Contraceptive History Not Applicable 12/24/2021 1:45 PM EDT [facility] Screening Type Previous or Suspected Abnormality 12/24/2021 1:45 PM EDT [facility] HPV Testing Requested? 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 12/24/2021 1:45 PM EDT [facility] Comment:cervical cancer Clinical Information C53.9 - Malignant neoplasm of cervix, unspecified site (CMS/HCC) [ICD-10-CM] 12/24/2021 1:45 PM EDT [facility] Swab Vaginal and cervical cytologic material / Unknown Non-blood Collection / Unknown 12/21/2021 9:42 AM EDT 12/22/2021 8:54 AM EDT us Dainne Ocampo APRN LAB CYTOLOGY ORDERABLES Fi nal Result [facility] [address] [place] [address] from Last 3 Months or Most Recently Relevant to Health Maintenance Insurance ANTH Member Subscriber Plan / Payer (Ef fective 2020-Present) Name:TRACY TILLEY Relation to Subscriber:Spouse Name:NAREN TILLEY Date of :1974 (Home) Address: [address] [place] [address] Payer ID:[id number] (NAIC) Type:Not on file Address: [address] [place] [phone] [employer] Care Teams Roller Varnisher Relationship Specialty Start Date End Date Alyssa Hurtado APRN [address] [place] [address] PCP - General 07/11/20
--- OUTSIDE RECORDS SUMMARY | 2025-01-08 07:39 | XMS_ITS ---
Author Organization [facility] , [facility] Address [address] [place] [address] Phone Care Team Providers Care Chiropractic Physician Name Role Phone Elana Gallardo Primary Care Provider [phone] Arnaud FITZPATRICK, Dakota Unavailable [phone] Problems Includes: Active, inactive, and resolved Problems All Visits Onset Date Resolved Date Provider Condition S tatus Lower Back Pain 05/12/2022 Dakota curtis MD Active Last Documented On 3 1:16PM ; [facility], [facility] Plan of Treatment No Plan of Treatment Recorded Assessments Includes: Assessments for all patient encounters No Assessments Recorded Medical Equipment - Implanted Devices Includes: Current and historical Devices No Medical Equipment Recorded Medications Includes: Current and historical Medications Current Medications (continue as prescribed) Pantoprazole Sodium 40 MG Or al Tablet Delayed Release 04/26/2022 Provider: DEON GALLARDO Diagnosis: Last Documented On 3 1:17PM By Luis Mccullough ; [facility], [facility] QUEtiapine Fumarate 25 MG Oral Tablet 04/26/2022 Pro vider: DEON GALLARDO Diagnosis: Last Documented On 3 1:17PM By Luis Mccullough ; [facility], [facility] Venlafaxine HCl ER 75 MG Ora l Capsule Extended Release 24 Hour 04/26/2022 Provider: DEON GALLARDO Diagnosis: Last Documented On 3 1:17PM By Luis Mccullough ; [facility], [facility] Levothyroxine Sodium 150 MCG Oral Tablet 04/13/2022 Provider: DEON GALLARDO Diagnosis: Last Documented On 3 1:17PM By Luis Mccullough ; [facility], [facility] Albuterol Sulfate HFA 108 (9 0 Base) MCG/ACT Inhalation Aerosol Solution 04/12/2022 Provider: DEON CHE ER Diagnosis: Last Documented On 3 1:17PM By Luis Mccullough ; [facility], [facility] Past Medications on file Nitrofurantoin Monohyd Macro 100 MG Oral Capsule 05/03/2022 - 05/10/2022 Provider: DEON GALLARDO Diagnosis: Last Documented On 3 3:53PM By Dakota Lares ; [facility], [facility] HYDROcodone-Acetaminophen 7. 5-325 MG Oral Tablet 04/23/2022 - 04/30/2022 Provider: DEON GALLARDO Diagnosis: Last Documented On 3 3:52PM By Dakota Lares ; [facility], [facility] Ondansetron HCl 4 MG Oral Tablet 04/23/2022 - 05/01/19 Provider: DEON GALLARDO Diagnosis: Last Documented On 3 3:52PM By Dakota Lares ; [facility], [facility] QUEtiapine Fumarate 25 MG Or al Tablet 2022 - 04/26/2022 Provider: DEON GALLARDO Diagnosis: Last Documented On 3 3:52PM By Dkaota Lares ; [facility], [facility] Medications Administered Includes: Administered Medications in patient's chart No Administered Medications Recorded Results Includes: Results from 01/09/2024 through 01/08/2025 No Results Recorded For Specified Dates History of Present Illness History of Present Illness not supported for this document type No History of Present Illness Recorded Social History Description Last Updated Caffeine use 05/12/2022 Last Documented On 3 3:53PM ; [facility], [facility] Recent change in diet 05/12/2022 Last Documented On 3 3:53PM ; [facility] Tobacco non-user 05/12/2022 Last Documented On 3 3:53PM ; [facility], [facility] Not a current smoker. 05/12/2022 Last Documented On 3 3:53PM ; [facility], [facility] Not exercising regularly 05/12/2022 Last Documented On 3 3:53PM ; [facility] Not using alcohol 05/12/2022 Last Documented On 3 3:53PM ; [facility] Not using drugs 05/12/2022 Last Documented On 3 3:53PM ; [facility] Smoking Status Unknown Medical History Includes: Medical History in patient's chart Description Last Updated History of Anemia 05/12/2022 Last Documented On 3 3:53PM ; [facility] History of arthritis 05/12/2022 Last Documented On 3 3:53PM ; [facility] History of depression 05/12/2022 Last Documented On 3 3:53PM ; [facility] History of diverticulitis of colon 05/12 Last Documented On 3 3:53PM ; [facility] History of Heartburn / Acid Reflux 05/12 Last Documented On 3 3:53PM ; [facility] History of History of Cancer 05/12/2022 Last Documented On 3 3:53PM ; [facility] History of Hypertension 05/12/2022 Last Documented On 3 3:53PM ; [facility] History of Previous Fractures 05/12/2022 Last Documented On 3 3:53PM ; [facility] History of Thyroid Disease 05/12/2022 Last Documented On 3 3:53PM ; [facility] Family History Includes: Family History in patient's chart Description Last Updated Family history of cancer 05/12/2022 Last Documented On 3 3:53PM ; [facility] Family history of rheumatoid arthritis 0 05/12/2022 Last Documented On 3 3:53PM ; [facility] Family history of systemic hypertension 05/12/2022 Last Documented On 3 3:53PM ; [facility] Stroke / Seizures 05/12/2022 Last Documented On 3 3:53PM ; [facility], [facility] Review of Systems Review of Systems not supported for this document type No Review of Systems Recorded Mental Status No Mental Status Recorded Functional Status No Functional Status Recorded Physical Exam Physical Exam not supported for this document type No Physical Exam Recorded Immunizations Includes: Immunizations in patient's chart Vaccine Dose # Date Site Reaction(s) Status Source Influenza 1 05/12/2022 Complete (Refused - Patient objection) [facility] Last Documented On 3 3:53PM ; [facility] PCV (Pneumovax 23) 1 05/12/2022 Complete (Refused - Patient objection) [facility] Last Documented On 3 3:53PM ; [facility] Allergies Includes: Active, inactive, and resolved Allergies Substance Type Reaction Onset Date Resolved Date Statu s Hydrocodone Allergy Nausea, Vomiting 05/12/2022 Active Last Documented On 3 3:48PM ; [facility] Insurance Includes: Active Insurance Policies Plan Name Member ID Group # Subscriber Relationship Effect danny Dates 1 - [employer] ([place] Medicare [id number] Tracy Tilley Self 02/28/2022 - Unknown Clinical Notes Includes: Signed Clinical Notes starting from 02/11/2022 No Clinical Notes Recorded
--- OUTSIDE RECORDS SUMMARY | 2025-01-08 07:39 | XMS_ITS | Clinical Summary ---
Author Organization [facility] Address [address] [place] [address] Phone Care Team Providers Care Monumental Stonemason Name Role Phone Elana Gallardo Primary Care Provider [phone] Arnaud FITZPATRICK, Dakota Unavailable [phone] Reason for Visit and Chief Complaint The Chief Complaint is: Lumbar Pain Problems Includes: Problems addressed during this encounter and other active Problems Current Visit Onset Date Resolved Date Provider Erik rasheed Status Lower Back Pain 05/12/2022 Dakota curtis MD Active Last Documented On 3 1:16PM ; [facility] Plan of Treatment Pending Tests Order Diagnosis Results Due Ordering P rovider Therapy - Physical Therapy Lumbar 05/12/22 Dakota Lares MD Last Documented On 3 3:53PM ; [facility] Assessments Includes: Assessments from this encounter Findings This is a 67-year-old female with lumbar facet arthropathy and low back pain - Last Documented On 05/12/2022 3:53PM ; [facility] We are going to start Ms. Tilley and physical therapy. I told her that if the therapy is not enough we could potentially consider bilateral L3-4 and L4-5 facet joint injections. She think she would like to call and schedule the shots in addition to starting the physical therapy and I think that is fine. She can follow-up with me after the first shot we can consider as part of her work-up towards a radiofrequency ablation. - Last Documented On 05/12/2022 3:53PM ; [facility] Fall Risk Assessment: - Last Documented On 05/12/2022 3:53PM ; [facility] This patient has been identified as a fall risk. Balance/gait along with postural blood pressure, vision and home fall hazards have been assessed. Medications have been reviewed, and recommendations made with regard to contributing factors for future falls. - Last Documented On 05/12/2022 3:53PM ; [facility] Plan of care: Consideration of vitamin D supplementation along with balance and strength training with consideration for formal physical therapy has been discussed with the patient. - Last Documented On 05/12/2022 3:53PM ; [facility] Medical Equipment - Implanted Devices Includes: Current Devices No Medical Equipment Recorded Medications Includes: Medications discussed during this encounter and other current Medications Current Medications (continue as prescribed) Pantoprazole Sodium 40 MG Or al Tablet Delayed Release 04/26/2022 Provider: DEON GALLARDO Diagnosis: Last Documented On 3 1:17PM By Luis Mccullough ; [facility] QUEtiapine Fumarate 25 MG Oral Tablet 04/26/2022 Pro vider: DEON GALLARDO Diagnosis: Last Documented On 3 1:17PM By Luis Mccullough ; [facility] Venlafaxine HCl ER 75 MG Ora l Capsule Extended Release 24 Hour 04/26/2022 Provider: DEON GALLARDO Diagnosis: Last Documented On 3 1:17PM By Luis Mccullough ; [facility] Levothyroxine Sodium 150 MCG Oral Tablet 04/13/2022 Provider: DEON GALLARDO Diagnosis: Last Documented On 3 1:17PM By Luis Mccullough ; [facility] Albuterol Sulfate HFA 108 (9 0 Base) MCG/ACT Inhalation Aerosol Solution 04/12/2022 Provider: DEON CHE ER Diagnosis: Last Documented On 3 1:17PM By Luis Mccullough ; [facility] Medications Administered Includes: Administered Medications from this encounter No Administered Medications Recorded Vital Signs Includes: Vital Signs from this encounter Vital Name 05/12/2022 01:23P Height (in) 66 Weight (lb) 150 Body Mass Index 24.2 Body Surface Area 1.8 Note: bb Last Documented: On 05/12/2022 1:23PM ; [facility] Results Includes: Results discussed during this encounter No Results Recorded For Specified Dates History of Present Illness Includes: History of Present Illness from this encounter HPI Tracy Tilley is a 67 year old female. - Symptoms Catching, giving away and locking Doing nothing and not standing or sitting too long makes pain better Lifting, bending, sitting or lying in bed makes pain worse. - Allergy list reviewed - Problem list reviewed - Medication list reviewed - Previous history of new onset pain 1999 Injury is not work related or an automotive accident - Patient pain level from 1-10: 5 - Yes, previous treatment. - History of Physical Therapy @ [facility] - History of Home Exercise Medications used for this condition: This is a 67-year-old female who is seeing me today as a new patient. She is here predominantly for pain in the lower back. She does say that she has some pain that radiates down both of her legs and goes into both of her calves. It does not go into her feet. The majority of her pain is in her lower back. When I asked her which pain bothers her more the pain in the back of the legs, she indicates that it is her back. She says that this been off and on for 20 years or more but over the last 6 months it is gotten a lot worse. She has seen a physician in the past who recommended gabapentin, it did not help her. Her primary care physician also recommended gabapentin, did not help her. The last few weeks she been walking with a cane because of the pain. She denies any issues with her bowel or bladder. Denies any difficulty with fine motor coordination in the hands. She has a medical history of COPD, has a history of cervical cancer and is status postradiation, history of IBS, GERD, thyroid problems, and hypertension. She is a non-smoker and quit in 2013 when she underwent radiation. Social History Description Last Updated Caffeine use 05/12/2022 Last Documented On 3 3:53PM ; [facility] Recent change in diet 05/12/2022 Last Documented On 3 3:53PM ; [facility] Tobacco non-user 05/12/2022 Last Documented On 3 3:53PM ; [facility] Not a current smoker. 05/12/2022 Last Documented On 3 3:53PM ; [facility] Not exercising regularly 05/12/2022 Last Documented On 3 3:53PM ; [facility] Not using alcohol 05/12/2022 Last Documented On 3 3:53PM ; [facility] Not using drugs 05/12/2022 Last Documented On 3 3:53PM ; [facility] Smoking Status Unknown Procedures and Surgical History Includes: Procedures from this encounter Procedures Code Diagnosis Performing Provider Service L ocation Service Date use of tobacco assessment performed 1000F Last Documented On 3 1:18PM ; [facility] patient screened for future fall risk: documentation of any fall with injury in past year 1100F Last Documented On 3 1:18PM ; [facility] an X-ray was [facility] [id number] Last Documented On 3 3:50PM ; [facility] an MRI was performed [facility]/2022 [facility] [id number] Last Documented On 3 3:50PM ; [facility] Medical History Includes: Medical History addressed during this encounter Description Last Updated History of Anemia 05/12/2022 Last Documented On 3 3:53PM ; [facility] History of arthritis 05/12/2022 Last Documented On 3 3:53PM ; [facility] History of depression 05/12/2022 Last Documented On 3 3:53PM ; [facility] History of diverticulitis of colon 05/12 Last Documented On 3 3:53PM ; [facility] History of Heartburn / Acid Reflux 05/12 Last Documented On 3 3:53PM ; [facility] History of History of Cancer 05/12/2022 Last Documented On 3 3:53PM ; [facility] History of Hypertension 05/12/2022 Last Documented On 3 3:53PM ; [facility] History of Previous Fractures 05/12/2022 Last Documented On 3 3:53PM ; [facility] History of Thyroid Disease 05/12/2022 Last Documented On 3 3:53PM ; [facility] Family History Includes: Family History addressed during this encounter Description Last Updated Family history of cancer 05/12/2022 Last Documented On 3 3:53PM ; [facility] Family history of rheumatoid arthritis 0 05/12/2022 Last Documented On 3 3:53PM ; [facility] Family history of systemic hypertension 05/12/2022 Last Documented On 3 3:53PM ; [facility] Stroke / Seizures 05/12/2022 Last Documented On 3 3:53PM ; [facility] Review of Systems Includes: Review of Systems from this encounter Systemic: Feeling tired. No recent weight loss and no recent weight gain. Head: Headache. No sinus pain. Eyes: No vision problems. Cataracts and Glasses/Contacts. No Glaucoma. Otolaryngeal: No hearing loss and no tinnitus. Cardiovascular: No chest pain or discomfort and no palpitations. Hypertension. No High Cholesterol. Pulmonary: No daytime asthma symptoms. Chronic cough. No wheezing. Gastrointestinal: Heartburn, abdominal pain, Indigestion, and Acid Reflux. No Peptic Ulcer, no GI Stomach Bleed, and no Ulcers. Endocrine: Hot flashes and muscle weakness. No Diabetes, no Hypothyroid, and no Hyperthyroid. Hematologic: No easy bleeding, no tendency for easy bruising, and no Anemia. Musculoskeletal: Arthritis and lower back pain. No soft tissue swelling. Pain localized to one or more joints. Neurological: Dizziness. No convulsions. Numbness. Psychological: Anxiety. No emotional lability. Depression and insomnia. Not crying for no reason. Skin: No dry skin. No Ulcers and no Scars. Rash: Allergic and Immunologic: Complaint of seasonal allergic reaction. Mental Status Includes: Mental Status from this encounter Description Anxiety Functional Status Includes: Functional Status from this encounter No Functional Status Recorded Physical Exam Includes: Physical Exam from this encounter Immunizations Includes: Immunizations addressed during this encounter Vaccine Dose # Date Site Reaction(s) Status Source Influenza 1 05/12/2022 Complete (Refused - Patient objection) [facility] Last Documented On 3 3:53PM ; [facility] PCV (Pneumovax 23) 1 05/12/2022 Complete (Refused - Patient objection) [facility], [facility] Last Documented On 3 3:53PM ; [facility] Allergies Includes: Active Allergies Substance Type Reaction Onset Date Resolved Date Statu s Hydrocodone Allergy Nausea, Vomiting 05/12/2022 Active Last Documented On 3 3:48PM ; [facility], [facility] Encounters Encounter Provider Location Date Check-In Time Check-Out Time Diagnosis Physician Specified Dakota curtis MD [facility] 05/13/19 23 1:15PM 2:10PM Insurance Includes: Active Insurance Policies Plan Name Member ID Group # Subscriber Relationship Effect danny Dates 1 - [employer] [place] Medicare [id number] Tracy Tilley Self 02/28/2022 - Unknown Clinical Notes Includes: Clinical Notes from this encounter * Progress note Date Encounter Last Documented by 05/12/2022 Physician Specified Last documen adam on 05/12/2022; 3:53 PM, Dakota Lares MD; [facility] Active Problems & Conditions - Lower Back Pain Chief Complaint The Chief Complaint is: Lumbar Pain. Referred Here Referred by. History of Present Illness Tracy Tilley is a 67 year old female. - Symptoms Catching, giving away and locking Doing nothing and not standing or sitting too long makes pain better Lifting, bending, sitting or lying in bed makes pain worse. - Allergy list reviewed - Problem list reviewed - Medication list reviewed - Previous history of new onset pain 1999 Injury is not work related or an automotive accident - Patient pain level from 1-10: 5 - Yes, previous treatment. - History of Physical Therapy @ [facility] - History of Home Exercise Medications used for this condition: This is a 67-year-old female who is seeing me today as a new patient. She is here predominantly for pain in the lower back. She does say that she has some pain that radiates down both of her legs and goes into both of her calves. It does not go into her feet. The majority of her pain is in her lower back. When I asked her which pain bothers her more the pain in the back of the legs, she indicates that it is her back. She says that this been off and on for 20 years or more but over the last 6 months it is gotten a lot worse. She has seen a physician in the past who recommended gabapentin, it did not help her. Her primary care physician also recommended gabapentin, did not help her. The last few weeks she been walking with a cane because of the pain. She denies any issues with her bowel or bladder. Denies any difficulty with fine motor coordination in the hands. She has a medical history of COPD, has a history of cervical cancer and is status postradiation, history of IBS, GERD, thyroid problems, and hypertension. She is a non-smoker and quit in 2013 when she underwent radiation. Current Medication - Albuterol Sulfate HFA 108 (90 Base) MCG/ACT Inhalation Aerosol Solution take as directed 25 days, 0 refills - Levothyroxine Sodium 150 MCG Oral Tablet take as directed 30 days, 0 refills - Pantoprazole Sodium 40 MG Oral Tablet Delayed Release take as directed 30 days, 0 refills - QUEtiapine Fumarate 25 MG Oral Tablet take as directed 30 days, 0 refills - Venlafaxine HCl ER 75 MG Oral Capsule Extended Release 24 Hour take as directed 30 days, 0 refills Past Medical/Surgical History Diagnoses: Anemia History of Cancer Heartburn / Acid Reflux Thyroid Disease Hypertension. Diverticulitis of colon. Arthritis. Depression Procedural: - Previous Fractures Social History Not a current smoker. Current diet: Recent change in diet. Caffeine use: Caffeine use. Tobacco use: Tobacco non-user. Alcohol: Not using alcohol. Drug Use: Not using drugs. Habits: Not exercising regularly. Allergies - Hydrocodone Reaction: Nausea, Vomiting Family History Cancer Stroke / Seizures Systemic hypertension Rheumatoid arthritis Review Of Systems Systemic: Feeling tired. No recent weight loss and no recent weight gain. Head: Headache. No sinus pain. Eyes: No vision problems. Cataracts and Glasses/Contacts. No Glaucoma. Otolaryngeal: No hearing loss and no tinnitus. Cardiovascular: No chest pain or discomfort and no palpitations. Hypertension. No High Cholesterol. Pulmonary: No daytime asthma symptoms. Chronic cough. No wheezing. Gastrointestinal: Heartburn, abdominal pain, Indigestion, and Acid Reflux. No Peptic Ulcer, no GI Stomach Bleed, and no Ulcers. Endocrine: Hot flashes and muscle weakness. No Diabetes, no Hypothyroid, and no Hyperthyroid. Hematologic: No easy bleeding, no tendency for easy bruising, and no Anemia. Musculoskeletal: Arthritis and lower back pain. No soft tissue swelling. Pain localized to one or more joints. Neurological: Dizziness. No convulsions. Numbness. Psychological: Anxiety. No emotional lability. Depression and insomnia. Not crying for no reason. Skin: No dry skin. No Ulcers and no Scars. Rash: Allergic and Immunologic: Complaint of seasonal allergic reaction. Physical Findings - Vitals taken 05/12/2022 01:23 pm bb Height 66 in Weight 150 lbs Body Mass Index 24.2 kg/m2 Body Surface Area 1.8 m2 General: Alert and Oriented 3 Focused Musculoskeletal Exam of the Spine: Patient is able to ambulate in the room without assistive device No focal tenderness to palpation in the Lumbar Spine Motor HF KE AD EHL GS Right 5/5 5/5 5/5 5/5 5/5 Left 5/5 5/5 5/5 5/5 5/5 Sensation L2 L3 L4 L5 S1 Right 2 2 2 2 2 Left 2 2 2 2 2 Patellar reflex is 2+ bilaterally Achilles reflex is 2+ bilaterally No ankle clonus Symmetric, palpable posterior tibialis pulse bilaterally Tests X-ray lumbar spine AP, lateral, oblique views from a prior visit were reviewed in the office today There is no obvious fracture or spondylolisthesis MRI lumbar spine I do not really see any compressive pathology from L1 to down to L3-4 At L4-5, there is left greater than right foraminal narrowing but I would call it probably moderate on the left and more mild on the right I do not really see much compressive pathology at L5-S1 User Defined 5 This is a 67-year-old female with lumbar facet arthropathy and low back pain We are going to start Ms. Tilley and physical therapy. I told her that if the therapy is not enough we could potentially consider bilateral L3-4 and L4-5 facet joint injections. She think she would like to call and schedule the shots in addition to starting the physical therapy and I think that is fine. She can follow-up with me after the first shot we can consider as part of her work-up towards a radiofrequency ablation. Fall Risk Assessment: This patient has been identified as a fall risk. Balance/gait along with postural blood pressure, vision and home fall hazards have been assessed. Medications have been reviewed, and recommendations made with regard to contributing factors for future falls. Plan of care: Consideration of vitamin D supplementation along with balance and strength training with consideration for formal physical therapy has been discussed with the patient. Previous Tests Imaging: X-Ray: An X-ray was performed 02/25/2022 [facility] @ [facility]. MRI Scan: An MRI was performed 04/23/2022 [facility] @ [facility]. Vaccinations - Influenza Dose #1 Status: Refused Patient Objection Date: 05/12/2022 - PCV (Pneumovax 23) Dose #1 Status: Refused Patient Objection Date: 05/12/2022 Plan StartCited - Other Therapy/Physical Therapy: Lumbar Instructions: See PT order attached EndCited Practice Management Use of tobacco assessment performed and patient screened for future fall risk documentation of any fall with injury in past year. Care Team - Elana Gallardo Notes This dictation was done with voice recognition software and may contain errors and omissions.
--- OUTSIDE RECORDS SUMMARY | 2025-01-08 07:39 | XMS_ITS | Clinical Summary ---
Author Organization [facility] [place] Address [address] [place] [address] Phone Care Team Providers Care Chief Pilot Name Role Phone Sami Elana Primary Care Provider [phone] Arnaud FITZPATRICK, Dakota Unavailable [phone] Reason for Visit and Chief Complaint facet Problems Includes: Problems addressed during this encounter and other active Problems All Visits Onset Date Resolved Date Provider Condition S tatus Lower Back Pain 05/12/2022 Dakota curtis MD Active Last Documented On 1:16PM ; [facility] Plan of Treatment Diagnosis: Lumbar Facet OA Procedure: Patient presents today for medial branch blocks of the lumbar spine Bilateral L3-4 L4-5 Patient was placed on the fluoroscopy table in a prone position. Skin was prepped with ChloraPrep and skin was anesthetized with 1% lidocaine. appropriate locations of the medial branch nerves were identified under fluoroscopy. And under fluoroscopic guidance a 22-gauge needle was guided down to the medial branch nerves at the above locations. Once in appropriate position injection of 1/2 cc of 0.25 mg of Marcaine was injected at each site. Needle was then withdrawn and sterile bandage was applied. Patient tolerated injection without complications. And patient will follow up in the office of to determine the effectiveness of the injection. Patient's pain relief 10 minutes after the injection is reported at- Left side 80% of pain relief and on the right side the patient is unable to tell the % at this time. - Last Documented On 06/17/2022 8:03AM ; [facility] Assessments Includes: Assessments from this encounter No Assessments Recorded Medical Equipment - Implanted Devices Includes: Current Devices No Medical Equipment Recorded Medications Includes: Medications discussed during this encounter and other current Medications Current Medications (continue as prescribed) Pantoprazole Sodium 40 MG Or al Tablet Delayed Release 04/26/2022 Provider: DEON MARIANO Diagnosis: Last Documented On 3 1:17PM By Luis Mccullough ; [facility] QUEtiapine Fumarate 25 MG Oral Tablet 04/26/2022 Pro vider: DEON MARIANO Diagnosis: Last Documented On 3 1:17PM By Luis Mccullough ; [facility] Venlafaxine HCl ER 75 MG Ora l Capsule Extended Release 24 Hour 04/26/2022 Provider: DEON MARIANO Diagnosis: Last Documented On 3 1:17PM By Luis Mccullough ; [facility] Levothyroxine Sodium 150 MCG Oral Tablet 04/13/2022 Provider: DEON MARIANO Diagnosis: Last Documented On 3 1:17PM By Luis Mccullough ; [facility] Albuterol Sulfate HFA 108 (9 0 Base) MCG/ACT Inhalation Aerosol Solution 04/12/2022 Provider: DEON CHE ER Diagnosis: Last Documented On 3 1:17PM By Luis Mccullough ; [facility] Medications Administered Includes: Administered Medications from this encounter No Administered Medications Recorded Results Includes: Results discussed during this encounter No Results Recorded For Specified Dates History of Present Illness Includes: History of Present Illness from this encounter No History of Present Illness Recorded Social History No Social History Recorded - Smoking Status Unknown Medical History Includes: Medical History addressed during this encounter No Medical History Recorded Family History Includes: Family History addressed during this encounter No Family History Recorded Review of Systems Includes: Review of Systems from this encounter No Review of Systems Recorded Mental Status Includes: Mental Status from this encounter No Mental Status Recorded Functional Status Includes: Functional Status from this encounter No Functional Status Recorded Physical Exam Includes: Physical Exam from this encounter No Physical Exam Recorded Allergies Includes: Active Allergies Substance Type Reaction Onset Date Resolved Date Statu s Hydrocodone Allergy Nausea, Vomiting 05/12/2022 Active Last Documented On 3 3:48PM ; [facility] Encounters Encounter Provider Location Date Check-In Time Check- Out Time Diagnosis facet MATILDA CARLOS PA-C [facility] 3 10:11AM 10:49AM Insurance Includes: Active Insurance Policies Plan Name Member ID Group # Subscriber Relationship Effect danny Dates 1 - [employer] ([place]) Medicare [id number] Tracy Myers 02/28/2022 - Unknown Clinical Notes Includes: Clinical Notes from this encounter * Progress note Date Encounter Last Documented by 06/11/2022 facet Last documented on 06/17/2022; 8:03 AM, MATILDA CARLOS PA-C; [facility] [place] Plan Diagnosis: Lumbar Facet OA Procedure: Patient presents today for medial branch blocks of the lumbar spine Bilateral L3-4 L4-5 Patient was placed on the fluoroscopy table in a prone position. Skin was prepped with ChloraPrep and skin was anesthetized with 1% lidocaine. appropriate locations of the medial branch nerves were identified under fluoroscopy. And under fluoroscopic guidance a 22-gauge needle was guided down to the medial branch nerves at the above locations. Once in appropriate position injection of 1/2 cc of 0.25 mg of Marcaine was injected at each site. Needle was then withdrawn and sterile bandage was applied. Patient tolerated injection without complications. And patient will follow up in the office of to determine the effectiveness of the injection. Patient's pain relief 10 minutes after the injection is reported at- Left side 80% of pain relief and on the right side the patient is unable to tell the % at this time. Notes This dictation was done with voice recognition software and may contain errors and omissions.
[2025-01-08 08:45] VITALS: PULSE 68
[2025-01-08] MEDS: ALBUTEROL 0.083% 2.5 MG/3 ML NEB IH (08:45)
== END 2025-01-08 23:59 | disposition home or self-care (01) ==
LOC: RT 07:37
PROVIDERS: PCP Nurse Practitioner; Visit Provider Internal Medicine Pulmonary Disease
DX: R94.2 Abnormal results of pulmonary function studies (principal); R06.09 Other forms of dyspnea; R06.02 Shortness of breath
CPT/HCPCS: 94060; 94618; 94640; 94726; 94729